=== PATIENT | male | born 1995 | race Caucasian/White ===

== ENCOUNTER 2022-11-29 15:37 | Emergency (ER) | payer SELFPAY ==
[2022-11-29 15:39] VITALS: BP 148/90; PULSE 92; RESP 20; TEMP 36.8; O2SAT 98; BMI 21.9
--- NOTE | 2022-11-29 15:56 | ECG_ITS ---
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
--- NOTE | 2022-11-29 15:58 | ED_ITS ---
HPI - Psych General Chief Complaint: Psychiatric Symptoms Time Seen by Provider: 11/29/22 15:50 Source: Reports patient Mode of arrival: law enforcement Limitations: Reports no limitations History of Present Illness HPI Narrative: 27-year-old male presents to the emergency department for chief complaint of anxiety. He was on his way to a drug treatment center and he threatened to jump out of the car. He arrived at the drug treatment center and police and paramedics were called and he was brought here. He states that he probably has methamphetamine in him. No complaints of fever or chest pain or abdominal pain. These issues seem to have started today. Related Data Allergies Allergy/AdvReac Type Severity Reaction Status Date / Time No Known Drug Allergies Allergy Verified 11/29/22 15:44 Review of Systems ROS Narrative unable to be obtained, psychiatric disorder Exam Narrative Exam Narrative: Nurses note and vital signs reviewed and patient is not hypoxic. General: The patient appears anxious. Skin: Warm, dry, no pallor noted. There is no rash noted. Head: Normocephalic, atraumatic Eye: Normal conjunctiva, no drainage Ears, Nose, Mouth, and Throat: oral mucosa is moist. Nares patent. Cardiovascular: Regular Rate and Rhythm, tachycardic Respiratory: Patient is in no distress, no accessory muscle use, lungs are clear to auscultation, no wheezing, rales or rhonchi Back: non-tender GI: soft and nontender Musculoskeletal: The patient has no evidence of calf tenderness, no pitting edema, symmetrical pulses noted bilaterally Neurological: A&O x4, normal speech, upper and lower extremity strength intact Psychiatric: answers my questions appropriately. Appears anxious. Constitutional Vital Signs - 24 hr 11/29/22 15:39 Temperature 98.2 F Pulse Rate [Monitor] 92 H Respiratory Rate 20 Blood Pressure [Right Arm] 148/90 H Pulse Oximetry 98 Oxygen Delivery Method Room Air Course Vital Signs Vital signs: Vital Signs Temperature 98.2 F 11/29/22 15:39 Pulse Rate 92 H 11/29/22 15:39 Respiratory Rate 20 11/29/22 15:39 Blood Pressure 148/90 H 11/29/22 15:39 Pulse Oximetry 98 11/29/22 15:39 Oxygen Delivery Method Room Air 11/29/22 15:39 Temperature 98.2 F 11/29/22 15:39 Pulse Rate 92 H 11/29/22 15:39 Respiratory Rate 20 11/29/22 15:39 Blood Pressure 148/90 H 11/29/22 15:39 Pulse Oximetry 98 11/29/22 15:39 Oxygen Delivery Method Room Air 11/29/22 15:39 MDM - Psych MDM Narrative Medical decision making narrative: the patient was given IV fluids. He has methamphetamine and amphetamine on his drug screen as well as cannabinoids. P is being consulted and the patient is being observed here. the patient is signed out to Dr. Whittaker Differential Diagnosis Differential diagnosis: Likely suicidal ideation and other (substance abuse) Lab Data Attestation: I reviewed the patient's lab results. Labs: Lab Results 11/29/22 11/29/22 Range/Units 16:15 17:35 WBC 10.0 (4.0-11.0) 10^3/uL RBC 5.23 (4.70-6.10) 10^6/uL Hgb 15.7 (14.0-18.0) g/dL Hct 44.4 (42.0-54.0) % MCV 84.9 (80.0-94.0) fL MCH 30.0 (25.9-34.0) pg MCHC 35.4 H (29.9-35.2) g/dL RDW 12.3 (11.0-15.0) % Plt Count 245 (150-450) 10^3/uL MPV 8.7 L (9.5-13.5) fL Neut % (Auto) 79.0 H (43.0-75.0) % Lymph % (Auto) 13.5 L (20.5-60.0) % [place] % (Auto) 6.7 (1.7-12.0) % Eos % (Auto) 0.3 L (0.9-7.0) % Baso % (Auto) 0.3 (0.2-2.0) % Neut # (Auto) 7.9 H (1.4-6.5) 10^3/uL Lymph # (Auto) 1.4 (1.2-3.8) 10^3/uL [place] # (Auto) 0.7 (0.3-0.8) 10^3/uL Eos # (Auto) 0.0 (0.0-0.7) 10^3/uL Baso # (Auto) 0.0 (0.0-0.1) 10^3/uL Abs Immat Gran (auto) 0.02 (0.00-0.03) 10^3/uL Imm/Tot Granulo (auto) 0.2 (0.0-0.5) % Sodium 139 (136-145) mmol/L Potassium 3.6 (3.5-5.1) mmol/L Chloride 103 (98-107) mmol/L Carbon Dioxide 28.6 (21.0-32.0) mmol/L Anion Gap 11.0 BUN 14.0 (7.0-18.0) mg/dL Creatinine 1.00 (0.70-1.30) mg/dL Est GFR ( Amer) >60 (>=60) Est GFR (Non-Af Amer) >60 (>=60) BUN/Creatinine Ratio 14.0 Glucose 97 (74-106) mg/dL Calcium 9.5 (8.5-10.1) mg/dL Urine Color Yellow (YELLOW) Urine Clarity Clear (CLEAR) Urine pH 7.5 (5.0-9.0) Ur Specific [place] 1.020 (1.005-1.025) Urine Protein Trace (NEG/TRACE) mg/dL Urine Glucose (UA) Negative (NEGATIVE) mg/dL Urine Ketones 15 A (NEGATIVE) mg/dL Urine Occult Blood Negative (NEGATIVE) Urine Nitrite Negative (NEGATIVE) Urine Bilirubin Negative (NEGATIVE) Urine Urobilinogen 1.0 (0.2-1.0) EU/dL Ur Leukocyte Esterase Negative (NEGATIVE) Salicylates 3.0 (<=19.9) mg/dL Urine Opiates Screen Negative (NEGATIVE) Ur Buprenorphine Scrn Negative (NEGATIVE) Ur Oxycodone Screen Negative (NEGATIVE) Urine Methadone Screen Negative (NEGATIVE) Ur Propoxyphene Screen Negative (NEGATIVE) Acetaminophen <2.0 L (10.0-30.0) ug/mL Ur Barbiturates Screen Negative (NEGATIVE) U Tricyclic Antidepress Negative (NEGATIVE) Ur Phencyclidine Scrn Negative (NEGATIVE) Ur Amphetamines Screen Positive A (NEGATIVE) U Methamphetamines Scrn Positive A (NEGATIVE) U Benzodiazepines Scrn Positive A (NEGATIVE) Urine Cocaine Screen Negative (NEGATIVE) U Cannabinoids Screen Positive A (NEGATIVE) Ethanol Quant <3 mg/dL ECG Data Attestation: I personally reviewed and interpreted this ECG as follows: (EKG on my interpretation shows sinus rhythm with a rate of 85.) Discharge Plan Discharge Chief Complaint: Psychiatric Symptoms Clinical Impression: Polysubstance abuse Patient Disposition: Still a Patient Referrals: Physician,Non-Staff, MD [Primary Care Provider] - 1 week
[2022-11-29 16:29] LABS: Basophils Percent Auto 0.3 % (0.2-2.0); Eosinophils Percent Auto 0.3 % (0.9-7.0); Hematocrit 44.4 % (42.0-54.0); Hemoglobin 15.7 g/dL (14.0-18.0); Immature Granulocytes Abs Auto 0.02 10^3/uL (0.00-0.03); Immature Granulocytes Pct Auto 0.2 % (0.0-0.5); Lymphocytes Absolute Auto 1.4 10^3/uL (1.2-3.8); Lymphocytes Percent Auto 13.5 % (20.5-60.0); Mean Corpuscular HGB Conc 35.4 g/dL (29.9-35.2); Mean Corpuscular Volume 84.9 fL (80.0-94.0); Mean Platelet Volume 8.7 fL (9.5-13.5); Monocytes Absolute Auto 0.7 10^3/uL (0.3-0.8); Monocytes Percent Auto 6.7 % (1.7-12.0); Neutrophils Absolute Auto 7.9 10^3/uL (1.4-6.5); Platelet Count 245 10^3/uL (150-450); Red Blood Count 5.23 10^6/uL (4.70-6.10); Red Cell Distribution Width 12.3 % (11.0-15.0)
[2022-11-29] MEDS: 0.9 % SODIUM CHLORIDE 1,000 ML 1000 ML IV (16:34)
[2022-11-29] MEDS: LORAZEPAM 2 MG/ML 1 ML VIAL 1 MG IV ×2 (16:35→18:30)
[2022-11-29 16:44] LABS: Calcium 9.5 mg/dL (8.5-10.1); Carbon Dioxide 28.6 mmol/L (21.0-32.0); Chloride 103 mmol/L (98-107); Estimated GFR (African America >60 (>=60); Estimated GFR (Non-African Ame >60 (>=60); Glucose 97 mg/dL (74-106); Potassium 3.6 mmol/L (3.5-5.1); Sodium 139 mmol/L (136-145)
[2022-11-29 16:54] LABS: Acetaminophen <2.0 ug/mL (10.0-30.0); Ethanol <3 mg/dL
[2022-11-29 18:01] LABS: Bilirubin Urine NEGATIVE (NEGATIVE); Blood Urine NEGATIVE (NEGATIVE); Clarity Urine CLEAR (CLEAR); Color Urine YELLOW (YELLOW); Glucose Urine UA NEGATIVE (NEGATIVE); Ketones Urine 15 mg/dL (NEGATIVE); Leukocyte Esterase Urine NEGATIVE (NEGATIVE); Nitrite Urine NEGATIVE (NEGATIVE); Protein Urine TRACE mg/dL (NEG/TRACE); pH Urine 7.5 (5.0-9.0)
[2022-11-29 18:02] LABS: Urine Microscopic Indicated NO
[2022-11-29 18:11] LABS: Amphetamine Screen Urine POSITIVE (NEGATIVE); Barbiturates Screen Urine NEGATIVE (NEGATIVE); Benzodiazepines Screen Urine POSITIVE (NEGATIVE); Cannabinoid Screen Urine POSITIVE (NEGATIVE); Cocaine Screen Urine NEGATIVE (NEGATIVE); Methadone Screen Urine NEGATIVE (NEGATIVE); Methamphetamines Screen Urine POSITIVE (NEGATIVE); Opiate Screen Urine NEGATIVE (NEGATIVE); Phencyclidine Screen Urine NEGATIVE (NEGATIVE); Tricyclic Antidepressant Urine NEGATIVE (NEGATIVE)
[2022-11-29 18:12] LABS: Buprenorphine Screen Urine NEGATIVE (NEGATIVE); Oxycodone Screen Urine NEGATIVE (NEGATIVE)
--- NOTE | 2022-11-29 18:44 | ED_ITS ---
HPI - Psych General Chief Complaint: Psychiatric Symptoms Time Seen by Provider: 11/29/22 15:50 Source: Reports patient Mode of arrival: law enforcement Limitations: Reports no limitations History of Present Illness HPI Narrative: 27-year-old male presents for thoughts of harming himself. He was on his way to a drug treatment center and was being driven there and tried to jump out of the car but he didn't. Upon arrival of the drug treatment center he expressed thoughts of hurting himself and police were called and paramedics were called and he was brought here. He admits to using methamphetamine. He did not overdose on anything. He has warrants out for his arrest and police accompany him. This occurred just before coming into the emergency department. Related Data Allergies Allergy/AdvReac Type Severity Reaction Status Date / Time No Known Drug Allergies Allergy Verified 11/29/22 15:44 Review of Systems ROS Narrative A ten point review of systems is negative except as noted above. Exam Narrative Exam Narrative: Nurses note and vital signs reviewed and patient is not hypoxic. General: The patient appears anxious. Skin: Warm, dry, no pallor noted. There is no rash noted. Head: Normocephalic, atraumatic Eye: Normal conjunctiva, no drainage Ears, Nose, Mouth, and Throat: oral mucosa is moist. Nares patent. Cardiovascular: Regular Rate and Rhythm, initially tachycardic Respiratory: Patient is in no distress, no accessory muscle use, lungs are clear to auscultation, no wheezing, rales or rhonchi Back: non-tender GI: soft and nontender Musculoskeletal: The patient has no evidence of calf tenderness, no pitting edema, symmetrical pulses noted bilaterally Neurological: A&O x4, normal speech Psychiatric: Cooperative Constitutional Vital Signs - 24 hr 11/29/22 15:39 Temperature 98.2 F Pulse Rate [Monitor] 92 H Respiratory Rate 20 Blood Pressure [Right Arm] 148/90 H Pulse Oximetry 98 Oxygen Delivery Method Room Air Course Vital Signs Vital signs: Vital Signs Temperature 98.2 F 11/29/22 15:39 Pulse Rate 92 H 11/29/22 15:39 Respiratory Rate 20 11/29/22 15:39 Blood Pressure 148/90 H 11/29/22 15:39 Pulse Oximetry 98 11/29/22 15:39 Oxygen Delivery Method Room Air 11/29/22 15:39 Temperature 98.2 F 11/29/22 15:39 Pulse Rate 92 H 11/29/22 15:39 Respiratory Rate 20 11/29/22 15:39 Blood Pressure 148/90 H 11/29/22 15:39 Pulse Oximetry 98 11/29/22 15:39 Oxygen Delivery Method Room Air 11/29/22 15:39 MDM - Psych MDM Narrative Medical decision making narrative: drug screen is positive for methamphetamine and amphetamine and cannabinoids and benzodiazepines. He is medically cleared and mental health services is contacted. The patient is signed out to Dr. Whittaker. Differential Diagnosis Differential diagnosis: Likely suicidal ideation, bipolar disorder, drug-induced psychotic disorder and acute anxiety Lab Data Attestation: I reviewed the patient's lab results. Labs: Lab Results 11/29/22 11/29/22 Range/Units 16:15 17:35 WBC 10.0 (4.0-11.0) 10^3/uL RBC 5.23 (4.70-6.10) 10^6/uL Hgb 15.7 (14.0-18.0) g/dL Hct 44.4 (42.0-54.0) % MCV 84.9 (80.0-94.0) fL MCH 30.0 (25.9-34.0) pg MCHC 35.4 H (29.9-35.2) g/dL RDW 12.3 (11.0-15.0) % Plt Count 245 (150-450) 10^3/uL MPV 8.7 L (9.5-13.5) fL Neut % (Auto) 79.0 H (43.0-75.0) % Lymph % (Auto) 13.5 L (20.5-60.0) % [place] % (Auto) 6.7 (1.7-12.0) % Eos % (Auto) 0.3 L (0.9-7.0) % Baso % (Auto) 0.3 (0.2-2.0) % Neut # (Auto) 7.9 H (1.4-6.5) 10^3/uL Lymph # (Auto) 1.4 (1.2-3.8) 10^3/uL [place] # (Auto) 0.7 (0.3-0.8) 10^3/uL Eos # (Auto) 0.0 (0.0-0.7) 10^3/uL Baso # (Auto) 0.0 (0.0-0.1) 10^3/uL Abs Immat Gran (auto) 0.02 (0.00-0.03) 10^3/uL Imm/Tot Granulo (auto) 0.2 (0.0-0.5) % Sodium 139 (136-145) mmol/L Potassium 3.6 (3.5-5.1) mmol/L Chloride 103 (98-107) mmol/L Carbon Dioxide 28.6 (21.0-32.0) mmol/L Anion Gap 11.0 BUN 14.0 (7.0-18.0) mg/dL Creatinine 1.00 (0.70-1.30) mg/dL Est GFR ( Amer) >60 (>=60) Est GFR (Non-Af Amer) >60 (>=60) BUN/Creatinine Ratio 14.0 Glucose 97 (74-106) mg/dL Calcium 9.5 (8.5-10.1) mg/dL Urine Color Yellow (YELLOW) Urine Clarity Clear (CLEAR) Urine pH 7.5 (5.0-9.0) Ur Specific [place] 1.020 (1.005-1.025) Urine Protein Trace (NEG/TRACE) mg/dL Urine Glucose (UA) Negative (NEGATIVE) mg/dL Urine Ketones 15 A (NEGATIVE) mg/dL Urine Occult Blood Negative (NEGATIVE) Urine Nitrite Negative (NEGATIVE) Urine Bilirubin Negative (NEGATIVE) Urine Urobilinogen 1.0 (0.2-1.0) EU/dL Ur Leukocyte Esterase Negative (NEGATIVE) Salicylates 3.0 (<=19.9) mg/dL Urine Opiates Screen Negative (NEGATIVE) Ur Buprenorphine Scrn Negative (NEGATIVE) Ur Oxycodone Screen Negative (NEGATIVE) Urine Methadone Screen Negative (NEGATIVE) Ur Propoxyphene Screen Negative (NEGATIVE) Acetaminophen <2.0 L (10.0-30.0) ug/mL Ur Barbiturates Screen Negative (NEGATIVE) U Tricyclic Antidepress Negative (NEGATIVE) Ur Phencyclidine Scrn Negative (NEGATIVE) Ur Amphetamines Screen Positive A (NEGATIVE) U Methamphetamines Scrn Positive A (NEGATIVE) U Benzodiazepines Scrn Positive A (NEGATIVE) Urine Cocaine Screen Negative (NEGATIVE) U Cannabinoids Screen Positive A (NEGATIVE) Ethanol Quant <3 mg/dL ECG Data Attestation: I personally reviewed and interpreted this ECG as follows: ( EKG on my interpretation shows sinus rhythm with a rate of 85.) Discharge Plan Discharge Patient Disposition: Still a Patient
--- NOTE | 2022-11-29 20:51 | PC.NURSE ---
pATIENT RESTING, GIVEN WATER, Animal Biologist at bedside
== END 2022-11-29 21:36 ==
PROVIDERS: Emergency Medicine; Emergency Provider Emergency Medicine
DX: R45.851 Suicidal ideations (principal); F19.10 Other psychoactive substance abuse, uncomplicated
CPT/HCPCS: 36415; 80048; 80179; 80307; 80320; 80329; 81003; 85025; 93005; 96374; 96376; 99285

== ENCOUNTER 2023-06-19 23:24 | Emergency (ER) | payer SELFPAY ==
[2023-06-19 23:27] VITALS: BP 140/69; PULSE 92; RESP 18; TEMP 36.9; O2SAT 100; BMI 22.5
--- NOTE | 2023-06-19 23:50 | XR_ITS ---
The [address] [address] Patient Name: ADITYA RICHARDSON MRN: [id number] date: 1995 Sex: M Assigned Patient Location: ER Current Patient Location: ER Accession/Order Number: [id number] Exam Date: 06/19/2023 23:58 Report Date: 06/20/2023 00:51 At the request of: AMY PRIEST Procedure: XR chest 2V CXR HISTORY: Cough COMPARISON: None. TECHNIQUE: 2 view of the chest submitted for review. FINDINGS: The lungs are hyperaerated with increased retrosternal airspace and flattening of the hemidiaphragms. Lines and tubes: None Lungs are hyperaerated. No acute focal infiltrate. No effusion. Cardiomediastinal silhouette within normal limits. Pulmonary vascularity is unremarkable. Osseous structures are normal for age. XR/XR chest 2V IMPRESSION: No plain film evidence for acute cardiopulmonary disease. Electronically authenticated by: CHUCK WARREN Date: 06/20/2023 00:51
--- NOTE | 2023-06-19 23:51 | ED.GENADUL1 ---
HPI - General Adult General Chief complaint: Shortness of Breath/Dyspnea Stated complaint: sob/cough Time Seen by Provider: 06/19/23 23:34 Source: patient Mode of arrival: walk-in Limitations: no limitations History of Present Illness HPI narrative: patient states he has been ill for one week with cough. smokes cigarettes. no fever. no chest pain or nausea. Related Data Home Medications Medication Instructions Recorded Confirmed divalproex 250 mg tablet,extended mg PO 06/19/23 release 24 hr fluoxetine 10 mg capsule mg 06/19/23 olanzapine 5 mg tablet mg 06/19/23 trazodone 50 mg tablet mg 06/19/23 Allergies Allergy/AdvReac Type Severity Reaction Status Date / Time No Known Drug Allergies Allergy Verified 06/19/23 23:27 Review of Systems ROS Status of ROS 10 or more systems reviewed and unremarkable except as noted in history and below [facility] Social History Smoking status: Current some day smoker Exam Constitutional Vital Signs, click to edit/add: Last Vital Signs Temp 98.4 F 06/19/23 23:27 Pulse 92 H 06/19/23 23:27 Resp 18 06/19/23 23:27 BP 140/69 06/19/23 23:27 Pulse Ox 100 06/19/23 23:27 O2 Del Method Room Air 06/19/23 23:27 Common normals: no apparent distress, average body habitus, oriented x3, no limitations, healthy appearing and alert Eye Common normals: EOMs intact bilaterally Respiratory Common normals: normal respiratory effort, no retractions, no use of accessory muscles and clear to auscultation bilaterally Cardio Common normals: regular rate, regular rhythm, S1 normal heart sound and S2 normal heart sound Extremity Common normals: normal to inspection and full ROM Neuro Common normals: oriented x3, CN's II-XII intact bilaterally, moves all extremities and no focal motor deficits Psych Appearance: grossly normal Course Vital Signs Vital signs: Vital Signs Temperature 98.4 F 06/19/23 23:27 Pulse Rate 92 H 06/19/23 23:27 Respiratory Rate 18 06/19/23 23:27 Blood Pressure 140/69 06/19/23 23:27 Pulse Oximetry 100 06/19/23 23:27 Oxygen Delivery Method Room Air 06/19/23 23:27 Temperature 98.4 F 01/12/24 23:27 Pulse Rate 92 H 06/19/23 23:27 Respiratory Rate 18 06/19/23 23:27 Blood Pressure 140/69 06/19/23 23:27 Pulse Oximetry 100 06/19/23 23:27 Oxygen Delivery Method Room Air 06/19/23 23:27 Medical Decision Making MDM Narrative Medical decision making narrative: presents ill for one week with cough and nasal stuffiness. Does smoke cigarettes. Cough is productive and he feels short of breath. No distress on exam. CXray clear and nasal swab neg. Patient informed of the working diagnosis of bronchitis and discharged home with a prescription for zithromax Lab Data Labs: Lab Results 06/20/23 Range/Units 00:00 Adenovirus (PCR) Not detected (NOT DETECTE) C. pneumoniae DNA (PCR) Not detected (NOT DETECTE) Coronavirus Type OC43 Not detected (NOT DETECTE) Coronavirus Type HKU1 Not detected (NOT DETECTE) Coronavirus Type 229E Not detected (NOT DETECTE) Coronavirus Type NL63 Not detected (NOT DETECTE) Human Metapneumovir PCR Not detected (NOT DETECTE) M. pneumoniae (PCR) Not detected (NOT DETECTE) Parainfluenza PCR Not detected (NOT DETECTE) Parainfluenza 2 (PCR) Not detected (NOT DETECTE) Parainfluenza 3 (PCR) Not detected (NOT DETECTE) Parainfluenza 4 (PCR) Not detected (NOT DETECTE) RSV (RT-PCR) Not detected (NOT DETECTE) Entero/Rhino (PCR) Not detected (NOT DETECTE) SARS-CoV-2 (PCR) Not detected (NOT DETECTE) Bordetella pertussis (PCR) Not detected (NOT DETECTE) B parapertussis DNA PCR Not detected (NOT DETECTE) Influenza Type A (PCR) Not detected (NOT DETECTE) Influenza Type B (PCR) Not detected (NOT DETECTE) Imaging Data Chest x-ray: Radiologist's impression: ITS Impressions Chest X-Ray 06/19/23 23:50 IMPRESSION: No plain film evidence for acute cardiopulmonary disease. Electronically authenticated by: CHUCK WARREN Date: 06/20/2023 00:51 Discharge Plan Discharge Chief Complaint: Shortness of Breath/Dyspnea Clinical Impression: Acute bronchitis Patient Disposition: Home, Self-Care Prescriptions / Home Meds: No Action trazodone 50 mg tablet olanzapine 5 mg tablet fluoxetine 10 mg capsule divalproex 250 mg tablet extended release 24 hr PO Instructions: Acute Bronchitis (ED) Stand Alone Forms: Portal Instructions Referrals: Physician,Non-Staff, MD [Primary Care Provider] - 1 week
[2023-06-20 00:10] LABS: Adenovirus NOT DETECTED (NOT DETECTE); Coronavirus 229E NOT DETECTED (NOT DETECTE); Coronavirus HKU1 NOT DETECTED (NOT DETECTE); Coronavirus NL63 NOT DETECTED (NOT DETECTE); Coronavirus OC43 NOT DETECTED (NOT DETECTE); Human Metapneumovirus NOT DETECTED (NOT DETECTE); SARS-CoV-2 NOT DETECTED (NOT DETECTE)
[2023-06-20 00:11] LABS: Bordetella parapertussis NOT DETECTED (NOT DETECTE); Human Rhinovirus/Enterovirus NOT DETECTED (NOT DETECTE); Influenza A NOT DETECTED (NOT DETECTE); Influenza B NOT DETECTED (NOT DETECTE); Mycoplasma pneumoniae NOT DETECTED (NOT DETECTE); Parainfluenza Virus 1 NOT DETECTED (NOT DETECTE); Parainfluenza Virus 2 NOT DETECTED (NOT DETECTE); Parainfluenza Virus 3 NOT DETECTED (NOT DETECTE); Parainfluenza Virus 4 NOT DETECTED (NOT DETECTE); Respiratory Syncytial Virus NOT DETECTED (NOT DETECTE)
[2023-06-20] MEDS: AZITHROMYCIN 250 MG TABLET 500 MG PO (01:13)
== END 2023-06-20 01:26 | disposition home or self-care (01) ==
PROVIDERS: Emergency Provider Internal Medicine
DX: J20.9 Acute bronchitis, unspecified (principal); F17.210 Nicotine dependence, cigarettes, uncomplicated; Z79.899 Other long term (current) drug therapy; Z20.822 Contact with and (suspected) exposure to COVID-19
CPT/HCPCS: 0202U; 71046; 99284

== ENCOUNTER 2023-07-23 13:25 | Emergency (ER) | payer SELFPAY ==
[2023-07-23] VITALS (32 sets, daily range): BP systolic 93–149; BP diastolic 50–93; PULSE 73–138; RESP 12–40; TEMP 36.4; O2SAT 90–100; BMI 29.8
--- NOTE | 2023-07-23 13:44 | ECG_ITS ---
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
--- NOTE | 2023-07-23 13:46 | ED_ITS ---
HPI - Anxiety General Chief Complaint: Anxiety Stated Complaint: ANXIOUSNESS Time Seen by Provider: 07/23/23 13:39 Source: patient Mode of arrival: walk-in Limitations: no limitations History of Present Illness HPI narrative: 27 year old male presents to the ED for anxiety. His anxiety has been getting worse over the past few days. Family states today it became severe. Pt has not been taking his divalproex, fluoxetine, olanzapine, and trazodone for some time now due to financial issues. He has hx anxiety, schizoaffective disorder. Pt denies suicidal ideations. Reports racing thoughts, paranoia, palpitations, SOB. Denies pain. Related Data Home Medications Medication Instructions Recorded Confirmed divalproex 250 mg tablet,extended 250 mg PO DAILY 06/19/23 07/23/23 release 24 hr fluoxetine 10 mg capsule 10 mg PO DAILY 06/19/23 07/23/23 olanzapine 5 mg tablet 10 mg PO DAILY 06/19/23 07/23/23 trazodone 50 mg tablet 100 mg PO BEDTIME 06/19/23 07/23/23 Allergies Allergy/AdvReac Type Severity Reaction Status Date / Time No Known Drug Allergies Allergy Verified 07/23/23 13:31 Review of Systems ROS Constitutional Denies: fever or chills Ears, nose, mouth, and throat Denies: throat pain or neck pain Cardiovascular Reports: palpitations; Denies: chest pain or edema Respiratory Reports: shortness of breath; Denies: cough Gastrointestinal Denies: abdominal pain, nausea, vomiting or diarrhea Musculoskeletal Denies: back pain Integumentary/Breast Denies: rash Neurological Denies: headache, numbness in extremities, weakness in extremities or dizziness Psychiatric Reports: anxiety; Denies: suicidal ideation or homicidal ideation PFSH PFS Social History Smoking status: Current some day smoker Exam Constitutional Vital Signs, click to edit/add: Last Vital Signs Temp 97.6 F 07/23/23 13:31 Pulse 86 07/23/23 18:00 Resp 22 07/23/23 18:00 BP 93/57 07/23/23 17:00 Pulse Ox 97 07/23/23 17:40 O2 Del Method Room Air 07/23/23 13:31 Common normals: no apparent distress and oriented x3 General appearance: cooperative and anxious HENMT Mouth: oral and palatal mucosa normal and lip normal Eye Common normals: PERRL, EOMs intact bilaterally, conjunctivae normal and no scleral icterus Neck & C-Spine Common normals: supple Chest Chest: symmetrical chest wall rise Respiratory Effort & inspection: able to speak in complete sentences, symmetric chest movement and tachypneic Cardio Common normals: regular rhythm Rate: tachycardic Neuro Common normals: oriented x3 Sensorium/orientation: awake and alert Speech: speech normal Psych Attitude: not aggressive Activity/motor behavior: fidgeting and hyperactive Speech: rapid Mood and affect: anxious Thought process: racing thoughts Thought content: no suicidality and no homicidality Course Vital Signs Vital signs: Vital Signs Temperature 97.6 F 07/23/23 13:31 Pulse Rate 127 H 07/23/23 13:31 Respiratory Rate 26 H 07/23/23 13:31 Blood Pressure 149/93 H 07/23/23 13:31 Pulse Oximetry 100 07/23/23 13:31 Oxygen Delivery Method Room Air 07/23/23 13:31 Temperature 97.6 F 07/23/23 13:31 Pulse Rate 86 07/23/23 18:00 Respiratory Rate 22 07/23/23 18:00 Blood Pressure 93/57 07/23/23 17:00 Pulse Oximetry 97 07/23/23 17:40 Oxygen Delivery Method Room Air 07/23/23 13:31 MDM - Anxiety MDM Narrative Medical decision making narrative: The patient was having racing thoughts, paranoia. He appeared anxious. He did became agitated here. He was medicated with Ativan and Haldol with improvement. The patient tested positive for methamphetamines and cannabinoids. He was accepted for transfer at [facility] for further evaluation and treatment. The RN spoke with staff regarding the patient's transfer to the facility. Differential Diagnosis Differential diagnosis: Likely panic disorder and acute anxiety Medical Records Attestation: I reviewed the patient's medical records. Lab Data Attestation: I reviewed the patient's lab results. Labs: Lab Results 07/23/23 07/23/23 07/23/23 Range/Units 14:00 15:28 15:48 WBC 8.3 (4.0-11.0) 10^3/uL RBC 5.07 (4.70-6.10) 10^6/uL Hgb 15.4 (14.0-18.0) g/dL Hct 44.7 (42.0-54.0) % MCV 88.2 (80.0-94.0) fL MCH 30.4 (25.9-34.0) pg MCHC 34.5 (29.9-35.2) g/dL RDW 12.6 (11.0-15.0) % Plt Count 248 (150-450) 10^3/uL MPV 8.9 L (9.5-13.5) fL Neut % (Auto) 72.2 (43.0-75.0) % Lymph % (Auto) 20.9 (20.5-60.0) % [place] % (Auto) 5.8 (1.7-12.0) % Eos % (Auto) 0.2 L (0.9-7.0) % Baso % (Auto) 0.5 (0.2-2.0) % Neut # (Auto) 6.0 (1.4-6.5) 10^3/uL Lymph # (Auto) 1.7 (1.2-3.8) 10^3/uL [place] # (Auto) 0.5 (0.3-0.8) 10^3/uL Eos # (Auto) 0.0 (0.0-0.7) 10^3/uL Baso # (Auto) 0.0 (0.0-0.1) 10^3/uL Abs Immat Gran (auto) 0.03 (0.00-0.03) 10^3/uL Imm/Tot Granulo (auto) 0.4 (0.0-0.5) % Sodium 144 (136-145) mmol/L Potassium 4.6 (3.5-5.1) mmol/L Chloride 107 (98-107) mmol/L Carbon Dioxide 27.0 (21.0-32.0) mmol/L Anion Gap 14.6 BUN 9.0 (7.0-18.0) mg/dL Creatinine 1.22 (0.70-1.30) mg/dL Est GFR ( Amer) >60 (>=60) Est GFR (Non-Af Amer) >60 (>=60) BUN/Creatinine Ratio 7.4 Glucose 104 (74-106) mg/dL Calcium 10.0 (8.5-10.1) mg/dL Urine Color Yellow (YELLOW) Urine Clarity Clear (CLEAR) Urine pH 8.5 (5.0-9.0) Ur Specific [place] 1.020 (1.005-1.025) Urine Protein Trace (NEG/TRACE) mg/dL Urine Glucose (UA) Negative (NEGATIVE) mg/dL Urine Ketones Trace A (NEGATIVE) mg/dL Urine Occult Blood Negative (NEGATIVE) Urine Nitrite Negative (NEGATIVE) Urine Bilirubin Negative (NEGATIVE) Urine Urobilinogen 1.0 (0.2-1.0) EU/dL Ur Leukocyte Esterase Negative (NEGATIVE) Salicylates 3.6 (<=19.9) mg/dL Urine Opiates Screen Negative (NEGATIVE) Ur Buprenorphine Scrn Negative (NEGATIVE) Ur Oxycodone Screen Negative (NEGATIVE) Urine Methadone Screen Negative (NEGATIVE) Acetaminophen <2.0 L (10.0-30.0) ug/mL Ur Barbiturates Screen Negative (NEGATIVE) U Tricyclic Antidepress Negative (NEGATIVE) Ur Phencyclidine Scrn Negative (NEGATIVE) Ur Amphetamines Screen Negative (NEGATIVE) U Methamphetamines Scrn Positive A (NEGATIVE) U Benzodiazepines Scrn Negative (NEGATIVE) Urine Cocaine Screen Negative (NEGATIVE) U Cannabinoids Screen Positive A (NEGATIVE) Ethanol Quant <3 mg/dL SARS-CoV-2 Ag (CV2AG) Negative (NEGATIVE) ECG Data Attestation: ?I have reviewed the pertinent ECG results. (EKG was reviewed by the attending physician. It showed sinus tachycardia at a rate of 129. No acute ST segment changes. ) Interpretation: Measurements Intervals [place] Rate: 129 P: 88 IA: 176 QRS: -69 QRSD: 82 T: 57 QT: 342 QTc: 418 Interpretive Statements 1120 Sinus tachycardia 1969 with occasional ectopic premature complexes 3634 Inferior myocardial infarction, age undetermined 7200 Abnormal left axis deviation 9150 abnormal ECG No previous ECG available for comparison Discharge Plan Discharge Chief Complaint: Anxiety Clinical Impression: Acute paranoia, Anxiety state Patient Disposition: [facility] Time of Disposition Decision: 18:09 Discharge location: [facility] Condition: Good Mode of Transportation: Mental Health Car Discharge Date/Time: 07/23/23 18:06
[2023-07-23 14:13] LABS: Basophils Percent Auto 0.5 % (0.2-2.0); Eosinophils Percent Auto 0.2 % (0.9-7.0); Hematocrit 44.7 % (42.0-54.0); Hemoglobin 15.4 g/dL (14.0-18.0); Immature Granulocytes Abs Auto 0.03 10^3/uL (0.00-0.03); Immature Granulocytes Pct Auto 0.4 % (0.0-0.5); Lymphocytes Absolute Auto 1.7 10^3/uL (1.2-3.8); Lymphocytes Percent Auto 20.9 % (20.5-60.0); Mean Corpuscular HGB Conc 34.5 g/dL (29.9-35.2); Mean Corpuscular Hemoglobin 30.4 pg (25.9-34.0); Mean Corpuscular Volume 88.2 fL (80.0-94.0); Mean Platelet Volume 8.9 fL (9.5-13.5); Monocytes Absolute Auto 0.5 10^3/uL (0.3-0.8); Monocytes Percent Auto 5.8 % (1.7-12.0); Neutrophils Percent Auto 72.2 % (43.0-75.0); Platelet Count 248 10^3/uL (150-450); Red Blood Count 5.07 10^6/uL (4.70-6.10); Red Cell Distribution Width 12.6 % (11.0-15.0); White Blood Count 8.3 10^3/uL (4.0-11.0)
[2023-07-23] MEDS: LORAZEPAM 2 MG/ML 1 ML VIAL IM (14:18)
[2023-07-23 14:31] LABS: Anion Gap 14.6; BUN Creatinine Ratio 7.4; Chloride 107 mmol/L (98-107); Estimated GFR (African America >60 (>=60); Estimated GFR (Non-African Ame >60 (>=60); Glucose 104 mg/dL (74-106); Potassium 4.6 mmol/L (3.5-5.1); Salicylate 3.6 mg/dL (<=19.9); Sodium 144 mmol/L (136-145)
[2023-07-23 14:34] LABS: Acetaminophen <2.0 ug/mL (10.0-30.0)
[2023-07-23] MEDS: HALOPERIDOL LACTATE 5 MG/ML VIAL IM (14:44)
[2023-07-23 14:48] LABS: Ethanol <3 mg/dL
[2023-07-23 15:37] LABS: Bilirubin Urine NEGATIVE (NEGATIVE); Blood Urine NEGATIVE (NEGATIVE); Clarity Urine CLEAR (CLEAR); Color Urine YELLOW (YELLOW); Glucose Urine UA NEGATIVE (NEGATIVE); Ketones Urine TRACE mg/dL (NEGATIVE); Leukocyte Esterase Urine NEGATIVE (NEGATIVE); Nitrite Urine NEGATIVE (NEGATIVE); Protein Urine TRACE mg/dL (NEG/TRACE); pH Urine 8.5 (5.0-9.0)
[2023-07-23 15:54] LABS: Cannabinoid Screen Urine POSITIVE (NEGATIVE); Cocaine Screen Urine NEGATIVE (NEGATIVE); Methamphetamines Screen Urine POSITIVE (NEGATIVE); Opiate Screen Urine NEGATIVE (NEGATIVE); Phencyclidine Screen Urine NEGATIVE (NEGATIVE); Urine Microscopic Indicated NO
[2023-07-23 15:55] LABS: Amphetamine Screen Urine NEGATIVE (NEGATIVE); Barbiturates Screen Urine NEGATIVE (NEGATIVE); Benzodiazepines Screen Urine NEGATIVE (NEGATIVE); Buprenorphine Screen Urine NEGATIVE (NEGATIVE); Methadone Screen Urine NEGATIVE (NEGATIVE); Oxycodone Screen Urine NEGATIVE (NEGATIVE); Tricyclic Antidepressant Urine NEGATIVE (NEGATIVE)
[2023-07-23 16:14] LABS: SARS-CoV-2 Ag NEGATIVE (NEGATIVE)
== END 2023-07-23 18:06 ==
PROVIDERS: Nurse Practitioner Family; Emergency Provider Emergency Medicine
DX: F41.9 Anxiety disorder, unspecified (principal); F25.9 Schizoaffective disorder, unspecified; F22 Delusional disorders; Z20.822 Contact with and (suspected) exposure to COVID-19; R82.5 Elevated urine levels of drugs, medicaments and biological substances; F17.210 Nicotine dependence, cigarettes, uncomplicated; Z79.899 Other long term (current) drug therapy
CPT/HCPCS: 36415; 80048; 80179; 80307; 80320; 80329; 81003; 85025; 87811; 93005; 96372; 99285; J1630; J2060

== ENCOUNTER 2023-08-13 13:15 | Emergency (ER) | payer SELFPAY ==
[2023-08-13] VITALS (8 sets, daily range): BP systolic 130–131; BP diastolic 86–98; PULSE 96–110; RESP 16–28; TEMP 36.5; O2SAT 97–100; BMI 23.7
--- NOTE | 2023-08-13 13:20 | ECG_ITS ---
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
--- NOTE | 2023-08-13 13:31 | ED.OVERDOSE1 ---
HPI - Overdose General Chief Complaint: Overdose Stated Complaint: OVERDOSE Time Seen by Provider: 08/13/23 13:25 Source: patient and other Mode of arrival: ambulance Limitations: no limitations History of Present Illness HPI Narrative: This patient to us by paramedics. Apparently police had received a phone call from a female group home paraprofessional of potential overdose. Local police initiated treatment and gave 2 sequential doses of Narcan. When paramedics arrived they felt it was prudent to administer the third dose of Narcan and at that time the patient started having spontaneous breaths per patient is in woke up. I did review some previous records and he does have a history of polysubstance abuse and psychiatric disease and noncompliance with medications. Approximately a month ago he was transferred to a psychiatric center. It is not clear if they did any type of drug rehab program. Here in the ER he is awake and alert wants to go home and we have encouraged him to stay for a period of observation. He admits to taking drugs today and thinks that they were probably laced. Related Data Home Medications Medication Instructions Recorded Confirmed divalproex 250 mg tablet,extended 250 mg PO DAILY 06/19/23 07/23/23 release 24 hr fluoxetine 10 mg capsule 10 mg PO DAILY 06/19/23 07/23/23 olanzapine 5 mg tablet 10 mg PO DAILY 06/19/23 07/23/23 trazodone 50 mg tablet 100 mg PO BEDTIME 06/19/23 07/23/23 Allergies Allergy/AdvReac Type Severity Reaction Status Date / Time No Known Drug Allergies Allergy Verified 07/23/23 13:31 [facility] Social History Smoking status: Former smoker Exam Constitutional Vital Signs, click to edit/add: Last Vital Signs Temp 97.7 F 08/13/23 13:19 Pulse 102 H 08/13/23 13:19 Resp 22 08/13/23 13:19 BP 130/98 H 08/13/23 13:19 Pulse Ox 100 08/13/23 13:19 O2 Del Method Room Air 08/13/23 13:19 Course Vital Signs Vital signs: Vital Signs Temperature 97.7 F 08/13/23 13:19 Pulse Rate 102 H 08/13/23 13:19 Respiratory Rate 22 08/13/23 13:19 Blood Pressure 130/98 H 08/13/23 13:19 Pulse Oximetry 100 08/13/23 13:19 Oxygen Delivery Method Room Air 08/13/23 13:19 Temperature 97.7 F 08/13/23 13:19 Pulse Rate 102 H 08/13/23 13:19 Respiratory Rate 22 08/13/23 13:19 Blood Pressure 130/98 H 08/13/23 13:19 Pulse Oximetry 100 08/13/23 13:19 Oxygen Delivery Method Room Air 08/13/23 13:19 Discharge Plan Discharge Stand Alone Forms: Portal Instructions Chief Complaint: Overdose Clinical Impression: Overdose Patient Disposition: Home, Self-Care Time of Disposition Decision: 14:05 Prescriptions / Home Meds: No Action trazodone 50 mg tablet 100 mg PO BEDTIME olanzapine 5 mg tablet 10 mg PO DAILY fluoxetine 10 mg capsule 10 mg PO DAILY divalproex 250 mg tablet extended release 24 hr 250 mg PO DAILY Additional Instructions: Consider local rehab programs. Return for any further problems today Referrals: Physician,Non-Staff, MD [Primary Care Provider] - 1 week
== END 2023-08-13 14:18 | disposition home or self-care (01) ==
PROVIDERS: Emergency Provider Emergency Medicine Emergency Medical Services
DX: T50.901A Poisoning by unspecified drugs, medicaments and biological substances, accidental (unintentional), initial encounter (principal); Z87.891 Personal history of nicotine dependence; Z79.899 Other long term (current) drug therapy
CPT/HCPCS: 93005; 99283

== ENCOUNTER 2023-10-28 22:25 | Emergency (ER) | payer SELFPAY ==
--- OUTSIDE RECORDS SUMMARY | 2023-10-28 22:35 | XMS_ITS | CCD ---
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 Model Name Role Phone REQUEST, NONE LISTED Primary Care Unavaila lourdes HARE, DR NINA Frey Attending Unavailabl e ANANYA, DR NINA Frey Consulting Unavailabl e TANKECK, DR NINA Frey Admitting Unavailabl e REQUEST, NONE LISTED Primary Care Unavaila GANESH Hayes Admitting Unavailable PRANAV, DR PRASHANTH Solis Consulting Unavailable GANESH LOVE Attending Unavailable Aditya Weiss Consulting Unavailable GANESH LOVE Consulting Unavailable REQUEST, NONE LISTED Primary Care Unavaila GANESH Hayes Admitting Unavailable GANESH LOVE Attending Unavailable GANESH LOVE Consulting Unavailable NO FAMILY, PHYSICIAN Primary Care Provider Unava AKBAR Santiago Emergency Provider Unavailable Primary Care Provider UnavailOLE Jolly Admitting Unavailable BILLY JOSHI Attending Unavailable CARON ZEE Consulting Unavailable HARDIK GAGNON Consulting Unavailable VINOD MONTANA Consulting Unavailable JANNETH ALVAREZ Consulting Unavaila Harvey De Attending Unavailable Harvey Delgadillo Admitting Unavailable Provider, None Primary Care Unavailable NO FAMILY, PHYSICIAN Primary Care Unavailable Jamie Metcalf Admitting Unavailab Jamie Gould Attending Unavailab le NO FAMILY, PHYSICIAN Primary Care Unavailable Tahir Cnonell Admitting Unavailable Tahir Connell Attending Unavailable NO FAMILY, PHYSICIAN Primary Care Unavailable Jamie Metcalf Admitting Unavailab le Jamie Metcalf Attending Unavailab le Medications Current Medications Medication Drug Class(es) Dates Sig (Normalized) Sig (Original) Acetaminophen (1 source) Start: 02-21-2023 acetaminophen (TYLENOL) tablet 650 mg albuterol 0.833 mg/ml / ipratropium bromide 0.167 mg/ml inhalation solution (2 sources) Anticholinergic, beta2-Adrenergic Agonist Start: 02-22-2023 ipratropium 0.5 mg-albuterol 2.5 mg (DUONEB) nebulizer solution 1 Dose Start: 02-21-2023 End: 02-22-2023 take 1 dose by inhalation every four hours 1 Dose, Inhalation, EVERY 4 HOURS WHILE AWAKE RESP, First dose on 02/21/23 at 2000, Until Discontinued Initiate RT Bronchodilator Protocol: Yes - Inpatient Protocol aspirin 81 mg chewable tablet (2 sources) Platelet Aggregation Inhibitor, Nonsteroidal Anti-inflammatory Drug Start: 02-22-2023 aspirin chewable tablet 81 mg Start: 02-21-2023 End: 02-21-2023 aspirin chewable tablet 324 mg atorvastatin 10 mg oral tablet (1 source) HMG-CoA Reductase Inhibitor Start: 02-22-2023 atorvastatin (LIPITOR) tablet 10 mg doxycycline hyclate 100 mg oral tablet (2 sources) Tetracycline-class Drug Start: 02-23-2023 End: 03-02-2023 take 1 tablet by mouth every twelve hours doxycycline hyclate (VIBRA-TABS) 100 MG tablet Take 1 tablet by mouth every 12 hours for 10 doses 10 tablet 0 02/25/2023 03/02/2023 Active 2 ml fentaNYL 0.05 mg/ml injection (1 source) Opioid Agonist Start: 02-22-2023 fentaNYL (SUBLIMAZE) injection 50 mcg FLUoxetine 10 mg oral capsule (2 sources) Serotonin Reuptake Inhibitor Start: 02-24-2023 FLUoxetine (PROZAC) capsule 10 mg glucagon (rdna) 1 mg injection (1 source) Antihypoglycemic Agent Start: 02-21-2023 glucagon (rDNA) injection 1 mg 1000 ml glucose 100 mg/ml injection (3 sources) Start: 02-21-2023 dextrose 10 % infusion Start: 02-21-2023 dextrose bolus 10% 125 mL Start: 02-21-2023 glucose chewab le tablet 16 g 12 hr guaiFENesin 600 mg extended release oral tablet (2 sources) Start: 02-24-2023 guaiFENesin (M UCINEX) extended release tablet 600 mg Start: 06-13-2021 End: 11-26-2022 take 1 mL by mouth every four hours Guaifenesin Discontinued 10 ML PO Q4H 1 June 13, 2021 1:00am November 26, 2022 7:20pm 24 hr nicotine 0.875 mg/hr transdermal system (3 sources) Cholinergic Nicotinic Agonist Start: 02-26-2023 apply 1 dose transdermal route once daily nicotine (NICODERM CQ) 21 MG/24HR Place 1 patch onto the skin daily 30 patch 3 02/26/2023 Active Start: 02-23-2023 nicotine (YOVANY DERM CQ) 21 MG/24HR 1 patch Start: 06-18-2021 End: 11-26-2022 Nicotine (Polacrilex) Discon tinued 2 MG BUCCAL Q2H June 18, 2021 1:00am November 26, 2022 7:20pm Griffith (No Known Home Meds) (1 source) Start: 11-26-2022 Griffith (No Kn own Home Meds) Active November 26, 2022 12:00am OLANZapine 10 mg oral tablet (4 sources) Atypical Antipsychotic Start: 02-23-2023 OLANZap ine (ZYPREXA) tablet 10 mg Start: 06-13-2021 End: 06-18-2021 take 1 tablet by mouth twice daily Olanzapine (Zyprexa) 5 mg tablet Discontinued 5 MG PO Twice daily June 14, 2021 7:53pm June 18, 2021 1:10pm ondansetron (ZOFRAN-ODT) disintegrating tablet 4 mg (1 source) Start: 02-21-2023 ondansetron (Z OFRAN-ODT) disintegrating tablet 4 mg divalproex sodium 125 mg delayed release oral capsule (3 sources) Mood Stabilizer, Anti-epileptic Agent Start: 02-23-2023 divalproex (DEPAKOTE SPRINKLE) DR capsule 250 mg Start: 06-18-2021 End: 11-26-2022 take 250 mg by mouth twice daily Divalproex Discontinued 250 MG PO Twice daily 60 30 June 18, 2021 1:00am November 26, 2022 7:20pm take 1 tablet by laurie twice daily divalproex (DEPAKOTE) [address] tablet Take 1 tablet by mouth 2 times daily 0 Suspended Completed/Discontinued Medications Medication Drug Class(es) Dates Sig (Normalized) Sig (Original) chlorhexidine gluconate 1.2 mg/ml mouthwash (1 source) Start: 02-21-2023 End: 02-22-2023 chlorhexidine (PERIDEX) 0.12 % solution 15 mL cholecalciferol 1.25 mg oral capsule (1 source) Vitamin D Cholecalciferol (VITAMIN D3) 1.25 MG (26234 UT) CAPS Take 1 capsule by mouth every 7 days 0 Suspended 0.3 ml enoxaparin sodium 100 mg/ml prefilled syringe (1 source) Low Molecular Weight Heparin Start: 02-21-2023 End: 02-22-2023 inject 30 mg by subcutaneous injection twice daily 30 mg, SubCUTAneous, 2 TIMES DAILY, First dose on 02/21/23 at 2100, Until Discontinued Indication of Use: Prophylaxis-DVT/PE Administer by deep subCUTAneous injection with pt lying down. Alternate injection sites on abdominal wall. Do not rub site after injection. Check with provider prior to any invasive procedure. escitalopram 10 mg oral tablet (3 sources) Serotonin Reuptake Inhibitor Start: 06-13-2021 End: 11-26-2022 take 1 tablet by mouth once daily at bedtime Escitalopram Oxalate (Lexapro) 10 mg tablet Discontinued 10 MG PO Daily at bedtime June 18, 2021 1:09pm November 26, 2022 7:20pm famotidine (PEPCID) 20 mg in sodium chloride (PF) 0.9 % 10 mL injection (1 source) Start: 02-21-2023 End: 02-22-2023 famotidine (PEPCID) 20 mg in sodium chloride (PF) 0.9 % 10 mL injection 250 ml heparin sodium, porcine 100 unt/ml injection (3 sources) Unfractionated Heparin, Anti-coagulant Start: 02-22-2023 End: 02-22-2023 heparin (porcine) injection 4,000 Units Start: 02-22-2023 End: 02-23-2023 heparin 25,000 units in dext lucretia 5% 250 mL (premix) infusion Start: 02-22-2023 End: 02-23-2023 heparin (porcine) injection 2,000 Units 24 hr paliperidone 9 mg extended release oral tablet (1 source) Atypical Antipsychotic Start: 06-18-2021 End: 11-26-2022 take 9 mg by mouth once daily at bedtime Paliperidone Discontinued 9 MG PO Daily at bedtime June 18, 2021 1:00am November 26, 2022 7:20pm piperacillin-tazoba ctam (ZOSYN) 3,375 mg in sodium chloride 0.9 % 50 mL IVPB (mini-bag) (2 sources) Start: 02-21-2023 End: 02-23-2023 piperacillin-tazob actam (ZOSYN) 3,375 mg in sodium chloride 0.9 % 50 mL IVPB (mini-bag) Start: 02-21-2023 End: 02-21-2023 piperacillin-tazobactam (ZOS YN) 3,375 mg in sodium chloride 0.9 % 50 mL IVPB (mini-bag) polyethylene glycol 3350 37030 mg powder for oral solution (1 source) Osmotic Laxative Start: 02-21-2023 17 g, Oral, D AILY PRN, Starting on 02/21/23 at 1643, Until Discontinued, Constipation First line therapy for constipation potassium bicarbonate 20 meq effervescent oral tablet (1 source) Start: 02-23-2023 End: 02-23-2023 potassium bicarb-citric acid (EFFER-K) effervescent tablet 20 mEq Start: 02-23-2023 End: 02-23-2023 potassium bicarb-citric acid (EFFER-K) effervescent tablet 20 mEq 100 ml propofol 10 mg/ml injection (1 source) General Anesthetic Start: 02-21-2023 End: 02-22-2023 propofol infusion 1000 ml sodium chloride 9 mg/ml injection (6 sources) Start: 02-21-2023 take 1 dose intravenously twice daily 5-40 mL, IntraVENous, EVERY 12 HOURS SCHEDULED (2 times per day), First dose on 02/21/23 at 2100, Until Discontinued For Line Patency: Peripheral IV = 5 mL; Midline or Central Line = 10 mL/lumen.&nbsp ; If following IV push medication, administer flush at same rate as the IV push. Flush volume is determined by type of infusion therapy being given. For non-viscous solutions use: Peripher al IV = 5 mL Midline or Central Line = 10 mL/lumen &nbs p;For viscous solutions (i.e. blood components, parenteral nutrition, contrast media, or after obtaining blood sample) use: Peripher al IV = 10 mL Midline or Central Line = 20 mL/lumen Start: 02-21-2023 End: 02-25-2023 0.9 % sodium chloride infusi on Start: 02-21-2023 IntraVENous, a t 5-250 mL/hr, PRN, if patient receiving piggyback infusions and maintenance fluids are not ordered OR KVO fluids to protect IV site / prevent frequent line interruptions/ long duration, Starting on 02/21/23 at 1643 For piggyback infusion, administer at same rate as piggyback for a total of 25 mL. Enter 25 mL into dose field and piggyback rate into rate field of order. If piggyback is infusing at a rate less than 100 mL/hr, enter 25 mL into dose field and 100 mL/hr into rate field of order. For KVO fluids, enter rate of 20 mL/hr or less into rate field of order. Start: 02-21-2023 take 5-40 mL intrave nously once as needed 5-40 mL, IntraVENous, PRN, Starting on 02/21/23 at 1643, Until Discontinued, Line Care, After every IV line use For Line Patency: Peripheral IV = 5 mL; Midline or Central Line = 10 mL/lumen. If following IV push medication, administer flush at same rate as the IV push. Flush volume is determined by type of infusion therapy being given. For non-viscous solutions use: Peripheral IV = 5 mL Midline or Central Line = 10 mL/lumen For viscous solutions (i.e. blood components, parenteral nutrition, contrast media, or after obtaining blood sample) use: Peripheral IV = 10 mL Midline or Central Line = 20 mL/lumen Start: 02-21-2023 End: 02-21-2023 sodium chloride 0.9 % bolus 1,000 mL traZODone hydrochloride 50 mg oral tablet (2 sources) Serotonin Reuptake Inhibitor End: 02-25-2023 take 1 tablet by mouth once daily traZODone (DESYREL) 50 MG tablet Take 1 tablet by mouth nightly 0 02/25/2023 Discontinued (Stop Taking at Discharge) vancomycin (VANCOCIN) 1,250 mg in sodium chloride 0.9 % 250 mL IVPB ([id number]) (1 source) Start: 02-22-2023 End: 02-23-2023 vancomycin (VANCOCIN) 1,250 mg in sodium chloride 0.9 % 250 mL IVPB ([id number]) vancomycin (VANCOCIN) 1,500 mg in sodium chloride 0.9 % 250 mL IVPB ([id number]) (1 source) Start: 02-21-2023 End: 02-21-2023 vancomycin (VANCOCIN) 1,500 mg in sodium chloride 0.9 % 250 mL IVPB ([id number]) Problems Active Problems Problem Classification Problem Date Documented Date Episodic/Chronic Acute and unspecified renal failure (4 sources) Acute renal failure syndrome; Translations: [Acute kidney failure, unspecified] Onset: 02-22-2023 02-21-2023 Episodic Acute myocardial infarction (2 sources) Myocardial infarction; Translations: [Non-ST elevation (NSTEMI) myocardial infarction] Onset: 02-23-2023 02-23-2023 Chronic Anxiety disorders (4 sources) Anxiety disorder, unspecified; Translations: [ANXIETY DISORDER UNSPECIFIED] Onset: 06-09-2021 Chronic Aspiration pneumonitis; food/vomitus (4 sources) Aspiration pneumonitis; Translations: [Pneumonitis due to inhalation of food and vomit] Onset: 02-22-2023 02-21-2023 Episodic Asthma (1 source) Asthma; Translations: [Unspecified asthma, uncomplicated] 06-09-2021 Chronic Coma; stupor; and brain damage (2 sources) Loss of consciousness; Translations: [Unspecified coma] Onset: 02-23-2023 02-23-2023 Episodic Fluid and electrolyte disorders (2 sources) Lactic acidosis; Translations: [Lactic acidosis] Onset: 02-22-2023 02-22-2023 Episodic Mood disorders (1 source) Psychotic disorder; Translations: [Major depressive disorder, single episode, severe with psychotic features] 06-10-2021 Chronic Mood disorders (1 source) Mood disorders; Translations: [Depression, unspecified] Onset: 11-29-2022 Other aftercare (1 source) Other intermodal dispatcher (current) drug therapy; Translations: [OTH DYNAMOMETER TESTER ENGINE CURRENT DRUG THERAPY] Onset: 06-17-2021 Episodic Other connective tissue disease (2 sources) Non-traumatic rhabdomyolysis; Translations: [Rhabdomyolysis] Onset: 02-22-2023 02-22-2023 Episodic Other ear and sense organ disorders (2 sources) Asymmetrical sensorineural hearing loss; Translations: [Sensorineural hearing loss, bilateral] Onset: 02-24-2023 02-24-2023 Chronic Other hematologic conditions (3 sources) Raised cardiac enzyme or marker; Translations: [Other specified abnormalities of plasma proteins] Onset: 02-22-2023 02-22-2023 Episodic Other hematologic conditions (1 source) Other specified abnormalities of plasma proteins; Translations: [Other specified abnormalities of plasma proteins] Onset: 02-22-2023 Episodic Other nervous system disorders (2 sources) Disorder of brain; Translations: [Encephalopathy, unspecified] Onset: 02-22-2023 02-22-2023 Chronic Other nervous system disorders (3 sources) Toxic encephalopathy; Translations: [Toxic encephalopathy] Onset: 02-22-2023 02-21-2023 Episodic Poisoning by other medications and drugs (2 sources) Poisoning by unspecified drugs, medicaments and biological substances, undetermined, initial encounter; Translations: [Poisoning by unspecified drug or medicinal substance] Onset: 02-21-2023 02-21-2023 Episodic Residual codes; unclassified (3 sources) Auditory hallucinations; Translations: [AUDITORY HALLUCINATIONS] Onset: 06-14-2021 Episodic Respiratory failure; insufficiency; arrest (adult) (2 sources) Acute respiratory failure; Translations: [Acute respiratory failure with hypoxia] Onset: 02-22-2023 02-22-2023 Episodic Schizophrenia and other psychotic disorders (5 sources) Schizophrenia, unspecified; Translations: [Delusional disorders] Onset: 06-11-2021 11-26-2022 Chronic Substance-related disorders (1 source) Nicotine dependence, cigarettes, uncomplicated; Translations: [NICOTINE DEPEND CIGARETTES UNCOMP] Onset: 06-11-2021 Chronic Suicide and intentional self-inflicted injury (1 source) Suicidal ideations; Translations: [SUICIDAL IDEATIONS] Onset: 06-17-2021 Episodic Unclassified (1 source) CONTACT W/AND (SUSP) EXPOS COVID-19; Translations: [CONTACT W/AND (SUSP) EXPOS COVID-19] Onset: 06-11-2021 Unclassified (1 source) Unspecified toxic encephalopathy; Translations: [Unspecified toxic encephalopathy] Onset: 02-22-2023 Viral infection (1 source) COVID-19; Translations: [Severe acute respiratory syndrome coronavirus 2 (SARS-CoV-2) detected] 06-09-2021 Episodic Viral infection (1 source) COVID-19; Translations: [COVID-19] Onset: 06-17-2021 Past or Other Problems Problem Classification Problem Date Documented Da te Episodic/Chronic Noninfectious gastroenteritis (1 source) Noninfective gastroenteritis and colitis, unspecified; Translations: [NONINFECTIVE GE AND COLITIS UNS] Onset: 08-27-2020 Episodic Other gastrointestinal disorders (3 sources) Constipation, unspecified; Translations: [CONSTIPATION UNSPECIFIED] Onset: 08-22-2020 Episodic Screening and history of mental health and substance abuse codes (1 source) Personal history of nicotine dependence; Translations: [PERSONAL HISTORY OF NICOTINE DEPEND] Onset: 08-27-2020 Episodic Substance-related disorders (3 sources) Narcotic drug user; Translations: [Opioid use, unspecified, uncomplicated] Onset: 11-29-2022 02-23-2023 Episodic Results Test Name Value Interpretation Reference Range Facility Coding Summaryon 03-03-2023 Coding Summary HTMLBase 64 FzlnxwmvPFi8lGr+PGhl YWQ+UZ6WGAVcP67wwWMo fR1jH1CYHIvCYftfODVU TAfMCoOmooQhQQ7xrKVe ZXJu IC8+AB5dQWMsEmyqrXHz u6E0bGA7Z49ozg6dXHkc mPD6NRFzObHjajkup9pr zGo0AEqrZnwrSlPu UXQyfE72PPP8rS54Of25 oOBlaCXyy0cktDn4LlIe EDUhBLR8oTpdDXcze6Wz YFOoS93sjPOui7M7 IGNvbGxhcHNlOyBlbXB0 bB6tPUnmvetoz9tnbtef Knm7yz11eTYdw1T5rXR3 U1RrltQ3XDSycDLo LyffsDJWeT4cpkrpw4lr opfvJrZdDYMqLRb6FUe4 AXViwUbdZkViXF81PLX8 ZJEpdpOsO3SfJXSw xHlmNmV2v0G3Ul0EB5FT WaypU9LIKZKABPqhuRL+ OA33ki59A7HfKsawUlc0 CXRaVXR0xIH9xI0q MRGeOIjcz0Y4yLP5A3Cv amLbff8jb7beVOQqRSte R64lpGMxl3N8PHVbbOT9 HXZzoWrqLlRgpB47 Oyc+TOAffQvue1JqSuav j2rlg0chjHt3IeubEGUv rwFwhOgkQVA2r5NpKg4n JITbyEX4wFT2kM0a JzZyGrO6MSquW585QjTf cGCzEqelY31uC4DgeKY+ QVAyKtb1EGUjkDkdGY9c W8KxWNFnerfnjXPr dBkqGM3bWUJtztcyCCKb kL7aLLKgV7o8BtYjUoY3 TQygP2WxYIXrapomHi42 jY6lJdFiQxU8TDht I6UqcuA7WMDefQBfZPep PMI2G79ll9E0IJHnEXYt MOY1dQG8qA7rfMmjdpef bGVmdDsgdmVydGlj MEfxOCvqS800PMPkuLde PkNvZGluZyBEYXRlOiAg MDkvMjYvMjAyMzwvdGQ+ ITRqOFE9nDxkWGHm nJYcYFkoLx2kxUsxqFhl WY4yNYGmltbiUYKdlD6a EOKbiGPecIugWZ0yTRBd mbvvj363YgIaDEU4 EGYgoAAsI6YpeU4yYaNd BFRoICQlI3NycIXcGXnk R119CWiqCzV4OYWzihYp Z2UjPBClkOodNgT3 s5J3Gc7Uy1RgryvkR1Qm gRVxYfIkJhgrRRy4Z8Aa PjwvdHI+DE40SVRuYY61 VPs1QBY4cCyhPRvi KZIaG3WnmM2ySaFdHCCh ZGRkOyc+PHRhYmxlIHdp ZHRoPScxMDAlJyBzdHls NX5dNg7oQRHfLXEu lOlqyEIxEbVeu7niDJEw SRweOZ7liAfoA2EoaWU0 ISXkf6m6Ob85C89vL2Jd dXA+OFIyyEP6sMQ8 iV2vMjIvIuY4ELdhI697 HqPffTDjRtjes3apd8ek rKn5WhN4SGFvwlWedTvf TBT3d2OlTi37G28j IHdpZHRoPSIxNSUiIHZh nNiksg3wbW4pBl2+PGNv zFO0yHG3lD1yFrVxQgJ4 UZajH834QrOppIVd Odyyw8pav1rjrVl5NoDa GBVduuIvdEdmBUB9x0El Ad70Q0HrwRmvp1OzPwd4 vf57zFYos1O0zVT9 I2UcRHOlhvfkcFDqfFbb BQ5yLQQmeobeKUWesQ9z WXEpX9u9BaGuWqH6QYov R0YjghZ6OUJztUKm ZHUoqBZYwX6tivbhk8zu xnemWzUiUBLhBVo4WIn2 YERzcGbyWrHpUXT8QhR5 IPF7zSLkaI3mnIam ezimpS0qSvx+HEY7hYBs zFCHGM8aKslpgTJ+PHRk PRV8tKjlBPzuBZEsfB8z LHEmL8z8LkLiFmD1 GJnvJ4VrmwG1OSHsrROj XKIniNRWqJ8gvnkmt3ih jgvzStZhLHKkWVn7DMc2 LWFsaWduOiBsZWZ0 OzM1RIC5cDAlcP5hiMbv hcfltK5hJhk+QmlydGgg YTY6KJp9Q3ZzKxy2RCLr eRiyNC4phHEaFGyp Ma0tvCbafIooCR8xHTBv limww431HvKff2erDPAl qAXtTGxpBCJ6Z92oa5Q9 OFBmSAKkNFO9mGS7 tM8czNttfzrqbHOtxGoq xgNxvGuhQLxkXLsbG624 YSKgnBsmLeEvYCv6H5Ud Asm1PCXjqGggME9q hHSvHXslAt0oiNuboNwm UG5fEXLvfiqvm709NmZh j1dqJNNxpVOhETqfHVA8 Q48mw8R5NCMgEYNy NBF5yLU0nG9xiXcssgss bGVmdDsgdmVydGljYWwt BPzrA865WDCucMdvYqQr sKh1A6FeGrd7VCCk aJfdPI2pdCQbKAqrQq7i yIecjXdzXI0oLTWulalj z180AyVic8lsZVArmZWb HOxpSPK1D16av2V0 KGVgHAEkBRB2rGA1eA6d bGlnbjogbGVmdDsgdmVy yRznIPfvJGbrQ458UPEi cDsnPlBhdGllbnQg SYpjQVb7X2JdVlfppST+ GZ36AVByMY32kYIwdTIc f9xgcSp1ChLjMDGsCEJ8 yFqwLKxfw7UcBMSg P71uyLSyb7K6AMMccLtp gPHiZdNqdXO5sS8zKZex yjcvt2slyjbkLfilt0ma wh43aS30G29rCOkg ZHRoPSIzMCUiIHZhbGln ji6usD3aSr1+PGNvbCB3 mNV6fJ8dMRSzNgL7COtk G649EfFklVJyIhty m2xuz4udnSn6HsY5ADZn seSlrHuyUXK1b7LuRp52 S92cXDycVEWvAADmSVGs WPJzmYzxvw6trY4s Ii8+ITMpzCJ0nEO8dA1p WbCrZyP3DRxkV982AwJg jXFiFlfwB60eV6UgsKU+ GJXbRlo2SQEeiXss RC6bqIIbVQynUn6bUIF5 QgNlJyWqUStuO6ZmYHUw tcisouoaaJT9NRLzQGBz zN49Ll5wiIysGIXb sQIAnB2ucjpfd5xlnxrk QbIjHENySBx4AEs9FOMu rVqvPqPoVOS7GzA4YPU3 bLVnzZ5bsSukucdy wY6pT9OgJERmdcrbJq06 lG5aCnNyKmQ3HPsuObn+ QPGGAILoDA3BF2oHNHo3 O1DmZiw8WVQidWua TP4fhGEbAAhwZi7rpYsv tYzeMO0uQMByrtoaNUEn dG7zVHBbeHMtvBymTF7z JLIdtycss369JqCo UYH7VSSngGHrZ4QauH2c QvXbGBDdDDTfS6KvgEJk GNwlL856MXqiEdT6RQBj mjFzT7ElPMGedNiy FcE9r9K5St8fUj7qGV5q VBc3FA16GJ41kJDux7U3 qVG7Q1BxNRMnsmftxjkq yWD8NMZdTUGfsC87 aUDzZXeaHh7vs4L0v464 LXGxBIPiuI69Mh7elJuq COGigFDAyT0dwjciq0hp cjogIzAwMDAwMDt0 LTb4NFGtmHznMzFaQUO4 KpS2TEC7dWPleW4llMkb ofopkK2sUzx+MjggWWVh owU9Y8TeEcp6GEYo hMrvIV5gjICcMEgmDd1g gZqafEyhSI5uMMWpvptq KJIyjR2kNFUhrMHklYik ZB0hLOPtvjiuh221 PzOtRWH8YAQmkLTfW2Fi yT5zQaJtTMNvPIHaA6Bz iBRvNOssW395TDatIrP5 LYYarvVbZ4VwBEKo fLhrDlU3e2S2Re9YDWuD TZ67RF79wPEec5V3zDL0 N1HbYMUocdevumaylXN0 KVJaSSTqfT93sWKf SPtuAj4gj9W8n676PNQk TVIjtV03Ro0onPdgOEAh wGYPiX6nsknvm1xwxszs RmUjTRXgATw3NFz6 BVIhnCfbBqXdCJR8UmR8 NPR2aCGowB7ibVzjnwxh iG6lDce+QX3rtdovqmJ1 HQ71MO03D2LtOmkx dGFibGU+PHRhYmxlIHdp ZHRoPScxMDAlJyBzdHls TU8jJr3oZGByMFTcwYvi qGQsNeXhj4hnPMZb KJczOW2uvUaqO1UluCF5 JJIux4z8Ng39K60eL1Rs dXA+KDNioPU1rCY6oT6y HwIeZuI1WSpfG597 LlUbgPQyYckye9odx3nv xZv0ZzUwTHJndmJkrXtt FKV5f5XwFo55I63aQWbp ZHRoPSIyMCUiIHZh xQjcgw5rxN0sOc5+PGNv uPO8zFB2tL3vBhIfGsJ3 LCwlN605RnDmhXMyXluf H41xD6VtoQI+PHRy Cjo2OYKgfHghGS2fyWHm SRcgXx0mZJC4RhKtNlKd TXruQ8ToBBWhwmexvknq kON3YOUzBEBbnK33 Cj6wbBwsWl7tCZOoNNE9 CMQjxRWuC2VnkM3dJuDj NRLdAILfQ3CiqJTuZArt S904PRloKjH2HYNa piRlE5LuJFPjoIxlBmC5 m5P9Qu8RdAsddFRyFD4f OzHuAXl4L5EsOwp4ENNm kAksYF5juHJmETwr Xq9xhOkkbQdeFN0bAFYj ydiqr125NtSmc7pqWPWq iSGaFAmaWZF6W48ub7H3 FNXhBVEpHDQ5aFJ0 aW1mhQyzvjwztRUwcWjj zzWrwUoeLUefCVvvQ872 LLVngCfeRkSTMhv0B8Hr Zhs6VNEcxLchJR8d vDRiWWqrJm4woPiepSmh NK4bQEYrgztqv207LzAu f1ajJDVdjDIsGVzyWFA8 S31si3T9FDLlAEAu JCM2qAN9xJ4wqWaswnjr bGVmdDsgdmVydGljYWwt QNktP162KIKopUraAi8A Pkf0R3GgFlf5BXVh tNorCN2psLChWBuoSw7s sOirdMcvNW3cBQTmjbsw v616FcSgb2jdTCIlkETa EKfoFZE1M29el3H2 KQIsECNtQSA8nXH5yA8o bGlnbjogbGVmdDsgdmVy fBurRFgdDAfiY117SIUm cDsnPlBheWVyOjwv dGQ+ZW35dp81Z8LeFhhj Nxw8QXXuWCI5zSG0lM0p EGOmXThht6Z9fHZ6Y8Uo gbDmnf2bk5jwNJGl ZTo (more content not included)... Normal [facility] Cult,Bloodon 02-26-2023 Cult,Blood Specimen Description .BLOOD Special Requests RIGHT AC 10ML Culture NO GROWTH 5 DAYS Report Status FINAL 02/26/2023 Normal [facility] Comment on above: Performed By: #### C MPX, ERIKA, CK #### [place] [id number] [employer]: Andrew Walter MD Cult,Blood Specimen Description .BLOOD Special Requests LEFT HAND 10ML Culture NO GROWTH 5 DAYS Report Status FINAL 02/26/2023 Normal [facility] Comment on above: Performed By: #### B C #### [facility] [address] [place] [address] [employer]: Andrew Walter MD CBC with Auto Differentialon 02-25-2023 Basophils (Bld) [#/Vol] [facility] Basophils/100 WBC (Bld) 0 % 0 - 2 % [facility] Eosinophils (Bld) [#/Vol] 0.26 10*3/uL [facility] Eosinophils/100 WBC (Bld) 5 % High 1 - 4 % [facility] Erythrocyte distribution width (RBC) [Ratio] 12.9 % 11.8 - 14.4 % [facility] Hematocrit (Bld) [Volume fraction] 37.0 % Low 40.7 - 50.3 % [facility] Hemoglobin (Bld) [Mass/Vol] 12.2 g/dL Low 13.0 - 17.0 g/dL [facility] Immature granulocytes (Bld) [#/Vol] 0.06 10*3/uL [facility] Immature granulocytes/100 WBC (Bld) 1 % High 0 [facility] Interpretation and review of laboratory results Abnormal [facility] Lymphocytes/100 WBC (Bld) 19 % Low 24 - 43 % [facility] Lymphocytes/100 WBC (Bld) 1.03 % Low [facility] MCH (RBC) [Entitic mass] 30.8 pg 25.2 - 33.5 pg [facility] MCHC (RBC) [Mass/Vol] 33.0 g/dL 28.4 - 34.8 g/dL [facility] MCV (RBC) [Entitic vol] 93.4 fL 82.6 - 102.9 fL [facility] Monocytes/100 WBC (Bld) 8 % 3 - 12 % B ON [facility] Monocytes/100 WBC (Bld) 0.40 % B ON [facility] Neutrophils/100 WBC (Bld) 67 % High 36 - 65 % [facility] Nucleated RBC/100 WBC (Bld) [Ratio] 0.0 % 0.0 per 100 WBC [facility] Platelet mean volume (Bld) [Entitic vol] 9.0 fL 8.1 - 13.5 fL [facility] Platelets (Bld) [#/Vol] 152 10*3/uL [facility] RBC (Bld) [#/Vol] 3.96 10*6/uL Low 4.21 - 5.7 7 m/uL [facility] Segmented neutrophils/100 WBC (Bld) 3.55 % [facility] WBC other (Bld) [#/Vol] 5.3 B ON [facility] CBC with Diffon 02-25-2023 Abs. Basophil <0.03 Normal 0.00-0.20 [facility] Comment on above: Performed By: #### C MPX, ERIKA, CK #### [place] [address] [employer]: Andrew Walter MD Abs.Imm.Granulocyte 0.06 k/uL Normal 0.00-0.30 [facility] Comment on above: Performed By: #### C MPX, ERIKA, CK #### [facility] [address] [place] [phone] [employer]: Andrew Walter MD Abs.Neutrophil (Seg) 3.55 k/uL Normal 1.50-8.10 [facility] Comment on above: Performed By: #### C MPX, ERIKA, CK #### [facility] [address] [place] [address] [employer]: Andrew Walter MD Basophils/100 WBC (Bld) 0 % Normal 0-2 [facility] Comment on above: Performed By: #### C MPX, ERIKA, CK #### [place] [address] [employer]: Andrew Walter MD Eosinophils (Bld) [#/Vol] 0.26 10*3/uL Normal 0.00-0.44 [facility] Comment on above: Performed By: #### C MPX, ERIKA, CK #### [facility] [address] [place] [address] [employer]: Andrew Walter MD Eosinophils/100 WBC (Bld) 5 % High 1-4 [facility] Comment on above: Performed By: #### C MPX, ERIKA, CK #### [facility] [address] [place] [address] [employer]: Andrew Walter MD Erythrocyte distribution width (RBC) [Ratio] 12.9 % Normal 11.8-14.4 [facility] Comment on above: Performed By: #### C MPX, ERIKA, CK #### [facility] [address] [place] [address]884 [employer]: Andrew Walter MD Hematocrit (Bld) [Volume fraction] 37.0 % Low 40.7-50.3 [facility] Comment on above: Performed By: #### C MPX, ERIKA, CK #### [facility] [address] [place] [address] [employer]: Andrew Walter MD Hemoglobin (Bld) [Mass/Vol] 12.2 g/dL Low 13.0-17.0 [facility] Comment on above: Performed By: #### C MPX, ERIKA, CK #### [facility] [address] [place] [address] [employer]: Andrew Walter MD Immature granulocytes/100 WBC (Bld) 1 % High 0 [facility] Comment on above: Performed By: #### C MPX, ERIKA, CK #### [facility] [address] [place] [address] [employer]: Andrew Walter MD Lymphocytes (Bld) [#/Vol] 1.03 10*3/uL Low 1.10-3.70 [facility] Comment on above: Performed By: #### C MPX, ERIKA, CK #### [address] [address] [employer]: Andrew Walter MD Lymphocytes/100 WBC (Bld) 19 % Low 24-43 [facility] Comment on above: Performed By: #### C MPX, ERIKA, CK #### [address] [address] [employer]: Andrew Walter MD MCH (RBC) [Entitic mass] 30.8 pg Normal 25.2-33.5 [facility] Comment on above: Performed By: #### C MPX, ERIKA, CK #### [address] [address] [employer]: Andrew Walter MD MCHC (RBC) [Mass/Vol] 33.0 g/dL Normal 28.4-34.8 [facility] Comment on above: Performed By: #### C MPX, ERIKA, CK #### [address] [address] [employer]: Andrew Walter MD MCV (RBC) [Entitic vol] 93.4 fL Normal 82.6-102.9 [facility] Comment on above: Performed By: #### C MPX, ERIKA, CK #### [address] [address] [employer]: Andrew Walter MD Monocytes (Bld) [#/Vol] 0.40 10*3/uL Normal 0.10-1.20 [facility] Comment on above: Performed By: #### C MPX, ERIKA, CK #### [address] [address] [employer]: Andrew Walter MD Monocytes/100 WBC (Bld) 8 % Normal 3-12 [facility] Comment on above: Performed By: #### C MPX, ERIKA, CK #### [address] [address] [employer]: Andrew Walter MD Neutrophil (Seg) 67 % High 36-65 [facility] Comment on above: Performed By: #### C MPX, ERIKA, CK #### [address] [address] [employer]: Andrew Walter MD NRBC Automated 0.0 per 100 WBC Normal 0.0 [facility] Comment on above: Performed By: #### C MPX, ERIKA, CK #### [address] [address] [employer]: Andrew Walter MD Platelet mean volume (Bld) [Entitic vol] 9.0 fL Normal 8.1-13.5 [facility] Comment on above: Performed By: #### C MPX, ERIKA, CK #### [address] [address] [employer]: Andrew Walter MD Platelets (Bld) [#/Vol] 152 10*3/uL Normal 138-453 [facility] Comment on above: Performed By: #### C MPX, ERIKA, CK #### [address] [address] [employer]: Andrew Walter MD RBC (Bld) [#/Vol] 3.96 10*6/uL Low 4.21-5.77 [facility] Comment on above: Performed By: #### C MPX, ERIKA, CK #### [facility] [address] [place] [address] [employer]: Andrew Walter MD WBC (Bld) [#/Vol] 5.3 10*3/uL Normal 3.5-11.3 [facility] Comment on above: Performed By: #### C MPX, ERIKA, CK #### [address] [address] [employer]: Andrew Walter MD CKon 02-25-2023 CK [Catalytic activity/Vol] 929 U/L High 39 - 308 U/L [facility] Metabolic Pr/rfx MGon 0 02-25-2023 Albumin [Mass/Vol] 3.1 g/dL Low 3.5-5.2 [facility] Comment on above: Performed By: #### H EPXA #### [address] [address] [employer]: Andrew Walter MD Albumin/Glob Ratio 1.3 Normal 1.0-2.5 [facility] Comment on above: Performed By: #### H EPXA #### [address] [address] [employer]: Andrew Walter MD Alkaline Phos 48 U/L Normal 40-129 [facility] Comment on above: Performed By: #### H EPXA #### [address] [address] [employer]: Andrew Walter MD ALT [Catalytic activity/Vol] 28 U/L Normal 5-41 [facility] Comment on above: Performed By: #### H EPXA #### [address] [address] [employer]: Andrew Walter MD Anion gap [Moles/Vol] 9 mmol/L Normal 9-17 [facility] Comment on above: Performed By: #### H EPXA #### [address] [address] [employer]: Andrew Walter MD AST [Catalytic activity/Vol] 40 U/L High <40 [facility] Comment on above: Performed By: #### H EPXA #### [address] [address] [employer]: Andrew Walter MD Bilirubin [Mass/Vol] 0.5 mg/dL Normal 0.3-1.2 [facility] Comment on above: Performed By: #### H EPXA #### [address] [address] [employer]: Andrew Walter MD Calcium [Mass/Vol] 8.4 mg/dL Low 8.6-10.4 [facility] Comment on above: Performed By: #### H EPXA #### [address] [address] [employer]: Andrew Walter MD Chloride [Moles/Vol] 111 mmol/L High 98-107 [facility] Comment on above: Performed By: #### H EPXA #### [address] [address] [employer]: Andrew Walter MD CO2 [Moles/Vol] 23 mmol/L Normal 20-31 [facility] Comment on above: Performed By: #### H EPXA #### [address] [address] [employer]: Andrew Walter MD Creatinine [Mass/Vol] 0.6 mg/dL Low 0.7-1.2 [facility] Comment on above: Performed By: #### H EPXA #### [address] [address] [employer]: Andrew Walter MD GFR/1.73 sq M.predicted among non-blacks MDRD (S/P/Bld) [Vol rate/Area] mL/min/{1.73_m2} Normal >60 [facility] Comment on above: Result Comment: These results are not intended for use in patients <18 years of age. eGFR results are calculated without a race factor using the 2020 CKD-EPI equation. Careful clinical correlation is recommended, particularly when comparing to results calculated using previous equations. The CKD-EPI equation is less accurate in patients with extremes of muscle mass, extra-renal metabolism of creatine, excessive creatine ingestion, or following therapy that affects renal tubular secretion. Performed By: #### H EPXA #### [address] [address] [employer]: Andrew Walter MD Glucose [Mass/Vol] 95 mg/dL Normal 70-99 [facility] Comment on above: Performed By: #### H EPXA #### [address] [address] [employer]: Andrew Walter MD Potassium [Moles/Vol] 3.8 mmol/L Normal 3.7-5.3 [facility] Comment on above: Performed By: #### H EPXA #### [address] [address] [employer]: Andrew Walter MD Protein [Mass/Vol] 5.5 g/dL Low 6.4-8.3 [facility] Comment on above: Performed By: #### H EPXA #### [address] [address] [employer]: Andrew Walter MD Sodium [Moles/Vol] 143 mmol/L Normal 135-144 [facility] Comment on above: Performed By: #### H EPXA #### [address] [address] [employer]: Andrew Walter MD Urea nitrogen [Mass/Vol] 10 mg/dL Normal 6-20 [facility] Comment on above: Performed By: #### H EPXA #### [address] [address] [employer]: Andrew Walter MD [facility] Metabolic Pane l w/ Reflex to MGon 02-25-2023 Albumin [Mass/Vol] 3.1 g/dL Low 3.5 - 5.2 g/dL [facility] [employer] [facility] Albumin/Globulin [Mass ratio] 1.3 {ratio} 1.0 - 2.5 [facility] ALP [Catalytic activity/Vol] 48 U/L 40 - 129 U/L [facility] ALT [Catalytic activity/Vol] 28 U/L 5 - 41 U/L [facility] Anion gap [Moles/Vol] 9 mmol/L 9 - 17 mmol/L [facility] AST [Catalytic activity/Vol] 40 U/L High NINF - 40 U/L [facility] Bilirubin [Mass/Vol] 0.5 mg/dL 0.3 - 1 .2 mg/dL [facility] [employer] Calcium [Mass/Vol] 8.4 mg/dL Low 8.6 - 10. 4 mg/dL [facility] Chloride [Moles/Vol] 111 mmol/L High 98 - 10 7 mmol/L [facility] CO2 [Moles/Vol] 23 mmol/L 20 - 31 mmol/L [facility] Creatinine [Mass/Vol] 0.6 mg/dL Low 0.7 - 1.2 mg/dL [facility] GFR/1.73 sq M.predicted MDRD (S/P/Bld) [Vol rate/Area] - PINF [facility] Comment on above: These results are not intended for use in patients <18 years of age. eGFR results are calculated without a race factor using the 2020 CKD-EPI equation. Careful clinical correlation is recommended, particularly when comparing to results calculated using previous equations. The CKD-EPI equation is less accurate in patients with extremes of muscle mass, extra-renal metabolism of creatine, excessive creatine ingestion, or following therapy that affects renal tubular secretion. Glucose [Mass/Vol] 95 mg/dL 70 - 99 mg/dL [email or web address] Potassium [Moles/Vol] 3.8 mmol/L 3.7 - 5.3 mmol/L [facility] [employer] [facility] Protein [Mass/Vol] 5.5 g/dL Low 6.4 - 8.3 g/dL [facility] Sodium [Moles/Vol] 143 mmol/L 135 - 144 mmol/L [facility] Urea nitrogen [Mass/Vol] 10 mg/dL 6 - 20 mg/dL [facility] Creatine Kinaseon 02-25-2023 CK [Catalytic activity/Vol] 929 U/L High 39-308 [facility] Comment on above: Performed By: #### H EPXA #### [facility] [address] [place] [address] [phone] [employer]: Andrew Walter MD No Panel Informationon 02-25 Interpretation and review of laboratory results Abnormal [facility] SPECIMEN REJECTIONon 023 Ordered Test CDP [facility] Reason for Rejection Unable to perform testing: Specimen clotted. [facility] Specimen source Nom (Unsp spec) .BLOOD [facility] Specimen Rejectionon 023 Reason for rejection Unable to perform testing: Specimen clotted. Normal [facility] Comment on above: Performed By: #### R EJEC #### [facility] [address] [place] [address] [phone] [employer]: Andrew Walter MD Source of sample .BLOOD [facility] Comment on above: Performed By: #### R EJEC #### [facility] [address] [place] [address] [phone] [employer]: Andrew Walter MD Test ordered CDP [facility] Comment on above: Performed By: #### R EJEC #### [facility] [address] [place] [address] [phone] [employer]: Andrew Walter MD CBC with Auto Differentialon 02-24-2023 Basophils (Bld) [#/Vol] B ON [facility] Basophils/100 WBC (Bld) 0 % 0 - 2 % [facility] Eosinophils (Bld) [#/Vol] 0.16 10*3/uL [facility] Eosinophils/100 WBC (Bld) 2 % 1 - 4 % [facility] Erythrocyte distribution width (RBC) [Ratio] 13.1 % 11.8 - 14.4 % [facility] Hematocrit (Bld) [Volume fraction] 40.5 % Low 40.7 - 50.3 % [facility] Hemoglobin (Bld) [Mass/Vol] 12.9 g/dL Low 13.0 - 17.0 g/dL [facility] Immature granulocytes (Bld) [#/Vol] 0.03 10*3/uL [facility] Immature granulocytes/100 WBC (Bld) 0 % 0 [facility] Interpretation and review of laboratory results Abnormal [facility] Lymphocytes/100 WBC (Bld) 13 % Low 24 - 43 % [facility] Lymphocytes/100 WBC (Bld) 1.00 % Low [facility] MCH (RBC) [Entitic mass] 30.6 pg 25.2 - 33.5 pg [facility] MCHC (RBC) [Mass/Vol] 31.9 g/dL 28.4 - 34.8 g/dL [facility] MCV (RBC) [Entitic vol] 96.0 fL 82.6 - 102.9 fL [facility] Monocytes/100 WBC (Bld) 7 % 3 - 12 % [facility] Monocytes/100 WBC (Bld) 0.52 % [facility] Neutrophils/100 WBC (Bld) 77 % High 36 - 65 % [facility] Nucleated RBC/100 WBC (Bld) [Ratio] 0.0 % 0.0 per 100 WBC [facility] Platelet mean volume (Bld) [Entitic vol] 9.2 fL 8.1 - 13.5 fL [facility] Platelets (Bld) [#/Vol] 156 10*3/uL [facility] RBC (Bld) [#/Vol] 4.22 10*6/uL 4.21 - 5.7 7 m/uL [facility] Segmented neutrophils/100 WBC (Bld) 5.93 % [facility] WBC other (Bld) [#/Vol] 7.7 [facility] CBC with Diffon 02-24-2023 Abs. Basophil <0.03 Normal 0.00-0.20 [facility] Comment on above: Performed By: #### C MPX, CDP, MG, ERIKA, CK #### [place] [address] [employer]: Andrew Walter MD Abs.Imm.Granulocyte 0.03 k/uL Normal 0.00-0.30 [facility] Comment on above: Performed By: #### C MPX, CDP, MG, ERIKA, CK #### [place] [address] [employer]: Andrew Walter MD Abs.Neutrophil (Seg) 5.93 k/uL Normal 1.50-8.10 [facility] Comment on above: Performed By: #### C MPX, CDP, MG, ERIKA, CK #### [place] [address] [employer]: Andrew Walter MD Basophils/100 WBC (Bld) 0 % Normal 0-2 [facility] Comment on above: Performed By: #### C MPX, CDP, MG, ERIKA, CK #### [place] [address] [employer]: Andrew Walter MD Eosinophils (Bld) [#/Vol] 0.16 10*3/uL Normal 0.00-0.44 [facility] Comment on above: Performed By: #### C MPX, CDP, MG, ERIKA, CK #### [address] [address] [employer]: Andrew Walter MD Eosinophils/100 WBC (Bld) 2 % Normal 1-4 [facility] Comment on above: Performed By: #### C MPX, CDP, MG, ERIKA, CK #### [address] [address] [employer]: Andrew Walter MD Erythrocyte distribution width (RBC) [Ratio] 13.1 % Normal 11.8-14.4 [facility] Comment on above: Performed By: #### C MPX, CDP, MG, ERIKA, CK #### [place] [address] [employer]: Andrew Walter MD Hematocrit (Bld) [Volume fraction] 40.5 % Low 40.7-50.3 [facility] Comment on above: Performed By: #### C MPX, CDP, MG, ERIKA, CK #### [place] [address] [employer]: Andrew Walter MD Hemoglobin (Bld) [Mass/Vol] 12.9 g/dL Low 13.0-17.0 [facility] Comment on above: Performed By: #### C MPX, CDP, MG, ERIKA, CK #### [place] [address] [employer]: Andrew Walter MD Immature granulocytes/100 WBC (Bld) 0 % Normal 0 [facility] Comment on above: Performed By: #### C MPX, CDP, MG, ERIKA, CK #### [place] [address] [employer]: Andrew Walter MD Lymphocytes (Bld) [#/Vol] 1.00 10*3/uL Low 1.10-3.70 [facility] Comment on above: Performed By: #### C MPX, CDP, MG, ERIKA, CK #### [place] [address] [employer]: Andrew Walter MD Lymphocytes/100 WBC (Bld) 13 % Low 24-43 [facility] Comment on above: Performed By: #### C MPX, CDP, MG, ERIKA, CK #### [address] [address] [employer]: Andrew Walter MD MCH (RBC) [Entitic mass] 30.6 pg Normal 25.2-33.5 [facility] Comment on above: Performed By: #### C MPX, CDP, MG, ERIKA, CK #### [address] [address] [employer]: Andrew Walter MD MCHC (RBC) [Mass/Vol] 31.9 g/dL Normal 28.4-34.8 [facility] Comment on above: Performed By: #### C MPX, CDP, MG, ERIKA, CK #### [address] [address] [employer]: Andrew Walter MD MCV (RBC) [Entitic vol] 96.0 fL Normal 82.6-102.9 [facility] Comment on above: Performed By: #### C MPX, CDP, MG, ERIKA, CK #### [address] [address] [employer]: Andrew Walter MD Monocytes (Bld) [#/Vol] 0.52 10*3/uL Normal 0.10-1.20 [facility] Comment on above: Performed By: #### C MPX, CDP, MG, ERIKA, CK #### [address] [address] [employer]: Andrew Walter MD Monocytes/100 WBC (Bld) 7 % Normal 3-12 [facility] Comment on above: Performed By: #### C MPX, CDP, MG, ERIKA, CK #### [address] [address] [employer]: Andrew Walter MD Neutrophil (Seg) 77 % High 36-65 [facility] Comment on above: Performed By: #### C MPX, CDP, MG, ERIKA, CK #### [address] [address] [employer]: Andrew Walter MD NRBC Automated 0.0 per 100 WBC Normal 0.0 [facility] Comment on above: Performed By: #### C MPX, CDP, MG, ERIKA, CK #### [address] [address] [employer]: Andrew Walter MD Platelet mean volume (Bld) [Entitic vol] 9.2 fL Normal 8.1-13.5 [facility] Comment on above: Performed By: #### C MPX, CDP, MG, ERIKA, CK #### [address] [address] [employer]: Andrew Walter MD Platelets (Bld) [#/Vol] 156 10*3/uL Normal 138-453 [facility] Comment on above: Performed By: #### C MPX, CDP, MG, ERIKA, CK #### [address] [address] [employer]: Andrew Walter MD RBC (Bld) [#/Vol] 4.22 10*6/uL Normal 4.21-5.77 [facility] Comment on above: Performed By: #### C MPX, CDP, MG, ERIKA, CK #### [address] [address] [employer]: Andrew Walter MD WBC (Bld) [#/Vol] 7.7 10*3/uL Normal 3.5-11.3 [facility] Comment on above: Performed By: #### C MPX, CDP, MG, ERIKA, CK #### [address] [address] [employer]: Andrew Walter MD CKon 02-24-2023 CK [Catalytic activity/Vol] 1713 U/L High 39 - 308 U/L [facility] Interpretation and review of laboratory results Abnormal [facility] Comp Metabolic Pr/rfx MGon 0 02-24-2023 Potassium [Moles/Vol] 3.5 mmol/L Low 3.7-5.3 [facility] Comment on above: Performed By: #### R EJEC #### [facility] [address] [place] [address] [employer]: Andrew Walter MD Albumin [Mass/Vol] 3.2 g/dL Low 3.5-5.2 [facility] Comment on above: Performed By: #### R EJEC #### [facility] [address] [place] [address] [employer]: Andrew Walter MD Albumin/Glob Ratio 1.3 Normal 1.0-2.5 [facility] Comment on above: Performed By: #### R EJEC #### [address] [address] [employer]: Andrew Walter MD Alkaline Phos 45 U/L Normal 40-129 [facility] Comment on above: Performed By: #### R EJEC #### [facility] [address] [place] [address] [employer]: Andrew Walter MD ALT [Catalytic activity/Vol] 33 U/L Normal 5-41 [facility] Comment on above: Performed By: #### R EJEC #### [facility] [address] [place] [phone] [employer]: Andrwe Walter MD Anion gap [Moles/Vol] 8 mmol/L Low 9-17 [facility] Comment on above: Performed By: #### R EJEC #### [facility] [address] [place] [address] [phone] [employer]: Andrew Walter MD AST [Catalytic activity/Vol] 57 U/L High <40 [facility] Comment on above: Performed By: #### R EJEC #### [address] [address] [employer]: Andrew Walter MD Bilirubin [Mass/Vol] 0.6 mg/dL Normal 0.3-1.2 [facility] Comment on above: Performed By: #### R EJEC #### [address] [address] [employer]: Andrew Walter MD Calcium [Mass/Vol] 8.3 mg/dL Low 8.6-10.4 [facility] Comment on above: Performed By: #### R EJEC #### [address] [address] [employer]: Andrew Walter MD Chloride [Moles/Vol] 112 mmol/L High 98-107 [facility] Comment on above: Performed By: #### R EJEC #### [address] [address] [employer]: Andrew Walter MD CO2 [Moles/Vol] 24 mmol/L Normal 20-31 [facility] Comment on above: Performed By: #### R EJEC #### [address] [address] [employer]: Andrew Walter MD Creatinine [Mass/Vol] 0.8 mg/dL Normal 0.7-1.2 [facility] Comment on above: Performed By: #### R EJEC #### [address] [address] [employer]: Andrew Walter MD GFR/1.73 sq M.predicted among non-blacks MDRD (S/P/Bld) [Vol rate/Area] mL/min/{1.73_m2} Normal >60 [facility] Comment on above: Result Comment: These results are not intended for use in patients <18 years of age. eGFR results are calculated without a race factor using the 2020 CKD-EPI equation. Careful clinical correlation is recommended, particularly when comparing to results calculated using previous equations. The CKD-EPI equation is less accurate in patients with extremes of muscle mass, extra-renal metabolism of creatine, excessive creatine ingestion, or following therapy that affects renal tubular secretion. Performed By: #### R EJEC #### [facility] [address] [place] [address] [employer]: Andrew Walter MD Glucose [Mass/Vol] 97 mg/dL Normal 70-99 [facility] Comment on above: Performed By: #### R EJEC #### [address] [address] [employer]: Andrew Walter MD Protein [Mass/Vol] 5.6 g/dL Low 6.4-8.3 [facility] Comment on above: Performed By: #### R EJEC #### [address] [address] [employer]: Andrew Walter MD Sodium [Moles/Vol] 144 mmol/L Normal 135-144 [facility] Comment on above: Performed By: #### R EJEC #### [facility] [address] [place] [address] [employer]: Andrew Walter MD Urea nitrogen [Mass/Vol] 11 mg/dL Normal 6-20 [facility] Comment on above: Performed By: #### R EJEC #### [address] [address] [employer]: Andrew Walter MD Comprehensive Metabolic Pane l w/ Reflex to MGon 02-24-2023 Albumin [Mass/Vol] 3.2 g/dL Low 3.5 - 5.2 g/dL [facility] Albumin/Globulin [Mass ratio] 1.3 {ratio} 1.0 - 2.5 [facility] ALP [Catalytic activity/Vol] 45 U/L 40 - 129 U/L [facility] ALT [Catalytic activity/Vol] 33 U/L 5 - 41 U/L [facility] Anion gap [Moles/Vol] 8 mmol/L Low 9 - 17 mmol/L [facility] AST [Catalytic activity/Vol] 57 U/L High NINF - 40 U/L [facility] Bilirubin [Mass/Vol] 0.6 mg/dL 0.3 - 1 .2 mg/dL [facility] Calcium [Mass/Vol] 8.3 mg/dL Low 8.6 - 10. 4 mg/dL [facility] Chloride [Moles/Vol] 112 mmol/L High 98 - 10 7 mmol/L [facility] CO2 [Moles/Vol] 24 mmol/L 20 - 31 mmol/L [facility] Creatinine [Mass/Vol] 0.8 mg/dL 0.7 - 1.2 mg/dL [facility] GFR/1.73 sq M.predicted MDRD (S/P/Bld) [Vol rate/Area] - PINF [facility] Comment on above: These results are not intended for use in patients <18 years of age. eGFR results are calculated without a race factor using the 2020 CKD-EPI equation. Careful clinical correlation is recommended, particularly when comparing to results calculated using previous equations. The CKD-EPI equation is less accurate in patients with extremes of muscle mass, extra-renal metabolism of creatine, excessive creatine ingestion, or following therapy that affects renal tubular secretion. Glucose [Mass/Vol] 97 mg/dL 70 - 99 mg/dL [facility] Interpretation and review of laboratory results Abnormal [facility] Potassium [Moles/Vol] 3.5 mmol/L Low 3.7 - 5.3 mmol/L [facility] Protein [Mass/Vol] 5.6 g/dL Low 6.4 - 8.3 g/dL [facility] Sodium [Moles/Vol] 144 mmol/L 135 - 144 mmol/L [facility] Urea nitrogen [Mass/Vol] 11 mg/dL 6 - 20 mg/dL [facility] Creatine Kinaseon 02-24-2023 CK [Catalytic activity/Vol] 1713 U/L High 39-308 [facility] Comment on above: Performed By: #### R EJEC #### [facility] [address] [place], [place] [phone] [employer]: Andrew Walter MD Magnesiumon 02-24-2023 Magnesium [Mass/Vol] 2.0 mg/dL Normal 1.6-2.6 [facility] Comment on above: Performed By: #### R EJEC #### [facility] Care [address] [place], [place] [id number] [employer]: Andrew Walter MD Magnesium [Mass/Vol] 2.0 mg/dL 1.6 - 2 .6 mg/dL [facility] Myoglobinon 02-24-2023 Myoglobin [Mass/Vol] 67 ng/mL Normal 28-72 [facility] Comment on above: Performed By: #### R EJEC #### [facility] [address] [place] [address] [phone] [employer]: Andrew Walter MD Myoglobin, Bloodon Myoglobin [Mass/Vol] 67 ng/mL 28 - 72 ng/mL [facility] POC Glucose Fingerstickon Glucose [Mass/Vol] 116 mg/dL High 75 - 110 mg/dL [facility] Interpretation and review of laboratory results Abnormal [facility] Glucose [Mass/Vol] 95 mg/dL 75 - 110 mg/dL [facility] Glucose [Mass/Vol] 101 mg/dL 75 - 110 mg/dL [facility] Volatile Compoundson 023 Acetone, Bld 6.2 HIGH REF RANGE 0.0 TO 1.0 mg/dL [facility] Comment on above: (NOTE) Acetone is a metabolite of isopropanol and may be elevated in cases of acute isopropanol ingestion. In diabetic ketoacidosis acetone can also be found in serum concentrations up to 70 mg/dL Ethanol Lvl <1.0 REF RANGE 0.0 TO 1.0 md/dL [facility] [employer] Ethylene Glycol Lvl <1.0 REF RANGE 0.0 TO 1.0 md/dL [facility] Isopropanol Lvl <1.0 REF RANGE 0.0 TO 1.0 md/dL [facility] Comment on above: PERFORMED AT [address] [address] Methanol Lvl <1.0 REF RANGE 0.0 TO 1.0 md/dL [facility] [facility] [employer] Volatiles,Bloodon 02-24-2023 Acetone 6.2 HIGH REF RANGE 0.0 TO 1.0 mg/dL Normal [facility] Comment on above: Result Comment: (NOT E) Acetone is a metabolite of isopropanol and may be elevated in cases of acute isopropanol ingestion. In diabetic ketoacidosis acetone can also be found in serum concentrations up to 70 mg/dL Performed By: #### H EPXA #### [facility] [address] [place] [address] [phone] [employer]: Andrew Walter MD Ethanol <1.0 REF RANGE 0.0 TO 1.0 md/dL Normal [facility] Comment on above: Performed By: #### H EPXA #### [facility] [address] [place] [address] [phone] [employer]: Andrew Walter MD Ethylene Glycol <1.0 REF RANGE 0.0 TO 1.0 md/dL Normal [facility] Comment on above: Performed By: #### H EPXA #### [facility] [address] [place] [address] [phone] [employer]: Andrew Walter MD Isopropanol <1.0 REF RANGE 0.0 TO 1.0 md/dL Normal [facility] Comment on above: Result Comment: PERFORMED AT [address] [address] Performed By: #### H EPXA #### [facility] [address] [place], [place] [phone] [employer]: Andrew Walter MD Methanol <1.0 REF RANGE 0.0 TO 1.0 md/dL Normal [facility] Comment on above: Performed By: #### H EPXA #### [facility] [address] [place], [place] [phone] [employer]: Andrew Walter MD Anti-Xa, Unfractionated Hepa rinon 02-23-2023 Anti-XA Unfrac Heparin 0.23 IU/L [facility] Anti-XA Unfrac Heparin 0.20 IU/L [facility] CBC with Auto Differentialon 02-23-2023 Basophils (Bld) [#/Vol] B [facility] Basophils/100 WBC (Bld) 0 % 0 - 2 % [facility] Eosinophils (Bld) [#/Vol] 0.06 10*3/uL [facility] Eosinophils/100 WBC (Bld) 1 % 1 - 4 % [facility] Erythrocyte distribution width (RBC) [Ratio] 13.1 % 11.8 - 14.4 % [facility] Hematocrit (Bld) [Volume fraction] 34.5 % Low 40.7 - 50.3 % [facility] Hemoglobin (Bld) [Mass/Vol] 11.9 g/dL Low 13.0 - 17.0 g/dL [facility] Immature granulocytes (Bld) [#/Vol] 0.04 10*3/uL [facility] Immature granulocytes/100 WBC (Bld) 0 % 0 [facility] Interpretation and review of laboratory results Abnormal [facility] Lymphocytes/100 WBC (Bld) 15 % Low 24 - 43 % [facility] Lymphocytes/100 WBC (Bld) 1.42 % [facility] MCH (RBC) [Entitic mass] 32.6 pg 25.2 - 33.5 pg [facility] MCHC (RBC) [Mass/Vol] 34.5 g/dL 28.4 - 34.8 g/dL [facility] Wire MCV (RBC) [Entitic vol] 94.5 fL 82.6 - 102.9 fL [facility] Monocytes/100 WBC (Bld) 8 % 3 - 12 % [facility] Monocytes/100 WBC (Bld) 0.71 % [facility] Neutrophils/100 WBC (Bld) 76 % High 36 - 65 % [facility] Nucleated RBC/100 WBC (Bld) [Ratio] 0.0 % 0.0 per 100 WBC [facility] Platelet mean volume (Bld) [Entitic vol] 10.5 fL 8.1 - 13.5 fL [facility] Platelets (Bld) [#/Vol] 341 10*3/uL [facility] RBC (Bld) [#/Vol] 3.65 10*6/uL Low 4.21 - 5.7 7 m/uL [facility] Wire Segmented neutrophils/100 WBC (Bld) 7.25 % [facility] 12Return [facility] WBC other (Bld) [#/Vol] 9.5 B ON [facility] 12Return [facility] 12Return [facility] CBC with Diffon 02-23-2023 Abs. Basophil <0.03 Normal 0.00-0.20 [facility] Comment on above: Performed By: #### C MPX, ERIKA, CK #### [facility] [address] [place], [place] [phone] [employer]: Andrew Walter MD Abs.Imm.Granulocyte 0.04 k/uL Normal 0.00-0.30 [facility] Comment on above: Performed By: #### C MPX, ERIKA, CK #### [facility] [address] [place], [place] [phone] [employer]: Andrew Walter MD Abs.Neutrophil (Seg) 7.25 k/uL Normal 1.50-8.10 [facility] Comment on above: Performed By: #### C MPX, ERIKA, CK #### [address] [phone] [employer]: Andrew Walter MD Basophils/100 WBC (Bld) 0 % Normal 0-2 [facility] Comment on above: Performed By: #### C MPX, ERIKA, CK #### [address] [address] [employer]: Andrew Walter MD Eosinophils (Bld) [#/Vol] 0.06 10*3/uL Normal 0.00-0.44 [facility] Comment on above: Performed By: #### C MPX, ERIKA, CK #### [address] [address] [employer]: Andrew Walter MD Eosinophils/100 WBC (Bld) 1 % Normal 1-4 [facility] Comment on above: Performed By: #### C MPX, ERIKA, CK #### [address] [address] [employer]: Andrew Walter MD Erythrocyte distribution width (RBC) [Ratio] 13.1 % Normal 11.8-14.4 [facility] Comment on above: Performed By: #### C MPX, ERIKA, CK #### [place] [address] [employer]: Andrew Walter MD Hematocrit (Bld) [Volume fraction] 34.5 % Low 40.7-50.3 [facility] Comment on above: Performed By: #### C MPX, ERIKA, CK #### [address] [address] [employer]: Andrew Walter MD Hemoglobin (Bld) [Mass/Vol] 11.9 g/dL Low 13.0-17.0 [facility] Comment on above: Performed By: #### C MPX, ERIKA, CK #### [address] [address] [employer]: Andrew Walter MD Immature granulocytes/100 WBC (Bld) 0 % Normal 0 [facility] Comment on above: Performed By: #### C MPX, ERIKA, CK #### [facility] [address] [place] [phone] [employer]: Andrew Walter MD Lymphocytes (Bld) [#/Vol] 1.42 10*3/uL Normal 1.10-3.70 [facility] Comment on above: Performed By: #### C MPX, ERIKA, CK #### [address] [address] [employer]: Andrew Walter MD Lymphocytes/100 WBC (Bld) 15 % Low 24-43 [facility] Comment on above: Performed By: #### C MPX, ERIKA, CK #### [address] [address] [employer]: Andrew Walter MD MCH (RBC) [Entitic mass] 32.6 pg Normal 25.2-33.5 [facility] Comment on above: Performed By: #### C MPX, ERIKA, CK #### [facility] [address] [place] [address] [employer]: Andrew Walter MD MCHC (RBC) [Mass/Vol] 34.5 g/dL Normal 28.4-34.8 [facility] Comment on above: Performed By: #### C MPX, ERIKA, CK #### [facility] [address] [place] [address] [employer]: Andrew Walter MD MCV (RBC) [Entitic vol] 94.5 fL Normal 82.6-102.9 [facility] Comment on above: Performed By: #### C MPX, ERIKA, CK #### [facility] [address] [place] [address] [employer]: Andrew Walter MD Monocytes (Bld) [#/Vol] 0.71 10*3/uL Normal 0.10-1.20 [facility] Comment on above: Performed By: #### C MPX, ERIKA, CK #### [address] [address] [employer]: Andrew Walter MD Monocytes/100 WBC (Bld) 8 % Normal 3-12 [facility] Comment on above: Performed By: #### C MPX, ERIKA, CK #### [address] [address] [employer]: Andrew Walter MD Neutrophil (Seg) 76 % High 36-65 [facility] Comment on above: Performed By: #### C MPX, ERIKA, CK #### [address] [address] [employer]: Andrew Walter MD NRBC Automated 0.0 per 100 WBC Normal 0.0 [facility] Comment on above: Performed By: #### C MPX, ERIKA, CK #### [address] [address] [employer]: Andrew Walter MD Platelet mean volume (Bld) [Entitic vol] 10.5 fL Normal 8.1-13.5 [facility] Comment on above: Performed By: #### C MPX, ERIKA, CK #### [address] [address] [employer]: Andrew Walter MD Platelets (Bld) [#/Vol] 341 10*3/uL Normal 138-453 [facility] Comment on above: Performed By: #### C MPX, ERIKA, CK #### [address] [address] [employer]: Andrew Walter MD RBC (Bld) [#/Vol] 3.65 10*6/uL Low 4.21-5.77 [facility] Comment on above: Performed By: #### C MPX, ERIKA, CK #### [facility] [address] [place] [phone] [employer]: Andrew Walter MD WBC (Bld) [#/Vol] 9.5 10*3/uL Normal 3.5-11.3 [facility] Comment on above: Performed By: #### C MPX, ERIKA, CK #### [facility] [address] [place] [address] [employer]: Andrew Walter MD [facility] 02-23-2023 CK [Catalytic activity/Vol] 3356 U/L High 39 - 308 U/L [facility] Interpretation and review of laboratory results Abnormal [facility] Comp Metabolic Pr/rfx MGon 0 02-23-2023 Albumin [Mass/Vol] 3.3 g/dL Low 3.5-5.2 [facility] Comment on above: Performed By: #### C MPX, ERIKA, CK #### [address] [address] [employer]: Andrew Walter MD Albumin/Glob Ratio 1.5 Normal 1.0-2.5 [facility] Comment on above: Performed By: #### C MPX, ERIKA, CK #### [facility] [address] [place] [phone] [employer]: Andrew Walter MD Alkaline Phos 47 U/L Normal 40-129 [facility] Comment on above: Performed By: #### C MPX, ERIKA, CK #### [facility] [address] [place] [address] [employer]: Andrew Walter MD ALT [Catalytic activity/Vol] 34 U/L Normal 5-41 [facility] Comment on above: Performed By: #### C MPX, ERIKA, CK #### [facility] [address] [place] [address] [employer]: Andrew Walter MD Anion gap [Moles/Vol] 7 mmol/L Low 9-17 [facility] Comment on above: Performed By: #### C MPX, ERIKA, CK #### [facility] [address] [place] [address] [employer]: Andrew Walter MD AST [Catalytic activity/Vol] 82 U/L High <40 [facility] Comment on above: Performed By: #### C MPX, ERIKA, CK #### [facility] [address] [place] [address] [employer]: Andrew Walter MD Bilirubin [Mass/Vol] 0.6 mg/dL Normal 0.3-1.2 [facility] Comment on above: Performed By: #### C MPX, ERIKA, CK #### [facility] [address] [place] [address] [employer]: Andrew Walter MD Calcium [Mass/Vol] 8.0 mg/dL Low 8.6-10.4 [facility] Comment on above: Performed By: #### C MPX, ERIKA, CK #### [facility] [address] [place] [address] [employer]: Andrew Walter MD Chloride [Moles/Vol] 111 mmol/L High 98-107 [facility] Comment on above: Performed By: #### C MPX, ERIKA, CK #### [facility] [address] [place] [address] [employer]: Andrew Walter MD CO2 [Moles/Vol] 25 mmol/L Normal 20-31 [facility] Comment on above: Performed By: #### C MPX, ERIKA, CK #### [facility] [address] [place] [address] [employer]: Andrew Walter MD Creatinine [Mass/Vol] 0.7 mg/dL Normal 0.7-1.2 [facility] [facility] Comment on above: Performed By: #### C MPX, ERIKA, CK #### [facility] [address] [place] [address] [employer]: Andrew Walter MD GFR/1.73 sq M.predicted among non-blacks MDRD (S/P/Bld) [Vol rate/Area] mL/min/{1.73_m2} Normal >60 [facility] Comment on above: Result Comment: These results are not intended for use in patients <18 years of age. eGFR results are calculated without a race factor using the 2020 CKD-EPI equation. Careful clinical correlation is recommended, particularly when comparing to results calculated using previous equations. The CKD-EPI equation is less accurate in patients with extremes of muscle mass, extra-renal metabolism of creatine, excessive creatine ingestion, or following therapy that affects renal tubular secretion. Performed By: #### C MPX, ERIKA, CK #### [facility] [address] [place] [address] [employer]: Andrew Walter MD Glucose [Mass/Vol] 96 mg/dL Normal 70-99 [facility] Comment on above: Performed By: #### C MPX, ERIKA, CK #### [facility] [address] [place] [address] [employer]: Andrew Walter MD Potassium [Moles/Vol] 3.6 mmol/L Low 3.7-5.3 [facility] Comment on above: Performed By: #### C MPX, ERIKA, CK #### [facility] [address] [place] [address] [employer]: Andrew Walter MD Protein [Mass/Vol] 5.5 g/dL Low 6.4-8.3 [facility] Comment on above: Performed By: #### C MPX, ERIKA, CK #### [facility] [place], [place] [phone] [employer]: Andrew Walter MD Sodium [Moles/Vol] 143 mmol/L Normal 135-144 [facility] Comment on above: Performed By: #### C MPX, ERIKA, CK #### [facility] [address] [place], [place] [phone] [employer]: Andrew Walter MD Urea nitrogen [Mass/Vol] 13 mg/dL Normal 6-20 [facility] Comment on above: Performed By: #### C MPX, ERIKA, CK #### [facility] [address] [place], [place] [phone] [employer]: Andrew Walter MD Comprehensive Metabolic Pane l w/ Reflex to MGon 02-23-2023 Albumin [Mass/Vol] 3.3 g/dL Low 3.5 - 5.2 g/dL [facility] Albumin/Globulin [Mass ratio] 1.5 {ratio} 1.0 - 2.5 [facility] ALP [Catalytic activity/Vol] 47 U/L 40 - 129 U/L [facility] ALT [Catalytic activity/Vol] 34 U/L 5 - 41 U/L [facility] Anion gap [Moles/Vol] 7 mmol/L Low 9 - 17 mmol/L [facility] AST [Catalytic activity/Vol] 82 U/L High NINF - 40 U/L [facility] Bilirubin [Mass/Vol] 0.6 mg/dL 0.3 - 1 .2 mg/dL [facility] Calcium [Mass/Vol] 8.0 mg/dL Low 8.6 - 10. 4 mg/dL [facility] Chloride [Moles/Vol] 111 mmol/L High 98 - 10 7 mmol/L [facility] CO2 [Moles/Vol] 25 mmol/L 20 - 31 mmol/L [facility] Creatinine [Mass/Vol] 0.7 mg/dL 0.7 - 1.2 mg/dL [facility] GFR/1.73 sq M.predicted MDRD (S/P/Bld) [Vol rate/Area] - PINF [facility] Comment on above: These results are not intended for use in patients <18 years of age. eGFR results are calculated without a race factor using the 2020 CKD-EPI equation. Careful clinical correlation is recommended, particularly when comparing to results calculated using previous equations. The CKD-EPI equation is less accurate in patients with extremes of muscle mass, extra-renal metabolism of creatine, excessive creatine ingestion, or following therapy that affects renal tubular secretion. Glucose [Mass/Vol] 96 mg/dL 70 - 99 mg/dL [facility] Potassium [Moles/Vol] 3.6 mmol/L Low 3.7 - 5.3 mmol/L [facility] Protein [Mass/Vol] 5.5 g/dL Low 6.4 - 8.3 g/dL [facility] Sodium [Moles/Vol] 143 mmol/L 135 - 144 mmol/L [facility] Urea nitrogen [Mass/Vol] 13 mg/dL 6 - 20 mg/dL [facility] Creatine Kinaseon 02-23-2023 CK [Catalytic activity/Vol] 3356 U/L High 39-308 [facility] Comment on above: Performed By: #### C MPX, ERIKA, CK #### [facility] [address] [place] [address] [employer]: Andrew Walter MD Cult,Respiratoryon 3 Cult,Respiratory Specimen Description .TRACHEAL ASPIRATE Direct Exam < 10 EPITHELIAL CELLS/LPF >25 NEUTROPHILS/LPF MODERATE GRAM POSITIVE COCCI IN CLUSTERS Culture NORMAL RESPIRATORY [facility] Report Status FINAL 02/23/2023 Normal [facility] Comment on above: Performed By: #### C MPX, ERIKA, CK #### [facility] [address] [place] [address] [employer]: Andrew Walter MD EEG awake and asleepon 02-23 Kenneth Vieyra MD 02/23/2023 4:26 PM EEG REPORT Patient: Aditya Richardson Age: 27 y.o. Referring Provider: Dr. Barlow History: This routine 30 minute scalp EEG was recorded with video- monitoring for a 27 y.o.. male who presented with encephalopathy. This EEG was performed to evaluate for focal and epileptiform abnormalities. Aditya Richardson Current Facility-Administere d Medications Medication Dose Route Frequency Provider Last Rate Last Admin vancomycin (VANCOCIN) 1,250 mg in sodium chloride 0.9 % 250 mL IVPB ([id number]) 1,250 mg IntraVENous Q8H Power Garrison MD fentaNYL (SUBLIMAZE) injection 50 mcg 50 mcg IntraVENous Q2H PRN Sarkis Lutz, DO 50 mcg at 02/22/23 0447 heparin (porcine) injection 4,000 Units 4,000 Units IntraVENous PRN Sarkis Quintanilla [place], DO heparin (porcine) injection 2,000 Units 2,000 Units IntraVENous PRN Sarkis Lutz, DO 2,000 Units at 02/23/23 0550 heparin 25,000 units in dextrose 5% 250 mL (premix) infusion 5-30 Units/kg/hr IntraVENous Continuous Sarkis Lutz DO 15.6 mL/hr at 02/23/23 0700 16 Units/kg/hr at 02/23/23 0700 aspirin chewable tablet 81 mg 81 mg Oral Daily David Garza MD 81 mg at 02/23/23 0822 atorvastatin (LIPITOR) tablet 10 mg 10 mg Oral Nightly David Garza MD 10 mg at 02/22/23 1949 ipratropium 0.5 mg-albuterol 2.5 mg (DUONEB) nebulizer solution 1 Dose 1 Dose Inhalation Q4H PRN Ole Barlow MD sodium chloride flush 0.9 % injection 5-40 mL 5-40 mL IntraVENous 2 times per day Power Garrison MD 10 mL at 02/23/23 0821 sodium chloride flush 0.9 % injection 5-40 mL 5-40 mL IntraVENous PRN Power Garrison MD 0.9 % sodium chloride infusion IntraVENous PRN Power Garrison MD Stopped at 02/23/23 0505 ondansetron (ZOFRAN-ODT) disintegrating tablet 4 mg 4 mg Oral Q8H PRN Power Garrison MD Or ondansetron (ZOFRAN) injection 4 mg 4 mg IntraVENous Q6H PRN Power Garrison MD polyethylene glycol (GLYCOLAX) packet 17 g 17 g Oral Daily PRN Power Garrison MD acetaminophen (TYLENOL) tablet 650 mg 650 mg Oral Q6H PRN Power Garrison MD Or acetaminophen (TYLENOL) suppository 650 mg 650 mg Rectal Q6H PRN Power Garrison MD 0.9 % sodium chloride infusion IntraVENous Continuous Mary Leary MD 75 mL/hr at 02/23/23 0700 Rate Verify at 02/23/23 0700 glucose chewable tablet 16 g 4 tablet Oral PRN Power Garrison MD dextrose bolus 10% 125 mL 125 mL IntraVENous PRN Power Garrison MD Or dextrose bolus 10% 250 mL 250 mL IntraVENous PRN Power Garrison MD glucagon (rDNA) injection 1 mg 1 mg SubCUTAneous PRN Power Garrison MD dextrose 10 % infusion IntraVENous Continuous PRN Power Garrison MD piperacillin-tazobac boykin (ZOSYN) 3,375 mg in sodium chloride 0.9 % 50 mL IVPB (mini-bag) 3,375 mg IntraVENous Q8H Power Garrison MD 12.5 mL/hr at 02/23/23 1616 3,375 mg at 02/23/23 1616 vancomycin (VANCOCIN) intermittent dosing (placeholder) Other RX Placeholder Power Garrison MD Technical Description: This is a 21 channel digital EEG recording with time-locked video. Electrodes were placed in accordance with the 10-20 International System of Electrode Placement. Single lead EKG monitoring as well as temporal electrodes were included. The patient was not sleep deprived. This recording was obtained during wakefulness. EEG Description: The dominant background activity during maximal recorded wakefulness consisted of bioccipitally dominant 9 Hz, 25-35 uV symmetric, regular activity that was reactive to eye opening. During drowsiness, the background rhythm waxed and waned and there were periods of slowing. During stage II sleep symmetric V waves, and poorly formed sleep spindles were seen. There was appropriate diffuse delta activity during slow wave sleep. Photic stimulation - stepwise photic stimulation at 2-30 Hz was performed and there was a biposterior, symmetric, driving response. Hyperventilation - was not preformed. No abnormalities were activated by photic stimulation The EKG channel demonstrated a normal sinus rhythm. Interpretation This EEG was normal in wakefulness and sleep. Clinical correlation This EEG was normal. No focal or epileptiform abnormalities were seen. Kenneth Vieyra MD [facility] EEG awake and asleepOrdered By: Kenneth Vieyra on 02-23-2023 [facility] Work Phone: EKG 12 Leadon 02-23-2023 Atrial Rate 93 BPM [facility] P [place] 73 degrees [facility] P-R Interval 148 ms [facility] Q-T Interval 384 ms [facility] QRS Duration 94 ms [facility] QTc Calculation (Bazett) 477 ms [facility] R [place] -10 degrees [facility] T [place] 26 degrees [facility] Ventricular Rate 93 BPM [facility] Normal sinus rhythm Normal ECG When compared with ECG of 21-FEB-2023 20:33, No significant change was found [facility] Enriquez MD - 02/23/2023 Normal sinus rhythm Normal ECG When compared with ECG of 21-FEB-2023 20:33, No significant change was found [facility] Atrial Rate 94 BPM [facility] P [place] 78 degrees [facility] P-R Interval 164 ms [facility] Q-T Interval 362 ms [facility] QRS Duration 90 ms [facility] QTc Calculation (Bazett) 452 ms [facility] R [place] -4 degrees [facility] T [place] 50 degrees [facility] Ventricular Rate 94 BPM [facility] Normal sinus rhythm Normal ECG When compared with ECG of 21-FEB-2023 13:29, No significant change was found [facility] Enriquez MD - 02/23/2023 Normal sinus rhythm Normal ECG When compared with ECG of 21-FEB-2023 13:29, No significant change was found [facility] Sinus tachycardia Otherwise normal ECG No previous ECGs available [facility] Loan Saez MD - 02/23/2023 Sinus tachycardia Otherwise normal ECG No previous ECGs available [facility] [employer] EKG 12 LeadOrdered By: Loan Gee on 02-23-2023 Atrial Rate 105 BPM [facility] Work Phone: P [place] 68 degrees [facility] Work Phone: P-R Interval 154 ms [facility] Work Phone: Q-T Interval 336 ms [facility] Work Phone: QRS Duration 92 ms [facility] Work Phone: QTc Calculation (Bazett) 444 ms [facility] Work Phone: R [place] -4 degrees [facility] [employer] Work Phone: T [place] 37 degrees [facility] [employer] Work Phone: Ventricular Rate 105 BPM [facility] Work Phone: [facility] [employer] Work Phone: Echo (TTE) complete (with co ntrast/ bubble/ strain/ 3D PRN)Ordered By: Hardik Gagnon on 02-23-2023 Ao Root Index 1.47 cm/m2 [facility] Work Phone: Aortic Root 3.3 cm [facility] Work Phone: Ascending Aorta 3.0 cm [facility] [employer] Work Phone: Ascending Aorta Index 1.34 cm/m2 [employer] [employer] Work Phone: AV Area by Peak Velocity 3.1 cm2 [facility] [employer] Work Phone: AV Area by VTI 3.1 cm2 [employer] Work Phone: AV Mean Gradient 6 mmHg [facility] [employer] [employer] Work Phone: AV Mean Velocity 1.1 m/s TERESA BARAJAS [employer] Work Phone: AV Peak Gradient 10 mmHg TERESA BARAJAS [employer] Work Phone: AV Peak Velocity 1.6 m/s TERESA BARAJAS [employer] Work Phone: AV Velocity Ratio 0.81 TERESA TELLES [employer] Work Phone: AV VTI 27.0 cm [employer] Work Phone: LIVAN/BSA Peak Velocity 1.4 cm2/m2 [employer] Work Phone: LIVAN/BSA VTI 1.4 cm2/m2 TERESA [employer] Phone: Body surface area Derived from formula 2.26 m2 [employer] Phone: Est. RA Pressure 3 mmHg TERESA DIAZ [employer] Work Phone: Fractional Shortening 2D 43 % 28 - 44 % [employer] Work Phone: Interpretation and review of laboratory results Abnormal [employer] Work Phone: IVSd 0.7 cm 0.6 - 1.0 cm [employer] Phone: LA Area 2C 20.1 cm2 [employer] Work Phone: LA Area 4C 23.1 cm2 [employer] Work Phone: LA Diameter 4.4 cm [employer] Work Phone: LA Major [place] 6.8 cm [employer] Work Phone: LA Minor [place] 5.9 cm [employer] Phone: LA Size Index 1.96 cm/m2 [employer] Work Phone: LA Volume 2C 56 mL 18 - 58 mL [employer] Work Phone: LA Volume 4C 59 mL Abnormal 18 - 58 mL [employer] Work Phone: LA Volume BP 61 mL Abnormal 18 - 58 mL [employer] Work Phone: LA Volume Index 2C 25 mL/m2 16 - 34 mL/m2 [employer] Work Phone: LA Volume Index 4C 26 mL/m2 16 - 34 mL/m2 [employer] Work Phone: LA Volume Index BP 27 ml/m2 16 - 34 ml/m2 [employer] Work Phone: LA/AO Root Ratio 1.33 [employer] Work Phone: LV EDV A4C 143 mL [employer] Work Phone: LV EDV Index A4C 64 mL/m2 [employer] Work Phone: LV Ejection Fraction A4C 52 % [employer] Work Phone: LV ESV A4C 69 mL [employer] Work Phone: LV ESV Index A4C 31 mL/m2 [employer] Work Phone: LV Mass 2D 175.4 g 88 - 224 g [employer] Phone: LV Mass 2D Index 78.3 g/m2 49 - 115 g/m2 [employer] Work Phone: LV RWT Ratio 0.31 [employer] Work Phone: LVIDd 5.8 cm 4.2 - 5.9 cm [employer] Work Phone: LVIDd Index 2.59 cm/m2 [employer] Work Phone: LVIDs 3.3 cm [employer] Work Phone: LVIDs Index 1.47 cm/m2 [employer] Work Phone: LVOT Area 3.8 cm2 [employer] [facility] Work Phone: LVOT Diameter 2.2 cm [employer]ON [employer] [facility] Work Phone: LVOT Mean Gradient 4 mmHg BON SE [employer]RS [employer] Work Phone: LVOT Peak Gradient 7 mmHg [employer] Work Phone: LVOT Peak Velocity 1.3 m/s [employer] Work Phone: LVOT Stroke Volume Index 37.1 mL/m2 [email or web address] Work Phone: LVOT SV 83.2 ml [employer] Work Phone: LVOT VTI 21.9 cm [employer] Work Phone: LVOT:AV VTI Index 0.81 BON SEC ELFEGO [employer] Work Phone: LVPWd 0.9 cm 0.6 - 1.0 cm TERESA [email or web address] Work Phone: MV A Velocity 1.19 m/s TER[employer]A [employer] Work Phone: MV Area by VTI 3.1 cm2 BON LUIS MIGUEL S [employer] Work Phone: MV E Velocity 0.88 m/s [employer]A [employer] Work Phone: MV E Wave Deceleration Time 45.0 ms [employer]A [employer] Work Phone: MV E/A 0.74 [employer] Work Phone: MV Max Velocity 1.2 m/s BON SECOU RS [employer] Work Phone: MV Mean Gradient 4 mmHg BON SECO URS [employer] Work Phone: MV Mean Velocity 1.0 m/s BON SECO [employer] Work Phone: MV Peak Gradient 6 mmHg BON SECO URS [employer] Work Phone: MV VTI 27.1 cm [employer]ON [email or web address] Work Phone: MV:LVOT VTI Index 1.24 TERESA TELLES [employer] Work Phone: PV Max Velocity 1.1 m/s TERESA CARDONA [employer] Work Phone: PV Peak Gradient 5 mmHg TERESA DIAZ [employer] Work Phone: RVSP 26 mmHg TREESA BLACKWELL [employer] Work Phone: TAPSE 3.3 cm 1.7 cm TERESA BLACKWELL [employer] Work Phone: TR Max Velocity 2.39 m/s TERESA CARDONA [employer] Work Phone: TR Peak Gradient 23 mmHg TERESA DIAZ [employer] Work Phone: TERESA BLACKWELL [employer] Work Phone: Echo (TTE) complete (with co ntrast/ bubble/ strain/ 3D PRN)on 02-23-2023 Left Ventricle: Normal left ventricular systolic function with a visually estimated EF of 55 - 60%. Left ventricle size is normal. Normal wall thickness. Tricuspid Valve: Mild regurgitation. The estimated RVSP is 26 mmHg. Left Ventricle Normal left ventricular systolic function with a visually estimated EF of 55 - 60%. Left ventricle size is normal. Normal wall thickness. Normal wall motion. Right Ventricle Right ventricle size is normal. Normal wall thickness. Normal systolic function. Left Atrium Left atrium size is normal. Right Atrium Right atrium size is normal. IVC/SVC IVC size is normal. Mitral Valve Valve structure is normal. No regurgitation. No stenosis noted. Tricuspid Valve Valve structure is normal. Mild regurgitation. No stenosis noted. The estimated RVSP is 26 mmHg. Aortic Valve Valve structure is normal. No regurgitation. No stenosis. Pulmonic Valve Valve structure is normal. No regurgitation. No stenosis noted. Ascending Aorta Normal sized aortic root. Pericardium No pericardial effusion. Septum No interatrial shunt visualized with color Doppler. Study Details Image quality: fair. No contrast was given. [facility] CV CPACS Radiology Study observation (narrative) TERESA DIAZ [employer] Extra Yellow Tubeon 02-24-20 23 Extra Yellow Tube Normal [facility] Comment on above: Performed By: #### C MPX, ERIKA, CK #### [facility] [place] [address] [employer]: Andrew Walter MD Heparin Anti-Xaon 02-23-2023 Heparin Anti-Xa 0.23 IU/L Normal [facility] Comment on above: Performed By: #### B C #### [facility] [address] [place] [address] [employer]: Andrew Walter MD Heparin Anti-Xa 0.20 IU/L Normal [facility] Comment on above: Performed By: #### C MPX, ERIKA, CK #### [facility] [address] [place] [address] [employer]: Andrew Walter MD Myoglobinon 02-23-2023 Myoglobin [Mass/Vol] 221 ng/mL High 28-72 [facility] Comment on above: Performed By: #### C MPX, ERIKA, CK #### [facility] [address] [place] [address] [employer]: Andrew Walter MD Myoglobin, Bloodon Myoglobin [Mass/Vol] 221 ng/mL High 28 - 72 ng/mL [facility] No Panel Informationon 02-23 [facility] Interpretation and review of laboratory results Abnormal [facility] Troponinon 02-23-2023 Troponin, High Sens 107 ng/L Critically high 0-22 [facility] Comment on above: Result Comment: High Sensitivity Troponin values cannot be compared with other Troponin methodologies. Previous Alert Value Reported Performed By: #### B C #### [facility] [address] [place] [address] [employer]: Andrew Walter MD Interpretation and review of laboratory results Abnormal [facility] Troponin I.cardiac High sensitivity method [Mass/Vol] 107 ng/L Critically high 0 - 22 ng/L [facility] Comment on above: High Sensitivity Tro ponin values cannot be compared with other Troponin methodologies. Previous Alert Value Reported [facility] Vancomycin Level, Peakon Interpretation and review of laboratory results Abnormal [facility] Vancomycin peak [Mass/Vol] 9.9 ug/mL Low 30.0 - 40.0 ug/mL [facility] Vancomycin Peakon 02-23-2023 Vancomycin Peak 9.9 ug/mL Low 30.0-40.0 [facility] Comment on above: Performed By: #### B C #### [facility] [address] [place] [address] [phone] [employer]: Andrew Walter MD APTTon 02-22-2023 aPTT Coag (Bld) [Time] 41.1 s High 23.0-36.5 [facility] Comment on above: Result Comment: IV Heparin Therapy Range: 66.0-92.0 sec Performed By: #### R EJEC #### [facility] [address] [place] [address] [phone] [employer]: Andrew Walter MD aPTT Coag (Bld) [Time] 41.1 s High [facility] Comment on above: IV Heparin Therapy Range: 66.0-92.0 sec Interpretation and review of laboratory results Abnormal [facility] aPTT Coag (Bld) [Time] 29.3 s Normal 23.0-36.5 [facility] Comment on above: Result Comment: IV Heparin Therapy Range: 66.0-92.0 sec Performed By: #### C MPX, ERIKA, CK #### [facility] [address] [place] [address] [phone] [employer]: Andrew Walter MD aPTT Coag (Bld) [Time] 29.3 s [facility] Comment on above: IV Heparin Therapy Range: 66.0-92.0 sec [facility] Anti-Xa, Unfractionated Hepa rinon 02-22-2023 Anti-XA Unfrac Heparin 0.18 IU/L [facility] Anti-XA Unfrac Heparin 0.29 IU/L [facility] Anti-XA Unfrac Heparin 0.22 IU/L [facility] Arterial Blood Gas, POCon FIO2 50.0 [facility] HCO3 (Bld) [Moles/Vol] 22.5 mmol/L 21.0 - 28.0 mmol/L [facility] Negative Base Excess, Art 1.6 mmol/L 0.0 - 2.0 mmol/L [facility] Oxygen saturation in Blood 99.7 % High 94.0 - 98.0 % [facility] POC pCO2 35.0 [facility] POC pH 7.416 7.350 - 7.450 [facility] POC PO2 190.0 High [facility] Sample Site Left Radial Artery [facility] CBC with Auto Differentialon 02-22-2023 Basophils (Bld) [#/Vol] B [facility] Basophils/100 WBC (Bld) 0 % 0 - 2 % [facility] Eosinophils (Bld) [#/Vol] [facility] Eosinophils/100 WBC (Bld) 0 % Low 1 - 4 % [facility] Erythrocyte distribution width (RBC) [Ratio] 12.8 % 11.8 - 14.4 % [facility] Hematocrit (Bld) [Volume fraction] 43.5 % 40.7 - 50.3 % [facility] Hemoglobin (Bld) [Mass/Vol] 14.2 g/dL 13.0 - 17.0 g/dL [facility] Immature granulocytes (Bld) [#/Vol] 0.09 10*3/uL [facility] Immature granulocytes/100 WBC (Bld) 1 % High 0 [facility] Interpretation and review of laboratory results Abnormal [facility] Lymphocytes/100 WBC (Bld) 5 % Low 24 - 43 % [facility] Lymphocytes/100 WBC (Bld) 0.89 % Low [facility] MCH (RBC) [Entitic mass] 31.2 pg 25.2 - 33.5 pg [facility] MCHC (RBC) [Mass/Vol] 32.6 g/dL 28.4 - 34.8 g/dL [facility] MCV (RBC) [Entitic vol] 95.6 fL 82.6 - 102.9 fL [facility] Monocytes/100 WBC (Bld) 8 % 3 - 12 % [facility] Monocytes/100 WBC (Bld) 1.50 % High [facility] Neutrophils/100 WBC (Bld) 86 % High 36 - 65 % [facility] Nucleated RBC/100 WBC (Bld) [Ratio] 0.0 % 0.0 per 100 WBC [facility] Platelet mean volume (Bld) [Entitic vol] 9.6 fL 8.1 - 13.5 fL [facility] Platelets (Bld) [#/Vol] 177 10*3/uL [facility] RBC (Bld) [#/Vol] 4.55 10*6/uL 4.21 - 5.7 7 m/uL [facility] Segmented neutrophils/100 WBC (Bld) 16.26 % High [facility] WBC other (Bld) [#/Vol] 18.8 High B ON [facility] CBC with Diffon 02-22-2023 Abs. Basophil <0.03 Normal 0.00-0.20 [facility] Comment on above: Performed By: #### R EJEC #### [facility] [address] [place], [place] [phone] [employer]: Andrew Walter MD Abs. Eosinophil <0.03 Normal 0.00-0.44 [facility] Comment on above: Performed By: #### R EJEC #### [facility] [address] [place], [place] [phone] [employer]: Andrew Walter MD Abs.Imm.Granulocyte 0.09 k/uL Normal 0.00-0.30 [facility] Comment on above: Performed By: #### R EJEC #### [facility] [address] [employer]: Andrew Walter MD Abs.Neutrophil (Seg) 16.26 k/uL High 1.50-8.10 [facility] Comment on above: Performed By: #### R EJEC #### [address] [address] [employer]: Andrew Walter MD Basophils/100 WBC (Bld) 0 % Normal 0-2 [facility] Comment on above: Performed By: #### R EJEC #### [address] [address] [employer]: Andrew Walter MD Eosinophils/100 WBC (Bld) 0 % Low 1-4 [facility] Comment on above: Performed By: #### R EJEC #### [address] [address] [employer]: Andrew Walter MD Erythrocyte distribution width (RBC) [Ratio] 12.8 % Normal 11.8-14.4 [facility] Comment on above: Performed By: #### R EJEC #### [address] [address] [employer]: Andrew Walter MD Hematocrit (Bld) [Volume fraction] 43.5 % Normal 40.7-50.3 [facility] Comment on above: Performed By: #### R EJEC #### [address] [address] [employer]: Andrew Walter MD Hemoglobin (Bld) [Mass/Vol] 14.2 g/dL Normal 13.0-17.0 [facility] Comment on above: Performed By: #### R EJEC #### [address] [address] [employer]: Andrew Walter MD Immature granulocytes/100 WBC (Bld) 1 % High 0 [facility] Comment on above: Performed By: #### R EJEC #### [place] [address] [employer]: Andrew Walter MD Lymphocytes (Bld) [#/Vol] 0.89 10*3/uL Low 1.10-3.70 [facility] Comment on above: Performed By: #### R EJEC #### [place] [address] [employer]: Andrew Walter MD Lymphocytes/100 WBC (Bld) 5 % Low 24-43 [facility] Comment on above: Performed By: #### R EJEC #### [place] [address] [employer]: Andrew Walter MD MCH (RBC) [Entitic mass] 31.2 pg Normal 25.2-33.5 [facility] Comment on above: Performed By: #### R EJEC #### [place] [address] [employer]: Andrew Walter MD MCHC (RBC) [Mass/Vol] 32.6 g/dL Normal 28.4-34.8 [facility] Comment on above: Performed By: #### R EJEC #### [place] [address] [employer]: Andrew Walter MD MCV (RBC) [Entitic vol] 95.6 fL Normal 82.6-102.9 [facility] Comment on above: Performed By: #### R EJEC #### [address] [address] [employer]: Andrew Walter MD Monocytes (Bld) [#/Vol] 1.50 10*3/uL High 0.10-1.20 [facility] Comment on above: Performed By: #### R EJEC #### [address] [address] [employer]: Andrew Walter MD Monocytes/100 WBC (Bld) 8 % Normal 3-12 [facility] Comment on above: Performed By: #### R EJEC #### [address] [address] [employer]: Andrew Walter MD Neutrophil (Seg) 86 % High 36-65 [facility] Comment on above: Performed By: #### R EJEC #### [address] [address] [employer]: Andrew Walter MD NRBC Automated 0.0 per 100 WBC Normal 0.0 [facility] Comment on above: Performed By: #### R EJEC #### [address] [address] [employer]: Andrew Walter MD Platelet mean volume (Bld) [Entitic vol] 9.6 fL Normal 8.1-13.5 [facility] Comment on above: Performed By: #### R EJEC #### [address] [address] [employer]: Andrew Walter MD Platelets (Bld) [#/Vol] 177 10*3/uL Normal 138-453 [facility] Comment on above: Performed By: #### R EJEC #### [address] [address] [employer]: Andrew Walter MD RBC (Bld) [#/Vol] 4.55 10*6/uL Normal 4.21-5.77 [facility] Comment on above: Performed By: #### R EJEC #### [address] [address] [employer]: Andrew Walter MD WBC (Bld) [#/Vol] 18.8 10*3/uL High 3.5-11.3 [facility] Comment on above: Performed By: #### R EJEC #### [address] [address] [employer]: Andrew [facility] [Catalytic activity/Vol] 3211 U/L High 39 - 308 U/L [facility] Interpretation and review of laboratory results Abnormal [facility] CK [Catalytic activity/Vol] 3835 U/L High 39 - 308 U/L [facility] Interpretation and review of laboratory results Abnormal [facility] Comp Metabolic Pr/rfx MGon 0 02-22-2023 Albumin [Mass/Vol] 3.8 g/dL Normal 3.5-5.2 [facility] Comment on above: Performed By: #### H EPXA #### [address] [address] [employer]: Andrew Walter MD Albumin/Glob Ratio 1.7 Normal 1.0-2.5 [facility] Comment on above: Performed By: #### H EPXA #### [address] [address] [employer]: Andrew Walter MD Alkaline Phos 56 U/L Normal 40-129 [facility] Comment on above: Performed By: #### H EPXA #### [address] [address] [employer]: Andrew Walter MD ALT [Catalytic activity/Vol] 32 U/L Normal 5-41 [facility] Comment on above: Performed By: #### H EPXA #### [address] [address] [employer]: Andrew Walter MD Anion gap [Moles/Vol] 13 mmol/L Normal 9-17 [facility] Comment on above: Performed By: #### H EPXA #### [address] [address] [employer]: Andrew Walter MD AST [Catalytic activity/Vol] 70 U/L High <40 [facility] Comment on above: Performed By: #### H EPXA #### [address] [address] [employer]: Andrew Walter MD Bilirubin [Mass/Vol] 0.6 mg/dL Normal 0.3-1.2 [facility] Comment on above: Performed By: #### H EPXA #### [address] [address] [employer]: Andrew Walter MD Calcium [Mass/Vol] 7.9 mg/dL Low 8.6-10.4 [facility] Comment on above: Performed By: #### H EPXA #### [address] [address] [employer]: Andrew Walter MD Chloride [Moles/Vol] 103 mmol/L Normal 98-107 [facility] Comment on above: Performed By: #### H EPXA #### [address] [address] [employer]: Andrew Walter MD CO2 [Moles/Vol] 20 mmol/L Normal 20-31 [facility] Comment on above: Performed By: #### H EPXA #### [address] [address] [employer]: Andrew Walter MD Creatinine [Mass/Vol] 1.0 mg/dL Normal 0.7-1.2 [facility] Comment on above: Performed By: #### H EPXA #### [address] [address] [employer]: Andrew Walter MD GFR/1.73 sq M.predicted among non-blacks MDRD (S/P/Bld) [Vol rate/Area] mL/min/{1.73_m2} Normal >60 [facility] Comment on above: Result Comment: These results are not intended for use in patients <18 years of age. eGFR results are calculated without a race factor using the 2020 CKD-EPI equation. Careful clinical correlation is recommended, particularly when comparing to results calculated using previous equations. The CKD-EPI equation is less accurate in patients with extremes of muscle mass, extra-renal metabolism of creatine, excessive creatine ingestion, or following therapy that affects renal tubular secretion. Performed By: #### H EPXA #### [facility] [address] [place] [address] [employer]: Andrew Walter MD Glucose [Mass/Vol] 115 mg/dL High 70-99 [facility] Comment on above: Performed By: #### H EPXA #### [facility] [address] [place] [address] [employer]: Andrew Walter MD Potassium [Moles/Vol] 4.7 mmol/L Normal 3.7-5.3 [facility] Comment on above: Performed By: #### H EPXA #### [facility] [address] [place] [address] [employer]: Andrew Walter MD Protein [Mass/Vol] 6.1 g/dL Low 6.4-8.3 [facility] Comment on above: Performed By: #### H EPXA #### [facility] [address] [place] [address] [employer]: Andrew Walter MD Sodium [Moles/Vol] 136 mmol/L Normal 135-144 [facility] Comment on above: Performed By: #### H EPXA #### [facility] [address] [place] [address] [employer]: Andrew Walter MD Urea nitrogen [Mass/Vol] 28 mg/dL High 6-20 [facility] Comment on above: Performed By: #### H EPXA #### [facility] [address] [place] [address] [employer]: Andrew Walter MD Comprehensive Metabolic Pane l w/ Reflex to MGon 02-22-2023 Albumin [Mass/Vol] 3.8 g/dL 3.5 - 5.2 g/dL [facility] Albumin/Globulin [Mass ratio] 1.7 {ratio} 1.0 - 2.5 [facility] ALP [Catalytic activity/Vol] 56 U/L 40 - 129 U/L [facility] ALT [Catalytic activity/Vol] 32 U/L 5 - 41 U/L [facility] Anion gap [Moles/Vol] 13 mmol/L 9 - 17 mmol/L [facility] AST [Catalytic activity/Vol] 70 U/L High NINF - 40 U/L [facility] Bilirubin [Mass/Vol] 0.6 mg/dL 0.3 - 1 .2 mg/dL [facility] Calcium [Mass/Vol] 7.9 mg/dL Low 8.6 - 10. 4 mg/dL [facility] Chloride [Moles/Vol] 103 mmol/L 98 - 10 7 mmol/L [facility] CO2 [Moles/Vol] 20 mmol/L 20 - 31 mmol/L [facility] Creatinine [Mass/Vol] 1.0 mg/dL 0.7 - 1.2 mg/dL [facility] GFR/1.73 sq M.predicted MDRD (S/P/Bld) [Vol rate/Area] - PINF [facility] Comment on above: These results are not intended for use in patients <18 years of age. eGFR results are calculated without a race factor using the 2020 CKD-EPI equation. Careful clinical correlation is recommended, particularly when comparing to results calculated using previous equations. The CKD-EPI equation is less accurate in patients with extremes of muscle mass, extra-renal metabolism of creatine, excessive creatine ingestion, or following therapy that affects renal tubular secretion. Glucose [Mass/Vol] 115 mg/dL High 70 - 99 mg/dL [facility] Interpretation and review of laboratory results Abnormal [facility] Potassium [Moles/Vol] 4.7 mmol/L 3.7 - 5.3 mmol/L [facility] Protein [Mass/Vol] 6.1 g/dL Low 6.4 - 8.3 g/dL [facility] Sodium [Moles/Vol] 136 mmol/L 135 - 144 mmol/L [facility] Urea nitrogen [Mass/Vol] 28 mg/dL High 6 - 20 mg/dL [facility] Creatine Kinaseon 02-22-2023 CK [Catalytic activity/Vol] 3211 U/L [facility] [address] Comment on above: Performed By: #### C MPX, ERIKA, CK #### [facility] [address] [place] [address] [phone] [employer]: Andrew Walter MD CK [Catalytic activity/Vol] 3835 U/L [facility] [address] Comment on above: Performed By: #### H EPXA #### [facility] [place], [place] [phone] [employer]: Andrew Walter MD Cult,Urineon 02-22-2023 Cult,Urine Specimen Description .URINE,STRAIGHT CATHETER Culture NO GROWTH Report Status FINAL 02/22/2023 Normal [facility] Comment on above: Performed By: #### B C #### [facility] [address] [place] [address] [phone] [employer]: Andrew Walter MD Culture, Respiratoryon 02-22 Interpretation and review of laboratory results Abnormal [facility] Microorganism identified Cx Nom (Unsp spec) NORMAL RESPIRATORY HARRY LIGHT GROWTH [facility] Microorganism or agent identified Nom (Unsp spec) < 10 EPITHELIAL CELLS/LPF [facility] Microorganism or agent identified Nom (Unsp spec) >25 NEUTROPHILS/LPF [facility] Microorganism or agent identified Nom (Unsp spec) Positive Abnormal [facility] Specimen Description .TRACHEAL ASPIRATE [facility] Culture, Urineon 02-22-2023 Microorganism identified Cx Nom (Unsp spec) NO GROWTH [facility] Specimen Description .URINE,STRAIGHT CATHETER [facility] Hemoglobin A1Con 02-22-2023 Glucose [Mass/Vol] 108 mg/dL Normal [facility] Comment on above: Result Comment: The ADA and AACC recommend providing the estimated average glucose result to permit better patient understanding of their HBA1c result. Performed By: #### B C #### [facility] [address] [place] [address] [employer]: Andrew Walter MD HbA1c (Bld) [Mass fraction] 5.4 % Normal 4.0-6.0 [facility] Comment on above: Performed By: #### B C #### [facility] [address] [place] [address] [phone] [employer]: Andrew Walter MD Average glucose Estimated from glycated hemoglobin (Bld) [Mass/Vol] 108 mg/dL [facility] Comment on above: The ADA and AACC rec ommend providing the estimated average glucose result to permit better patient understanding of their HBA1c result. HbA1c (Bld) [Mass fraction] 5.4 % 4.0 - 6.0 % [facility] Heparin Anti-Xaon 02-22-2023 Heparin Anti-Xa 0.18 IU/L Normal [facility] Comment on above: Performed By: #### H EPXA #### [facility] [address] [place] [address] [phone] [employer]: Andrew Walter MD Heparin Anti-Xa 0.29 IU/L Normal [facility] Comment on above: Performed By: #### H EPXA #### [facility] [address] [place] [address] [phone] [employer]: Andrew Walter MD Heparin Anti-Xa 0.22 IU/L Normal [facility] Comment on above: Performed By: #### R EJEC #### [facility] [address] [place] [address] [employer]: Andrew Walter MD Hepatic Function Panelon Albumin [Mass/Vol] 3.7 g/dL 3.5 - 5.2 g/dL [email or web address] Albumin/Globulin [Mass ratio] 1.7 {ratio} 1.0 - 2.5 [email or web address] ALP [Catalytic activity/Vol] 53 U/L 40 - 129 U/L [email or web address] ALT [Catalytic activity/Vol] 27 U/L 5 - 41 U/L [email or web address] AST [Catalytic activity/Vol] 62 U/L High NINF - 40 U/L [email or web address] Bilirubin [Mass/Vol] 0.9 mg/dL 0.3 - 1 .2 mg/dL [email or web address] Bilirubin.direct [Mass/Vol] 0.3 mg/dL High NINF - 0.3 mg/dL [email or web address] Bilirubin.indirect [Mass/Vol] 0.6 mg/dL 0.0 - 1.0 mg/dL [facility] [employer] Interpretation and review of laboratory results Abnormal [facility] [employer] Protein [Mass/Vol] 5.9 g/dL Low 6.4 - 8.3 g/dL [email or web address] Lipid Panelon 02-22-2023 Cholesterol [Mass/Vol] 106 mg/dL NINF - 200 mg/dL [email or web address] Comment on above: Cholesterol Guidelines: <200 Desirable 200-240 Borderline >240 Undesirable Cholesterol in HDL [Mass/Vol] 40 mg/dL Low 40 - PINF mg/dL [facility] Comment on above: HDL Guidelines: <40 Undesirable 40-59 Borderline >59 Desirable Cholesterol in LDL [Mass/Vol] 41 mg/dL 0 - 130 mg/dL [facility] Comment on above: LDL Guidelines: <100 Desirable 100-129 Near to/above Desirable 130-159 Borderline >159 Undesirable Direct (measured) LDL and calculated LDL are not interchangeable tests. Cholesterol.total/Hermelinda sterol in HDL [Mass ratio] 2.7 {ratio} NINF - 5 [facility] Interpretation and review of laboratory results Abnormal [facility] Triglyceride [Mass/Vol] 123 mg/dL NINF - 150 mg/dL [facility] Comment on above: Triglyceride Guidelines: <150 Desirable 150-199 Borderline 200-499 High >499 Very high Based on AHA Guidelines for fasting triglyceride, March 2012. [facility] Lipid Profileon 02-22-2023 Cholesterol [Mass/Vol] 106 mg/dL Normal <200 [facility] Comment on above: Result Comment: Cholesterol Guidelines: <200 Desirable 200-240 Borderline >240 Undesirable Performed By: #### C MPX, ERIKA, CK #### [address] [phone] [employer]: Andrew Walter MD Cholesterol in HDL [Mass/Vol] 40 mg/dL Low >40 [facility] Comment on above: Result Comment: HDL Guidelines: <40 Undesirable 40-59 Borderline >59 Desirable Performed By: #### C MPX, ERIKA, CK #### [facility] [address] [place] [address] [phone] [employer]: Andrew Walter MD Cholesterol in LDL [Mass/Vol] 41 mg/dL Normal 0-130 [facility] Comment on above: Result Comment: LDL Guidelines: <100 Desirable 100-129 Near to/above Desirable 130-159 Borderline >159 Undesirable Direct (measured) LDL and calculated LDL are not interchangeable tests. Performed By: #### C MPX, ERIKA, CK #### [facility] [address] [place] [address] 43729 [employer]: Andrew Walter MD Cholesterol.total/Hermelinda sterol in HDL [Mass ratio] 2.7 {ratio} Normal <5 [facility] Comment on above: Performed By: #### C MPX, ERIKA, CK #### [facility] [address] [place] [address] [phone] [employer]: Andrew Walter MD Triglyceride [Mass/Vol] 123 mg/dL Normal <150 [facility] Comment on above: Result Comment: Triglyceride Guidelines: <150 Desirable 150-199 Borderline 200-499 High >499 Very high Based on AHA Guidelines for fasting triglyceride, March 2012. Performed By: #### C MPX, ERIKA, CK #### [facility] [address] [place] [address] 20998 [employer]: Andrew Walter MD Liver Profileon 02-22-2023 Albumin [Mass/Vol] 3.7 g/dL Normal 3.5-5.2 [facility] Comment on above: Performed By: #### C MPX, ERIKA, CK #### [facility] [address] [place] [address] 88310 [employer]: Andrew Walter MD Albumin/Glob Ratio 1.7 Normal 1.0-2.5 [facility] Comment on above: Performed By: #### C MPX, ERIKA, CK #### [facility] [address] [place] [address] 52947 [employer]: Andrew Walter MD Alkaline Phos 53 U/L Normal 40-129 [facility] Comment on above: Performed By: #### C MPX, ERIKA, CK #### [facility] [address] [place] [address] 11008 [employer]: Andrew Walter MD ALT [Catalytic activity/Vol] 27 U/L Normal 5-41 [facility] Comment on above: Performed By: #### C MPX, ERIKA, CK #### [facility] [address] [place] [address] 10743 [employer]: Andrew Walter MD AST [Catalytic activity/Vol] 62 U/L High <40 [facility] Comment on above: Performed By: #### C MPX, ERIKA, CK #### [facility] [address] [place] [address] 86475 [employer]: Andrew Walter MD Bilirubin [Mass/Vol] 0.9 mg/dL Normal 0.3-1.2 [facility] Comment on above: Performed By: #### C MPX, ERIKA, CK #### [facility] [address] [place] [address] [employer]: Andrew Walter MD Bilirubin, Indirect 0.6 mg/dL Normal 0.0-1.0 [facility] Comment on above: Performed By: #### C MPX, ERIKA, CK #### [facility] [address] [place] [address] [employer]: Andrew Walter MD Bilirubin.indirect [Mass/Vol] 0.3 mg/dL High <0.3 [facility] Comment on above: Performed By: #### C MPX, ERIKA, CK #### [facility] [address] [place] [address] [employer]: Andrew Walter MD Protein [Mass/Vol] 5.9 g/dL Low 6.4-8.3 [facility] Comment on above: Performed By: #### C MPX, ERIKA, CK #### [facility] [address] [place] [address] [employer]: Andrew Walter MD MRSA DNA Probe, Nasalon 02-06 Interpretation and review of laboratory results Abnormal [facility] MRSA, DNA, Nasal POSITIVE: MRSA DNA detected by nucleic acid amplification. Abnormal NEGATIVE [facility] Comment on above: Results should be used as an adjunct to nosocomial control efforts to identify patients needing enhanced precautions. The test is not intended to identify patients with staphylococcal infections. Results should not be used to guide or monitor treatment for MRSA infections. Specimen Description .NASAL SWAB [facility] MRSA, DNA, Nasalon MRSA, DNA, Nasal POSITIVE: MRSA DNA detected by nucleic acid amplification. Abnormal NEG [facility] Comment on above: Result Comment: Results should be used as an adjunct to nosocomial control efforts to identify patients needing enhanced precautions. The test is not intended to identify patients with staphylococcal infections. Results should not be used to guide or monitor treatment for MRSA infections. Performed By: #### M RSANO #### [facility] [address] [place] [address] [phone] [employer]: Andrew Walter MD Myoglobinon 02-22-2023 Myoglobin [Mass/Vol] 730 ng/mL High 28-72 [facility] Comment on above: Performed By: #### H EPXA #### [facility] [address] [place] [address] [phone] [employer]: Andrew Walter MD Myoglobin, Bloodon Interpretation and review of laboratory results Abnormal [facility] Myoglobin [Mass/Vol] 730 ng/mL High 28 - 72 ng/mL [facility] [employer] No Panel Informationon 02-22 [facility] Interpretation and review of laboratory results Abnormal [facility] POCT Glucoseon 02-22-2023 Glucose [Mass/Vol] 120 mg/dL High 74 - 100 mg/dL [facility] PTon 02-22-2023 INR Coag (PPP) [Relative time] 1.2 {INR} Normal [facility] Comment on above: Result Comment: Therapeutic Range: Moderate Anticoagulant Intensity: INR = 2.0-3.0 High Anticoagulant Intensity: INR = 2.5-3.5 Performed By: #### R EJEC #### [facility] [address] [place] [address] 90268 [employer]: Andrew Walter MD PT Coag (PPP) [Time] 14.9 s Normal 11.7-14.9 [facility] Comment on above: Performed By: #### R EJEC #### [facility] [address] [place] [address] [phone] [employer]: Andrew Walter MD Protime-INRon 02-22-2023 INR Coag (PPP) [Relative time] 1.2 {INR} [facility] Comment on above: Therapeutic Range: Moderate Anticoagulant Intensity: INR = 2.0-3.0 High Anticoagulant Intensity: INR = 2.5-3.5 PT Coag (PPP) [Time] 14.9 s [facility] Troponinon 02-22-2023 Troponin, High Sens 46 ng/L High 0-22 [facility] Comment on above: Result Comment: High Sensitivity Troponin values cannot be compared with other Troponin methodologies. Performed By: #### C MPX, ERIKA, CK #### [facility] [address] [place], [place] [phone] [employer]: Andrew Walter MD Interpretation and review of laboratory results Abnormal [facility] Troponin I.cardiac High sensitivity method [Mass/Vol] 46 ng/L High 0 - 22 ng/L [facility] Comment on above: High Sensitivity Tro ponin values cannot be compared with other Troponin methodologies. [facility] Troponin, High Sens 150 ng/L Critically high 0-22 [facility] Comment on above: Result Comment: High Sensitivity Troponin values cannot be compared with other Troponin methodologies. Previous Alert Value Reported Performed By: #### T ROPI #### [facility] [address] [place] [address] 43608 [employer]: Andrew Walter MD Interpretation and review of laboratory results Abnormal [facility] Troponin I.cardiac High sensitivity method [Mass/Vol] 150 ng/L Critically high 0 - 22 ng/L [facility] Comment on above: High Sensitivity Tro ponin values cannot be compared with other Troponin methodologies. Previous Alert Value Reported [facility] Troponin, High Sens 149 ng/L Critically high 0-22 [facility] Comment on above: Result Comment: High Sensitivity Troponin values cannot be compared with other Troponin methodologies. Previous Alert Value Reported Performed By: #### C MPX, ERIKA, CK #### [facility] [address] [place] [address] 43608 [employer]: Andrew Walter MD Interpretation and review of laboratory results Abnormal [facility] Troponin I.cardiac High sensitivity method [Mass/Vol] 149 ng/L Critically high 0 - 22 ng/L [facility] Comment on above: High Sensitivity Tro ponin values cannot be compared with other Troponin methodologies. Previous Alert Value Reported [facility] Troponin, High Sens 123 ng/L Critically high 0-22 [facility] Comment on above: Result Comment: High Sensitivity Troponin values cannot be compared with other Troponin methodologies. Previous Alert Value Reported Performed By: #### H EPXA #### [facility] [address] [place], [place] [phone] [employer]: Andrew Walter MD Troponin, High Sens 77 ng/L Critically high 0-22 [facility] Comment on above: Result Comment: High Sensitivity Troponin values cannot be compared with other Troponin methodologies. Previous Alert Value Reported Performed By: #### R EJEC #### [facility] [address] [place], [place] [phone] [employer]: Andrew Walter MD Interpretation and review of laboratory results Abnormal [facility] Troponin I.cardiac High sensitivity method [Mass/Vol] 123 ng/L Critically high 0 - 22 ng/L [facility] Comment on above: High Sensitivity Tro ponin values cannot be compared with other Troponin methodologies. Previous Alert Value Reported [facility] Interpretation and review of laboratory results Abnormal [facility] Troponin I.cardiac High sensitivity method [Mass/Vol] 77 ng/L Critically high 0 - 22 ng/L [facility] Comment on above: High Sensitivity Tro ponin values cannot be compared with other Troponin methodologies. Previous Alert Value Reported [facility] XR CHEST PORTABLEon 02-23-20 XR CHEST PORTABLE EXAMINATION: ONE XRAY VIEW OF THE CHEST 02/22/2023 12:25 pm COMPARISON: February 21, 2023 HISTORY: ORDERING SYSTEM PROVIDED HISTORY: pneumonia TECHNOLOGIST PROVIDED HISTORY: pneumonia FINDINGS: Removal of the endotracheal and enteric tubes. Stable if not slight improvement of the bilateral perihilar infiltrates. No effusion or pneumothorax identified. Cardiac and mediastinal silhouettes are within normal limits. IMPRESSION: Stable not slight improvement of the bilateral perihilar infiltrates. Interpreted by: Jake Perez MD Signed by: Jake Perez MD 02/22/23 Final result Normal [facility] Stable not slight improvement of the bilateral perihilar infiltrates. [facility] RIS CONSOLIDATED EXAMINATION: ONE XRAY VIEW OF THE CHEST 02/22/2023 12:25 pm COMPARISON: February 21, 2023 HISTORY: ORDERING SYSTEM PROVIDED HISTORY: pneumonia TECHNOLOGIST PROVIDED HISTORY: pneumonia FINDINGS: Removal of the endotracheal and enteric tubes. Stable if not slight improvement of the bilateral perihilar infiltrates. No effusion or pneumothorax identified. Cardiac and mediastinal silhouettes are within normal limits. [facility] CONSOL[facility] Jake Perez MD - 02/22/2023 EXAMINATION: ONE XRAY VIEW OF THE CHEST 02/22/2023 12:25 pm COMPARISON: February 21, 2023 HISTORY: ORDERING SYSTEM PROVIDED HISTORY: pneumonia TECHNOLOGIST PROVIDED HISTORY: pneumonia FINDINGS: Removal of the endotracheal and enteric tubes. Stable if not slight improvement of the bilateral perihilar infiltrates. No effusion or pneumothorax identified. Cardiac and mediastinal silhouettes are within normal limits. IMPRESSION: Stable not slight improvement of the bilateral perihilar infiltrates. [facility] Radiology Study observation (narrative) [facility] XR CHEST PORTABLEOrdered By: Jake Perez on 02-22-2023 [facility] Work Phone: .Auto Diff 1on 02-21-2023 Auto [place] % 9 % Normal -12 [facility] Comment on above: Performed By: #### 2 [id number], [id number], [id number], [id number], [id number], [id number], [id number], 5729811, 7589761 ####[facility] (DEFAULT)[address] [place] [address] Baso Abs# 0.0 x10 Normal 0.0-0.2 [facility] Comment on above: Performed By: #### 2 028622, [id number], [id number], [id number], 52640875, 7274007185, 2408057997, 8049234, 7759396 ####[facility] (DEFAULT)[address] [place] [address] Basophils/100 WBC (Bld) 0.2 % Normal 0.2-2.0 [facility] Comment on above: Performed By: #### 2 056970, [id number], [id number], [id number], 82945579, 4815153775, 6560391178, 3108590, 1337583 ####[facility] (DEFAULT)[address] [place] [address] 98945 Eos Abs# 0.1 x10 Normal 0.0-0.4 [facility] Comment on above: Performed By: #### 2 470697, [id number], [id number], 2559318321, 07274340, 8314532248, 8583825332, 9777779, 3310547 ####[facility] (DEFAULT)[address] [place] [address] 84157 Eosinophils/100 WBC (Bld) 0.4 % Low 0.9-4.0 [facility] Comment on above: Performed By: #### 2 233215, [id number], [id number], 2828202028, 59734603, 6277125908, 8476230633, 7191284, 6660707 ####[facility] (DEFAULT)[address] [place] [address] 06746 Lymph Abs# 0.8 x10 Low 1.3-2.9 [facility] Comment on above: Performed By: #### 2 130039, [id number], [id number], 0319207069, 03633871, 3939006763, 9025909271, 3328906, 7148539 ####[facility] (DEFAULT)[address] [place] [address] 19441 Lymphocytes/100 WBC (Bld) 4 % Low 14-48 [facility] Comment on above: Performed By: #### 2 505933, [id number], [id number], 2808490771, 37569159, 4574241949, 4699571241, 9249101, 7467934 ####[facility] (DEFAULT)[address] [place] [address] 18600 [place] Abs# 1.9 x10 High 0.0-0.8 [facility] Comment on above: Performed By: #### 2 396088, [id number], [id number], 5312448558, 29388730, 0683733584, 8172812449, 5327372, 4414044 ####[facility] (DEFAULT)[address] [place] [address] Neut Abs# 18.4 x10 High 1.5-9.2 [facility] Comment on above: Performed By: #### 2 909658, [id number], [id number], 4458399367, 39705588, 1320538712, 4773063101, 7428627, 9352326 ####[facility] (DEFAULT)[address] [place] [address] Neutrophils/100 WBC (Bld) 86 % Normal 44-88 [facility] Comment on above: Performed By: #### 2 371551, [id number], 1825255718, 1088390251, 04153394, 3444560373, 3121108923, 9752283, 9663056 ####[facility] (DEFAULT)[address] [place] [address] 89894 APTTon 02-21-2023 aPTT Coag (Bld) [Time] 22.9 s Low 23.0-36.5 [facility] Comment on above: Result Comment: IV Heparin Therapy Range: 66.0-92.0 sec Performed By: #### T SANJU #### [facility] [address] [place] [address] 43608 [employer]: Andrew Walter MD aPTT Coag (Bld) [Time] 22.9 s Low [facility] Comment on above: IV Heparin Therapy Range: 66.0-92.0 sec Interpretation and review of laboratory results Abnormal [facility] Ammoniaon 02-21-2023 Ammonia (P) [Moles/Vol] 28 umol/L Normal 16-60 [facility] Comment on above: Performed By: #### T MARGYI #### [facility] [address] [place] [address] 43608 [employer]: Andrew Walter MD Ammonia (P) [Moles/Vol] 28 umol/L 16 - 60 umol/L [facility] Arterial Blood Gas, POCon Bijan Test Positive [facility] FIO2 70.0 [facility] HCO3 (Bld) [Moles/Vol] 22.8 mmol/L 21.0 - 28.0 mmol/L [facility] Negative Base Excess, Art 1.9 mmol/L 0.0 - 2.0 mmol/L [facility] O2 Delivery Device Adult Ventilator [facility] Oxygen saturation in Blood 99.8 % High 94.0 - 98.0 % [facility] POC pCO2 38.0 [facility] POC pH 7.386 7.350 - 7.450 [facility] POC PO2 245.0 High [facility] Sample Site Right Radial Artery [facility] Bijan Test Positive [facility] FIO2 70.0 [facility] HCO3 (Bld) [Moles/Vol] 20.2 mmol/L Low 21.0 - 28.0 mmol/L [facility] Interpretation and review of laboratory results Abnormal [facility] Mode PRVC [facility] Negative Base Excess, Art 5.5 mmol/L High 0.0 - 2.0 mmol/L [facility] O2 Delivery Device Adult Ventilator [facility] Oxygen saturation in Blood 99.3 % High 94.0 - 98.0 % [facility] POC pCO2 39.3 [facility] POC pH 7.318 Low 7.350 - 7.450 [facility] POC PO2 160.6 High [facility] Sample Site Left Radial Artery [facility] BLOOD GAS, VENOUSon 02-22-20 Carboxyhemoglobin (Bld) [Mass fraction] 4.8 % 0 - 5 % [facility] Comment on above: Reference Range: Non-Smokers 0-2% Average Smoker 2-4% Heavy Smoker <10% HCO3 (Bld) [Moles/Vol] 21.7 mmol/L Low 24 - 30 mmol/L [facility] Negative Base Excess, Atif 6.7 mmol/L High 0.0 - 2.0 mmol/L [facility] Oxygen saturation in Blood 70.7 % 60.0 - 85.0 % [facility] Oxygen/Inspired gas Respiratory system --on ventilator INFORMATION NOT PROVIDED [facility] pCO2, Atif 55.7 High [facility] pH, Atif 7.215 Critically low 7.320 - 7.420 [facility] pO2, Atif 39.6 [facility] BNP.on 02-21-2023 Natriuretic peptide B (Bld) [Mass/Vol] 253.0 pg/mL High 0.0-100.0 [facility] Comment on above: Result Comment: BNP results greater than 100 pg/mL are considered abnormal and suggestive of patients with CHF. Higher BNP concentrations measured in the first 72 hours after an acute coronary syndorme are associated with an increased risk of , myocardial infarction, and CHF. Performed By: #### 2 [id number], [id number], [id number], [id number], [id number], 6323534829, [id number], 2645048, 8638182 ####[facility] (DEFAULT)[address] [place] [address] Basic Metab w/rfx MGon 02-21 Anion gap [Moles/Vol] 17 mmol/L Normal 9-17 [facility] Comment on above: Performed By: #### T ROPI #### [facility] [address] [place] [address]608 [employer]: Andrew Walter MD Calcium [Mass/Vol] 8.0 mg/dL Low 8.6-10.4 [facility] Comment on above: Performed By: #### T ROPI #### [facility] [address] [place] [address]608 [employer]: Andrew Walter MD Chloride [Moles/Vol] 102 mmol/L Normal 98-107 [facility] Comment on above: Performed By: #### T ROPI #### [facility] [address] [place] [address] 97602 [employer]: Andrew Walter MD CO2 [Moles/Vol] 17 mmol/L Low 20-31 [facility] Comment on above: Performed By: #### T ROPI #### [facility] [address] [place] [address] 51769 [employer]: Andrew Walter MD Creatinine [Mass/Vol] 2.0 mg/dL High 0.7-1.2 [facility] Comment on above: Performed By: #### T ROPI #### [facility] [address] [place] [address] 58421 [employer]: Andrew Walter MD GFR/1.73 sq M.predicted among non-blacks MDRD (S/P/Bld) [Vol rate/Area] 46 mL/min/{1.73_m2} Low >60 [facility] Comment on above: Result Comment: These results are not intended for use in patients <18 years of age. eGFR results are calculated without a race factor using the 2020 CKD-EPI equation. Careful clinical correlation is recommended, particularly when comparing to results calculated using previous equations. The CKD-EPI equation is less accurate in patients with extremes of muscle mass, extra-renal metabolism of creatine, excessive creatine ingestion, or following therapy that affects renal tubular secretion. Performed By: #### T ROPI #### [facility] [address] [place] [address] 94568 [employer]: Andrew Walter MD Glucose [Mass/Vol] 105 mg/dL High 70-99 [facility] Comment on above: Performed By: #### T ROPI #### [facility] [address] [place] [address] 86629 [employer]: Andrew Walter MD Potassium [Moles/Vol] 5.1 mmol/L Normal 3.7-5.3 [facility] Comment on above: Performed By: #### T ROPI #### [facility] [address] [place] [address] 19184 [employer]: Andrew Walter MD Sodium [Moles/Vol] 136 mmol/L Normal 135-144 [facility] Comment on above: Performed By: #### T MARGYI #### [facility] [address] [place], [place] [phone] [employer]: Andrew Walter MD Urea nitrogen [Mass/Vol] 37 mg/dL High 6-20 [facility] Comment on above: Performed By: #### T MARGYI #### [facility] [address] [place], [place] [id number] [employer]: Andrew Walter MD Basic Metabolic Panel w/ Ref tanisha to [facility] 02-21-2023 Anion gap [Moles/Vol] 17 mmol/L 9 - 17 mmol/L [facility] Calcium [Mass/Vol] 8.0 mg/dL Low 8.6 - 10. 4 mg/dL [email or web address] Chloride [Moles/Vol] 102 mmol/L 98 - 10 7 mmol/L [email or web address] CO2 [Moles/Vol] 17 mmol/L Low 20 - 31 mmol/L [facility] Creatinine [Mass/Vol] 2.0 mg/dL High 0.7 - 1.2 mg/dL [facility] GFR/1.73 sq M.predicted MDRD (S/P/Bld) [Vol rate/Area] 46 mL/min/{1.73_m2} Low - PINF [email or web address] Comment on above: These results are not intended for use in patients <18 years of age. eGFR results are calculated without a race factor using the 2020 CKD-EPI equation. Careful clinical correlation is recommended, particularly when comparing to results calculated using previous equations. The CKD-EPI equation is less accurate in patients with extremes of muscle mass, extra-renal metabolism of creatine, excessive creatine ingestion, or following therapy that affects renal tubular secretion. Glucose [Mass/Vol] 105 mg/dL High 70 - 99 mg/dL [facility] Interpretation and review of laboratory results Abnormal [facility] Potassium [Moles/Vol] 5.1 mmol/L 3.7 - 5.3 mmol/L [facility] Sodium [Moles/Vol] 136 mmol/L 135 - 144 mmol/L [facility] Urea nitrogen [Mass/Vol] 37 mg/dL High 6 - 20 mg/dL [facility] CALCIUM, IONIC (POC)on 02-21 Calcium.ionized (Bld) [Moles/Vol] 1.15 mmol/L 1.15 - 1.33 mmol/L [facility] CBC w/ Auto Diffon Erythrocyte distribution width (RBC) [Ratio] 13.8 % Normal 11.5-15.0 [facility] Comment on above: Performed By: #### 2 068169, [id number], 6015316709, 9092506078, 85178538, 5388279915, 7121941728, 9002375, 7175964 ####[facility] (DEFAULT)[address] [place] [address] Hematocrit (Bld) [Volume fraction] 43.4 % Normal 34.8-51.9 [facility] Comment on above: Performed By: #### 2 229597, [id number], 7936399115, 6563860870, 58901925, 7348167886, 1467209992, 3833411, 7305806 ####[facility] (DEFAULT)[address] [place] [address] 68258 Hemoglobin (Bld) [Mass/Vol] 14.7 g/dL Normal 11.8-17.7 [facility] Comment on above: Performed By: #### 2 077503, [id number], 1084239994, 8893416354, 60219085, 8069386281, 9429942987, 8971360, 8168257 ####[facility] (DEFAULT)[address] [place] [address] 93804 Man Diff? Auto Invalid Interpretation Code [facility] Comment on above: Performed By: #### 2 279621, 2211220549, 5396757761, 1963733737, 99395440, 4067353075, 0238108850, 0098145, 2307367 ####[facility] (DEFAULT)[address] [place] [address] 10680 MCH (RBC) [Entitic mass] 31 pg Normal 24-34 [facility] Comment on above: Performed By: #### 2 577638, 6175702073, 6386143007, 5032679175, 10771073, 0051889857, 9028773644, 7113122, 8301817 ####[facility] (DEFAULT)[address] [place] [address] 14122 MCHC (RBC) [Mass/Vol] 34 g/dL Normal 26-37 [facility] Comment on above: Performed By: #### 2 805800, 5507212335, 3444494180, 1808901877, 46862162, 8827228080, 3751388125, 9496617, 3735247 ####[facility] (DEFAULT)[address] [place] [address] 21939 MCV (RBC) [Entitic vol] 91 fL Normal 81-100 [facility] Comment on above: Performed By: #### 2 909776, 0583412301, 4848763655, 0976336214, 57373569, 1302047533, 6755972787, 5481177, 4214058 ####[facility] (DEFAULT)[address] [place] [address] 56911 Platelet 203 x10 Normal 138-427 [facility] Comment on above: Performed By: #### 2 161042, 0340523252, 1296812645, 6300612193, 54446220, 3304580520, 9275724634, 1689982, 0524363 ####[facility] (DEFAULT)[address] [place] [address] 48033 Platelet mean volume (Bld) [Entitic vol] 7.1 fL Normal 6.3-10.2 [facility] Comment on above: Performed By: #### 2 685707, 5068922257, 6166061137, 8554541285, 56668237, 1880395648, 3745720419, 4006679, 2690353 ####[facility] (DEFAULT)[address] [place] [address] RBC 4.75 x10 Normal 3.70-5.30 [facility] Comment on above: Performed By: #### 2 283574, 0319494585, 1589463403, 3169936047, 02508784, 7265762332, 4889605816, 1547153, 9564528 ####[facility] (DEFAULT)[address] [place] [address] WBC 21.3 x10 High 3.5-10.5 [facility] Comment on above: Result Comment: Slid e Reviewed Performed By: #### 2 426926, 0999669262, 6074925484, 5598971554, 01521427, 6120178010, 6089913468, 5749575, 8206720 ####[facility] (DEFAULT)[address] [place] [address] CBC with Auto Differentialon 02-21-2023 Basophils (Bld) [#/Vol] 0.00 10*3/uL [facility] Basophils/100 WBC (Bld) 0 % 0 - 2 % B ON [facility] Eosinophils (Bld) [#/Vol] 0.00 10*3/uL [facility] Eosinophils/100 WBC (Bld) 0 % Low 1 - 4 % [facility] Erythrocyte distribution width (RBC) [Ratio] 13.2 % 11.8 - 14.4 % [facility] Hematocrit (Bld) [Volume fraction] 46.4 % 40.7 - 50.3 % [facility] Hemoglobin (Bld) [Mass/Vol] 15.2 g/dL 13.0 - 17.0 g/dL [facility] Immature granulocytes (Bld) [#/Vol] 1.73 10*3/uL High [facility] Immature granulocytes/100 WBC (Bld) 9 % High 0 [facility] Interpretation and review of laboratory results Abnormal [facility] Lymphocytes/100 WBC (Bld) 5 % Low 24 - 44 % [facility] Lymphocytes/100 WBC (Bld) 0.96 % Low [facility] MCH (RBC) [Entitic mass] 31.0 pg 25.2 - 33.5 pg [facility] MCHC (RBC) [Mass/Vol] 32.8 g/dL 28.4 - 34.8 g/dL [facility] MCV (RBC) [Entitic vol] 94.7 fL 82.6 - 102.9 fL [facility] Monocytes/100 WBC (Bld) 8 % High 1 - 7 % B ON [facility] Monocytes/100 WBC (Bld) 1.54 % High B ON [facility] Morphology Edwin (Bld) [Interp] Normal [facility] Neutrophils/100 WBC (Bld) 78 % High 36 - 66 % [facility] Nucleated RBC/100 WBC (Bld) [Ratio] 0.0 % 0.0 per 100 WBC [facility] Platelet mean volume (Bld) [Entitic vol] 9.1 fL 8.1 - 13.5 fL [facility] Platelets (Bld) [#/Vol] 166 10*3/uL [facility] RBC (Bld) [#/Vol] 4.90 10*6/uL 4.21 - 5.7 7 m/uL [facility] Segmented neutrophils/100 WBC (Bld) 14.97 % High [facility] WBC other (Bld) [#/Vol] 19.2 High B ON [facility] CBC with Diffon 02-21-2023 Abs. Basophil 0.00 k/uL Normal 0.0-0.2 [facility] Comment on above: Performed By: #### T ROPI #### [facility] [place] [id number] [employer]: Andrew Walter MD Abs.Imm.Granulocyte 1.73 k/uL High 0.00-0.30 [facility] Comment on above: Performed By: #### T MARGYI #### [facility] [address] [place], [place] [address] [employer]: Andrew Walter MD Abs.Neutrophil (Seg) 14.97 k/uL High 1.8-7.7 [facility] Comment on above: Performed By: #### T ROPI #### [address] [address] [employer]: Andrew Walter MD Basophils/100 WBC (Bld) 0 % Normal 0-2 [facility] Comment on above: Performed By: #### T ROPI #### [address] [address] [employer]: Andrew Walter MD Eosinophils (Bld) [#/Vol] 0.00 10*3/uL Normal 0.0-0.4 [facility] Comment on above: Performed By: #### T ROPI #### [address] [address] [employer]: Andrew Walter MD Eosinophils/100 WBC (Bld) 0 % Low 1-4 [facility] Comment on above: Performed By: #### T ROPI #### [address] [address] [employer]: Andrew Walter MD Immature granulocytes/100 WBC (Bld) 9 % High 0 [facility] Comment on above: Performed By: #### T ROPI #### [address] [address] [employer]: Andrew Walter MD Lymphocytes (Bld) [#/Vol] 0.96 10*3/uL Low 1.0-4.8 [facility] Comment on above: Performed By: #### T ROPI #### [address] [address] [employer]: Andrew Walter MD Lymphocytes/100 WBC (Bld) 5 % Low 24-44 [facility] Comment on above: Performed By: #### T ROPI #### [address] [address] [employer]: Andrew Walter MD Monocytes (Bld) [#/Vol] 1.54 10*3/uL High 0.1-0.8 [facility] Comment on above: Performed By: #### T ROPI #### [address] [address] [employer]: Andrew Walter MD Monocytes/100 WBC (Bld) 8 % High 1-7 [facility] Comment on above: Performed By: #### T ROPI #### [address] [address] [employer]: Andrew Walter MD Morphology Edwin (Bld) [Interp] Normal Normal [facility] Comment on above: Performed By: #### T ROPI #### [address] [address] [employer]: Andrew Walter MD Neutrophil (Seg) 78 % High 36-66 [facility] Comment on above: Performed By: #### T ROPI #### [address] [address] [employer]: Andrew Walter MD Erythrocyte distribution width (RBC) [Ratio] 13.2 % Normal 11.8-14.4 [facility] Comment on above: Performed By: #### T ROPI #### [address] [address] [employer]: Andrew Walter MD Hematocrit (Bld) [Volume fraction] 46.4 % Normal 40.7-50.3 [facility] Comment on above: Performed By: #### T ROPI #### [address] [address] [employer]: Andrew Walter MD Hemoglobin (Bld) [Mass/Vol] 15.2 g/dL Normal 13.0-17.0 [facility] Comment on above: Performed By: #### T ROPI #### [address] [address] [employer]: Andrew Walter MD MCH (RBC) [Entitic mass] 31.0 pg Normal 25.2-33.5 [facility] Comment on above: Performed By: #### T ROPI #### [address] [address] [employer]: Andrew Walter MD MCHC (RBC) [Mass/Vol] 32.8 g/dL Normal 28.4-34.8 [facility] Comment on above: Performed By: #### T ROPI #### [address] [address] [employer]: Andrew Walter MD MCV (RBC) [Entitic vol] 94.7 fL Normal 82.6-102.9 [facility] Comment on above: Performed By: #### T ROPI #### [address] [address] [employer]: Andrew Walter MD NRBC Automated 0.0 per 100 WBC Normal 0.0 [facility] Comment on above: Performed By: #### T ROPI #### [address] [address] [employer]: Andrew Walter MD Platelet mean volume (Bld) [Entitic vol] 9.1 fL Normal 8.1-13.5 [facility] Comment on above: Performed By: #### T ROPI #### [address] [address] [employer]: Andrew Walter MD Platelets (Bld) [#/Vol] 166 10*3/uL Normal 138-453 [facility] Comment on above: Performed By: #### T ROPI #### [address] [id number] [employer]: Andrew Walter MD RBC (Bld) [#/Vol] 4.90 10*6/uL Normal 4.21-5.77 [facility] Comment on above: Performed By: #### T MARGYI #### [facility] [address] [place], [place] [address] [employer]: Andrew Walter MD WBC (Bld) [#/Vol] 19.2 10*3/uL High 3.5-11.3 [facility] Comment on above: Performed By: #### T MARGYI #### [facility] [address] [place], [place] [address] [employer]: [facility] [Catalytic activity/Vol] 3147 U/L High 39 - 308 U/L [facility] Interpretation and review of laboratory results Abnormal [facility] CMP Standardon 02-21-2023 Breakpoint Chem Normal [facility] Comment on above: Performed By: #### 2 287599, [id number], 1705396134, 3950639315, 44101906, 0400608698, 3746648133, 4106199, 0685079 ####[facility] (DEFAULT)[address] [place] [address] 87378 eGFR Non AA 34 mL/min/1.73m2 Invalid Interpretation Code [facility] Comment on above: Performed By: #### 2 865923, [id number], 6631916594, 7783600268, 47802860, 5419633792, 1920350109, 0841874, 1015490 ####[facility] (DEFAULT)[address] [place] [address] eGFR AA 42 mL/min/1.73m2 Invalid Interpretation Code [facility] Comment on above: Performed By: #### 2 452991, 9385530791, 0762376480, 1100195617, 74148725, 2058906008, 8864013855, 4148325, 7393909 ####[facility] (DEFAULT)[address] [place] [address] 10451 Albumin [Mass/Vol] 4.4 g/dL Normal 3.5-5.0 [facility] Comment on above: Performed By: #### 2 654062, 9742502290, 1744069915, 5993481641, 20566063, 1075744093, 2725041699, 8066898, 6146701 ####[facility] (DEFAULT)[address] [place] [address] 16181 Albumin/Globulin [Mass ratio] 1.5 {ratio} Normal 1.4-2.6 [facility] Comment on above: Performed By: #### 2 308044, 1679919792, 6769500316, 4794806081, 07814618, 5183479588, 9916931491, 5038096, 7170448 ####[facility] (DEFAULT)[address] [place] [address] 09774 Alk Phos 57 IU/L Normal 32-91 [facility] Comment on above: Performed By: #### 2 826855, 4940963630, 8222971337, 2172957679, 16670575, 9089187562, 4873870207, 8702001, 5435253 ####[facility] (DEFAULT)[address] [place] [address] 32396 ALT [Catalytic activity/Vol] 29.0 U/L Normal 17.0-63.0 [facility] Comment on above: Performed By: #### 2 428100, 0221858700, 8272809292, 9682711356, 44562740, 0566382274, 7346912329, 6950659, 3267390 ####[facility] (DEFAULT)[address] [place] [address] 68362 AST [Catalytic activity/Vol] 69 U/L High 15-41 [facility] Comment on above: Performed By: #### 2 399472, 0275145096, 6907118126, 9500960901, 48697472, 4007832303, 5349945004, 6410356, 6974370 ####[facility] (DEFAULT)[address] [place] [address] 67854 Bili Total 1.5 mg/dL High 0.3-1.2 [facility] Comment on above: Performed By: #### 2 641872, 9266673203, 4682396494, 0578651397, 30349267, 0431805624, 6176297611, 1798258, 6852809 ####[facility] (DEFAULT)[address] [place] [address] 81562 Creatinine [Mass/Vol] 2.28 mg/dL High 0.90-1.30 [facility] Comment on above: Performed By: #### 2 166421, 3311474429, 1693002906, 8603432288, 08411289, 9849909931, 9642064730, 3159769, 0275806 ####[facility] (DEFAULT)[address] [place] [address] 28107 Globulin (S) [Mass/Vol] 2.8 g/dL Normal 1.5-4.3 [facility] Comment on above: Performed By: #### 2 780973, 3332770783, 2529427784, 1585749036, 51122379, 8302252060, 9011426674, 0901522, 0060683 ####[facility] (DEFAULT)[address] [place] [address]3335 Osmolality 282 mOsm/L Invalid Interpretation Code [facility] Comment on above: Performed By: #### 2 087029, 1578177693, 2223974966, 0762548642, 48788683, 8156283555, 7465802966, 6849928, 5631869 ####[facility] (DEFAULT)[address] [place] [address] 89146 Protein [Mass/Vol] 7.2 g/dL Normal 6.5-8.1 [facility] Comment on above: Performed By: #### 2 640589, 0459611922, 0735930431, 8866289286, 94891460, 9165455401, 4757867784, 4316100, 1585979 ####[facility] (DEFAULT)[address] [place] [address] 83330 Urea nitrogen [Mass/Vol] 42 mg/dL High 8-26 [facility] Comment on above: Performed By: #### 2 468045, 0668468753, 3722191762, 6266287684, 87229646, 4369810651, 6082994394, 7914971, 0532139 ####[facility] (DEFAULT)[address] [place] [address]70 Urea nitrogen/Creatinine [Mass ratio] 18.4 mg/mg High 4.6-16.2 [facility] Comment on above: Performed By: #### 2 120694, 4483977708, 2456743903, 8944707134, 91976512, 1781141517, 4464834861, 0685534, 9965524 ####[facility] (DEFAULT)[address] [place] [address] Anion gap [Moles/Vol] 17.6 mmol/L Normal 5.0-19.0 [facility] Comment on above: Performed By: #### 2 691655, 8303184191, 9401735727, 9326872835, 42207547, 8145796158, 8503928237, 1425005, 2690043 ####[facility] (DEFAULT)[address] [place] [address] Calcium [Mass/Vol] 7.5 mg/dL Low 8.9-10.3 [facility] Comment on above: Performed By: #### 2 013920, 9748151896, 0051996605, 1371609578, 24855441, 8317225345, 4492601369, 7191043, 1989584 ####[facility] (DEFAULT)[address] [place] [address] 14602 Chloride [Moles/Vol] 103 mmol/L Normal 101-111 [facility] Comment on above: Performed By: #### 2 248919, 4040820941, 6721035135, 5194361840, 00248163, 8113331100, 1269242473, 8477865, 7575977 ####[facility] (DEFAULT)[address] [place] [address]393 CO2 [Moles/Vol] 22 mmol/L Normal 21-32 [facility] Comment on above: Performed By: #### 2 493665, 6481297312, 5293511806, 7241727096, 15470972, 3938565829, 8397537227, 6390154, 9897072 ####[facility] (DEFAULT)[address] [place] [address] Glucose [Mass/Vol] 88.0 mg/dL Normal 74.0-118.0 [facility] Comment on above: Performed By: #### 2 517864, 9222184327, 3861571372, 6898425935, 42923292, 7767072985, 9725748182, 4856355, 7412758 ####[facility] (DEFAULT)[address] [place] [address] Potassium [Moles/Vol] 6.6 mmol/L Critically abnormal 3.6-5.1 [facility] Comment on above: Result Comment: Crit ical result K 6.6 mmol/L called to and read back by Elizabeth LEONARD RN at 21-Feb-2023 11:58 by Pascual. Performed By: #### 2 970722, 5350999820, 4733118521, 0624201575, 24667749, 6373833888, 0311009067, 3502973, 7256487 ####[facility] (DEFAULT)[address] [place] [address] 06342 Sodium [Moles/Vol] 136.0 mmol/L Normal 136.0-144.0 [facility] Comment on above: Performed By: #### 2 548397, 6119214924, 8118704276, 4062211305, 26977699, 9180504015, 3735024226, 6697970, 9706099 ####[facility] (DEFAULT)[address] [place] [address] CERVICAL SPINE WO CONTRAS Ton 02-21-2023 CT CERVICAL SPINE WO CONTRAST EXAMINATION: CT OF THE HEAD WITHOUT CONTRAST; CT OF THE CERVICAL SPINE WITHOUT CONTRAST 02/21/2023 1:59 pm TECHNIQUE: CT of the head was performed without the administration of intravenous contrast. Automated exposure control, iterative reconstruction, and/or weight based adjustment of the mA/kV was utilized to reduce the radiation dose to as low as reasonably achievable.; CT of the cervical spine was performed without the administration of intravenous contrast. Multiplanar reformatted images are provided for review. Automated exposure control, iterative reconstruction, and/or weight based adjustment of the mA/kV was utilized to reduce the radiation dose to as low as reasonably achievable. COMPARISON: None. HISTORY: Reason for Exam: drug OD, found down, intubated, concern for bleed FINDINGS: CT HEAD: BRAIN/VENTRICLES: There is no acute intracranial hemorrhage, mass effect or midline shift. No abnormal extra-axial fluid collection. The lopez-white differentiation is maintained without evidence of an acute infarct. There is no evidence of hydrocephalus. SINUSES/MASTOIDS: The paranasal sinuses and mastoid air cells are well aerated. No acute fracture is seen. SOFT TISSUES/SKULL: No acute abnormality of the visualized skull or soft tissues. CT CERVICAL SPINE: BONES/ALIGNMENT: There is no acute fracture or traumatic malalignment. DEGENERATIVE CHANGES: No significant degenerative changes. SOFT TISSUES: There is no prevertebral soft tissue swelling. IMPRESSION: No acute intracranial abnormality. No acute abnormality in the cervical spine. Interpreted by: Lawanda Durán MD Signed by: Lawanda Durán MD 02/21/23 Final result Normal [facility] CT CHEST WO CONTRASTon 02-21 CT CHEST WO CONTRAST EXAMINATION: CT OF THE CHEST WITHOUT CONTRAST 02/21/2023 2:11 pm TECHNIQUE: CT of the chest was performed without the administration of intravenous contrast. Multiplanar reformatted images are provided for review. Automated exposure control, iterative reconstruction, and/or weight based adjustment of the mA/kV was utilized to reduce the radiation dose to as low as reasonably achievable. COMPARISON: None. HISTORY: Reason for Exam: concern for asp pna, intubated FINDINGS: Mediastinum: No evidence of mediastinal, hilar or axillary lymphadenopathy. Lungs/pleura: Dense patchy bilateral perihilar consolidation. No pleural effusion or pneumothorax. Upper Abdomen: Visualized upper abdomen demonstrate thickening and periadrenal fat stranding. Soft Tissues/Bones: No acute abnormality of the visualized osseous structures. IMPRESSION: Dense patchy bilateral perihilar consolidation. Thickening and periadrenal fat stranding suggestive of hyperemia caused by physiological stress. Interpreted by: Lawanda Durán MD Signed by: Lawanda Durán MD 02/21/23 Final result Normal [facility] Dense patchy bilateral perihilar consolidation. Thickening and periadrenal fat stranding suggestive of hyperemia caused by physiological stress. [facility] EXAMINATION: CT OF THE CHEST WITHOUT CONTRAST 02/21/2023 2:11 pm TECHNIQUE: CT of the chest was performed without the administration of intravenous contrast. Multiplanar reformatted images are provided for review. Automated exposure control, iterative reconstruction, and/or weight based adjustment of the mA/kV was utilized to reduce the radiation dose to as low as reasonably achievable. COMPARISON: None. HISTORY: Reason for Exam: concern for asp pna, intubated FINDINGS: Mediastinum: No evidence of mediastinal, hilar or axillary lymphadenopathy. Lungs/pleura: Dense patchy bilateral perihilar consolidation. No pleural effusion or pneumothorax. Upper Abdomen: Visualized upper abdomen demonstrate thickening and periadrenal fat stranding. Soft Tissues/Bones: No acute abnormality of the visualized osseous structures. [facility] Lawanda Durán MD - 02/21/2023 EXAMINATION: CT OF THE CHEST WITHOUT CONTRAST 02/21/2023 2:11 pm TECHNIQUE: CT of the chest was performed without the administration of intravenous contrast. Multiplanar reformatted images are provided for review. Automated exposure control, iterative reconstruction, and/or weight based adjustment of the mA/kV was utilized to reduce the radiation dose to as low as reasonably achievable. COMPARISON: None. HISTORY: Reason for Exam: concern for asp pna, intubated FINDINGS: Mediastinum: No evidence of mediastinal, hilar or axillary lymphadenopathy. Lungs/pleura: Dense patchy bilateral perihilar consolidation. No pleural effusion or pneumothorax. Upper Abdomen: Visualized upper abdomen demonstrate thickening and periadrenal fat stranding. Soft Tissues/Bones: No acute abnormality of the visualized osseous structures. IMPRESSION: Dense patchy bilateral perihilar consolidation. Thickening and periadrenal fat stranding suggestive of hyperemia caused by physiological stress. [facility] Radiology Study observation (narrative) [facility] CT HEAD WO CONTRASTon 2022 CT HEAD WO CONTRAST EXAMINATION: CT OF THE HEAD WITHOUT CONTRAST; CT OF THE CERVICAL SPINE WITHOUT CONTRAST 02/21/2023 1:59 pm TECHNIQUE: CT of the head was performed without the administration of intravenous contrast. Automated exposure control, iterative reconstruction, and/or weight based adjustment of the mA/kV was utilized to reduce the radiation dose to as low as reasonably achievable.; CT of the cervical spine was performed without the administration of intravenous contrast. Multiplanar reformatted images are provided for review. Automated exposure control, iterative reconstruction, and/or weight based adjustment of the mA/kV was utilized to reduce the radiation dose to as low as reasonably achievable. COMPARISON: None. HISTORY: Reason for Exam: drug OD, found down, intubated, concern for bleed FINDINGS: CT HEAD: BRAIN/VENTRICLES: There is no acute intracranial hemorrhage, mass effect or midline shift. No abnormal extra-axial fluid collection. The lopez-white differentiation is maintained without evidence of an acute infarct. There is no evidence of hydrocephalus. SINUSES/MASTOIDS: The paranasal sinuses and mastoid air cells are well aerated. No acute fracture is seen. SOFT TISSUES/SKULL: No acute abnormality of the visualized skull or soft tissues. CT CERVICAL SPINE: BONES/ALIGNMENT: There is no acute fracture or traumatic malalignment. DEGENERATIVE CHANGES: No significant degenerative changes. SOFT TISSUES: There is no prevertebral soft tissue swelling. IMPRESSION: No acute intracranial abnormality. No acute abnormality in the cervical spine. Interpreted by: Lawanda Durán MD Signed by: Lawanda Durán MD 02/21/23 Final result Normal [facility] Creatine Kinaseon 02-21-2023 CK [Catalytic activity/Vol] 3147 U/L High 39-308 [facility] Comment on above: Performed By: #### T ROPI #### [facility] [address] [place], [place] [address] [employer]: Andrew Walter MD Creatinine W/GFR Point of Ca reon 02-21-2023 Creatinine [Mass/Vol] 2.1 mg/dL High 0.51 - 1.19 mg/dL [email or web address] eGFR, POC 43 mL/min/1.73 m2 [facility] Comment on above: These results are not intended for use in patients <18 years of age. eGFR results are calculated without a race factor using the 2020 CKD-EPI equation. Careful clinical correlation is recommended, particularly when comparing to results calculated using previous equations. The CKD-EPI equation is less accurate in patients with extremes of muscle mass, extra-renal metabolism of creatine, excessive creatine ingestion, or following therapy that affects renal tubular secretion. DRUG SCREEN MULTI URINEon Amphetamines Ql (U) Negative NEGATIVE [facility] Comment on above: (Positive cutoff 1000 ng/mL) Barbiturates Screen Ql (U) Negative NEGATIVE [employer] Comment on above: (Positive cutoff 200 ng/mL) Benzodiazepines Ql (U) Positive Abnormal NEGATIVE [facility] [email or web address] Comment on above: (Positive cutoff 200 ng/mL) Cannabinoids Screen Ql (U) Positive Abnormal NEGATIVE [employer] Comment on above: (Positive cutoff 50 ng/mL) Cocaine Ql (U) Negative NEGATIVE [employer] Comment on above: (Positive cutoff 300 ng/mL) fentaNYL Ql (U) Positive Abnormal NEGATIVE [facility] [employer] Comment on above: (Positive cutoff 5 ng/ml) Interpretation and review of laboratory results Abnormal [facility] Methadone Ql (U) Negative NEGATIVE [facility] [employer] Comment on above: (Positive cutoff 300 ng/mL) Opiates Screen Ql (U) Negative NEGATIVE [facility] [employer] Comment on above: (Positive cutoff 300 ng/mL) oxyCODONE Ql (U) Negative NEGATIVE [facility] Comment on above: (Positive cutoff 100 ng/mL) Phencyclidine Ql (U) Negative NEGATIVE [employer] [employer] Comment on above: (Positive cutoff 25 ng/mL) Test Information Assay provides medical screening only. The absence of expected drug(s) and/or metabolite(s) may indicate diluted or adulterated urine, limitations of testing or timing of collection. [facility] [employer] Comment on above: Testing for legal pu rposes should be confirmed by another method. To request confirmation of test result, please call the lab within 7 days of sample submission. [facility] [employer] Drug Scr, Abuse, Uron 2022 Amphetamine(s),Ur Negative Normal NEG [facility] Comment on above: Result Comment: (Positive cutoff 1000 ng/mL) Performed By: #### B C #### [facility] [address] [place] [address] [employer]: Andrew Walter MD Barbiturate(s),Ur Negative Normal NEG [facility] Comment on above: Result Comment: (Positive cutoff 200 ng/mL) Performed By: #### B C #### [facility] [address] [place] [address] [employer]: Andrew Walter MD Benzodiazepine(s) Positive Abnormal NEG [facility] Comment on above: Result Comment: (Positive cutoff 200 ng/mL) Performed By: #### B C #### [facility] [address] [place] [address] [employer]: Andrew Walter MD Cannabinoid(s),Ur Positive Abnormal NEG [facility] Comment on above: Result Comment: (Positive cutoff 50 ng/mL) Performed By: #### B C #### [facility] [address] [place] [address] [employer]: Anderw Walter MD Cocaine Metabolite Negative Normal NEG [facility] Comment on above: Result Comment: (Positive cutoff 300 ng/mL) Performed By: #### B C #### [facility] [address] [place] [address] [employer]: Andrew Walter MD Fentanyl, Urine Positive Abnormal NEG [facility] Comment on above: Result Comment: (Positive cutoff 5 ng/ml) Performed By: #### B C #### [facility] [address] [place] [address] [employer]: Andrew Walter MD Interpretive Info Assay provides medical screening only. The absence of expected drug(s) and/or Normal [facility] Comment on above: Result Comment: meta bolite(s) may indicate diluted or adulterated urine, limitations of testing or timing of collection. Testing for legal purposes should be confirmed by another method. To request confirmation of test result, please call the lab within 7 days of sample submission. Performed By: #### B C #### [address] [address] [employer]: Andrew Walter MD Methadone Ql (U) Negative Normal NEG [facility] Comment on above: Result Comment: (Positive cutoff 300 ng/mL) Performed By: #### B C #### [address] [address] [employer]: Andrew Walter MD Opiate(s), Ur Negative Normal NEG [facility] Comment on above: Result Comment: (Positive cutoff 300 ng/mL) Performed By: #### B C #### [address] [address] [employer]: Andrew Walter MD Oxycodone, Urine Negative Normal NEG [facility] Comment on above: Result Comment: (Positive cutoff 100 ng/mL) Performed By: #### B C #### [address] [address] [employer]: Andrew Walter MD Phencyclidine, Ur Negative Normal NEG [facility] Comment on above: Result Comment: (Positive cutoff 25 ng/mL) Performed By: #### B C #### [address] [address] [employer]: Andrew Walter MD ED Clinical Summaryon 2022 ED Clinical Summary [facility] Emergency Department [address] [place] [address] ED Clinical Summary PERSON INFORMATION Name: ADITYA RICHARDSON Age: 27 Years Sex: MALE : 1995 MRN: Acct#: Visit Reason: Unresponsive; UNRESPONSIVE Arrival: 02/21/2023 11:27:00 Discharge: 02/21/2023 12:50:00 LOS: 000 01:23 Check In: 02/21/2023 11:27:00 Checkout:02/21/2023 12:50:00 Address: [address] [place] [address] PCP: Provider, None PROVIDER INFORMATION Provider Role Assigned Unassigned Harvey Delgadillo MD ED Provider 02/21/2023 11:28:19 Nohemi Garzon [employer] CONSULTANT Nurse 02/21/2023 11:34:11 VITALS INFORMATION Vital Sign Triage Latest Temperature Tympanic Temperature Temporal Artery Pulse Rate 128 bpm 115 bpm O2 Sat 90 % 100 % Respiratory Rate 40 br/min 26 br/min Blood Pressure /88 mmHg /88 mmHg MEDICAL INFORMATION Medications Given: Medication Dose Route naloxone (Narcan) 2 mg IV Push propofol 500 mg (Propofol 10mg/ml 50ml 500 mg) 50 mL Initial Volume 6 mL/hr IV Left Foot midazolam (Versed) 5 mg IV Push midazolam (Versed) 5 mg IV Push succinylcholine 100 mg IV Push midazolam (Versed) 5 mg IV Push Allergy Information: No known allergies PHYSICIAN DOCUMENTATION DISCHARGE INFORMATION: Discharge Disposition: Discharge/Transfer to Another Hospital Discharge Location: [facility] PATIENT EDUCATION INFORMATION Instructions: Follow-Up: DIAGNOSIS: 1:Altered mental status Patient Understands: Yes - Patient/family/careg iver verbalizes understanding of instructions given Comment: [facility] ED Note-Nursingon 02-21-2023 ED Note-Nursing Intubation notes: 1143- 5mg versed given 1144- 100mg succinylcholine given 1145- ET tube placed, size 7 1/2, measured 25 at the teeth 1147- C-collar placed by request of [facility] sort operations supervisor 1151- Patient fighting the ventilator, 5mg versed given 1156- Propofol drip initiated at 3mL/hr per protocol 1200- Patient fighting ventilator again, spoke to Dr. Delgadillo, order for 5mg versed and to titrate propofol drip given 1201- 5mg versed given 1205- Propofol increased to 6mL/hr 1210- Flight arrives. [facility] ED Note-Nursing [facility] called to transfer patient to [facility] ER at [address] Zeb Durán who accepts patient at 1142 Flight Called and gives an ETA of 10 mins 1200 Face sheet and Medical necessity form faxed to flight Flight arrives Flight arrives 1213 Flight leaves with patient 1245 [facility] ED Patient Education Noteon 02-21-2023 ED Patient Education Note Education Materials [facility] ED Patient Summaryon 023 ED Patient Summary [facility] Emergency Department [address] [place], [place] [id number] PATIENT DISCHARGE INSTRUCTIONS Patient Information Name: ADITYA RICHARDSON Age: 27 Years Date of : 1995 Reason For Visit: Unresponsive; UNRESPONSIVE Arrival Time: 02/21/2023 11:27:00 Phone: Primary Care Physician: Sonja, None Attending Physician: Harvey Delgadillo MD Comment: Visit Diagnosis: Diagnoses This Visit Altered mental status (R41.82) Unresponsive ([id number]) The Pharmacy at [facility] is open Thursday through Thursday from 9A to 6P and Thursday and Thursday from 9A to 5P Prescription Information: If you have been given a prescription for narcotics, seek immediate medical attention if you have any difficulty breathing or any sudden status changes such as confusion and sleepiness. If you or anyone you know is experiencing suicidal thoughts, mental health, alcohol and/or drug addiction problems; contact the [facility] 29/12 Crisis Hotline -Text 7UOGB xb 298543. If you received any narcotics, sedation, or any other medication that causes drowsiness for the next 24 hours, unless otherwise directed: ? Do not drive a car. ? Do not operate machinery such as power tools, lawn mowers, drills, sewing machines, or stoves ? Avoid alcoholic beverages and drugs for allergies, nerves, or sleep ? Do not make important personal or business decisions or sign any legal documents Medication Information: The exam and treatment you received today in the [facility] Emergency Department were for an urgent problem and are not intended as complete care. It is important for you to follow up with a doctor, nurse practitioner, or physician?s museum assistant for ongoing care. If your symptoms become worse or you do not improve as expected and you are unable to reach your usual health care provider, you should return to the Emergency Department, we are available 24 hours a day. For those patients who have received Radiology results, the interpretation of your X-ray as given to you by our Emergency Department physician is only a preliminary report. The Radiologist will review your films and if there is a change in the diagnosis you will be notified by phone. Please make sure you have provided a working phone number so we can reach you if necessary. In the event that you had a lab culture while you were a patient in the Emergency Department, you will be notified by phone if there is a need to change your antibiotic. Please make sure you have provided a working phone number so we can reach you if necessary. [facility] Emergency Department has provided you with a complete list of medications post discharge. Please inform your finance lead/provider of your visit and for further instruction on these medications. Any specific questions regarding your chronic medications and dosages should be discussed with your primary care physician(s) and/or pharmacist. Visit Information Allergies: Substance Reaction Symptoms Type Comments No known allergies Drug Vital Signs: Vitals and Measurements this Visit (last charted value for your 02/21/2023 visit) Vital Signs This Visit Temperature Rectal: 36.6 DegC Peripheral Pulse Rate: 115 bpm Heart Rate Monitored: 115 bpm Respiratory Rate: 26 br/min Systolic Blood Pressure: 93 mmHg Diastolic Blood Pressure: 60 mmHg Mean Arterial Pressure, Cuff-Calculation: 71 mmHg Mean Arterial Pressure Cuff-Monitor: 74 mmHg SpO2: 100 % Oxygen Therapy: Ventilator Measurements This Visit Height/Length Dosin.880 cm Height/Length Estimated: 182.880 cm Weight Dosin.000 kg Weight Estimated: 100.000 kg Problems List: Problem Onset Comments No Problems found Patient Education Viruses or Bacteria What?s got you sick? Antibiotics only treat bacterial infections. Viral illnesses cannot be treated with antibiotics. When an antibiotic is not prescribed, ask your healthcare professional for tips on how to relieve symptoms and feel better. Usual Cause Illness Viruses Bacteria Antibiotic Needed Cold/Runny Nose ? NO Bronchitis/Chest Cold (in otherwise healthy children and adults) ? NO Whooping Cough ? Yes Flu ? NO Strep Throat ? Yes Sore Throat (except strep) ? NO Fluid in the middle ear (otitis media with effusion) ? NO Urinary Tract Infection ? Yes Antibiotics Aren?t Always the Answer www.cdc.gov/getsmart GET SMART Know When Antibiotics Work U.S. Department of Health and Human Services Centers for Disease Control and Prevention February 2014 Normal [facility] ELECTROLYTES PLUSon 02-22-20 Anion gap [Moles/Vol] 9 mmol/L 7 - 16 mmol/L [facility] Chloride [Moles/Vol] 106 mmol/L 98 - 10 7 mmol/L [facility] CO2 Calc (Bld) [Moles/Vol] 25 mmol/L 22 - 30 mmol/L [facility] Potassium [Moles/Vol] 5.0 mmol/L High 3.5 - 4.5 mmol/L [facility] Sodium [Moles/Vol] 139 mmol/L 138 - 146 mmol/L [facility] Extra Redon 02-21-2023 Tube Collected Yes Invalid Interpretation Code [facility] Comment on above: Performed By: #### 2 [id number], [id number], [id number], [id number], [id number], [id number], [id number], [id number], [id number] ####[facility] (DEFAULT)[address] [place] [address] Hemoglobin and hematocrit, b loodon 02-21-2023 Hematocrit (Bld) [Volume fraction] 53 % 41 - 53 % [facility] Hemoglobin (Bld) [Mass/Vol] 18.0 g/dL High 13.5 - 17.5 g/dL [facility] Lactate, Sepsison 02-21-2023 Lactic Acid,Sep Wbld 2.2 mmol/L High 0.5-1.9 [facility] Comment on above: Performed By: #### C MPX, ERIKA, CK #### [facility] [place] [address] [employer]: Andrew Walter MD Interpretation and review of laboratory results Abnormal [facility] Lactic Acid, Sepsis, Whole Blood 2.2 mmol/L High 0.5 - 1.9 mmol/L [facility] Lactic Acid,Sep Wbld 3.0 mmol/L High 0.5-1.9 [facility] Comment on above: Performed By: #### T MARGYI #### [facility] [place], [place] [id number] [employer]: Andrew Walter MD Lactic Acid, Sepsis, Whole Blood 3.0 mmol/L High 0.5 - 1.9 mmol/L [facility] Lactic Acid, POCon 3 POC Lactic Acid 2.0 mmol/L High 0.56 - 1.39 mmol/L [facility] POC Lactic Acid 2.7 mmol/L High 0.56 - 1.39 mmol/L [facility] MRSA, DNA, Nasalon 3 Specimen Description .NASAL SWAB Normal [facility] Comment on above: Performed By: #### M RSANO #### [facility] [address] [place], [place] [address] [employer]: Andrew Walter MD Magnesiumon 02-21-2023 Magnesium [Mass/Vol] 2.20 mg/dL Normal 1.80-2.50 [facility] Comment on above: Performed By: #### 2 [id number], [id number], [id number], [id number], [id number], [id number], [id number], [id number], [id number] ####[facility] ([facility])[address] [place], [place] [id number] Myoglobinon 02-21-2023 Myoglobin [Mass/Vol] 2601 ng/mL High 28-72 [facility] Comment on above: Performed By: #### T ROPI #### [facility] [address] [place] [address] [id number] [employer]: Andrew Walter MD Myoglobin, Bloodon 3 Interpretation and review of laboratory results Abnormal [facility] Myoglobin [Mass/Vol] 2601 ng/mL High 28 - 72 ng/mL [facility] No Panel Informationon 02-21 Interpretation and review of laboratory results Abnormal [facility] Interpretation and review of laboratory results Abnormal [facility] No acute intracranial abnormality. No acute abnormality in the cervical spine. [facility] EXAMINATION: CT OF THE HEAD WITHOUT CONTRAST; CT OF THE CERVICAL SPINE WITHOUT CONTRAST 02/21/2023 1:59 pm TECHNIQUE: CT of the head was performed without the administration of intravenous contrast. Automated exposure control, iterative reconstruction, and/or weight based adjustment of the mA/kV was utilized to reduce the radiation dose to as low as reasonably achievable.; CT of the cervical spine was performed without the administration of intravenous contrast. Multiplanar reformatted images are provided for review. Automated exposure control, iterative reconstruction, and/or weight based adjustment of the mA/kV was utilized to reduce the radiation dose to as low as reasonably achievable. COMPARISON: None. HISTORY: Reason for Exam: drug OD, found down, intubated, concern for bleed FINDINGS: CT HEAD: BRAIN/VENTRICLES: There is no acute intracranial hemorrhage, mass effect or midline shift. No abnormal extra-axial fluid collection. The lopez-white differentiation is maintained without evidence of an acute infarct. There is no evidence of hydrocephalus. SINUSES/MASTOIDS: The paranasal sinuses and mastoid air cells are well aerated. No acute fracture is seen. SOFT TISSUES/SKULL: No acute abnormality of the visualized skull or soft tissues. CT CERVICAL SPINE: BONES/ALIGNMENT: There is no acute fracture or traumatic malalignment. DEGENERATIVE CHANGES: No significant degenerative changes. SOFT TISSUES: There is no prevertebral soft tissue swelling. [facility] Lawanda Durán MD - 02/21/2023 EXAMINATION: CT OF THE HEAD WITHOUT CONTRAST; CT OF THE CERVICAL SPINE WITHOUT CONTRAST 02/21/2023 1:59 pm TECHNIQUE: CT of the head was performed without the administration of intravenous contrast. Automated exposure control, iterative reconstruction, and/or weight based adjustment of the mA/kV was utilized to reduce the radiation dose to as low as reasonably achievable.; CT of the cervical spine was performed without the administration of intravenous contrast. Multiplanar reformatted images are provided for review. Automated exposure control, iterative reconstruction, and/or weight based adjustment of the mA/kV was utilized to reduce the radiation dose to as low as reasonably achievable. COMPARISON: None. HISTORY: Reason for Exam: drug OD, found down, intubated, concern for bleed FINDINGS: CT HEAD: BRAIN/VENTRICLES: There is no acute intracranial hemorrhage, mass effect or midline shift. No abnormal extra-axial fluid collection. The lopez-white differentiation is maintained without evidence of an acute infarct. There is no evidence of hydrocephalus. SINUSES/MASTOIDS: The paranasal sinuses and mastoid air cells are well aerated. No acute fracture is seen. SOFT TISSUES/SKULL: No acute abnormality of the visualized skull or soft tissues. CT CERVICAL SPINE: BONES/ALIGNMENT: There is no acute fracture or traumatic malalignment. DEGENERATIVE CHANGES: No significant degenerative changes. SOFT TISSUES: There is no prevertebral soft tissue swelling. IMPRESSION: No acute intracranial abnormality. No acute abnormality in the cervical spine. [facility] Radiology Study observation (narrative) [facility] Interpretation and review of laboratory results Abnormal [facility] Interpretation and review of laboratory results Abnormal [facility] Osmolalityon 02-21-2023 Osmolality [Osmolality] 301 mosm/kg High 275-295 [facility] Comment on above: Performed By: #### B C #### [facility] [address] [place] [address] [employer]: Andrew Walter MD Interpretation and review of laboratory results Abnormal [facility] Osmolality [Osmolality] 301 mosm/kg High [facility] POCT Glucoseon 02-21-2023 Glucose [Mass/Vol] 122 mg/dL High 74 - 100 mg/dL [facility] Glucose [Mass/Vol] 91 mg/dL 74 - 100 mg/dL [facility] Glucose [Mass/Vol] 104 mg/dL High 74 - 100 mg/dL [facility] POCT Glucose Levelon 023 Glucose [Mass/Vol] 74 mg/dL Normal 74-118 [facility] Comment on above: Performed By: #### 4 [id number] #### [facility] (DEFAULT) [address] [place] [address] POCT urea (BUN)on 02-21-2023 Urea nitrogen [Mass/Vol] 36 mg/dL High 8 - 26 mg/dL [facility] PTon 02-21-2023 INR Coag (PPP) [Relative time] 1.0 {INR} Normal [facility] Comment on above: Result Comment: Therapeutic Range: Moderate Anticoagulant Intensity: INR = 2.0-3.0 High Anticoagulant Intensity: INR = 2.5-3.5 Performed By: #### T SANJU #### [place] [id number] [employer]: Andrew Walter MD PT Coag (PPP) [Time] 13.1 s Normal 11.7-14.9 [facility] Comment on above: Performed By: #### T SANJU #### [facility] [address] [place], [place] [address] [employer]: Andrew Walter MD INR Coag (PPP) [Relative time] 0.96 {INR} Normal 0.91-1.11 [facility] Comment on above: Performed By: #### 2 [id number], [id number], [id number], [id number], [id number], [id number] ####[facility] (DEFAULT)[address] [place] [address] PT 10.3 second(s) Normal 9.7-11.8 [facility] Comment on above: Performed By: #### 2 [id number], [id number], [id number], [id number], [id number], [id number], [id number], [id number], [id number] ####[facility] (DEFAULT)[address] [place] [address] Protime-INRon 02-21-2023 INR Coag (PPP) [Relative time] 1.0 {INR} [facility] Comment on above: Therapeutic Range: Moderate Anticoagulant Intensity: INR = 2.0-3.0 High Anticoagulant Intensity: INR = 2.5-3.5 PT Coag (PPP) [Time] 13.1 s [facility] Viral Panelon 3 Adenovirus Not detected Normal [facility] Comment on above: Performed By: #### H EPXA #### [facility] [address] [place] [address] [employer]: MD Nancy Dey.parapertussis Not detected Normal [facility] Comment on above: Performed By: #### H EPXA #### [facility] [address] [place] [address] [employer]: Andrew Walter MD Bordetella pertussis Not detected Normal [facility] Comment on above: Performed By: #### H EPXA #### [facility] [address] [place] [address] [employer]: Andrew Walter MD Chlamyd.pneumoniae Not detected Normal [facility] Comment on above: Performed By: #### H EPXA #### [facility] [address] [place] [address] [employer]: Andrew Walter MD Coronavirus [id number] Not detected Normal [facility] Comment on above: Performed By: #### H EPXA #### [facility] [address] [place] [address] [employer]: Andrew Walter MD Coronavirus HKU1 Not detected Normal [facility] Comment on above: Performed By: #### H EPXA #### [facility] [address] [place] [address] [employer]: Andrew Walter MD Coronavirus NL63 Not detected Normal [facility] Comment on above: Performed By: #### H EPXA #### [facility] [address] [place] [address] [employer]: Andrew Walter MD Coronavirus OC43 Not detected Normal [facility] Comment on above: Performed By: #### H EPXA #### [address] [address] [employer]: Andrew Walter MD Human Metapneumo Not detected Normal [facility] Comment on above: Performed By: #### H EPXA #### [address] [address] [employer]: Andrew Walter MD Influenza A Not detected [facility] Comment on above: Performed By: #### H EPXA #### [address] [address] [employer]: Andrew Walter MD Influenza B Not detected Normal [facility] Comment on above: Performed By: #### H EPXA #### [address] [address] [employer]: Andrew Walter MD Mycoplas.pneumoniae Not detected Normal [facility] Comment on above: Result Comment: Perf ormed by multiplexed nucleic acid assay. Performed By: #### H EPXA #### [address] [address] [employer]: Andrew Walter MD Parainfluenza 1 Not detected Normal [facility] Comment on above: Performed By: #### H EPXA #### [address] [address] [employer]: Andrew Walter MD Parainfluenza 2 Not detected Normal [facility] Comment on above: Performed By: #### H EPXA #### [address] [address] [employer]: Andrew Walter MD Parainfluenza 3 Not detected Normal [facility] Comment on above: Performed By: #### H EPXA #### [address] [address] [employer]: Andrew Walter MD Parainfluenza 4 Not detected Normal [facility] Comment on above: Performed By: #### H EPXA #### [address] [address] [employer]: Andrew Walter MD Resp Syncytial Virus Not detected Normal [facility] Comment on above: Performed By: #### H EPXA #### [address] [address] [employer]: Andrew Walter MD Rhino/Enterovirus Not detected Normal [facility] Comment on above: Performed By: #### H EPXA #### [address] [address] [employer]: Andrew Walter MD SARS-CoV-2 (COVID-19) RNA STEVE+probe Ql (Unsp spec) Not detected Normal [facility] Comment on above: Performed By: #### H EPXA #### [address] [address] [employer]: Andrew Walter MD Source: .NASOPHARYNGEAL SWAB Normal [facility] Comment on above: Performed By: #### H EPXA #### [address] [address] [employer]: Andrew Walter MD Respiratory Panel, Molecular , with COVID-19 (Restricted: peds pts or suitable admitted adults)on 02-21-2023 Adenovirus DNA STEVE+non-probe Ql (Nph) Not detected Not Detected [facility] B. parapertussis [id number] DNA STEVE+non-probe Ql (Nph) Not detected Not Detected [facility] B. pertussis DNA STEVE+probe Ql (Unsp spec) Not detected Not Detected [facility] C. pneumoniae DNA STEVE+non-probe Ql (Nph) Not detected Not Detected [facility] FLUAV RNA STEVE+non-probe Ql (Nph) Not detected Not Detected [facility] FLUBV RNA STEVE+non-probe Ql (Nph) Not detected Not Detected [facility] HCoV 229E RNA STEVE+non-probe Ql (Nph) Not detected Not Detected [facility] HCoV HKU1 RNA STEVE+non-probe Ql (Nph) Not detected Not Detected [facility] HCoV NL63 RNA STEVE+non-probe Ql (Nph) Not detected Not Detected [facility] HCoV OC43 RNA STEVE+non-probe Ql (Nph) Not detected Not Detected [facility] hMPV RNA STEVE+non-probe Ql (Nph) Not detected Not Detected [facility] M. pneumoniae DNA STEVE+non-probe Ql (Nph) Not detected Not Detected [facility] Comment on above: Performed by multipl exed nucleic acid assay. Parainfluenza virus 1 RNA STEVE+non-probe Ql (Nph) Not detected Not Detected [facility] Parainfluenza virus 2 RNA STEVE+non-probe Ql (Nph) Not detected Not Detected [facility] Parainfluenza virus 3 RNA STEVE+non-probe Ql (Nph) Not detected Not Detected [facility] Parainfluenza virus 4 RNA STEVE+non-probe Ql (Nph) Not detected Not Detected [facility] Rhinovirus+Enterovirus RNA STEVE+non-probe Ql (Nph) Not detected Not Detected [facility] RSV RNA STEVE+non-probe Ql (Nph) Not detected Not Detected [facility] SARS-CoV-2 (COVID-19) RNA STEVE+non-probe Ql (Nph) Not detected Not Detected [facility] Specimen Description .NASOPHARYNGEAL SWAB [facility] SPECIMEN REJECTIONon 023 Ordered Test VO [facility] Reason for Rejection Unable to perform testing: Specimen not processed correctly. [facility] Comment on above: SPECIMEN HAS BEEN UN CAPPED FOR LACDS & VBG Specimen source Nom (Unsp spec) .BLOOD [facility] Specimen Rejectionon 023 Reason for rejection Unable to perform testing: Specimen not processed correctly. Normal [facility] Comment on above: Result Comment: SPEC IMEN HAS BEEN UNCAPPED FOR LACDS AND VBG Performed By: #### B C #### [facility] [address] [place] [address] [phone] [employer]: Andrew Walter MD Source of sample .BLOOD Normal [facility] Comment on above: Performed By: #### B C #### [facility] [address] [place] [address] [phone] [employer]: Andrew Walter MD Test ordered VO [facility] Comment on above: Performed By: #### B C #### [facility] [address] [place] [address] [phone] [employer]: Andrew Walter MD TOX SCR, BLD, EDon 3 Acetaminophen [Mass/Vol] ug/mL Low 10 - 30 ug/mL [facility] Ethanol percent <0.010 NINF - 0.010 % [facility] Ethanolamine [Mass/Vol] mg/dL NINF - 10 mg/dL [facility] Interpretation and review of laboratory results Abnormal [facility] Salicylates [Mass/Vol] mg/dL Low 3 - 1 0 mg/dL [facility] Toxic Tricyclic Sc,Blood Negative NEGATIVE [facility] TSH w/reflex to FT4on 2022 Thyroid Stim. Horm. 3.00 uIU/mL Normal 0.30-5.00 [facility] Comment on above: Performed By: #### T ROPI #### [facility] [address] [place] [address] [phone] [employer]: Andrew Walter MD TSH with Reflexon 02-21-2023 TSH Qn 3.00 m[IU]/L [facility] TnI HSon 02-21-2023 Troponin I High Sensitivity 90.7 pg/mL Critically abnormal <=20.0 [facility] Comment on above: Result Comment: Crit ical result TNIHS 90.7 pg/mL called to and read back by Danielle LEONARD RN at 21-Feb-2023 12:12 by Pascual. Performed By: #### 2 [id number], [id number], [id number], [id number], [id number], [id number], [id number], [id number], [id number] ####[facility] (DEFAULT)[address] [place] [address] Tox Scr, Bld, EDon 3 Toxic Tricyclic Sc,Bl Negative Normal NEG [facility] Comment on above: Performed By: #### B C #### [facility] [address] [place] [address] [employer]: Andrew Walter MD Acetaminophen [Mass/Vol] ug/mL Low 10-30 [facility] Comment on above: Performed By: #### B C #### [facility] [address] [place] [address] [phone] [employer]: Andrew Walter MD Salicylate <1.0 Low 3-10 [facility] Comment on above: Performed By: #### B C #### [facility] [address] [place] [address] [phone] [employer]: Andrew Walter MD Ethanol [Mass/Vol] mg/dL Normal <10 [facility] Comment on above: Performed By: #### B C #### [facility] [address] [place] [address] [phone] [employer]: Andrew Walter MD Ethanol percent <0.010 Normal <0.010 [facility] Comment on above: Performed By: #### B C #### [facility] [place] [address] [employer]: Andrew Walter MD Transfer Noteon 02-21-2023 Transfer Note [id number] #[id number] [facility] Triage Panel 12on 02-21-2023 Triage Internal Control Pass Normal [facility] Comment on above: Performed By: #### 1 [id number] #### [facility] (DEFAULT) [address] [place] [phone] U Amph Scr Negative [facility] Comment on above: Performed By: #### 1 [id number] #### [facility] (DEFAULT) [address] [place] [address] U Vicki Scr Negative [facility] Comment on above: Performed By: #### 1 [id number] #### [facility] (DEFAULT) [address] [place] [address] U Benzodia Scr Negative [facility] Comment on above: Performed By: #### 1 [id number] #### [facility] (DEFAULT) [address] [place] [address] U Cannab Scrn Positive [facility] Comment on above: Performed By: #### 1 [id number] #### [facility] (DEFAULT) [address] [place] [address] U Cocaine Scr Positive [facility] Comment on above: Performed By: #### 1 [id number] #### [facility] (DEFAULT) [address] [place] [address] U Methadone Scr Negative [facility] Comment on above: Performed By: #### 1 [id number] #### [facility] (DEFAULT) [address] [place] [address] U Methamp Scrn Negative [facility] Comment on above: Performed By: #### 1 [id number] #### [facility] (DEFAULT) [address] [place] [address] U Opiate Scr Negative [facility] Comment on above: Performed By: #### 1 [id number] #### [facility] (DEFAULT) [address] [place] [address] U Oxycod Scr Negative Normal [facility] Comment on above: Performed By: #### 1 [id number] #### [facility] (DEFAULT) [address] [place] [address] U Phencyclidine Scr Negative Normal [facility] Comment on above: Performed By: #### 1 [id number] #### [facility] (DEFAULT) [address] [place] [address] U Propoxyphene Scr Negative Normal [facility] Comment on above: Performed By: #### 1 [id number] #### [facility] (DEFAULT) [address] [place] [address] U Tricyclic Antidepress Scr Negative [facility] Comment on above: Result Comment: Resu lts are to be used only for medical (ie, treatment) purposes only. Positive tests will not be sent out for confirmation. PROFILE?-V MEDTOX Scan? Drugs of Abuse Test System detects drug classes at the following cutoff concentrations: AMP Amphetamine (d-amphetamine): 500 ng/mL BAR Barbituates (Butabital): 200 ng/mL BZO Benzodiazepines (Nordiazepam): 150 ng/mL BUP Buprenorphine (Buprenorphine): 10 ng/mL BRUCE Cocaine (Benzoylecgonine): 150 ng/mL MAMP Methamphetamine (d-Methamphetamine): 500 ng/mL MTD Methadone (Methadone): 200 ng/mL OPI Opiates (Morphine): 100 ng/mL or 2000 ng/mL OXY Oxycodone (Oxycodone): 100 ng/mL PCP Phencyclidine (Phencyclidine): 25 ng/mL PPX Propoxyphene (Norpropoxyphene): 300 ng/mL THC Cannabinoids (99-ybr-5-carboxy- -THC): 50 ng/mL TCA Tricyclic-Antidepressants (Desipramine): 300 ng/mL Performed By: #### 1 [id number] #### [facility] (DEFAULT) [address] [place] [address] Urine Source Clean Catch [facility] Comment on above: Performed By: #### 1 [id number] #### [facility] [address] [place] [address] Troponinon 02-21-2023 Troponin, High Sens 54 ng/L Critically high 0-22 [facility] Comment on above: Result Comment: High Sensitivity Troponin values cannot be compared with other Troponin methodologies. Performed By: #### C MPX, ERIKA, CK #### [facility] [address] [place] [address] [phone] [employer]: Andrew Walter MD Interpretation and review of laboratory results Abnormal [facility] Troponin I.cardiac High sensitivity method [Mass/Vol] 54 ng/L Critically high 0 - 22 ng/L [facility] Comment on above: High Sensitivity Tro ponin values cannot be compared with other Troponin methodologies. [facility] Troponin, High Sens 43 ng/L High 0-22 [facility] Comment on above: Result Comment: High Sensitivity Troponin values cannot be compared with other Troponin methodologies. Performed By: #### T ROPI #### [facility] [address] [place] [address] [phone] [employer]: Andrew Walter MD Interpretation and review of laboratory results Abnormal [facility] Troponin I.cardiac High sensitivity method [Mass/Vol] 43 ng/L High 0 - 22 ng/L [facility] Comment on above: High Sensitivity Tro ponin values cannot be compared with other Troponin methodologies. Urinalysis w/ Microon 2022 Bilirubin, SemiQt,Ur Negative Normal NEG [facility] Comment on above: Performed By: #### B C #### [facility] [address] [place] [address] [phone] [employer]: Andrew Walter MD Blood, Urine MODERATE Abnormal NEG [facility] Comment on above: Performed By: #### B C #### [facility] [address] [place] [address] [phone] [employer]: Andrew Walter MD Casts 20 TO 50 Normal 0-2 [facility] Comment on above: Result Comment: HYAL INE Performed By: #### B C #### [address] [address] [employer]: Andrew Walter MD Clarity (U) Clear Normal CLEAR [facility] Comment on above: Performed By: #### B C #### [address] [address] [employer]: Andrew Walter MD Color (U) Yellow Normal YEL [facility] Comment on above: Performed By: #### B C #### [address] [address] [employer]: Andrew Walter MD Epithelial cells LM Ql (Urine sed) 2 TO 5 Normal 0-5 [facility] Comment on above: Performed By: #### B C #### [address] [address] [employer]: Andrew Walter MD Glucose Ql (U) Negative Normal NEG [facility] Comment on above: Performed By: #### B C #### [address] [address] [employer]: Andrew Walter MD Ketones Ql (U) TRACE Abnormal NEG [facility] Comment on above: Performed By: #### B C #### [address] [address] [employer]: Andrew Walter MD Leukocyte esterase Test strip Ql (U) Negative Normal NEG [facility] Comment on above: Performed By: #### B C #### [address] [address] [employer]: Andrew Walter MD Nitrite,Ur Negative Normal NEG [facility] Comment on above: Performed By: #### B C #### [address] [address] [employer]: Andrew Walter MD PH,Ur 5.5 Normal 5.0-8.0 [facility] Comment on above: Performed By: #### B C #### [address] [address] [employer]: Andrew Walter MD Protein Ql (U) 1+ mg/dL Abnormal NEG [facility] Comment on above: Performed By: #### B C #### [address] [address] [employer]: Andrew Walter MD Spec. [place],Ur 1.017 Normal 1.005-1.030 [facility] Comment on above: Performed By: #### B C #### [address] [address] [employer]: Andrew Walter MD Urine RBC's 0 TO 2 Normal 0-4 [facility] Comment on above: Result Comment: Refe rence range defined for non-centrifuged specimen. Performed By: #### B C #### [address] [address] [employer]: Andrew Walter MD Urine WBC's 0 TO 2 Normal 0-5 [facility] Comment on above: Performed By: #### B C #### [address] [address] [employer]: Andrew Walter MD Urobilinogen,Ur Normal Normal 0.0-1.0 [facility] Comment on above: Performed By: #### B C #### [address] [address] [employer]: Andrew Walter MD Urinalysis with Microscopico n 02-21-2023 Bilirubin Ql (U) Negative NEGATIVE [facility] Casts LM.LPF (Urine sed) [#/Area] 20 TO 50 [facility] Casts LM.LPF (Urine sed) [#/Area] HYALINE [facility] Clarity (U) Clear Clear [facility] Color (U) Yellow Yellow [facility] Epithelial cells LM.HPF (Urine sed) [#/Area] 2 TO 5 [facility] Glucose Test strip (U) [Mass/Vol] Negative NEGATIVE mg/dL [facility] Hemoglobin Auto test strip Ql (U) MODERATE Abnormal NEGATIVE [facility] Interpretation and review of laboratory results Abnormal [facility] Ketones (U) [Mass/Vol] TRACE Abnormal NEGAT MEGGAN mg/dL [facility] Leukocyte esterase Test strip Ql (U) Negative NEGATIVE [facility] Nitrite Ql (U) Negative NEGATIVE [facility] pH (U) 5.5 [pH] 5.0 - 8.0 [facility] Protein (U) [Mass/Vol] 1+ Abnormal NEGAT MEGGAN mg/dL [facility] RBC LM.HPF (Urine sed) [#/Area] 0 TO 2 [facility] Comment on above: Reference range defi shae for non-centrifuged specimen. Specific gravity (U) [Rel density] 1.017 1.005 - 1.030 [facility] Urobilinogen Qn (U) Normal 0.0 - 1. 0 EU/dL [facility] WBC LM.HPF (Urine sed) [#/Area] 0 TO 2 [facility] Venous Blood Gas, POCon 02-06 Bijan Test NOT APPLICABLE [facility] FIO2 100.0 [facility] HCO3 (Bld) [Moles/Vol] 21.3 mmol/L Low 22.0 - 29.0 mmol/L [facility] Mode PRVC [facility] Negative Base Excess, Atif 7.8 mmol/L High 0.0 - 2.0 mmol/L [facility] O2 Delivery Device Adult Ventilator [facility] Oxygen saturation in Blood 49.4 % Low 60.0 - 85.0 % [facility] pCO2, Atif 56.7 High [facility] pH, Atif 7.184 Critically low 7.320 - 7.430 [facility] pO2, Atif 33.5 [facility] Sample Site Left Brachial Artery [facility] HCO3 (Bld) [Moles/Vol] 24.4 mmol/L 22.0 - 29.0 mmol/L [facility] Negative Base Excess, Atif 5.6 mmol/L High 0.0 - 2.0 mmol/L [facility] Oxygen saturation in Blood 14.7 % Low 60.0 - 85.0 % [facility] pCO2, Atif 64.8 High [facility] pH, Atif 7.185 Critically low 7.320 - 7.430 [facility] pO2, Atif 16.3 Low [facility] Venous Blood Gaseson 023 Body Temp. 37.0 Normal [facility] Comment on above: Performed By: #### H EPXA #### [address] [phone] [employer]: Andrew Walter MD Carboxy Hgb 4.8 % Normal 0-5 [facility] Comment on above: Result Comment: Reference Range: Non-Smokers 0-2% Average Smoker 2-4% Heavy Smoker <10% Performed By: #### H EPXA #### [address] [phone] [employer]: Andrew Walter MD FIO2 INFORMATION NOT PROVIDED [facility] Comment on above: Performed By: #### H EPXA #### [facility] [address] [place] [phone] [employer]: Andrew Walter MD HCO3 (Bld) [Moles/Vol] 21.7 mmol/L Low 24-30 [facility] Comment on above: Performed By: #### H EPXA #### [facility] [address] [place] [address] [employer]: Andrew Walter MD Negative Base Excess 6.7 mmol/L High 0.0-2.0 [facility] Comment on above: Performed By: #### H EPXA #### [address] [address] [employer]: Andrew Waltre MD Oxygen saturation in Blood 70.7 % Normal 60.0-85.0 [facility] Comment on above: Performed By: #### H EPXA #### [address] [address] [employer]: Andrew Walter MD pCO2 55.7 mm Hg High 39-55 [facility] Comment on above: Performed By: #### H EPXA #### [address] [address] [employer]: Andrew Walter MD pH (Bld) 7.215 [pH] Critically low 7.320-7.420 [facility] Comment on above: Performed By: #### H EPXA #### [address] [address] [employer]: Andrew Walter MD pO2 39.6 mm Hg Normal 30-50 [facility] Comment on above: Performed By: #### H EPXA #### [address] [address] [employer]: Andrew Walter MD XR CHEST PORTABLEon 02-22-20 XR CHEST PORTABLE EXAMINATION: ONE XRAY VIEW OF THE CHEST 02/21/2023 1:28 pm COMPARISON: None. HISTORY: ORDERING SYSTEM PROVIDED HISTORY: found down, s/p intubation/ ng placement TECHNOLOGIST PROVIDED HISTORY: found down, s/p intubation/ ng placement FINDINGS: Endotracheal tube is at the level of clavicles. Distal visualized end of the gastric tube is seen projecting over the stomach. Patchy bilateral perihilar opacities are present. No large pleural effusion or pneumothorax. IMPRESSION: Tip of the endotracheal tube is at the level of clavicles. Patchy bilateral perihilar airspace disease. Interpreted by: Lawanda Durán MD Signed by: Lawanda Durán MD 02/21/23 Final result Normal [facility] Tip of the endotracheal tube is at the level of clavicles. Patchy bilateral perihilar airspace disease. [facility] RIS CONSOLIDATED EXAMINATION: ONE XRAY VIEW OF THE CHEST 02/21/2023 1:28 pm COMPARISON: None. HISTORY: ORDERING SYSTEM PROVIDED HISTORY: found down, s/p intubation/ ng placement TECHNOLOGIST PROVIDED HISTORY: found down, s/p intubation/ ng placement FINDINGS: Endotracheal tube is at the level of clavicles. Distal visualized end of the gastric tube is seen projecting over the stomach. Patchy bilateral perihilar opacities are present. No large pleural effusion or pneumothorax. [facility] RIS CONSOLIDATED Lawanda Durán MD - 02/21/2023 EXAMINATION: ONE XRAY VIEW OF THE CHEST 02/21/2023 1:28 pm COMPARISON: None. HISTORY: ORDERING SYSTEM PROVIDED HISTORY: found down, s/p intubation/ ng placement TECHNOLOGIST PROVIDED HISTORY: found down, s/p intubation/ ng placement FINDINGS: Endotracheal tube is at the level of clavicles. Distal visualized end of the gastric tube is seen projecting over the stomach. Patchy bilateral perihilar opacities are present. No large pleural effusion or pneumothorax. IMPRESSION: Tip of the endotracheal tube is at the level of clavicles. Patchy bilateral perihilar airspace disease. [facility] Radiology Study observation (narrative) [facility] XR CHEST PORTABLEOrdered By: Lawanda Durán on 02-21-2023 [facility] Work Phone: XR Chest 1 View Frontalon XR Chest 1 View Frontal HISTORY: Possibl e overdose. Unresponsive. Post intubation. TECHNIQUE: Single AP radiograph of the chest. COMPARISON: None RESULT: Diffuse patchy opacities, greater on the left, especially of the mid to upper lung zones. No large pleural effusion. No pneumothorax. Normal cardiomediastinal silhouette. No acute osseous findings. Endotracheal tube with tip approximately 7.0 cm above the giovani. IMPRESSION: Nonspecific diffuse patchy opacities throughout the lungs, which could relate to pulmonary edema, infectious/inflammat ory process, aspiration, etc. Final Signed (Electronic Signature): Prieto Wiley MD 02/21/23 12:18 p Technologist: LIBRADO WILKS [facility] ECG 12 lead ECGon 11-30-2022 ECG 12 lead ECG [facility] [place] [address] [place] [address] Electrocardiograph Report Signed Patient: Aditya Richardson MR#: [id number] : 1995 Acct:[id number] Age/Sex: 27 / M ADM Date: 11/29/22 Loc: Room: [address] [place] [address] Type: ADM IN Attending Dr: Dk Metcalf MD Ordering Provider: Jamie Metcalf MD Date of Service: 11/30/22 ECG/ECG 12 lead ECG: ANTIPSYCHOTIC THERAPY Copies to: Test Reason : Blood Pressure : / mmHG Vent. Rate : 075 BPM Atrial Rate : 080 BPM P-R Int : 158 ms QRS Dur : 098 ms QT Int : 378 ms P-R-T Axes : 072 070 069 degrees QTc Int : 422 ms Normal sinus rhythm with sinus arrhythmia Incomplete right bundle branch block Borderline ECG When compared with ECG of 26-NOV-2022 19:59, No significant change was found Confirmed by WERNER HUIZAR DO ([id number]) on 11/30/2022 8:22:49 PM Referred By: Electronically Signed By:WERNER HUIZAR DO Transcribed By: MUS Signed By Werner Huizar DO 11/30 [facility] Lipid Panelon 11-30-2022 Cholesterol [Mass/Vol] 105 mg/dL Low 140-200 [facility] Comment on above: Result Comment: Chol less than 200 mg/dl low risk Chol 201-239 mg/dl borderline risk Chol 240 mg/dl and greater high risk Performed By: #### L IPID, TSH3 wRFLX, [id number] #### [address] Cholesterol in HDL [Mass/Vol] 34 mg/dL Normal [facility] Comment on above: Result Comment: HDL CHOL ATP-III CLASSIFICATION Cardiovascular Risk HDL > or equal to 60 mg/dL LOW HDL < 40 mg/dL HIGH Performed By: #### L IPID, TSH3 wRFLX, [id number] #### [facility] [address] Cholesterol.total/Hermelinda sterol in HDL [Mass ratio] 3.1 {ratio} Normal <5.0 [facility] Comment on above: Performed By: #### L IPID, TSH3 wRFLX, [id number] #### [address] LDL Cholesterol,Calculated 60 mg/dL Normal 0-100 [facility] Comment on above: Result Comment: LDL ATP III CLASSIFICATION LDL less than 100 mg/dL Optimal LDL 100-129 mg/dL Near or above optimal LDL 130-159 mg/dL Borderline high LDL 160-189 mg/dL High LDL greater than 189 mg/dL Very high Performed By: #### L IPID, TSH3 wRFLX, [id number] #### [address] Triglyceride w/Reflex 55 mg/dL Normal 0-149 [facility] Comment on above: Result Comment: TRIG ATP III CLASSIFICATION TRIG less than 150 mg/dL Normal TRIG 150-199 mg/dL Borderline high TRIG 200-500 mg/dL High TRIG greater than 500 mg/dL Very high Standard traceable to the Center for Disease Conrtrol and Prevention (CDC) test method. Performed By: #### L IPID, TSH3 wRFLX, [id number] #### [address] VLDL CHOLESTEROL 11 mg/dL Normal [facility] Comment on above: Performed By: #### L IPID, TSH3 wRFLX, [id number] #### [address] Thyroid Stim Hormone w/Rflxo n 11-30-2022 Thyroid Stim Hormone w/Rflx 2.43 u[iU]/mL Normal 0.45-5.33 [facility] Comment on above: Performed By: #### L IPID, TSH3 wRFLX, [id number] #### [address] Vitamin D 25 Hydroxy Totalon 11-30-2022 Vitamin D 25 Hydroxy Total 14.8 ng/mL Low 30-100 [facility] Comment on above: Result Comment: SHAMIR MIN D STATUS 25(OH)VITAMIN D RANGE (ng/mL) Deficient <20 Insufficient 20 to <30 Sufficient 30 to 100 Reference: Nadir MF,Luciana NC, Pancho HALL, et al. Evaluation,treatment, and prevention of vitamin D deficiency; an Endocrine Society clinical practice guideline. JCEM. 2010; 96(7):1911-30. PERFORMED BY: [facility] [address] [place] [address] PATHOLOGIST CUSTOMER FACILITIES SUPERVISOR ZAN SON M.D. Performed By: #### L IPID, TSH3 wRFLX, [id number] #### [facility] [address] Alanine aminotransferase [En zymatic activity/volume] in Serum or PlasmaOrdered By: Tahir Connell on 11-26-2022 ALT [Catalytic activity/Vol] 15 U/L 7-52 [facility] Albumin [Mass/volume] in Ser um or Plasma by Bromocresol green (BCG) dye binding methoOrdered By: Tahir Connell on 11-26-2022 Albumin BCG dye [Mass/Vol] 5.0 g/dL 3.5-5.7 [facility] Alkaline phosphatase [Enzyma tic activity/volume] in Serum or PlasmaOrdered By: Tahir Connell on 11-26-2022 ALP [Catalytic activity/Vol] 68 U/L 34-104 [facility] Amphetamine Screen Ql (U)Ord ered By: Tahir Connell on 11-26-2022 Amphetamines Ql (U) Positive Negative [facility] Aspartate aminotransferase [ Enzymatic activity/volume] in Serum or PlasmaOrdered By: Tahir Connell on 11-26-2022 AST [Catalytic activity/Vol] 16 U/L 13-39 [facility] Automated erythrocytes count in urine sediment (number/area)Ordered By: Tahir Connell on 11-26-2022 RBC Auto (Urine sed) [#/Area] 3-4 [HPF] 0-4 [facility] Automated leukocytes count i n urine sediment (number/area)Ordered By: Tahir Connell on 11-26-2022 WBC Auto (Urine sed) [#/Area] 1-2 [HPF] 0-4 [facility] Barbiturates [Presence] in U rine by Screen methodOrdered By: Tahir Connell on 11-26-2022 Barbiturates Screen Ql (U) Negative Negative [facility] Basophils Auto (Bld) [#/Vol] Ordered By: Tahir Connell on 11-26-2022 Basophils (Bld) [#/Vol] 0.1 10*3/uL 0.0-0.2 [facility] Basophils/100 WBC Auto (Bld) Ordered By: Tahir Connell on 11-26-2022 Basophils/100 WBC (Bld) 0.7 % . [facility] Benzodiazepines Screen Ql (U )Ordered By: Tahir Connell on 11-26-2022 Benzodiazepines Ql (U) Negative Negative [facility] Benzoylecgonine [Presence] i n Urine by Screen methodOrdered By: Tahir Connell on 11-26-2022 Benzoylecgonine Screen Ql (U) Negative Negative [facility] Bilirubin Auto test strip Ql (U)Ordered By: Tahir Connell on 11-26-2022 Bilirubin Ql (U) Negative Negative [facility] Bilirubin.total [Mass/volume ] in Serum or PlasmaOrdered By: Tahir Connell on 11-26-2022 Bilirubin [Mass/Vol] 0.7 mg/dL 0.3-1.0 [facility] Calcium [Mass/volume] in Ser um or PlasmaOrdered By: Tahir Connell on 11-26-2022 Calcium [Mass/Vol] 9.5 mg/dL 8.6-10.3 [facility] Cannabinoids [Presence] in U rine by Screen methodOrdered By: Tahir Connell on 11-26-2022 Cannabinoids Screen Ql (U) Positive Negative [facility] Comment on above: These are unconfirme d results and should not be used for legal purposes. Drug Cut-Off Concentration: AMPH 1000 ng/mL VICKI 200 ng/mL GUERO 200 ng/mL COCM 300 ng/mL OP 300 ng/mL PCP 25 ng/mL THC 20 ng/mL Carbon dioxide, total [Moles /volume] in Serum or PlasmaOrdered By: Tahir Connell on 11-26-2022 CO2 [Moles/Vol] 26.6 mmol/L 21.0-31.0 [facility] Chloride [Moles/volume] in S oswaldo or PlasmaOrdered By: Tahir Connell on 11-26-2022 Chloride [Moles/Vol] 106 mmol/L 98-107 [facility] Complete Blood Count Auto Di ffon 11-26-2022 Basophils (Bld) [#/Vol] 0.1 10*3/uL Normal 0.0-0.2 [facility] Comment on above: Result Comment: PERF ORMED BY: [place] [address] PATHOLOGIST CUSTOMER FACILITIES SUPERVISOR ZAN SON M.D. Performed By: #### C MP, CBC, ETOH #### [facility] [address] Basophils/100 WBC (Bld) 0.7 % Normal . [facility] Comment on above: Performed By: #### C MP, CBC, ETOH #### [facility] [address] [place] [address] [place] Eosinophils (Bld) [#/Vol] 0.0 10*3/uL Normal 0.0-0.45 [facility] Comment on above: Performed By: #### C MP, CBC, ETOH #### [facility] [address] [place] [address] [place] Eosinophils/100 WBC (Bld) 0.1 % Normal . [facility] Comment on above: Performed By: #### C MP, CBC, ETOH #### [facility] [address] [place] [address] [place] Erythrocyte distribution width (RBC) [Ratio] 13.1 % Normal 12.0-14.8 [facility] Comment on above: Performed By: #### C MP, CBC, ETOH #### [facility] [address] Hematocrit (Bld) [Volume fraction] 41.9 % Normal 38.8-50.0 [facility] Comment on above: Performed By: #### C MP, CBC, ETOH #### [facility] [address] Hemoglobin (Bld) [Mass/Vol] 14.9 g/dL Normal 13.0-17.0 [facility] Comment on above: Performed By: #### C MP, CBC, ETOH #### [address] Lymphocytes (Bld) [#/Vol] 1.0 10*3/uL Normal 1.00-4.8 [facility] Comment on above: Performed By: #### C MP, CBC, ETOH #### [address] Lymphocytes/100 WBC (Bld) 9.9 % Normal . [facility] Comment on above: Performed By: #### C MP, CBC, ETOH #### [address] MCH (RBC) [Entitic mass] 30.3 pg Normal 27.5-35.2 [facility] Comment on above: Performed By: #### C MP, CBC, ETOH #### [address] MCV (RBC) [Entitic vol] 85.4 fL Normal 83.5-101 [facility] Comment on above: Performed By: #### C MP, CBC, ETOH #### [address] Mean Corpuscular HGB Conc 35.4 g/dL Normal 32.5-35.6 [facility] Comment on above: Performed By: #### C MP, CBC, ETOH #### [place] [address] [place] Monocytes (Bld) [#/Vol] 0.6 10*3/uL Normal 0.0-0.8 [facility] Comment on above: Performed By: #### C MP, CBC, ETOH #### [place] [address] [place] Monocytes/100 WBC (Bld) 16.82 % Normal 0.00-20.00 [facility] Comment on above: Performed By: #### C MP, CBC, ETOH #### [facility] [address] [place] [address] [place] Monocytes/100 WBC (Bld) 6.2 % Normal . [facility] Comment on above: Performed By: #### C MP, CBC, ETOH #### [facility] [address] Neutrophils (Bld) [#/Vol] 8.3 10*3/uL High 1.8-7.7 [facility] Comment on above: Performed By: #### C MP, CBC, ETOH #### [address] Neutrophils/100 WBC (Bld) 83.1 % Normal . [facility] Comment on above: Performed By: #### C MP, CBC, ETOH #### [address] NRBC% 0.0 /100{WBC} Normal 0-0.5 [facility] Comment on above: Performed By: #### C MP, CBC, ETOH #### [address] Platelet mean volume (Bld) [Entitic vol] 7.5 fL Normal 6.6-10.1 [facility] Comment on above: Performed By: #### C MP, CBC, ETOH #### [facility] [address] Platelets (Bld) [#/Vol] 219 10*3/uL Normal 150-450 [facility] Comment on above: Performed By: #### C MP, CBC, ETOH #### [facility] [address] [place] [address] [place] RBC (Bld) [#/Vol] 4.91 10*6/uL Normal 3.90-5.[address] [facility] Comment on above: Performed By: #### C MP, CBC, ETOH #### [address] WBC (Bld) [#/Vol] 9.9 10*3/uL Normal 4.1-10.5 [facility] Comment on above: Performed By: #### C MP, CBC, ETOH #### [facility] [address] Comprehensive Metabolic Pane barry 11-26-2022 Albumin [Mass/Vol] 5.0 g/dL Normal 3.5-5.7 [facility] Comment on above: Performed By: #### C MP, CBC, ETOH #### [address] Albumin/Globulin [Mass ratio] 2.2 {ratio} Normal [facility] Comment on above: Performed By: #### C MP, CBC, ETOH #### [address] ALP [Catalytic activity/Vol] 68 U/L Normal 34-104 [facility] Comment on above: Performed By: #### C MP, CBC, ETOH #### [address] ALT [Catalytic activity/Vol] 15 U/L Normal 7-52 [facility] Comment on above: Performed By: #### C MP, CBC, ETOH #### [address] Anion gap [Moles/Vol] 12.7 mmol/L Normal 6.0-15.0 [facility] Comment on above: Performed By: #### C MP, CBC, ETOH #### [facility] [address] [place] [address] AST [Catalytic activity/Vol] 16 U/L Normal 13-39 [facility] Comment on above: Performed By: #### C MP, CBC, ETOH #### [address] Bilirubin [Mass/Vol] 0.7 mg/dL Normal 0.3-1.0 [facility] Comment on above: Performed By: #### C MP, CBC, ETOH #### [address] [place] [address] [place] Calcium [Mass/Vol] 9.5 mg/dL Normal 8.6-10.3 [facility] Comment on above: Performed By: #### C MP, CBC, ETOH #### [facility] [address] Chloride [Moles/Vol] 106 mmol/L Normal 98-107 [facility] Comment on above: Performed By: #### C MP, CBC, ETOH #### [facility] [address] CO2 [Moles/Vol] 26.6 mmol/L Normal 21.0-31.0 [facility] Comment on above: Performed By: #### C MP, CBC, ETOH #### [address] Creatinine [Mass/Vol] 0.87 mg/dL Normal 0.70-1.30 [facility] Comment on above: Performed By: #### C MP, CBC, ETOH #### [address] Creatinine Clr Calc Pharmacy 151.09 Normal [facility] Comment on above: Result Comment: PERF ORMED BY: [place] [address] PATHOLOGIST CUSTOMER FACILITIES SUPERVISOR ZAN SON M.D. Performed By: #### C MP, CBC, ETOH #### [address] GFR/1.73 sq M.predicted MDRD (S/P/Bld) [Vol rate/Area] mL/min/{1.73_m2} Normal [facility] Comment on above: Performed By: #### C MP, CBC, ETOH #### [facility] [address] Globulin (S) [Mass/Vol] 2.3 g/dL Normal [facility] Comment on above: Performed By: #### C MP, CBC, ETOH #### [place] [address] [place] Glucose [Mass/Vol] 108 mg/dL High 70-100 [facility] Comment on above: Result Comment: [facility] Glucose Reference Range is dependent on time and content of last meal. Glucose of more than 200 mg/dL in a nonstressed, ambulatory subject supports the diagnosis of Diabetes Mellitus. ADA recommended reference range Performed By: #### C MP, CBC, ETOH #### [facility] [address] Potassium [Moles/Vol] 3.3 mmol/L Low 3.5-5.1 [facility] Comment on above: Performed By: #### C MP, CBC, ETOH #### [facility] [address] Protein [Mass/Vol] 7.3 g/dL Normal 6.4-8.9 [facility] Comment on above: Performed By: #### C MP, CBC, ETOH #### [facility] [address] Sodium [Moles/Vol] 142 mmol/L Normal 136-145 [facility] Comment on above: Performed By: #### C MP, CBC, ETOH #### [facility] [address] [place] [address] [place] Urea nitrogen [Mass/Vol] 9 mg/dL Normal 7-25 [facility] Comment on above: Performed By: #### C MP, CBC, ETOH #### [facility] [address] Creatinine [Mass/volume] in Serum or PlasmaOrdered By: Tahir Connell on 11-26-2022 Creatinine [Mass/Vol] 0.87 mg/dL 0.70-1.30 [facility] Dipstick and Microscopicon 0 11-26-2022 Appearance (U) Cloudy Critically abnormal Clear [facility] Comment on above: Order Comment: Name Collection Type:: Clean-Voided Midstream Performed By: #### A DDONUAPLUS, URDS #### [facility] [address] [place] [address] [place] Bacteria,Urine None Seen Normal None Seen [facility] Comment on above: Order Comment: Name Collection Type:: Clean-Voided Midstream Performed By: #### A DDONUAPLUS, URDS #### [address] Bilirubin,Urine Negative Normal Negative [facility] Comment on above: Order Comment: Name Collection Type:: Clean-Voided Midstream Performed By: #### A DDONUAPLUS, URDS #### [address] Color (U) Yellow Normal Yellow [facility] Comment on above: Order Comment: Name Collection Type:: Clean-Voided Midstream Performed By: #### A DDONUAPLUS, URDS #### [address] Glucose Ql (U) Normal Normal Normal [facility] Comment on above: Order Comment: Name Collection Type:: Clean-Voided Midstream Performed By: #### A DDONUAPLUS, URDS #### [address] Hyaline Casts,Urine 0-8 Normal 0-[address] [facility] Comment on above: Order Comment: Name Collection Type:: Clean-Voided Midstream Result Comment: PERF ORMED BY: [place] [address] PATHOLOGIST CUSTOMER FACILITIES SUPERVISOR ZAN SON M.D. Performed By: #### A DDONUAPLUS, URDS #### [address] Ketones Ql (U) Negative Normal Negative [facility] Comment on above: Order Comment: Name Collection Type:: Clean-Voided Midstream Performed By: #### A DDONUAPLUS, URDS #### [address] Leukocyte esterase Test strip Ql (U) Negative Normal Negative [facility] Comment on above: Order Comment: Name Collection Type:: Clean-Voided Midstream Performed By: #### A DDONUAPLUS, URDS #### [place] [address] [place] Nitrite,Urine Negative Normal Negative [facility] Comment on above: Order Comment: Name Collection Type:: Clean-Voided Midstream Performed By: #### A DDONUAPLUS, URDS #### [address] Occult Blood,Urine Trace High Negative [facility] Comment on above: Order Comment: Name Collection Type:: Clean-Voided Midstream Result Comment: PERF ORMED BY: [place] [address] PATHOLOGIST CUSTOMER FACILITIES SUPERVISOR ZAN SON M.D. Performed By: #### A DDONUAPLUS, URDS #### [address] pH (U) 7.5 [pH] Normal 5.0-9.0 [facility] Comment on above: Order Comment: Name Collection Type:: Clean-Voided Midstream Performed By: #### A DDONUAPLUS, URDS #### [address] Protein,Urine Negative Normal Negative [facility] Comment on above: Order Comment: Name Collection Type:: Clean-Voided Midstream Performed By: #### A DDONUAPLUS, URDS #### [address] RBC,Urine 3-4 Normal 0-4 [facility] Comment on above: Order Comment: Name Collection Type:: Clean-Voided Midstream Performed By: #### A DDONUAPLUS, URDS #### [place] [address] [place] Specificy [place],Urine 1.015 Normal 1.001-1.030 [facility] Comment on above: Order Comment: Name Collection Type:: Clean-Voided Midstream Performed By: #### A DDONUAPLUS, URDS #### [place] [address] [place] Squamous Epithelial Cell,Urine 1-2 Normal 0-2 [facility] Comment on above: Order Comment: Name Collection Type:: Clean-Voided Midstream Performed By: #### A DDONUAPLUS, URDS #### [facility] [address] [place] [address] [place] Urobilinogen,Urine Normal Normal Normal [facility] Comment on above: Order Comment: Name Collection Type:: Clean-Voided Midstream Performed By: #### A DDONUAPLUS, URDS #### [place] [address] [place] WBC,Urine 1-2 Normal 0-4 [facility] Comment on above: Order Comment: Name Collection Type:: Clean-Voided Midstream Performed By: #### A DDONUAPLUS, URDS #### [address] Drug Screen,Urineon 11-27-19 23 Amphetamine Screen,Urine Positive High Negative [facility] Comment on above: Performed By: #### A DDONUAPLUS, URDS #### [address] Barbiturate Screen,Urine Negative Normal Negative [facility] Comment on above: Performed By: #### A DDONUAPLUS, URDS #### [address] Benzodiazepines Screen,Urine Negative Normal Negative [facility] Comment on above: Performed By: #### A DDONUAPLUS, URDS #### [address] Cannabinoid Screen,Urine Positive High Negative [facility] Comment on above: Result Comment: Thes e are unconfirmed results and should not be used for legal purposes. Drug Cut-Off Concentration: AMPH 1000 ng/mL VICKI 200 ng/mL GUERO 200 ng/mL COCM 300 ng/mL OP 300 ng/mL PCP 25 ng/mL THC 20 ng/mL PERFORMED BY: [place] [address] PATHOLOGIST CUSTOMER FACILITIES SUPERVISOR ZAN SON M.D. Performed By: #### A DDONUAPLUS, URDS #### [address] Cocaine Screen,Urine Negative Normal Negative [facility] Comment on above: Performed By: #### A DDONUAPLUS, URDS #### [facility] [address] Opiate Screen,Urine Negative Normal Negative [facility] Comment on above: Performed By: #### A DDONUAPLUS, URDS #### [facility] [address] Phencyclidine Screen,Urine Negative Normal Negative [facility] Comment on above: Performed By: #### A DDONUAPLUS, URDS #### [facility] [address] ECG 12 lead ECGon 11-26-2022 ECG 12 lead ECG [facility] [place] [address] [place] [address] Electrocardiograph Report Signed Patient: Aditya Richardson MR#: [id number] : 1995 Acct:[id number] Age/Sex: 27 / M ADM Date: 11/26/22 Loc: ER Room: Type: [facility] ER Attending Dr: Ordering Provider: Tahir Connell PA-C Date of Service: 11/26/22 ECG/ECG 12 lead ECG: Psychiatric Symptoms Copies to: Test Reason : Blood Pressure : 146/080 mmHG Vent. Rate : 105 BPM Atrial Rate : 105 BPM P-R Int : 160 ms QRS Dur : 106 ms QT Int : 352 ms P-R-T Axes : 076 022 069 degrees QTc Int : 465 ms Sinus tachycardia Biatrial enlargement Incomplete right bundle branch block Abnormal ECG No previous ECGs available Confirmed by ENRICO GONZALEZ MD ([id number]) on 11/28/2022 6:14:52 AM Referred By: Electronically Signed By:ENRICO GONZALEZ MD Transcribed By: MUS Signed By Enrico Gonzalez Jr, MD 14 [facility] Eosinophils Auto (Bld) [#/Vo l]Ordered By: Tahir Connell on 11-26-2022 Eosinophils (Bld) [#/Vol] 0.0 10*3/uL 0.0-0.45 [facility] Eosinophils/100 WBC Auto (Bl d)Ordered By: Tahir Connell on 11-26-2022 Eosinophils/100 WBC (Bld) 0.1 % . [facility] Erythrocyte distribution wid th Auto (RBC) [Ratio]Ordered By: Tahir Connell on 11-26-2022 Erythrocyte distribution width (RBC) [Ratio] 13.1 % 12.0-14.8 [facility] Ethanol [Mass/volume] in Ser um or PlasmaOrdered By: Tahir Connell on 11-26-2022 Ethanol [Mass/Vol] mg/dL [facility] Ethanol [Mass/Vol] TNP [facility] Comment on above: Test not performed Ethyl Alcohol Profileon 11-07 Ethanol [Mass/Vol] mg/dL Normal [facility] Comment on above: Performed By: #### C MP, CBC, ETOH #### [facility] [address] [place] [address] Percent Ethanol Not performed Normal [facility] Comment on above: Result Comment: PERF ORMED BY: [address] [place] [address] PATHOLOGIST CUSTOMER FACILITIES SUPERVISOR ZAN SON M.D. Performed By: #### C MP, CBC, ETOH #### [facility] [address] [place] [address] Globulin Calc (S) [Mass/Vol] Ordered By: Tahir Connell on 11-26-2022 Globulin (S) [Mass/Vol] 2.3 g/dL [facility] Glucose [Mass/volume] in Ser um or PlasmaOrdered By: Tahir Connell on 11-26-2022 Glucose [Mass/Vol] 108 mg/dL 70-100 [facility] Comment on above: ADA recommended refe rence rangeRandom Glucose Reference Range is dependent on time and content of last meal. Glucose of more than 200 mg/dL in a nonstressed, ambulatory subject supports the diagnosis of Diabetes Mellitus. Hematocrit Auto (Bld) [Volum e fraction]Ordered By: Tahir Connell on 11-26-2022 Hematocrit (Bld) [Volume fraction] 41.9 % 38.8-50.0 [facility] Hemoglobin [Mass/volume] in BloodOrdered By: Tahir Connell on 11-26-2022 Hemoglobin (Bld) [Mass/Vol] 14.9 g/dL 13.0-17.0 [facility] Ketones Auto test strip (U) [Mass/Vol]Ordered By: Tahir Connell on 11-26-2022 Ketones (U) [Mass/Vol] Negative Negative [facility] - UrinalysisOrder ed By: Tahir Connell on 11-26-2022 Hyaline casts LM Ql (Urine sed) 0-8 [LPF] 0-8 [facility] Leukocytes [#/volume] correc jaja for nucleated erythrocytes in Blood by Automated counOrdered By: Tahir Connell on 11-26-2022 WBC corrected for nucl RBC Auto (Bld) [#/Vol] 9.9 10*3/uL 4.1-10.5 [facility] Lymphocytes Auto (Bld) [#/Vo l]Ordered By: Tahir Connell on 11-26-2022 Lymphocytes (Bld) [#/Vol] 1.0 10*3/uL 1.00-4.8 [facility] Lymphocytes/100 WBC Auto (Bl d)Ordered By: Tahir Connell on 11-26-2022 Lymphocytes/100 WBC (Bld) 9.9 % . [facility] MCH Auto (RBC) [Entitic mass ]Ordered By: Tahir Connell on 11-26-2022 MCH (RBC) [Entitic mass] 30.3 pg 27.5-35.2 [facility] MCHC Auto (RBC) [Mass/Vol]Or dered By: Tahir Connell on 11-26-2022 MCHC (RBC) [Mass/Vol] 35.4 g/dL 32.5-35.6 [facility] MCV Auto (RBC) [Entitic vol] Ordered By: Tahir Connell on 11-26-2022 MCV (RBC) [Entitic vol] 85.4 fL 83.5-101 [facility] Monocyte distribution width [Entitic volume] in Blood by AutomatedOrdered By: Tahir Connell on 11-26-2022 Monocyte distribution width Auto (Bld) [Entitic vol] 16.82 % 0.00-20.00 [facility] Monocytes Auto (Bld) [#/Vol] Ordered By: Tahir Connell on 11-26-2022 Monocytes (Bld) [#/Vol] 0.6 10*3/uL 0.0-0.8 [facility] Monocytes/100 WBC Auto (Bld) Ordered By: Tahir Connell on 11-26-2022 Monocytes/100 WBC (Bld) 6.2 % . [facility] Neutrophils Auto (Bld) [#/Vo l]Ordered By: Tahir Connell on 11-26-2022 Neutrophils (Bld) [#/Vol] 8.3 10*3/uL 1.8-7.7 [facility] Neutrophils/100 WBC Auto (Bl d)Ordered By: Tahir Connell on 11-26-2022 Neutrophils/100 WBC (Bld) 83.1 % . [facility] No Panel InformationOrdered By: Tahir Connell on 11-26-2022 Estimated GFR (CKD-EPI) > 60.0 mL/Min [facility] Creatinine Clearance (Chem 151.09 [facility] Nucleated erythrocytes [Pres ence] in Blood by Automated countOrdered By: Tahir Connell on 11-26-2022 Nucleated RBC Auto Ql (Bld) 0.0 /100{WBC} 0-0.5 [facility] Opiates [Presence] in Urine by Screen methodOrdered By: Tahir Connell on 11-26-2022 Opiates Screen Ql (U) Negative Negative [facility] Phencyclidine Screen Ql (U)O rdered By: Tahir Connell on 11-26-2022 Phencyclidine Ql (U) Negative Negative [facility] Platelet mean volume Auto (B ld) [Entitic vol]Ordered By: Tahir Connell on 11-26-2022 Platelet mean volume (Bld) [Entitic vol] 7.5 fL 6.6-10.1 [facility] Platelets Auto (Bld) [#/Vol] Ordered By: Tahir Connell on 11-26-2022 Platelets (Bld) [#/Vol] 219 10*3/uL 150-450 [facility] Potassium [Moles/volume] in Serum or PlasmaOrdered By: Tahir Connell on 11-26-2022 Potassium [Moles/Vol] 3.3 mmol/L 3.5-5.1 [facility] Protein Auto test strip (U) [Mass/Vol]Ordered By: Tahir Connell on 11-26-2022 Protein (U) [Mass/Vol] Negative Negative [facility] Protein [Mass/volume] in Ser um or PlasmaOrdered By: Tahir Connell on 11-26-2022 Protein [Mass/Vol] 7.3 g/dL 6.4-8.9 [facility] RBC Auto (Bld) [#/Vol]Ordere d By: Tahir Connell on 11-26-2022 RBC (Bld) [#/Vol] 4.91 10*6/uL 3.90-5.[address] [facility] Serum or plasma albumin/glob ulin mass ratioOrdered By: Tahir Connell on 11-26-2022 Albumin/Globulin [Mass ratio] 2.2 {ratio} [facility] Serum or plasma anion gap de terminationOrdered By: Tahir Connell on 11-26-2022 Anion gap [Moles/Vol] 12.7 mmol/L 6.0-15.0 [facility] Sodium [Moles/volume] in Ser um or PlasmaOrdered By: Tahir Connell on 11-26-2022 Sodium [Moles/Vol] 142 mmol/L 136-145 [facility] Squamous epithelial cells de tection in urine sediment by light microscopyOrdered By: Tahir Connell on 11-26-2022 Epithelial cells.squamous LM Ql (Urine sed) 1-2 [HPF] 0-2 [facility] Urea nitrogen [Mass/volume] in Serum or PlasmaOrdered By: Tahir Connell on 11-26-2022 Urea nitrogen [Mass/Vol] 9 mg/dL 7-25 [facility] Urine appearanceOrdered By: Tahir Connell on 11-26-2022 Appearance (U) Cloudy Clear [facility] Urine bacteria detection by automated methodOrdered By: Tahir Connell on 11-26-2022 Bacteria Auto Ql (U) None seen None Seen [facility] Urine colorOrdered By: Sofi Connell on 11-26-2022 Color (U) Yellow Yellow [facility] Urine glucose measurement by automated test strip (mass/volume)Ordered By: aThir Connell on 11-26-2022 Glucose Auto test strip (U) [Mass/Vol] Normal mg/dL Normal [facility] Urine hemoglobin detection b y automated test stripOrdered By: Tahir Connell on 11-26-2022 Hemoglobin Auto test strip Ql (U) Trace Negative [facility] Urine leukocyte esterase det ection by automated test stripOrdered By: Tahir Connell on 11-26-2022 Leukocyte esterase Auto test strip Ql (U) Negative Negative [facility] Urine nitrite detection by a utomated test stripOrdered By: Tahir Connell on 11-26-2022 Nitrite Auto test strip Ql (U) Negative Negative [facility] Urobilinogen Auto test strip (U) [Mass/Vol]Ordered By: Tahir Connell on 11-26-2022 Urobilinogen (U) [Mass/Vol] Normal mg/dL Normal [facility] WBC Auto (Bld) [#/Vol]Ordere d By: Tahir Connell on 11-26-2022 WBC (Bld) [#/Vol] 9.9 10*3/uL 4.1-10.5 [facility] pH Auto test strip (U)Ordere d By: Tahir Connell on 11-26-2022 pH (U) 1.015 [pH] 1.001-1.030 [facility] pH (U) 7.5 [pH] 5.0-9.0 [facility] CBC W MANUAL DIFFon 06-14-19 ATYPICAL LYMPH # Normal [facility] [place] Comment on above: Performed By: #### E TH #### [facility] [address] [address] [address] Celestine Soto ATYPICAL LYMPH % Normal [facility] Comment on above: Performed By: #### E TH #### [facility] [address] [address] [address] Celestine DIEGO # Normal 0.0-0.3 [facility] Comment on above: Performed By: #### E TH #### [facility] [address] [address] [address] Celestine DIEGO % Normal 0-5 [facility] Comment on above: Performed By: #### E #### [facility] [address] [place] [address] Dr. Celestine Soto BASOM # 0.00 103/ul Normal 0.00-0.10 [facility] Comment on above: Performed By: #### E #### [facility] [address] [place] [address] Dr. Celestine Soto BASOM % 0.0 % Critically low 0.2-2.0 [facility] Comment on above: Performed By: #### E #### [facility] [address] [place] [address] Dr. Celestine Soto BLAST # Normal [facility] Comment on above: Performed By: #### E #### [facility] [address] [place] [address] Dr. Celestine Soto BLAST % Normal [facility] Comment on above: Performed By: #### E #### [facility] [address] [place] [address] Dr. Celestine Soto CORRECTED WBC Normal 4.0-11.0 [facility] Comment on above: Performed By: #### E #### [facility] [address] [place] [address] Dr. Celestine Soto EOS # 0.00 103/ul Normal 0.00-0.70 [facility] Comment on above: Performed By: #### E #### [facility] [address] [place] [address] Dr. Celestine Soto EOS% 0.0 % Critically low 0.9-7.0 [facility] Comment on above: Performed By: #### E #### [facility] [address] [place] [address] Dr. Celestine Soto HCT 42.8 % Normal 42.0-54.0 [facility] Comment on above: Performed By: #### E #### [facility] [address] [place] [address] Dr. Celestine Soto HGB 14.9 g/dl Normal 14.0-18.0 [facility] Comment on above: Performed By: #### E #### [facility] [address] [address] [address] Celestine Soto LYMPHM # 0.90 103/ul Critically low 1.20-3.80 [facility] Comment on above: Performed By: #### E #### [facility] [address] [place] [address] Dr. Celestine Soto LYMPHM% 28.0 % Normal 20.5-60.0 [facility] Comment on above: Performed By: #### E #### [facility] [address] [place] [address] Dr. Celestine Soto MCH 31.6 pg Normal 25.9-34.0 [facility] Comment on above: Performed By: #### E #### [facility] [address] [place] [address] Dr. Celestine Soto MCHC 34.8 g/dl Normal 29.9-35.2 [facility] Comment on above: Performed By: #### E #### [facility] [address] [place] [address] Dr. Celestine Soto MCV 90.9 fL Normal 80.0-94.0 [facility] Comment on above: Performed By: #### E #### [facility] [address] [place] [address] Dr. Celestine Soto METAMYELOCYTE # Normal [facility] Comment on above: Performed By: #### E #### [facility] [address] [place] [address] Dr. Celestine Soto METAMYELOCYTE % Normal [facility] Comment on above: Performed By: #### E #### [facility] [address] [place] [address] Dr. Celestine Soto MONOM# 0.29 103/ul Critically low 0.30-0.80 [facility] Comment on above: Performed By: #### E #### [facility] [address] [place] [address] Dr. Celestine Soto MONOM% 9.0 % Normal 1.7-12.0 [facility] Comment on above: Performed By: #### E #### [facility] [address] [place] [address] Dr. Celestine Soto MPV 9.3 fL Critically low 9.5-13.5 [facility] Comment on above: Performed By: #### E #### [facility] [address] [place] [address] Dr. Celestine Soto MYELOCYTE # Normal [facility] Comment on above: Performed By: #### E #### [facility] [address] [place] [address] Dr. Celestine Soto MYELOCYTE % Normal [facility] Comment on above: Performed By: #### E #### [facility] [address] [place] [address] Dr. Celestine Soto NRBC Normal [facility] Comment on above: Performed By: #### E #### [facility] [address] [place] [address] Dr. Celestine Soto PLT 145 103/ul Critically low 150-450 [facility] Comment on above: Performed By: #### E #### [facility] [address] [place] [address] Dr. Celestine Soto RBC 4.71 106/ul Normal 4.70-6.10 [facility] Comment on above: Performed By: #### E #### [facility] [address] [place] [address] Dr. Celestine Soto RDW 11.3 % Normal 11.0-15.0 [facility] Comment on above: Performed By: #### E #### [facility] [address] [place] [address] Dr. Celestine Soto SEG # 2.02 103/ul Normal 1.40-6.50 [facility] Comment on above: Performed By: #### E #### [facility] [address] [place] [address] Dr. Celestine Soto SEG % 63.0 % Normal 43.0-75.0 [facility] Comment on above: Performed By: #### E #### [facility] [address] [address] [address] Celestine Soto WBC 3.2 103/ul Critically low 4.0-11.0 [facility] Comment on above: Performed By: #### E TH #### [facility] [address] [place] [address] Dr. Celestine Soto [facility]on SARS-CoV-2 (COVID-19) RNA STEVE+probe Ql (Unsp spec) Detected Critically abnormal NOT DETECTED [facility] Comment on above: Result Comment: This test is not yet approved or cleared by the [place] FDA. When there are no FDA-approved or cleared tests available, and other criteria are met, FDA can make tests available under an emergency access mechanism called an Emergency Use Authorization (EUA). The EUA for this test is supported by the [place] of Health and Human Service's (HHS's) declaration that circumstances exist to justify the emergency use of in vitro diagnostics for the detection and/or diagnosis of the virus that causes COVID-19. This EUA will remain in effect (meaning this test can be used) for the duration of the COVID-19 declaration justifying emergency of IVDs, unless it is terminated or revoked by FDA (after which the test may no longer be used). Performed By: #### C VDTB #### [facility] [address] [place] [address] Dr. Celestine Soto DRUG SCREEN RAPID (URINE)on 06-14-2021 AMP Negative Normal NEGATIVE [facility] Comment on above: Performed By: #### E TH #### [facility] [address] [place] [address] Dr. Celestine Soto BAR Negative Normal NEGATIVE [facility] Comment on above: Performed By: #### E TH #### [facility] [address] [place] [address] Dr. Celestine Soto BUP Negative Normal NEGATIVE [facility] Comment on above: Performed By: #### E TH #### [facility] [address] [place] [address] Dr. Celestine Soto BZO Positive Abnormal NEGATIVE [facility] Comment on above: Performed By: #### E TH #### [facility] [address] [place] [address] Dr. Celestine Soto BRUCE Negative Normal NEGATIVE [facility] Comment on above: Performed By: #### E TH #### [facility] [address] [place] [address] Dr. Celestine Soto CUT-OFFS SEE BELOW Normal [facility] Comment on above: Result Comment: AMP (Amphetamine): 500ng/mL, BAR (Barbituates): 200 ng/mL, BZO (Benzodiazepines): 150 ng/mL, BUP (Buprenorphine): 10 ng/mL, BRUCE (Cocaine): 150 ng/mL, mAMP (Methamphetamine): 500 ng/mL, MTD (Methadone): 200 ng/mL, OPI (Opiates): 100 ng/mL, OXY (Oxycodone): 100 ng/mL, PCP (Phencyclidine): 25 ng/mL, PPX (Propoxyphene): 300 ng/mL, THC (Cannabinoids): 50 ng/mL, TCA (Trycyclic Antidepressants): 300 ng/mL Performed By: #### E #### [facility] [address] [place] [address] Dr. Celestine Soto DRUG CUT HEADER DRUG CLASS TEST SYSTEM CUT-OFF CONCENTRATIONS ARE FOLLOWS: Normal [facility] Comment on above: Performed By: #### E #### [facility] [address] [place] [address] Dr. Celestine Soto mAMP Negative Normal NEGATIVE [facility] Comment on above: Performed By: #### E #### [facility] [address] [place] [address] Dr. Celestine Soto MTD Negative Normal NEGATIVE [facility] Comment on above: Performed By: #### E #### [facility] [address] [place] [address] Dr. Celestine Soto OPI Negative Normal NEGATIVE [facility] Comment on above: Performed By: #### E #### [facility] [address] [place] [address] Dr. Celestine Soto OXY Negative Normal NEGATIVE [facility] Comment on above: Performed By: #### E #### [facility] [address] [place] [address] Dr. Celestine Soto PCP Negative Normal NEGATIVE [facility] Comment on above: Performed By: #### E #### [facility] [address] [place] [address] Dr. Celestine Soto PPX Negative Normal NEGATIVE [facility] Comment on above: Performed By: #### E #### [facility] [address] [place] [address] Dr. Celestine Soto TCA Negative Normal NEGATIVE [facility] Comment on above: Performed By: #### E #### [facility] [address] [place] [address] Dr. Celestine Soto THC Positive Abnormal NEGATIVE [facility] Comment on above: Performed By: #### E #### [facility] [address] [place] [address] Dr. Celestine Soto ER URINE PROFILEon 2 Bilirubin Ql (U) Negative Normal NEGATIVE [facility] [place] Comment on above: Performed By: #### E #### [facility] [address] [place] [address] Dr. Celestine Soto Clarity (U) CLEAR Normal CLEAR [facility] Comment on above: Performed By: #### E #### [facility] [address] [place] [address] Dr. Celestine Soto Color (U) YELLOW Normal YELLOW [facility] Comment on above: Performed By: #### E #### [facility] [address] [place] [address] Dr. Celestine Soto ERUMADISON A micrscopic examination will be performed if indicated. Normal [facility] Comment on above: Performed By: #### E #### [facility] [address] [place] [address] Dr. Celestine Soto Glucose Ql (U) Negative Normal NEGATIVE [facility] Comment on above: Performed By: #### E #### [facility] [address] [place] [address] Dr. Celestine Soto Hemoglobin Ql (U) Negative Normal NEGATIVE [facility] Comment on above: Performed By: #### E TH #### [facility] [address] [place] [address] Dr. Celestine Soto Ketones Ql (U) Negative Normal NEGATIVE [facility] Comment on above: Performed By: #### E TH #### [facility] [address] [place] [address] Dr. Celestine Soto LEUKOCYTES Negative Normal NEGATIVE [facility] Comment on above: Performed By: #### E TH #### [facility] [address] [place] [address] Dr. Celestine Soto Nitrite Ql (U) Negative Normal NEGATIVE [facility] Comment on above: Performed By: #### E TH #### [facility] [address] [place] [address] Dr. Celestine Soto pH (U) 6.0 [pH] Normal 5-9 [facility] Comment on above: Performed By: #### E TH #### [facility] [address] [place] [address] Dr. Celestine Soto SPEC GRAVITY >=1.030 Abnormal 1.005-<=1.0 25 [facility] Comment on above: Performed By: #### E TH #### [facility] [address] [place] [address] Dr. Celestine Soto UA PROTEIN TRACE Normal NEGATIVE/ TRACE [facility] Comment on above: Performed By: #### E TH #### [facility] [address] [place] [address] Dr. Celestine Soto UR MICRO IND NOT INDICATED Normal [facility] Comment on above: Performed By: #### E TH #### [facility] [address] [place] [address] Dr. Celestine Soto Urobilinogen Qn (U) 0.2 {Gayle'U}/dL Normal 0.2 - 1. 0 [facility] Comment on above: Performed By: #### E TH #### [facility] [address] [place] [address] Dr. Celestine Soto ETHANOL (BLD ALC)on 06-14-19 22 ALC NOTE NOTE: 80 mg/dl is the legal limit for a blood alcohol level Normal [facility] Comment on above: Performed By: #### E TH #### [facility] [address] [place] [address] Dr. Celestine Soto Ethanol [Mass/Vol] mg/dL Normal [facility] Comment on above: Performed By: #### E TH #### [facility] [address] [place] [address] Dr. Celestine Soto PROF 14(COMP METB)on 022 Albumin [Mass/Vol] 4.6 g/dL Normal 3.5-5.0 [facility] Comment on above: Performed By: #### C MP #### [facility] [address] [place] [address] Dr. Celestine Soto Albumin/Globulin [Mass ratio] 1.6 {ratio} Normal [facility] Comment on above: Performed By: #### C MP #### [facility] [address] [place] [address] Dr. Celestine Soto ALP [Catalytic activity/Vol] 45 U/L Normal 38-126 [facility] Comment on above: Performed By: #### C MP #### [facility] [address] [place] [address] Dr. Celestine Soto ALT [Catalytic activity/Vol] 25 U/L Normal 21-72 [facility] Comment on above: Performed By: #### C MP #### [facility] [address] [place] [address] Dr. Celestine Soto Anion gap [Moles/Vol] 14.8 mmol/L Normal [facility] Comment on above: Performed By: #### C MP #### [facility] [address] [place] [address] Dr. Celestine Soto AST [Catalytic activity/Vol] 20 U/L Normal 17-59 [facility] Comment on above: Performed By: #### C MP #### [facility] [address] [place] [address] Dr. Celestine Soto Bilirubin [Mass/Vol] 0.6 mg/dL Normal 0.2-1.3 [facility] Comment on above: Performed By: #### C MP #### [facility] [address] [address] [address] Celestine Soto Calcium [Mass/Vol] 9.2 mg/dL Normal 8.4-10.2 [facility] Comment on above: Performed By: #### C MP #### [facility] [address] [address] [address] Celestine Soto Chloride [Moles/Vol] 107 mmol/L Normal 98-107 [facility] Comment on above: Performed By: #### C MP #### [facility] [address] [address] [address] Celestine Soto CO2 [Moles/Vol] 26.0 mmol/L Normal 22.0-30.0 [facility] [place] Comment on above: Performed By: #### C MP #### [facility] [address] [address] [address] Celestine Soto Creatinine [Mass/Vol] 0.85 mg/dL Normal 0.66-1.25 [facility] Comment on above: Performed By: #### C MP #### [facility] [address] [address] [address] Celestine Soto EGFR-AF [place] >60 Normal >=60 [facility] [place] Comment on above: Performed By: #### C MP #### [facility] [address] [address] [address] Celestine Soto EGFR-NON AF [place] >60 Normal >=60 [facility] Comment on above: Performed By: #### C MP #### [facility] [address] [address] [address] Celestine Soto Globulin (S) [Mass/Vol] 2.8 g/dL Normal [facility] Comment on above: Performed By: #### C MP #### [facility] [address] [address] [address] Celestine Soto Glucose [Mass/Vol] 104 mg/dL Normal 74-106 [facility] Comment on above: Performed By: #### C MP #### [facility] [address] [address] [address] Celestine Soto Potassium [Moles/Vol] 3.8 mmol/L Normal 3.4-5.0 [facility] Comment on above: Performed By: #### C MP #### [facility] [address] [place] [address] Dr. Celestine Soto Protein [Mass/Vol] 7.4 g/dL Normal 6.1-8.2 [facility] Comment on above: Performed By: #### C MP #### [facility] [address] [place] [address] Dr. Celestine Soto Sodium [Moles/Vol] 144 mmol/L Normal 137-145 [facility] Comment on above: Performed By: #### C MP #### [facility] [address] [place] [address] Dr. Celestine Soto Urea nitrogen [Mass/Vol] 11.0 mg/dL Normal 9.0-20.0 [facility] Comment on above: Performed By: #### C MP #### [facility] [address] [place] [address] Dr. Celestine Soto Urea nitrogen/Creatinine [Mass ratio] 12.9 mg/mg Normal [facility] Comment on above: Performed By: #### C MP #### [facility] [address] [place] [address] Dr. Celestine Soto ACETAMINOPHENon 06-09-2021 Acetaminophen [Mass/Vol] ug/mL Normal [facility] Comment on above: Performed By: #### E TH #### [facility] [address] [place] [address] Dr. Celestine Soto CBC W MANUAL DIFFon 06-09-19 22 ATYPICAL LYMPH # Normal [facility] Comment on above: Performed By: #### E TH #### [facility] [address] [place] [address] Dr. Celestine Soto ATYPICAL LYMPH % Normal [facility] Comment on above: Performed By: #### E TH #### [facility] [address] [place] [address] Dr. Celestine Soto BAND # Normal 0.0-0.3 [facility] Comment on above: Performed By: #### E #### [facility] [address] [place] [address] Dr. Celestine Soto BAND % Normal 0-5 [facility] Comment on above: Performed By: #### E #### [facility] [address] [place] [address] Dr. Celestine Soto BASOM # 0.00 103/ul Normal 0.00-0.10 [facility] Comment on above: Performed By: #### E #### [facility] [address] [place] [address] Dr. Celestine Soto BASOM % 0.0 % Critically low 0.2-2.0 [facility] Comment on above: Performed By: #### E #### [facility] [address] [place] [address] Dr. Celestine Soto BLAST # Normal [facility] Comment on above: Performed By: #### E #### [facility] [address] [place] [address] Dr. Celestine Soto BLAST % Normal [facility] Comment on above: Performed By: #### E #### [facility] [address] [place] [address] Dr. Celestine Soto CORRECTED WBC Normal 4.0-11.0 [facility] Comment on above: Performed By: #### E #### [facility] [address] [place] [address] Dr. Celestine Soto EOS # 0.00 103/ul Normal 0.00-0.70 [facility] Comment on above: Performed By: #### E #### [facility] [address] [place] [address] Dr. Celestine Soto EOS% 0.0 % Critically low 0.9-7.0 [facility] Comment on above: Performed By: #### E #### [facility] [address] [place] [address] Dr. Celestine Soto HCT 43.2 % Normal 42.0-54.0 [facility] Comment on above: Performed By: #### E #### [facility] [address] [place] [address] Dr. Celestine Soto HGB 15.1 g/dl Normal 14.0-18.0 [facility] Comment on above: Performed By: #### E #### [facility] [address] [place] [address] Dr. Celestine Soto LYMPHM # 1.39 103/ul Normal 1.20-3.80 [facility] Comment on above: Performed By: #### E #### [facility] [address] [place] [address] Dr. Celestine Soto LYMPHM% 13.0 % Critically low 20.5-60.0 [facility] Comment on above: Performed By: #### E #### [facility] [address] [place] [address] Dr. Celestine Soto MCH 31.7 pg Normal 25.9-34.0 [facility] Comment on above: Performed By: #### E #### [facility] [address] [place] [address] Dr. Celestine Soto MCHC 35.0 g/dl Normal 29.9-35.2 [facility] Comment on above: Performed By: #### E #### [facility] [address] [place] [address] Dr. Celestine Soto MCV 90.8 fL Normal 80.0-94.0 [facility] Comment on above: Performed By: #### E #### [facility] [address] [place] [address] Dr. Celestine Soto METAMYELOCYTE # Normal [facility] Comment on above: Performed By: #### E #### [facility] [address] [place] [address] Dr. Celestine Soto METAMYELOCYTE % Normal [facility] Comment on above: Performed By: #### E #### [facility] [address] [place] [address] Dr. Celestine Soto MONOM# 0.21 103/ul Critically low 0.30-0.80 [facility] Comment on above: Performed By: #### E #### [facility] [address] [address] [address] Celestine Soto MONOM% 2.0 % Normal 1.7-12.0 [facility] Comment on above: Performed By: #### E #### [facility] [address] [place] [address] Dr. Celestine Soto MPV 9.3 fL Critically low 9.5-13.5 [facility] Comment on above: Performed By: #### E #### [facility] [address] [place] [address] Dr. Celestine Soto MYELOCYTE # Normal [facility] Comment on above: Performed By: #### E #### [facility] [address] [place] [address] Dr. Celestine Soto MYELOCYTE % Normal [facility] Comment on above: Performed By: #### E #### [facility] [address] [place] [address] Dr. Celestine Soto NRBC Normal [facility] Comment on above: Performed By: #### E #### [facility] [address] [place] [address] Dr. Celestine Soto PLT 198 103/ul Normal 150-450 [facility] Comment on above: Performed By: #### E #### [facility] [address] [place] [address] Dr. Celestine Soto RBC 4.76 106/ul Normal 4.70-6.10 [facility] Comment on above: Performed By: #### E #### [facility] [address] [place] [address] Dr. Celestine Soto RDW 11.2 % Normal 11.0-15.0 [facility] Comment on above: Performed By: #### E #### [facility] [address] [place] [address] Dr. Celestine Soto SEG # 9.09 103/ul Critically high 1.40-6.50 [facility] [place] Comment on above: Performed By: #### E TH #### [facility] [address], [place] [address] Dr. Celestine Soto SEG % 85.0 % Critically high 43.0-75.0 [facility] Comment on above: Performed By: #### E TH #### [facility] [address], [place] [address] Dr. Celestine Soto WBC 10.7 103/ul Normal 4.0-11.0 [facility] Comment on above: Performed By: #### E TH #### [facility] [id number] Celestine Soto Covid-19 PCR (CVDTBH)on SARS-CoV-2 (COVID-19) RNA STEVE+probe Ql (Unsp spec) Detected Critically abnormal NOT DETECTED [facility] Comment on above: Result Comment: This test is not yet approved or cleared by the [place] Food and Drug Administration (FDA). This test was developed by [employer], [place], [place]. The performance characteristics of this test were validated by [facility]. The results are not intended to be used as the sole means for clinical diagnosis or patient management decisions. [facility] is authorized under Clinical Laboratory Improvement Amendments (CLIA) to perform high- complexity testing. This test is not yet approved or cleared by the [place] FDA. When there are no FDA-approved or cleared tests available, and other criteria are met, FDA can make tests available under an emergency access mechanism called an Emergency Use Authorization (EUA). The EUA for this test is supported by the [place] of Health and Human Service's declaration that circumstances exist to justify the emergency use of in vitro diagnostics for the detection and/or diagnosis of the virus that causes COVID-19. This EUA will remain in effect for the duration of the COVID-19 declaration justifying emergency of IVDs, unless it is terminated or revoked by the FDA (after which the test may no longer be used). Performed By: #### C VDTBH #### [facility] [id number] Celestine Soto DRUG SCREEN RAPID (URINE)on 06-09-2021 AMP Negative Normal NEGATIVE [facility] Comment on above: Performed By: #### E TH #### [facility] [address] [place] [address] Dr. Celestine Soto BAR Negative Normal NEGATIVE [facility] Comment on above: Performed By: #### E TH #### [facility] [address] [place] [address] Dr. Celestine Soto BUP Positive Abnormal NEGATIVE [facility] Comment on above: Performed By: #### E TH #### [facility] [address] [place] [address] Dr. Celestine Soto BZO Negative Normal NEGATIVE [facility] Comment on above: Performed By: #### E TH #### [facility] [address] [place] [address] Dr. Celestine Soto BRUCE Negative Normal NEGATIVE [facility] Comment on above: Performed By: #### E TH #### [facility] [address] [place] [address] Dr. Celestine Soto CUT-OFFS SEE BELOW Normal [facility] Comment on above: Result Comment: AMP (Amphetamine): 500ng/mL, BAR (Barbituates): 200 ng/mL, BZO (Benzodiazepines): 150 ng/mL, BUP (Buprenorphine): 10 ng/mL, BRUCE (Cocaine): 150 ng/mL, mAMP (Methamphetamine): 500 ng/mL, MTD (Methadone): 200 ng/mL, OPI (Opiates): 100 ng/mL, OXY (Oxycodone): 100 ng/mL, PCP (Phencyclidine): 25 ng/mL, PPX (Propoxyphene): 300 ng/mL, THC (Cannabinoids): 50 ng/mL, TCA (Trycyclic Antidepressants): 300 ng/mL Performed By: #### E TH #### [facility] [address] [place] [address] Dr. Celestine Soto DRUG CUT HEADER DRUG CLASS TEST SYSTEM CUT-OFF CONCENTRATIONS ARE FOLLOWS: Normal [facility] Comment on above: Performed By: #### E #### [facility] [address] [place] [address] Dr. Celestine Soto mAMP Negative Normal NEGATIVE [facility] Comment on above: Performed By: #### E #### [facility] [address] [place] [address] Dr. Celestine Soto MTD Negative Normal NEGATIVE [facility] Comment on above: Performed By: #### E #### [facility] [address] [place] [address] Dr. Celestine Soto OPI Negative Normal NEGATIVE [facility] Comment on above: Performed By: #### E #### [facility] [address] [place] [address] Dr. Celestine Soto OXY Negative Normal NEGATIVE [facility] Comment on above: Performed By: #### E #### [facility] [address] [place] [address] Dr. Celestine Soto PCP Negative Normal NEGATIVE [facility] Comment on above: Performed By: #### E #### [facility] [address] [place] [address] Dr. Celestine Soto PPX Negative Normal NEGATIVE [facility] Comment on above: Performed By: #### E #### [facility] [address] [place] [address] Dr. Celestine Soto TCA Negative Normal NEGATIVE [facility] Comment on above: Performed By: #### E #### [facility] [address] [place] [address] Dr. Celestine Soto THC Positive Abnormal NEGATIVE [facility] Comment on above: Performed By: #### E #### [facility] [address] [place] [address] Dr. Celestine Soto ER URINE PROFILEon 2 Bilirubin Ql (U) Negative Normal NEGATIVE [facility] [place] Comment on above: Performed By: #### E #### [facility] [address] [place] [address] Dr. Celestine Soto Clarity (U) CLEAR Normal CLEAR [facility] Comment on above: Performed By: #### E #### [facility] [address] [place] [address] Dr. Celestine Stoo Color (U) YELLOW Normal YELLOW [facility] Comment on above: Performed By: #### E #### [facility] [address] [place] [address] Dr. Celestine ANNE A micrscopic examination will be performed if indicated. Normal [facility] Comment on above: Performed By: #### E TH #### [facility] [address] [place] [address] Dr. Celestine Soto Glucose Ql (U) Negative Normal NEGATIVE [facility] Comment on above: Performed By: #### E #### [facility] [address] [place] [address] Dr. Celestine Soto Hemoglobin Ql (U) Negative Normal NEGATIVE [facility] Comment on above: Performed By: #### E #### [facility] [address] [place] [address] Dr. Celestine Soto Ketones Ql (U) TRACE Abnormal NEGATIVE [facility] Comment on above: Performed By: #### E #### [facility] [address] [place] [address] Dr. Celestine Soto LEUKOCYTES Negative Normal NEGATIVE [facility] Comment on above: Performed By: #### E #### [facility] [address] [place] [address] Dr. Celestine Soto Nitrite Ql (U) Negative Normal NEGATIVE [facility] Comment on above: Performed By: #### E #### [facility] [address] [place] [address] Dr. Celestine Soto pH (U) 7.0 [pH] Normal 5-9 [facility] Comment on above: Performed By: #### E #### [facility] [address] [place] [address] Dr. Celestine Soto SPEC GRAVITY 1.020 Normal 1.005-<=1.0 25 [facility] Comment on above: Performed By: #### E #### [facility] [address] [place] [address] Dr. Celestine Soto UA PROTEIN TRACE Normal NEGATIVE/ TRACE [facility] Comment on above: Performed By: #### E #### [facility] [address] [place] [address] Dr. Celestine Soto UR MICRO IND NOT INDICATED Normal [facility] Comment on above: Performed By: #### E TH #### [facility] [address] [place] [address] Dr. Celestine Soto Urobilinogen Qn (U) 1.0 {Gayle'U}/dL Normal 0.2 - 1. 0 [facility] Comment on above: Performed By: #### E TH #### [facility] [address] [place] [address] Dr. Celestine Soto ETHANOL (BLD ALC)on 06-09-19 22 ALC NOTE NOTE: 80 mg/dl is the legal limit for a blood alcohol level Normal [facility] Comment on above: Performed By: #### E TH #### [facility] [address] [place] [address] Dr. Celestine Soto Ethanol [Mass/Vol] mg/dL Normal [facility] Comment on above: Performed By: #### E TH #### [facility] [address] [place] [address] Dr. Celestine Soto PROF 14(COMP METB)on 022 Albumin [Mass/Vol] 5.0 g/dL Normal 3.5-5.0 [facility] Comment on above: Performed By: #### A CET, CMP #### [facility] [address] [place] [address] Dr. Celestine Soto Albumin/Globulin [Mass ratio] 1.6 {ratio} Normal [facility] Comment on above: Performed By: #### A CET, CMP #### [facility] [address] [place] [address] Dr. Celestine Soto ALP [Catalytic activity/Vol] 47 U/L Normal 38-126 [facility] Comment on above: Performed By: #### A CET, CMP #### [facility] [address] [place] [address] Dr. Celestine Soto ALT [Catalytic activity/Vol] 17 U/L Critically low 21-72 [facility] Comment on above: Performed By: #### A CET, CMP #### [facility] [address] [address] [address] Celestine Soto Anion gap [Moles/Vol] 14.7 mmol/L Normal [facility] Comment on above: Performed By: #### A CET, CMP #### [facility] [address] [place] [address] Dr. Celestine Soto AST [Catalytic activity/Vol] 15 U/L Critically low 17-59 [facility] Comment on above: Performed By: #### A CET, CMP #### [facility] [address] [place] [address] Dr. Celestine Soto Bilirubin [Mass/Vol] 1.3 mg/dL Normal 0.2-1.3 [facility] Comment on above: Performed By: #### A CET, CMP #### [facility] [address] [place] [address] Dr. Celestine Soto Calcium [Mass/Vol] 9.9 mg/dL Normal 8.4-10.2 [facility] Comment on above: Performed By: #### A CET, CMP #### [facility] [address] [place] [address] Dr. Celestine Soto Chloride [Moles/Vol] 103 mmol/L Normal 98-107 [facility] Comment on above: Performed By: #### A CET, CMP #### [facility] [address] [place] [address] Dr. Celestine Soto CO2 [Moles/Vol] 27.0 mmol/L Normal 22.0-30.0 [facility] Comment on above: Performed By: #### A CET, CMP #### [facility] [address] [place] [address] Dr. Celestine Soto Creatinine [Mass/Vol] 0.91 mg/dL Normal 0.66-1.25 [facility] Comment on above: Performed By: #### A CET, CMP #### [facility] [address] [place] [address] Dr. Celestine Soto EGFR-AF [place] >60 Normal >=60 [facility] Comment on above: Performed By: #### A CET, CMP #### [facility] [address] [address] [address] Celestine Soto EGFR-NON AF [place] >60 Normal >=60 [facility] Comment on above: Performed By: #### A CET, CMP #### [facility] [address] [address] [address] Celestine Soto Globulin (S) [Mass/Vol] 3.1 g/dL Normal [facility] Comment on above: Performed By: #### A CET, CMP #### [facility] [address] [address] [address] Celestine Soto Glucose [Mass/Vol] 119 mg/dL Critically high 74-106 [facility] Comment on above: Performed By: #### A CET, CMP #### [facility] [address] [place] [address] Dr. Celestine Soto Potassium [Moles/Vol] 3.7 mmol/L Normal 3.4-5.0 [facility] Comment on above: Performed By: #### A CET, CMP #### [facility] [address] [place] [address] Dr. Celestine Soto Protein [Mass/Vol] 8.1 g/dL Normal 6.1-8.2 [facility] Comment on above: Performed By: #### A CET, CMP #### [facility] [address] [place] [address] Dr. Celestine Soto Sodium [Moles/Vol] 141 mmol/L Normal 137-145 [facility] Comment on above: Performed By: #### A CET, CMP #### [facility] [address] [place] [address] Dr. Celestine Soto Urea nitrogen [Mass/Vol] 13.0 mg/dL Normal 9.0-20.0 [facility] Comment on above: Performed By: #### A CET, CMP #### [facility] [address] [place] [address] Dr. Celestine Soto Urea nitrogen/Creatinine [Mass ratio] 14.3 mg/mg Normal [facility] Comment on above: Performed By: #### A CET, CMP #### [facility] [address] [place] [address] Dr. Celestine Soto AMYLASEon 08-22-2020 Amylase [Catalytic activity/Vol] 41 U/L Normal 31-110 [facility] Comment on above: Performed By: #### C CORY CONRAD LIPA #### [facility] [address] [place], [place] [id number] Bre Thais CBC AUTO DIFFon 08-22-2020 BASO # 0.0 103/ul Normal 0.0-0.1 [facility] Comment on above: Performed By: #### C BC #### [facility] [address] [place] [address] Bre Thais Basophils/100 WBC (Bld) 0.2 % Normal 0.2-2.0 [facility] Comment on above: Performed By: #### C BC #### [facility] [address] [place] [address] Bre Thais EO # 0.1 103/ul Normal 0.0-0.7 [facility] Comment on above: Performed By: #### C BC #### [facility] [address] [place] [address] Bre Thais Eosinophils/100 WBC (Bld) 1.1 % Normal 0.9-7.0 [facility] Comment on above: Performed By: #### C BC #### [facility] [address] [place], [place] [id number] [place] Erythrocyte distribution width (RBC) [Ratio] 11.9 % Normal 11.0-15.0 [facility] Comment on above: Performed By: #### C BC #### [facility] [address] [place] [address] Bre Thais Hematocrit (Bld) [Volume fraction] 42.3 % Normal 42.0-54.0 [facility] Comment on above: Performed By: #### C BC #### [facility] [address] [place], [place] [address] [place] Hemoglobin (Bld) [Mass/Vol] 14.8 g/dL Normal 14.0-18.0 [facility] Comment on above: Performed By: #### C BC #### [facility] [address] [address] [place]ais IG # 0.02 10e3/ul Normal 0.00-0.03 [facility] Comment on above: Performed By: #### C BC #### [facility] [address] [id number] [place]ais IG % 0.4 % Normal 0.0-0.5 [facility] Comment on above: Performed By: #### C BC #### [facility] [address] [place] [address] Bre Thais LYMPH # 1.1 103/ul Critically low 1.2-3.8 [facility] Comment on above: Performed By: #### C BC #### [facility] [address] [place] [address] [place] Thais Lymphocytes/100 WBC (Bld) 20.7 % Normal 20.5-60.0 [facility] Comment on above: Performed By: #### C BC #### [facility] [address] [place] [address] [place] Thais MANUAL DIFF REQ NO Normal [facility] Comment on above: Performed By: #### C BC #### [facility] [address] [place] [address] Bre Thais MCH (RBC) [Entitic mass] 32.4 pg Normal 25.9-34.0 [facility] Comment on above: Performed By: #### C BC #### [facility] [address] [place] [address] Bre Thais MCHC (RBC) [Mass/Vol] 35.0 g/dL Normal 29.9-35.2 [facility] Comment on above: Performed By: #### C BC #### [facility] [address] [place], [place] [address] [place] Thais MCV (RBC) [Entitic vol] 92.6 fL Normal 80.0-94.0 [facility] Comment on above: Performed By: #### C BC #### [facility] [address] [place] [address] Bre Plascencia MONO # 0.4 103/ul Normal 0.3-0.8 [facility] Comment on above: Performed By: #### C BC #### [facility] [address] [id number] Bre Plascencia Monocytes/100 WBC (Bld) 7.0 % Normal 1.7-12.0 [facility] Comment on above: Performed By: #### C BC #### [facility] [address] [place], [place] [address] Bre Plascencia NEUT # 3.8 103/ul Normal 1.4-6.5 [facility] Comment on above: Performed By: #### C BC #### [facility] [address] [place], [place] [address] Bre Plascencia Neutrophils/100 WBC (Bld) 70.6 % Normal 43.0-75.0 [facility] Comment on above: Performed By: #### C BC #### [facility] [address] [place], [place] [address] Bre Plascenica Platelet mean volume (Bld) [Entitic vol] 9.3 fL Critically low 9.5-13.5 [facility] Comment on above: Performed By: #### C BC #### [facility] [address] [place], [place] [address] Bre Plascencia PLT 161 103/ul Normal 150-450 [facility] Comment on above: Performed By: #### C BC #### [facility] [address] [place], [place] [address] Bre Plascencia RBC 4.57 106/ul Critically low 4.70-6.10 [facility] Comment on above: Performed By: #### C BC #### [facility] [address] [place], [place] [address] Bre Plascencia WBC 5.4 103/ul Normal 4.0-11.0 [facility] Comment on above: Performed By: #### C BC #### [facility] [address] [place], [place] [address] [place] CT ABD/PELV W CONon 08-23-[address] ABD/PELV W CON EXAMINATION: CT ABD/PELV W CON HISTORY: CONSTIPATION, UNSPECIFIED ; acute bilateral lower quadrant pain, constipation, nausea and vomiting COMPARISON: No relevant comparison available. TECHNIQUE: Axial, Coronal, and Sagittal images were created with 100 mL Omnipaque 300 IV contrast. Dose reduction techniques were achieved by using automated exposure control and/or adjustment of mA and/or kV according to patient size and/or use of iterative reconstruction technique. FINDINGS: LUNG BASES: No visible pulmonary or pleural disease. LIVER: No enlargement, atrophy, abnormal density, or significant focal lesion. BILIARY: No dilatation or calcification. PANCREAS: No lesion, fluid collection, ductal dilatation, or atrophy. SPLEEN: No enlargement or focal lesion. ADRENALS: No mass or enlargement. KIDNEYS: No mass, obstruction, or calcification. BOWEL/MESENTERY: Slightly edematous appearance of the mccurdy of the ascending and proximal transverse colon. Unremarkable small bowel and stomach. Normal appendix. AORTA/VASCULAR: No aneurysm or dissection. RETROPERITONEUM: No mass or adenopathy. LYMPH NODES: No adenopathy. URINARY BLADDER: No visible focal wall thickening, lesion, or calculus. PELVIC ORGANS: No visible mass. Pelvic organs appropriate for patient age. ABDOMINAL WALL: No mass or hernia. BONES: No bony lesion or fracture. OTHER: Negative. IMPRESSION: 1. Possible mild colitis of the ascending and proximal transverse colon. Otherwise unremarkable abdomen pelvis. Electronically authenticated by: PRASHANTH ROCK Date: 2020-08-22 14:01 Normal [facility] LIPASEon 08-22-2020 Lipase [Catalytic activity/Vol] 106.0 U/L Normal 23.0-300.0 [facility] Comment on above: Performed By: #### C CORY CONRAD LIPA #### [facility] [address], [place] [address] Bre Plascencia PROF 14(COMP METB)on 021 Albumin [Mass/Vol] 4.0 g/dL Normal 3.5-5.0 [facility] Comment on above: Performed By: #### C CORY CONRAD LIPA #### [facility] [address], [place] [address] Bre Plascencia Albumin/Globulin [Mass ratio] 1.3 {ratio} Normal [facility] Comment on above: Performed By: #### C MP, CORY, LIPA #### [facility] [address], [place] [address] [place] Thais ALP [Catalytic activity/Vol] 57 U/L Normal 38-126 [facility] Comment on above: Performed By: #### C MP, CORY, LIPA #### [facility] [address] [address] [place] ALT [Catalytic activity/Vol] 20 U/L Critically low 21-72 [facility] Comment on above: Performed By: #### C MP, CORY, LIPA #### [facility] [address] [id number] [place] Thais Anion gap [Moles/Vol] 13.0 mmol/L Normal [facility] Comment on above: Performed By: #### C MP, CORY, LIPA #### [facility] [address] [address] [place]ais AST [Catalytic activity/Vol] 23 U/L Normal 17-59 [facility] Comment on above: Performed By: #### C MP, CORY, LIPA #### [facility] [address] [address] [place] Bilirubin [Mass/Vol] 0.5 mg/dL Normal 0.2-1.3 [facility] Comment on above: Performed By: #### C MP, CORY, LIPA #### [facility] [address] [address] [place] Calcium [Mass/Vol] 9.1 mg/dL Normal 8.4-10.2 [facility] Comment on above: Performed By: #### C MP, CORY, LIPA #### [facility] [address] [address] [place] Chloride [Moles/Vol] 104 mmol/L Normal 98-107 [facility] Comment on above: Performed By: #### C MP, CORY, LIPA #### [facility] [address] [id number] [place] CO2 [Moles/Vol] 28.0 mmol/L Normal 22.0-30.0 [facility] [place] Comment on above: Performed By: #### C MP, CORY, LIPA #### [facility] [address] [place] [address] [place] Thais Creatinine [Mass/Vol] 0.86 mg/dL Normal 0.66-1.25 [facility] Comment on above: Performed By: #### C MP, CORY, LIPA #### [facility] [address] [place] [address] [place] Thais EGFR-AF [place] >60 Normal >=60 [facility] [place] Comment on above: Performed By: #### C MP, CORY, LIPA #### [facility] Laboratory [address] [place] [address] Bre Thais EGFR-NON AF [place] >60 Normal >=60 [facility] Comment on above: Performed By: #### C MP, CORY, LIPA #### [facility] [address] [place] [address] Bre Thais Globulin (S) [Mass/Vol] 3.1 g/dL Normal [facility] Comment on above: Performed By: #### C MP, CORY, LIPA #### [facility] [address] [place] [address] Bre Thais Glucose [Mass/Vol] 105 mg/dL Normal 74-106 [facility] Comment on above: Performed By: #### C MP, CORY, LIPA #### [facility] [address] [place] [address] Bre Thais Potassium [Moles/Vol] 4.0 mmol/L Normal 3.4-5.0 [facility] Comment on above: Performed By: #### C MP, CORY, LIPA #### [facility] [address] [place] [address] Bre Thais Protein [Mass/Vol] 7.1 g/dL Normal 6.1-8.2 [facility] Comment on above: Performed By: #### C MP, CORY, LIPA #### [facility] [address] [place] [address] Bre Thais Sodium [Moles/Vol] 141 mmol/L Normal 137-145 [facility] Comment on above: Performed By: #### C CORY CONRAD LIPA #### [facility] [address] [address] Bre Plascencia Urea nitrogen [Mass/Vol] 10.0 mg/dL Normal 9.0-20.0 [facility] Comment on above: Performed By: #### C CORY CONRAD LIPA #### [facility] [address] [address] Bre Plascencia Urea nitrogen/Creatinine [Mass ratio] 11.6 mg/mg Normal [facility] Comment on above: Performed By: #### C CORY CONRAD LIPA #### [facility] [address] [address] Bre Thais XR ABD FLAT UP_PA Calos 08-22 XR ABD FLAT UP_PA CH EXAM: Acute abdomen series: HISTORY: Lower abdominal pain with constipation, nausea, and vomiting for a week . COMPARISON STUDY: 05/23/2014 FINDINGS: The upright frontal view of the chest shows clear and well-inflated lungs. The heart and mediastinum are normal. Flat and upright views of the abdomen and pelvis show a normal bowel gas pattern. There is a moderate amount of stool in the colon. No abnormal calcifications are seen. Osseous structures are normal. IMPRESSION: Grossly negative for an acute intra-abdominal process. If clinical concern remains, consider further imaging with CT. Electronically authenticated by: ADITYA WEISS Date: 2020-08-22 11:06 Normal [facility] Vital Signs Date Time Vital Sign Value Performing Clinician Facility 02-25-2023 08:25-0400 Body temperature 97.39 [degF] Zeb MOORE [facility] 02-25-2023 08:25-0400 Diastolic blood pressure 76 mm[Hg] Zeb MOORE [facility] 02-25-2023 08:25-0400 Heart rate 73 /min Zeb MOORE [facility] 02-25-2023 08:25-0400 Respiratory rate 16 /min Zeb MOORE [facility] 02-25-2023 08:25-0400 SaO2% (BldA) [Mass fraction] 98 % Zeb Luis Armando MD [facility] 02-25-2023 08:25-0400 Systolic blood pressure 117 mm[Hg] Zeb Durán MD [facility] 02-24-2023 20:30-0400 Body height 188 cm Zeb Durán MD [facility] 02-23-2023 09:40-0400 Body mass index (BMI) [Ratio] 27.6 kg/m2 Zeb Durán MD [facility] 02-23-2023 09:40-0400 Body weight 97.52 kg Zeb Durán MD [facility] 02-21-2023 13:47-0400 Body temperature 37.0 Zeb Durán MD [facility] 11-27-2022 00:05-0400 Diastolic blood pressure 84 mm[Hg] PHYSICIAN NO [facility] 11-27-2022 00:05-0400 Heart rate 97 /min PHYSICIAN NO [facility] 11-27-2022 00:05-0400 Respiratory rate 15 /min PHYSICIAN NO [facility] 11-27-2022 00:05-0400 SaO2% (BldA) [Mass fraction] 100 % PHYSICIAN NO [facility] 11-27-2022 00:05-0400 Systolic blood pressure 139 mm[Hg] PHYSICIAN NO [facility] 11-26-2022 19:23-0400 Body height 190.5 cm PHYSICIAN NO [facility] 11-26-2022 19:23-0400 Body temperature 98.7 [degF] PHYSICIAN NO [facility] 11-26-2022 19:23-0400 Body weight 84.85 kg PHYSICIAN NO [facility] Encounters Encounter Date Encounter Type Care Provider Facility Start: 07-30-2023 ambulatory PHYSICIAN NO [facility] Start: 02-21-2023 End: 02-25-2023 Evaluation and management of inpatient OLE [facility] Start: 02-21-2023 End: 02-21-2023 Emergency department patient visit [facility] Facility:[facility] Start: 02-21-2023 End: 02-25-2023 Evaluation and management of inpatient eZb Durán MD [facility] Renal//Med Surg Comment on above: Toxic encephalopathy (Primary Dx); Aspiration pneumonitis (HCC); Acute renal failure, unspecified acute renal failure type (HCC); Elevated troponin Start: 11-29-2022 End: 12-03-2022 Evaluation and management of inpatient PHYSICIAN NO [facility] Facility:[facility] Start: 11-26-2022 End: 11-27-2022 Emergency department patient visit PHYSICIAN NO [facility] Facility:[facility] Start: 11-26-2022 End: 11-27-2022 Emergency department patient visit PHYSICIAN NO [facility] Work Phone: Start: 06-14-2021 End: 06-14-[address] NONE LISTED REQUEST Facility: Start: 06-09-2021 End: 06-09-[address] NONE LISTED REQUEST Facility: Start: 08-22-2020 End: 08-22-[address] NONE LISTED REQUEST Facility: Procedures Date Procedure Procedure Detail Performing Clinician Start: 02-25-2023 Creatine kinase total Kangandebenp Jennifer eric MD Work Phone: Start: 02-25-2023 SPECIMEN REJECTION Sarkis Lutz DO Work Phone: Start: 02-24-2023 Glucose blood reagent strip Marcia conteh MD Work Phone: Start: 02-24-2023 Glucose blood reagent strip Marcia conteh MD Work Phone: Start: 02-24-2023 End: 02-24-2023 Creatine kinase total Sarkis Lutz DO Work Phone: Start: 02-24-2023 MYOGLOBIN, BLOOD Sarkis Lutz DO Work Phone: Start: 02-23-2023 Drug screen quantitative vancomycin Elida Light MD Work Phone: Start: 02-23-2023 Electroencephalogram w/rec awake&asleep Reinier Torres MD Work Phone: Start: 02-23-2023 ANTI-XA, UNFRACTIONATED HEPARIN Mayr Leary MD Work Phone: Start: 02-23-2023 Echo tthrc r-t 2d w/wom-mode compl spec&colr d David Garza MD Work Phone: Start: 02-23-2023 Assay of troponin quantitative Mary Leary MD Work Phone: Start: 02-23-2023 ANTI-XA, UNFRACTIONATED HEPARIN Mary eLary MD Work Phone: Start: 02-23-2023 End: 02-23-2023 Creatine kinase total Sarkis Lutz DO Work Phone: Start: 02-23-2023 MYOGLOBIN, BLOOD Sarkis Maurobuck DO Work Phone: Start: 02-22-2023 ANTI-XA, UNFRACTIONATED HEPARIN Ole mc MD Work Phone: Start: 02-22-2023 ANTI-XA, UNFRACTIONATED HEPARIN Ole mc MD Work Phone: Start: 02-22-2023 Radiologic exam chest single view Elida Light MD Work Phone: Start: 02-22-2023 EXTUBATION Ole Barlow MD Work Phone: Start: 02-22-2023 ANTI-XA, UNFRACTIONATED HEPARIN Ole mc MD Work Phone: Start: 02-22-2023 End: 02-22-2023 Prothrombin time Ole Barlow MD Work Phone: Start: 02-22-2023 Hemoglobin glycosylated a1c David Garza MD Work Phone: Start: 02-22-2023 Lipid panel Sarkis Quintanilla Bolivar DO Work Phone: Start: 02-22-2023 ARTERIAL BLOOD GAS, POC Ole Barlow MD Work Phone: Start: 02-22-2023 End: 02-22-2023 Gluc bld gluc mntr dev cleared fda spec home use Ole Barlow MD Work Phone: Start: 02-22-2023 Ecg routine ecg w/least 12 lds i&r only Sarkis Lutz DO Work Phone: Start: 02-22-2023 Creatine kinase total Sarkis Lutz DO Work Phone: Start: 02-22-2023 MYOGLOBIN, BLOOD Sarkis Lutz DO Work Phone: Start: 02-22-2023 Assay of troponin quantitative Sarkis Jaime DO Work Phone: Start: 02-21-2023 ARTERIAL BLOOD GAS, POC Ole Barlow MD Work Phone: Start: 02-21-2023 Gluc bld gluc mntr dev cleared fda spec home use Ole Barlow MD Work Phone: Start: 02-21-2023 Ecg routine ecg w/least 12 lds i&r only Sarkis Lutz DO Work Phone: Start: 02-21-2023 Assay of troponin quantitative Sarkis Jaime DO Work Phone: Start: 02-21-2023 Assay of volatiles Ole Barlow MD Work Phone: Start: 02-21-2023 ARTERIAL BLOOD GAS, POC Ole Barlow MD Work Phone: Start: 02-21-2023 LACTATE, SEPSIS Power Garrison MD Work Phone: Start: 02-21-2023 Iadna s aureus methicillin resist amp probe tq Power Garrison MD Work Phone: Start: 02-21-2023 RESPIRATORY PANEL, MOLECULAR, WITH COVID-19 Power Garrison MD Work Phone: Start: 02-21-2023 Creatine kinase total Power lizarraga MD Work Phone: Start: 02-21-2023 Hepatic function panel Power jones MD Work Phone: Start: 02-21-2023 RESPIRATORY CARE EVALUATION ONLY Power Garrison MD Work Phone: Start: 02-21-2023 Gluc bld gluc mntr dev cleared fda spec home use Zeb Durán MD Start: 02-21-2023 LACTIC ACID,POINT OF CARE Zeb Durán MD Start: 02-21-2023 VENOUS BLOOD GAS, POINT OF CARE Zeb winslow MD Start: 02-21-2023 Ct thorax w/o contrast material Rudi carter MD Work Phone: Start: 02-21-2023 Ct cervical spine w/o contrast material Rudi Herron MD Work Phone: Start: 02-21-2023 Ct head/brain w/o contrast material Rudi Herron MD Work Phone: Start: 02-21-2023 End: 02-21-2023 Culture bacterial quanttative colony count urine Rudi Herron MD Work Phone: Start: 02-21-2023 Drug tst prsmv instrmnt chem analyzers pr date Rudi Herron MD Work Phone: Start: 02-21-2023 Radiologic exam chest single view Rudi Herron MD Work Phone: Start: 02-21-2023 End: 02-21-2023 Assay of ammonia Rudi Herron MD Work Phone: Start: 02-21-2023 BASIC METABOLIC PANEL W/ REFLEX TO MG FOR LOW K Rudi Herron MD Work Phone: Start: 02-21-2023 Blood gases any combination ph pco2 po2 co2 hco3 Rudi Herron MD Work Phone: Start: 02-21-2023 LACTATE, SEPSIS Power Garrison MD Work Phone: Start: 02-21-2023 MYOGLOBIN, BLOOD Rudi Herron MD Work Phone: Start: 02-21-2023 SPECIMEN REJECTION Rudi Herron MD Work Phone: Start: 02-21-2023 TOX SCR, BLD, ED Rudi Herron MD Work Phone: Start: 02-21-2023 CALCIUM, IONIC (POC) Zeb Durán MD Start: 02-21-2023 CREATININE W/GFR POINT OF CARE Zeb curry MD Start: 02-21-2023 ELECTROLYTES PLUS Zeb Durán MD Start: 02-21-2023 LACTIC ACID,POINT OF CARE Zeb Durán MD Start: 02-21-2023 VENOUS BLOOD GAS, POINT OF CARE Zeb winslow MD Start: 02-21-2023 CULTURE, BLOOD 1 Rudi Herron MD Work Phone: Start: 02-21-2023 Ecg routine ecg w/least 12 lds i&r only Rudi Herron MD Work Phone: Plan of Treatment Date Care Activity Detail Author Start: 02-23-2024 Lipid panel [facility] Start: 01-06-2023 Influenza vaccination Flu vaccine (# 1) [facility] Start: 2013 DTaP/Tdap/Td vaccine (1 - Tdap) DTaP/Tdap/Td vaccine (1 - Tdap) [facility] Start: 2012 Hepatitis C screening Hepatitis C sc reen [facility] Start: 2009 HIV screening HIV screen [facility] Start: 2006 Depression Screen Depression Screen [facility] Start: 11-26-1995 Varicella vaccine (1 of 2 - 2-dose childhood series) Varicella vaccine (1 of 2 - 2-dose childhood series) [facility] Start: 05-27-1995 COVID-19 Vaccine (#1) COVID-19 Vacci ne (#1) [facility] Start: 1994 Hepatitis B vaccine (1 of 3 - 3-dose series) Hepatitis B vaccine (1 of 3 - 3-dose series) [facility] End: 02-27-2023 CBC W Auto Differential panel - Blood CBC with Auto Differential Lab Routine Daily for 3 Days starting 02/25/2023 until 02/27/2023 [facility] Comment on above: Daily for 3 Days sta rting 02/25/2023 until 02/27/2023 End: 03-14-2023 Comprehensive Metabolic Panel w/ Reflex to MG Comprehensive Metabolic Panel w/ Reflex to MG Lab Routine Daily for 21 Occurrences starting 02/22/2023 until 03/14/2023, 3 completed [employer] Work Phone: Comment on above: Daily for 21 Occurre nces starting 02/22/2023 until 03/14/2023, 3 completed Continuous pulse oximetry Pulse oximetry, continuous Respiratory Care Routine Every 4hr until discontinued starting 02/21/2023 [employer] [employer] Comment on above: Every 4hr until disc ontinued starting 02/21/2023 Culture, Blood 1 Culture, Blood 1 Microbiology Stat [employer] Label print 02/21/2023 1:30 PM EDT [employer] Glucose [Mass/volume ] in Serum or Plasma POCT Glucose Point of Care Testing STAT As Needed until discontinued starting 02/21/2023 [employer] Comment on above: As Needed until disc ontinued starting 02/21/2023 LAB RESULT LAB RESULT Lab O rdered: 02/23/2023 [employer] Comment on above: Ordered: 02/23/2023 Oxygen therapy [[facility]] Initiate Oxygen Therapy Protocol Respiratory Care Routine As Needed until discontinued starting 02/21/2023 [employer] Comment on above: As Needed until disc ontinued starting 02/21/2023 Patient Education [facility] Work Phone: Patient referral [facility] Work Phone: End: 02-21-2023 PREVIOUS SPECIMEN [employer] Comment on above: Once for 1 Occurrenc es starting 02/21/2023 until 02/21/2023 End: 02-25-2023 PREVIOUS SPECIMEN [employer] [employer] Comment on above: Once for 1 Occurrenc es starting 02/25/2023 until 02/25/2023 Spirometry panel Incentive vera metry RT Respiratory Care Routine Every 2hr while awake until discontinued starting 02/24/2023 [employer] Work Phone: Comment on above: Every 2hr while awak e until discontinued starting 02/24/2023 Payers Date Payer Category Payer Unknown [id number] 2022 Self-pay [id number] 2014 Medicaid [id number] 1994 Unknown [id number] [id number] 1994 Unknown [id number] 2.16.84 [id number] 1994 Unknown [id number] 2.16.84 [id number] 1994 Unknown [id number] [id number]. [id number] 1994 Unknown [id number] 2.16.8 [id number] 1959 Self-pay [id number] Unknown [id number] 2.16.8 [id number] Unknown [id number] 2.16.8 [id number] Unknown [id number] 2.16.8 [id number] Social History Date Type Detail Facility Start: 11-26-2022 Tobacco smoking status SCIS Smoker (finding) [facility] Start: 1995 Sex Assigned At Male [facility] smoking consumption unknown [facility] Start: 09-26-2012 History of Social function [facility] Start: 09-26-2012 Tobacco use panel [facility] Start: 1995 Sex Assigned At Not on file [facility] Hospital Discharge instructions 02-25-2023 Discharge Instructions Note Date & Type Note Facility 02-25-2023 Hospital Discharg e instructions Billy Rodriguez Sra, MD - 02/25/2023 1:06 PM EDT Please follow up with PCP and Psychiatrist within a week after discharge. Please complete course of antibiotics as prescribed. Per ENT doctor- Re-evaluate hearing in 1 month . Call [phone] to schedule this appointment. Schedule audiologic re-evaluation if change/decrease in hearing sensitivity is suspected. Call [phone] to schedule any future appointments. documented in this encounter [facility] History of Present illness Narrative 02-25-2023 Nicole Barbour OT - 02/25/2023 10:02 AM Shandra Barlow MD - 02/25/2023 7:32 AM Shandra Barlow MD - 02/24/2023 12:49 PM EDTJamal Acevedo MD - 02/24/2023 10:47 AM EDT Note Date & Type Note Facility 02-25-2023 History of Present illness Narrative Images from the original note were not included. Occupational Therapy [facility] Occupational Therapy Not Seen Note DATE: 02/25/2023 NAME: Aditya Richardson : 1995 Patient not seen this date for Occupational Therapy due to: Patient independent with ADLs and functional tasks with no acute OT needs. Will defer OT evaluation at this time. Please reorder OT if future needs arise. PULMONARY & CRITICAL CARE MEDICINE PROGRESS NOTE Patient: Aditya Richardson Admit date: 02/21/2023 Primary Care Physician: No primary care provider on file. Consulting Physician: Billy Rodriguez Sra, MD CODE Status: Full Code LOS: 4 SUBJECTIVE Chief Complaint/ Reason for consult: Acute hypoxic respiratory failure due to aspiration pneumonia Hospital Course: The patient is a 27 y.o. male presented to [facility] after he was found down in vomitus. Medical history significant for schizophrenia on medications. Recent discharge from group home. Patient was found down with unknown downtime, intubated and met with the hospital for altered mentation and transferred to [facility]. C-collar placed. Patient found to have hyperkalemia with potassium 6.6, CK in the 3000's,, CT head and neck unremarkable, CT chest with dense patchy bilateral perihilar consolidation. UDS positive for benzos marijuana and fentanyl. Patient treated in ICU with IV fluids, Vanco and Zosyn which was switched to doxycycline due to concern for ototoxicity. Patient improved and was extubated following the 02/22/2023 and transitioned to nasal cannula to room air. Interval History: 02/25/23 Pt was seen and examined at bedside. Sitting comfortably in the bed. On room air Denies cough, sob, nausea, vomiting Vitals stable. Labs reviewed. Hypokalemia 3.5 Currently on Doxy twice daily Review Of Systems: Review of Systems Constitutional: Negative for fever. HENT: Negative for facial swelling. Respiratory: Negative for cough, shortness of breath and wheezing. Cardiovascular: Negative for chest pain and palpitations. Gastrointestinal: Negative for abdominal pain, blood in stool and constipation. Genitourinary: Negative for dysuria. Musculoskeletal: Negative for arthralgias and back pain. Skin: Negative for rash. Neurological: Negative for tremors, seizures, weakness and light-headedness. OBJECTIVE PaO2/FiO2 RATIO: No results for input(s): POCPO2 in the last 72 hours. FiO2 : 30 % VITAL SIGNS: LAST: BP 122/82 Pulse 87 Temp 98 F (36.7 C) (Oral) Resp 16 Ht 6' 2 (1.88 m) Wt 215 lb (97.5 kg) SpO2 98% BMI 27.60 kg/m 8-24 HR RANGE: TEMP Temp Av.9 F (36.6 C) Min: 97.7 F (36.5 C) Max: 98 F (36.7 C) BP Systolic (24hrs), Av , Min:122 , Max:129 Diastolic (24hrs), Av, Min:75, Max:82 PULSE Pulse Av.5 Min: 80 Max: 87 RR No data recorded O2 SAT No data recorded OXYGEN DELIVERY No data recorded Systemic Examination: Physical Exam - Constitutional: Alert, cooperative and no distress. Mental Status: Oriented to person, place and time and normal affect. Lungs: Bilateral air entry present, bibasilar crackles. Normal effort. Heart: Regular rate and rhythm, no murmur. Abdomen: Soft, nontender, nondistended, normal bowel sounds. Extremities: No edema, redness, tenderness in the calves. Skin: Warm, dry, no gross lesions or rashes. DATA REVIEW Medications: Current Inpatient Scheduled Meds: guaiFENesin 600 mg Oral BID doxycycline hyclate 100 mg Oral 2 times per day nicotine 1 patch TransDERmal Daily OLANZapine 10 mg Oral Nightly FLUoxetine 10 mg Oral Daily divalproex 250 mg Oral BID aspirin 81 mg Oral Daily atorvastatin 10 mg Oral Nightly sodium chloride flush 5-40 mL IntraVENous 2 times per day Continuous Infusions: sodium chloride Stopped (02/23/232038) dextrose INPUT/OUTPUT: No intake/output data recorded. LABS: ABGs: No results for input(s): POCPH , POCPCO2 , POCPO2 , POCHCO3 , LWAS4WVI in the last 72 hours. CBC: Recent Labs 02/23/23 0502/24/23 07 WBC 9.5 7.7 HGB 11.9* 12.9* HCT 34.5* 40.5* MCV 94.5 96.0 PLT 341 156 LYMPHOPCT 15* 13* RBC 3.65* 4.22 MCH 32.6 30.6 MCHC 34.5 31.9 RDW 13.1 13.1 CRP: No results for input(s): CRP in the last 72 hours. LDH: No results for input(s): LDH in the last 72 hours. BMP: Recent Labs 02/23/2342802/24/23 0728 NA 143 144 K 3.6* 3.5* CL 111* 112* CO2 25 24 BUN 13 11 CREATININE 0.7 0.8 GLUCOSE 96 97 MG -- 2.0 Liver Function Test: Recent Labs 02/23/2342802/24/23 0728 PROT 5.5* 5.6* LABALBU 3.3* 3.2* ALT 34 33 AST 82* 57* ALKPHOS 47 45 BILITOT 0.6 0.6 Coagulation Profile: Recent Labs 02/22/23 1112 INR 1.2 PROTIME 14.9 APTT 41.1* D-Dimer: No results for input(s): DDIMER in the last 72 hours. Lactic Acid: No results for input(s): LACTA in the last 72 hours. Cardiac Enzymes: Recent Labs 02/23/23 0429 02/24/23 0728 CKTOTAL 3,356* 1,713* BNP/ProBNP: No results for input(s): BNP , PROBNP in the last 72 hours. Triglycerides: Recent Labs 02/22/23 0830 TRIG 123 Microbiology: Urine Culture: No components found for: CURINE Blood Culture: No components found for: CBLOOD , CFUNGUSBL Sputum Culture: No components found for: CSPUTUM No results for input(s): SPECDESC , SPECIAL , CULTURE , STATUS , ORG , CDIFFTOXPCR , CAMPYLOBPCR , SALMONELLAPC , SHIGAPCR , SHIGELLAPCR , MPNEUG , MPNEUM , LACTOQL in the last 72 hours. No results for input(s): SPUTUM , SPECDESC , SPECIAL , CULTURE , STATUS , ORG , CDIFFTOXPCR , MPNEUM , MPNEUG in the last 72 hours. Invalid input(s): CURINE , CBLOOD , CFUNGUSBL Pathology: Radiology Reports: XR CHEST PORTABLE Final Result Stable not slight improvement of the bilateral perihilar infiltrates. CT CHEST WO CONTRAST Final Result Dense patchy bilateral perihilar consolidation. Thickening and periadrenal fat stranding suggestive of hyperemia caused by physiological stress. CT HEAD WO CONTRAST Final Result No acute intracranial abnormality. No acute abnormality in the cervical spine. CT CERVICAL SPINE WO CONTRAST Final Result No acute intracranial abnormality. No acute abnormality in the cervical spine. XR CHEST PORTABLE Final Result Tip of the endotracheal tube is at the level of clavicles. Patchy bilateral perihilar airspace disease. Echocardiogram: No results found for this or any previous visit. ASSESSMENT AND PLAN Assessment: // Acute hypoxic respiratory failure due to aspiration pneumonia bilateral dependent consolidations, required intubation, extubated following day. //Acute metabolic encephalopathy likely due to drug intoxication, UDS positive for marijuana fentanyl //Rhabdomyolysis -improving //PATRICIA-resolved //Hypokalemia //Hyperkalemia -resolved //History of schizophrenia on medications //Concern for ototoxicity with vancomycin, neurology and ENT following Plan: -Pulmonary hygiene -Aspiration precautions -Incentive spirometry We will continue to follow. I will discuss with attending. Prieto Ontiveros MD Internal Medicine Resident, PGY- 3 [facility]; [place], [place] 02/25/2023, 7:33 AM Please note that this chart was generated using voice recognition Dragon dictation software. Although every effort was made to ensure the accuracy of this automated utility bagger, some errors in utility bagger may have occurred. Attending Physician Statement I have discussed the care of Aditya Richardson, including pertinent history and exam findings with the resident. I have reviewed the miller elements of all parts of the encounter with the resident. I have seen and examined the patient with the resident. I agree with the assessment and plan and status of the problem list as documented. Medications reviewed labs overnight events noted chart reviewed. He is hemodynamically stable and afebrile. He is on room air maintaining saturation between 98% to 100%. According to patient he is feeling better he does not have any cough or shortness of breath he is able to ambulate outside. His hearing is getting better. He is currently on doxycycline per primary team. Okay to discharge from pulmonary standpoint Please note that this chart was generated using voice recognition Dragon dictation software. Although every effort was made to ensure the accuracy of this automated utility bagger, some errors in utility bagger may have occurred. Ole Barlow MD 02/25/2023 10:41 AM PULMONARY & CRITICAL CARE MEDICINE PROGRESS NOTE Patient: Aditya Richardson Admit date: 02/21/2023 Primary Care Physician: No primary care provider on file. Consulting Physician: Marcia Andrade MD CODE Status: Full Code LOS: 3 SUBJECTIVE Chief Complaint/ Reason for consult: Acute hypoxic respiratory failure due to aspiration pneumonia Hospital Course: The patient is a 27 y.o. male presented to [facility] after he was found down in vomitus. Medical history significant for schizophrenia on medications. Recent discharge from group home. Patient was found down with unknown downtime, intubated and met with the hospital for altered mentation and transferred to [facility]. C-collar placed. Patient found to have hyperkalemia with potassium 6.6, CK in the 3000's,, CT head and neck unremarkable, CT chest with dense patchy bilateral perihilar consolidation. UDS positive for benzos marijuana and fentanyl. Patient treated in ICU with IV fluids, Vanco and Zosyn which was switched to doxycycline due to concern for ototoxicity. Patient improved and was extubated following the 02/22/2023 and transitioned to nasal cannula to room air. Interval History: 02/24/23 Pt was seen and examined at bedside. Resting comfortably in the bed. Saturating appropriately at Vitals stable. Labs reviewed. No acute events overnight. Review Of Systems: Review of Systems Constitutional: Negative for fever. HENT: Negative for facial swelling. Respiratory: Positive for cough. Negative for shortness of breath and wheezing. Cardiovascular: Negative for chest pain and palpitations. Gastrointestinal: Negative for abdominal pain, blood in stool and constipation. Genitourinary: Negative for dysuria. Musculoskeletal: Negative for arthralgias and back pain. Skin: Negative for rash. Neurological: Negative for tremors, seizures, weakness and light-headedness. OBJECTIVE PaO2/FiO2 RATIO: Recent Labs 02/22/23 0522 POCPO2 190.0* FiO2 : 30 % VITAL SIGNS: LAST: BP 129/75 Pulse 80 Temp 97.7 F (36.5 C) (Oral) Resp 18 Ht 6' 2 (1.88 m) Wt 215 lb (97.5 kg) SpO2 100% BMI 27.60 kg/m 8-24 HR RANGE: TEMP Temp Av.9 F (36.6 C) Min: 97.7 F (36.5 C) Max: 98.6 F (37 C) BP Systolic (24hrs), Av , Min:98 , Max:129 Diastolic (24hrs), Av, Min:59, Max:85 PULSE Pulse Av Min: 75 Max: 101 RR Resp Av Min: 18 Max: 18 O2 SAT SpO2 Av % Min: 94 % Max: 100 % OXYGEN DELIVERY No data recorded Systemic Examination: Physical Exam - Constitutional: Alert, cooperative and no distress. Mental Status: Oriented to person, place and time and normal affect. Lungs: Bilateral air entry present, lung breaux clear. Normal effort. Heart: Regular rate and rhythm, no murmur. Abdomen: Soft, nontender, nondistended, normal bowel sounds. Extremities: No edema, redness, tenderness in the calves. Skin: Warm, dry, no gross lesions or rashes. DATA REVIEW Medications: Current Inpatient Scheduled Meds: doxycycline hyclate 100 mg Oral 2 times per day nicotine 1 patch TransDERmal Daily OLANZapine 10 mg Oral Nightly FLUoxetine 10 mg Oral Daily divalproex 250 mg Oral BID aspirin 81 mg Oral Daily atorvastatin 10 mg Oral Nightly sodium chloride flush 5-40 mL IntraVENous 2 times per day Continuous Infusions: sodium chloride Stopped (02/23/232038) dextrose INPUT/OUTPUT: In: 2138.6 [P.O.:870; I.V.:943.3] Out: 1490 [Urine:1490] LABS: ABGs: Recent Labs 02/21/23 18102/21/23212502/22/23 0522 POCPH 7.318* 7.386 7.416 POCPCO2 39.3 38.0 35.0 POCPO2 160.6* 245.0* 190.0* POCHCO3 20.2* 22.8 22.5 [id number] 99.3* 99.8* 99.7* CBC: Recent Labs 02/21/23 1335 02/22/23 0322 02/23/23 0526 02/24/23 0728 WBC 19.2* 18.8* 9.5 7.7 HGB 15.2 14.2 11.9* 12.9* HCT 46.4 43.5 34.5* 40.5* MCV 94.7 95.6 94.5 96.0 PLT 166 177 341 156 LYMPHOPCT 5* 5* 15* 13* RBC 4.90 4.55 3.65* 4.22 MCH 31.0 31.2 32.6 30.6 MCHC 32.8 32.6 34.5 31.9 RDW 13.2 12.8 13.1 13.1 CRP: No results for input(s): CRP in the last 72 hours. LDH: No results for input(s): LDH in the last 72 hours. BMP: Recent Labs 02/21/23 1331 02/21/23 1335 02/22/23 0322 02/23/23 0429 02/24/23 0728 NA -- 136 136 143 144 K -- 5.1 4.7 3.6* 3.5* CL -- 102 103 111* 112* CO2 -- 17* 20 25 24 BUN -- 37* 28* 13 11 CREATININE 2.1* 2.0* 1.0 0.7 0.8 GLUCOSE -- 105* 115* 96 97 MG -- -- -- -- 2.0 Liver Function Test: Recent Labs 02/21/23 1705 02/22/23 0322 02/23/23 0429 02/24/23 0728 PROT 5.9* 6.1* 5.5* 5.6* LABALBU 3.7 3.8 3.3* 3.2* ALT 27 32 34 33 AST 62* 70* 82* 57* ALKPHOS 53 56 47 45 BILITOT 0.9 0.6 0.6 0.6 Coagulation Profile: Recent Labs 02/21/23 1335 02/22/23 0526 02/22/23 1112 INR 1.0 -- 1.2 PROTIME 13.1 -- 14.9 APTT 22.9* 29.3 41.1* D-Dimer: No results for input(s): DDIMER in the last 72 hours. Lactic Acid: No results for input(s): LACTA in the last 72 hours. Cardiac Enzymes: Recent Labs 02/22/23 03202/23/23 04202/24/23 0728 CKTOTAL 3,835* 3,356* 1,713* BNP/ProBNP: No results for input(s): BNP , PROBNP in the last 72 hours. Triglycerides: Recent Labs 02/22/23 0830 TRIG 123 Microbiology: Urine Culture: No components found for: CURINE Blood Culture: No components found for: CBLOOD , CFUNGUSBL Sputum Culture: No components found for: CSPUTUM Recent Labs 02/21/23 1330 02/21/23 13502/21/23 1720 SPECDESC .BLOOD .BLOOD < > .TRACHEAL ASPIRATE .NASAL SWAB .NASOPHARYNGEAL SWAB SPECIAL RIGHT AC 10ML LEFT HAND 10ML -- -- CULTURE NO GROWTH 2 DAYS NO GROWTH 2 DAYS < > NORMAL RESPIRATORY HARRY LIGHT GROWTH < > = values in this interval not displayed. Recent Labs 02/21/23 13302/21/23 13502/21/23 1720 SPECDESC .BLOOD .BLOOD .URINE,STRAIGHT CATHETER .TRACHEAL ASPIRATE .NASAL SWAB .NASOPHARYNGEAL SWAB SPECIAL RIGHT AC 10ML LEFT HAND 10ML -- -- CULTURE NO GROWTH 2 DAYS NO GROWTH 2 DAYS NO GROWTH NORMAL RESPIRATORY HARRY LIGHT GROWTH Pathology: Radiology Reports: XR CHEST PORTABLE Final Result Stable not slight improvement of the bilateral perihilar infiltrates. CT CHEST WO CONTRAST Final Result Dense patchy bilateral perihilar consolidation. Thickening and periadrenal fat stranding suggestive of hyperemia caused by physiological stress. CT HEAD WO CONTRAST Final Result No acute intracranial abnormality. No acute abnormality in the cervical spine. CT CERVICAL SPINE WO CONTRAST Final Result No acute intracranial abnormality. No acute abnormality in the cervical spine. XR CHEST PORTABLE Final Result Tip of the endotracheal tube is at the level of clavicles. Patchy bilateral perihilar airspace disease. Echocardiogram: No results found for this or any previous visit. ASSESSMENT AND PLAN Assessment: // Acute hypoxic respiratory failure due to aspiration pneumonia bilateral dependent consolidations, required intubation, extubated following day. //Acute metabolic encephalopathy likely due to drug intoxication, UDS positive for marijuana fentanyl //Rhabdomyolysis -improving //PATRICIA-resolved //Hypokalemia //Hyperkalemia -resolved //History of schizophrenia on medications //Concern for ototoxicity with vancomycin Plan: -Pulmonary hygiene -Aspiration precautions -Mucinex to help with secretion clearance -Incentive spirometry We will continue to follow. I will discuss with attending. Prieto Ontiveros MD Internal Medicine Resident, PGY- 3 [facility]; [place], [place] 02/24/2023, 12:50 PM Please note that this chart was generated using voice recognition iFormul[employer] dictation software. Although every effort was made to ensure the accuracy of this automated utility bagger, some errors in utility bagger may have occurred. Attending Physician Statement I have discussed the care of Aditya Richardson, including pertinent history and exam findings with the resident. I have reviewed the miller elements of all parts of the encounter with the resident. I have seen and examined the patient with the resident. I agree with the assessment and plan and status of the problem list as documented. I seen the patient during the rounds, chart reviewed, last imaging studies seen. Patient is afebrile alert and awake follows command denies much cough and shortness of breath: Patient is able to ambulate to bathroom. Does not complain of difficulty swallowing. He is on room air and maintaining saturation. Last chest x-ray in 02/22/2023 showed improving bilateral infiltrate and less consolidation in the upper milligrams. He was able to respond to my questions and answered appropriately. He was seen by neurology and also by ENT for hearing loss apparently post drug overdose. He was on Zosyn and switched to doxycycline per primary service Please note that this chart was generated using voice recognition iFormul[employer] dictation software. Although every effort was made to ensure the accuracy of this automated utility bagger, some errors in utility bagger may have occurred. Ole Barlwo MD 02/24/2023 2:20 PM Physician Progress Note PATIENT: ADITYA RICHARDSON CSN #: [id number] : 1995 ADMIT DATE: 02/21/2023 1:17 PM DISCH DATE: RESPONDING PROVIDER #: JAMAL SLOAN QUERY TEXT: Pt admitted with drug overdose. Pt noted to have WBC up to 19.2, Lactic Acid up to 3.0, Positive MRSA screen and Gram-Positive Cocci in clusters in the respiratory culture. Noted documentation of Aspiration pneumonia of both lungs, in Critical care's note. BP down to 88/61, HR up to 107, RR up to 26, SpO2 down to 83 with FiO2 ranging from 30 to 100%. If possible, please document in the progress notes and discharge summary if you are evaluating and /or treating any of the following: The medical record reflects the following: Risk Factors: polysubstance abuse Clinical Indicators: WBC up to 19.2, Lactic Acid up to 3.0, Positive MRSA screen and Gram-Positive Cocci in clusters in the respiratory culture. BP down to 88/61, HR up to 107, RR up to 26, SpO2 down to 83 with FiO2 ranging from 30 to 100% Treatment: Zosyn, Vanco. Monitor Respiratory status and vital signs closely. Thank you for your time, Lizeth KNOX, RN CDS. Please call/text/PS with any questions; [phone]. Options provided: -- Sepsis, present on admission -- Sepsis, present on admission, now resolved -- Sepsis, developed following admission -- Aspiration pneumonia without Sepsis -- Other - I will add my own diagnosis -- Disagree - Not applicable / Not valid -- Disagree - Clinically unable to determine / Unknown -- Refer to Clinical Documentation Reviewer PROVIDER RESPONSE TEXT: This patient was treated for sepsis this admission, which was present on admission and is currently resolved. Query created by: Lizeth Vidal on 02/24/2023 10:37 AM Electronically signed by: JAMAL SLOAN 02/24/2023 10:46 AM Images from the original note were not included. Physical Therapy Physical Therapy Cancel Note DATE: 02/24/2023 NAME: Aditya Richardson : 1995 Patient not seen this date for Physical Therapy due to: Patient is up walking in hallways. No need for physical therapy evaluation. Images from the original note were not included. [facility] Office: [phone] Jesús Champion DO, Héctor Babin DO, Lebron Wilkerson DO, Twin Craft DO, Darren Bey MD, Doris Dunn MD, Marcia Andrade MD, Madonna Colin MD, Raman Vigil MD, Andre León MD, Tim Meadows DO, Pelon Stewart MD, Petra Arteaga DO, Leodan Guerrero MD, Emeterio Veloz MD, Aditya Champion DO, Karen Mercado MD, Jose Middleton DO, Pema Hazel MD, Tangela Frankel MD, Orly Beaver MD, Kwabena Siu MD, Swapnil Baker MD, Eliezer Tirado MD, Billy Joshi MD, Ryanne Whitman MD, Jeremy Campos DO, Wanda Schultz MD, Fidel House MD, Eduardo Painter MD, Marguerite Ying, DANTE, Chanel Kemp CNP,, Prieto Campbell, DANTE, Bonita Lange DNP, Nola Massey, MANAGER TECHNICAL TRAINING, Karmen Graham, MANAGER TECHNICAL TRAINING, Masha Kebede, MANAGER TECHNICAL TRAINING, Allison Murillo, MANAGER TECHNICAL TRAINING, Maribel Bonilla, MANAGER TECHNICAL TRAINING, Melanie Cosby, [facility], Elizabeth Byrd, [facility], Pearl Delacruz, MANAGER TECHNICAL TRAINING, Aletha Story, MANAGER TECHNICAL TRAINING [facility] Daily Progress Note Admit Date: 02/21/2023 Bed/Room No. 0325/0325-02 Admitting Physician : Marcia Andrade MD Code Status :Full Code Hospital Day: LOS: 3 days Chief Complaint: Chief Complaint Patient presents with Drug Overdose Principal Problem: Drug overdose of undetermined intent, initial encounter Active Problems: Elevated troponin Toxic encephalopathy Aspiration pneumonia of both lungs (HCC) NSTEMI (non-ST elevated myocardial infarction) (HCC) Acute respiratory failure with hypoxia (HCC) Encephalopathy acute PATRICIA (acute kidney injury) (HCC) Non-traumatic rhabdomyolysis Lactic acidosis Loss of consciousness (HCC) Opiate use Resolved Problems: * No resolved hospital problems. * Subjective : Interval History/Significant events : 02/24/23 Patient reports he has gradual improvement in his hearing. Patient denies any withdrawal symptoms. He is eating and drinking well. Patient denies nausea, vomiting, tremors, shaking. IV fluids have been stopped. Patient denies any focal weakness Vitals - Stable afebrile Labs -hypokalemia 3.5, BUN 11, creatinine 0.8, CK 1713. Nursing notes , Consults notes reviewed. Overnight events and updates discussed with Nursing staff . Background History: Aditya Richardson is 27 y.o. male Who was admitted to the hospital on 02/21/2023 for treatment of Drug overdose of undetermined intent, initial encounter. Patient was found down for unknown time and taken to outlying facility [facility] emergency room. Patient received Narcan with minimal change in mental status.. Patient was found to have hyperkalemia 6.6 and received medical treatment. Patient was intubated and transferred to [facility]. He was also noted to have rhabdomyolysis. CK was 3147 on arrival. Trauma screen was negative. Patient was treated with IV fluids for rhabdo. Patient has known history of schizoaffective disorder. He reported he was in group home for 2 months for probation evaluation. Patient has history of heroin abuse and has been sober for 4 years. Patient relapsed after he got out of group home. 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 Drug screen was positive for marijuana, benzos, fentanyl. Patient had received fentanyl on [employer]. Patient was extubated on 02/22/2023. Postextubation, patient complained of new onset hearing loss. Neurology was consulted and suggested likely secondary to opioid use. EEG was normal. CT head, CT cervical scan did not show any acute abnormality. ENT was also consulted. Patient had audiology evaluation and had a normal tympanogram, normal response to acoustic reflex testing and audiogram consistent with moderate to moderately severe SNHL. Patient was recommended to follow-up in 1 month for repeat testing. PMH: Past Medical History: Diagnosis Date Heroin abuse ([facility]) Schizophrenia ([facility]) Allergies: No Known Allergies Medications : guaiFENesin, 600 mg, Oral, BID doxycycline hyclate, 100 mg, Oral, 2 times per day nicotine, 1 patch, TransDERmal, Daily OLANZapine, 10 mg, Oral, Nightly FLUoxetine, 10 mg, Oral, Daily divalproex, 250 mg, Oral, BID aspirin, 81 mg, Oral, Daily atorvastatin, 10 mg, Oral, Nightly sodium chloride flush, 5-40 mL, IntraVENous, 2 times per day Review of Systems Review of Systems Constitutional: Negative for activity change, appetite change, fatigue, fever and unexpected weight change. HENT: Positive for hearing loss. Negative for congestion, nosebleeds, rhinorrhea, sinus pressure, sneezing and voice change. Respiratory: Negative for cough, choking, chest tightness, shortness of breath and wheezing. Cardiovascular: Negative for chest pain, palpitations and leg swelling. Gastrointestinal: Negative for abdominal pain, constipation, diarrhea, nausea and vomiting. Genitourinary: Negative for difficulty urinating, dysuria, frequency, penile discharge and testicular pain. Musculoskeletal: Negative for back pain. Skin: Negative for rash. Neurological: Negative for dizziness, weakness, light-headedness and headaches. Hematological: Does not bruise/bleed easily. Psychiatric/Behavioral: Negative for agitation, behavioral problems, confusion, self-injury, sleep disturbance and suicidal ideas. Objective : Current Vitals : Temp: 97.7 F (36.5 C), Pulse: 80, Respirations: 18, BP: 129/75, SpO2: 100 % Last 24 Hrs Vitals Patient Vitals for the past 24 hrs: BP Temp Temp src Pulse Resp SpO2 02/24/23 1149 129/75 97.7 F (36.5 C) Oral 80 18 100 % 02/24/23 0732 102/64 97.8 F (36.6 C) Oral 83 18 94 % 02/23/23 2120 124/85 98.6 F (37 C) Axillary 75 18 99 % 02/23/23 2000 115/74 97.9 F (36.6 C) Oral 77 20 93 % 02/23/23 1800 -- -- -- 83 18 -- 02/23/23 1730 110/75 -- -- (!) 101 26 -- 02/23/23 1612 106/65 97.7 F (36.5 C) Axillary 83 17 -- Intake / output 02/22 1901 - 02/24 0700 In: 3629.8 [P.O.:870; I.V.:2113] Out: 2365 [Urine:2365] Physical Exam: Physical Exam Vitals and nursing note reviewed. Constitutional: General: He is not in acute distress. Appearance: He is not diaphoretic. HENT: Head: Normocephalic and atraumatic. Nose: Right Sinus: No maxillary sinus tenderness or frontal sinus tenderness. Left Sinus: No maxillary sinus tenderness or frontal sinus tenderness. Mouth/Throat: Pharynx: No oropharyngeal exudate. Eyes: General: No scleral icterus. Conjunctiva/sclera: Conjunctivae normal. Pupils: Pupils are equal, round, and reactive to light. Neck: Thyroid: No thyromegaly. Vascular: No JVD. Cardiovascular: Rate and Rhythm: Normal rate and regular rhythm. Pulses: Dorsalis pedis pulses are 2+ on the right side and 2+ on the left side. Heart sounds: Normal heart sounds. No murmur heard. Pulmonary: Effort: Pulmonary effort is normal. Breath sounds: Normal breath sounds. No wheezing or rales. Abdominal: Palpations: Abdomen is soft. There is no mass. Tenderness: There is no abdominal tenderness. Musculoskeletal: Cervical back: Full passive range of motion without pain and neck supple. Lymphadenopathy: Head: Right side of head: No submandibular adenopathy. Left side of head: No submandibular adenopathy. Cervical: No cervical adenopathy. Skin: General: Skin is warm. Neurological: Mental Status: He is alert and oriented to person, place, and time. Motor: No tremor. Psychiatric: Behavior: Behavior is cooperative. Laboratory findings: Recent Labs 02/22/23 0322 02/22/23 1112 02/23/23 0526 02/24/23 0728 WBC 18.8* -- 9.5 7.7 HGB 14.2 -- 11.9* 12.9* HCT 43.5 -- 34.5* 40.5* PLT 177 -- 341 156 INR -- 1.2 -- -- Recent Labs 02/22/23 03202/23/23 0429 02/24/23 0728 NA 136 143 144 K 4.7 3.6* 3.5* CL 103 111* 112* CO2 20 25 24 GLUCOSE 115* 96 97 BUN 28* 13 11 CREATININE 1.0 0.7 0.8 MG -- -- 2.0 CALCIUM 7.9* 8.0* 8.3* Recent Labs 02/21/23 1705 02/22/23 0322 02/22/23 0830 02/23/23 0429 02/24/23 0728 PROT 5.9* 6.1* -- 5.5* 5.6* LABALBU 3.7 3.8 -- 3.3* 3.2* LABA1C -- -- 5.4 -- -- AST 62* 70* -- 82* 57* ALT 27 32 -- 34 33 ALKPHOS 53 56 -- 47 45 BILITOT 0.9 0.6 -- 0.6 0.6 BILIDIR 0.3* -- -- -- -- CHOL -- -- 106 -- -- HDL -- -- 40* -- -- LDLCHOLESTEROL -- -- 41 -- -- CHOLHDLRATIO -- -- 2.7 -- -- TRIG -- -- 123 -- -- CKTOTAL 3,211* 3,835* -- 3,356* 1,713* Specific [place], UA Date Value Ref Range Status 02/21/2023 1.017 1.005 - 1.030 Final Protein, UA Date Value Ref Range Status 02/21/2023 1+ (A) NEGATIVE mg/dL Final RBC, UA Date Value Ref Range Status 02/21/2023 0 TO 2 0 - 4 /HPF Final Comment: Reference range defined for non-centrifuged specimen. Nitrite, Urine Date Value Ref Range Status 02/21/2023 NEGATIVE NEGATIVE Final WBC, UA Date Value Ref Range Status 02/21/2023 0 TO 2 0 - 5 /HPF Final Leukocyte Esterase, Urine Date Value Ref Range Status 02/21/2023 NEGATIVE NEGATIVE Final Imaging / Clinical Data :- XR CHEST PORTABLE Final Result Stable not slight improvement of the bilateral perihilar infiltrates. CT CHEST WO CONTRAST Final Result Dense patchy bilateral perihilar consolidation. Thickening and periadrenal fat stranding suggestive of hyperemia caused by physiological stress. CT HEAD WO CONTRAST Final Result No acute intracranial abnormality. No acute abnormality in the cervical spine. CT CERVICAL SPINE WO CONTRAST Final Result No acute intracranial abnormality. No acute abnormality in the cervical spine. XR CHEST PORTABLE Final Result Tip of the endotracheal tube is at the level of clavicles. Patchy bilateral perihilar airspace disease. Clinical Course : stable Assessment and Plan : Acute respiratory failure with hypoxia s/p intubation on 02/21/2023. Extubated on 02/22/2023. Aspiration pneumonia-patient on doxycycline for 1 week. Acute metabolic encephalopathy secondary to drug abuse -resolved. PATRICIA -due to rhabdomyolysis and dehydration. Continue IVF , repeat CK and BMP next am . Rhabdomyolysis -treated with IV fluids. Encourage oral hydration. H/o schizophrenia -continue Prozac, olanzapine New onset R hearing loss - SNHL - ENT consulted. OP testing repeat in 1 month Continue to monitor vitals , Intake / output , Cell count , HGB , Kidney function, oxygenation as indicated . Plan and updates discussed with patient , answers explained to satisfaction. Plan discussed with Staff Alexandra HARTLEY (Please note that portions of this note were completed with a voice recognition program. Efforts were made to edit the dictations but occasionally words are mis-transcribed.) Marcia Andrade MD 02/24/2023 Critical care team - Resident sign-out to medicine service Date and time: 02/23/2023 6:16 PM Patient's name: Aditya Richardson Patient's account/billing number: [id number] Patient's Date of : 1995 Age: 27 y.o. Date of Admission: 02/21/2023 1:17 PM Length of stay during current admission: 2 Primary Care Physician: No primary care provider on file. Code Status: Full Code Mode of physician to physician communication: [x] Via telephone [] In person Date and time of sign-out: 02/23/2023 6:16 PM Accepting Internal Medicine resident: N/A Accepting Medicine team: IM Team - Intermed Accepting team's attending: Dr. Wilkerson Patient's current ICU Bed: 3024 Patient's assigned bed on floor: 325 [x] Med-Surg Monitored [] Step-down [] Psychiatry ICU [] Psych floor Reason for ICU admission: Drug overdose ICU course summary: Patient with history of schizophrenia was found on the unknown downtime, initially taken to [facility], intubated for airway protection, transferred to [facility] for further management. Initial lab work showed hyperkalemia medically treated, rhabdomyolysis, lactic acidosis. Trauma work-up negative. Extubated on 02/22. Postextubation started having new onset hearing loss, neurology consulted thinks this is opioid induced hearing loss as he was doing opiates. Stop broad-spectrum antibiotics, started on p.o. doxycycline. Consulted ENT for evaluation of new onset hearing loss. Psychiatry evaluated the patient and recommended resuming home meds. Procedures during patient's ICU stay: None Current Vitals: BP 110/75 Pulse 83 Temp 97.7 F (36.5 C) (Axillary) Resp 18 Ht 6' 2 (1.88 m) Wt 215 lb (97.5 kg) SpO2 96% BMI 27.60 kg/m Cultures: Blood cultures: [] None drawn [] Negative [] Positive (Details: ) Urine Culture: [] None drawn [] Negative [] Positive (Details: ) Sputum Culture: [] None drawn [] Negative [] Positive (Details: ) Endotracheal aspirate: [] None drawn [] Negative [] Positive (Details: ) Consults: 1. Cardiology 2. Psychiatry 3. Neurology 4. ENT Assessment: Patient Active Problem List Diagnosis Date Noted NSTEMI (non-ST elevated myocardial infarction) ([facility]) 02/23/2023 Elevated troponin 02/22/2023 Toxic encephalopathy 02/22/2023 Aspiration pneumonia of both lungs ([facility]) 02/22/2023 Loss of consciousness ([facility]) 02/23/2023 Opiate use 02/23/2023 Acute respiratory failure with hypoxia ([facility]) 02/22/2023 Encephalopathy acute 02/22/2023 PATRICIA (acute kidney injury) ([facility]) 02/22/2023 Non-traumatic rhabdomyolysis 02/22/2023 Lactic acidosis 02/22/2023 Drug overdose of undetermined intent, initial encounter 02/21/2023 Additional assessment: Drug overdose Acute hypoxic respiratory failure Acute metabolic encephalopathy Aspiration pneumonia New onset hearing loss History of schizophrenia Elevated troponin likely demand ischemia Recommended Follow-up: Follow-up on ENT evaluation P.o. doxycycline for total 7 days Discharge planning Above mentioned assessment and plan was discussed by me with the admitting medicine resident. The medicine team assigned to the patient by medicine admitting resident will be following up the patient from now onwards on the floor. Jamal Acevedo MD Internal Medicine Resident, PGY- 2 [place], [place]. 7:53 PM EEG complete Critical Care Team - Daily Progress Note Date and time: 02/23/2023 12:53 PM Patient's name: Aditya Richardson Patient's account/billing number: [id number] Patient's Date of : 1995 Age: 27 y.o. Date of Admission: 02/21/2023 1:17 PM Length of stay during current admission: 2 Primary Care Physician: No primary care provider on file. ICU Attending Physician: Dr. Frankel Code Status: Full Code Reason for ICU admission: Chief Complaint Patient presents with Drug Overdose Aditya Richardson is a 27 y.o. Male with no significant past medical history who presented as a transfer from [facility]. Patient was found down in a pool of his own vomit on a boat, unknown amount of downtime. Patient was brought to [facility] where he was intubated due to altered mental status. He received Narcan over there with minimal change in mental status. Decided to transfer patient to [facility] for further management. Patient had a potassium of 6.6, received insulin dextrose and 1 g calcium chloride IV as per [facility]. He received 800 bolus of normal saline. Upon arrival here ETT was secured, was sedated on propofol. He did receive fentanyl during the flight as well. No signs of trauma. As per chart review ED spoke with the sister at bedside who states that he was recently discharged from group home on Thursday and does have history of polysubstance abuse. Patient does appear to have psychiatric history, dispense report states that the patient takes divalproex, fluoxetine, trazodone, olanzapine. He did arrive in c-collar here. On arrival here patient was given another 1 L bolus. Patient received vancomycin and Zosyn in the ED. Lactic acid was 3.0. Myoglobin 2601, troponins 43. UDS was positive for benzodiazepine, cannabinoids and fentanyl. CT head, CT cervical spine negative. CT chest without contrast shows dense patchy bilateral perihilar consolidation. Thickening and periadrenal fat stranding suggestive of hyperemia caused by physiological stress. UDS was positive for benzos, marijuana, fentanyl 02/22 - extubated, new onset hearing loss 02/23 - neurology thinks its opioid induced hearing loss, consulted ENT Subjective: OVERNIGHT EVENTS: No acute issues overnight Patient remains hemodynamically stable Has been afebrile, heart rate in 70s to 90s, blood pressure okay, on 2 to 3 L nasal cannula Labs morning show sodium 143, potassium 3.6, chloride 111, bicarb 25, BUN 13, creatinine 0.7, glucose 96 CK 3,356, myoglobin 221 WBC 9.5, hemoglobin 11.9 Elevated tropes, echo showed EF of 55 to 60%, on heparin infusion for NSTEMI, cardiology recommended to continue heparin for another 24 hours On aspirin and statin On Zosyn and vancomycin, respiratory culture growing gram-positive cocci in clusters On normal saline at 75 cc/h Started on diet New onset hearing loss postextubation, no neurological deficits, neurology consulted Psychiatry consulted due to history of schizophrenia Patient mentioned that he takes Zyprexa, Prozac and Depakote at home AWAKE & FOLLOWING COMMANDS: [] No [x] Yes CURRENT VENTILATION STATUS: [] Ventilator [] BIPAP [] Nasal Cannula [x] Room Air SECRETIONS Amount: [x] Small [] Moderate [] Large [] None Color: [] White [] Colored [] Bloody SEDATION: RAAS Score: [] Propofol gtt [] Versed gtt [] Ativan gtt [x] No Sedation PARALYZED: [x] No [] Yes VASOPRESSORS: [x] No [] Yes If yes - [] Levophed [] Dopamine [] Vasopressin [] Dobutamine [] Phenylephrine [] Epinephrine CENTRAL LINES: [x] No [] Yes (Date of Insertion: ) If yes - [] Right IJ [] Left IJ [] Right Femoral [] Left Femoral [] Right Subclavian [] Left Subclavian MANRIQUE'S CATHETER: [x] No [] Yes (Date of Insertion: ) URINE OUTPUT: [x] Good [] Low [] Anuric REVIEW OF SYSTEMS: Constitutional: Negative for Fever, chills Cardiovascular: Negative for lightheadedness ,chest pain, palpitations Respiratory:Negative for Shortness of breath,cough or wheezing. Gastrointestinal: Negative for nausea/vomiting, change in bowel habits, abdominal pain Genitourinary:Negative for change in bladder habits, dysuria, hematuria. Musculoskeletal: Negative for joint pain Neurological: hearing loss OBJECTIVE: VITAL SIGNS: BP 112/75 Pulse 93 Temp 98.2 F (36.8 C) (Oral) Resp 14 Ht 6' 2 (1.88 m) Wt 215 lb (97.5 kg) SpO2 97% BMI 27.60 kg/m Tmax over 24 hours: Temp (24hrs), Av.4 F (36.9 C), Min:98.2 F (36.8 C), Max:98.6 F (37 C) Patient Vitals for the past 8 hrs: BP Temp Temp src Pulse Resp SpO2 Height Weight 02/23/23 0940 -- -- -- -- -- -- 6' 2 (1.88 m) 215 lb (97.5 kg) 02/23/23 0800 112/75 -- -- 93 14 -- -- -- 02/23/23 0740 -- -- -- 79 13 -- -- -- 02/23/23 0730 -- -- -- 82 12 -- -- -- 02/23/23 0700 111/ 98.2 F (36.8 C) Oral 80 16 97 % -- -- 02/23/23 0600 113/77 98.6 F (37 C) Oral 76 14 94 % -- -- 02/23/23 0508 112/77 -- -- 79 18 91 % -- -- Intake/Output Summary (Last 24 hours) at 02/23/2023 1253 Last data filed at 02/23/2023 0945 Gross per 24 hour Intake 4014.35 ml Output 3065 ml Net 949.35 ml Date 02/23/23 0000 - 02/23/23 2359 Shift 5302-1889 6937-3173 6348-8053 24 Hour Total INTAKE P.O.(mL/kg/hr) 600 600 I.V.(mL/kg) 1169.6(12) 1169.6(12) IV Piggyback(mL/kg) 321.6(3.3) 321.6(3.3) Shift Total(mL/kg) 1491.2(15.3) 600(6.2) 2091.2(21.4) OUTPUT Urine(mL/kg/hr) 500(0.6) 1140 1640 Shift Total(mL/kg) 500(5.1) 1140(11.7) 1640(16.8) Weight (kg) 97.6 97.5 97.5 97.5 Wt Readings from Last 3 Encounters: 02/23/23 215 lb (97.5 kg) Body mass index is 27.6 kg/m . PHYSICAL EXAM: Constitutional: Appears well Respiratory: Clear to auscultation bilaterally Cardiovascular: Normal heart sounds, sinus rhythm Abdomen: Soft, non distended NEUROLOGIC: Awake, alert, oriented to name, place and time. Moving all extremities, new onset bilateral hearing loss Extremities: No pedal edema MEDICATIONS: Scheduled Meds: aspirin 81 mg Oral Daily atorvastatin 10 mg Oral Nightly vancomycin 1,250 mg IntraVENous Q12H sodium chloride flush 5-40 mL IntraVENous 2 times per day piperacillin-tazobactam 3,375 mg IntraVENous Q8H vancomycin (VANCOCIN) intermittent dosing (placeholder) Other RX Placeholder Continuous Infusions: heparin (PORCINE) Infusion 16 Units/kg/hr (02/23/23 0700) sodium chloride Stopped (02/23/23 0505) sodium chloride 75 mL/hr at 02/23/23 0700 dextrose PRN Meds: fentanNYL, 50 mcg, Q2H PRN heparin (porcine), 4,000 Units, PRN heparin (porcine), 2,000 Units, PRN ipratropium 0.5 mg-albuterol 2.5 mg, 1 Dose, Q4H PRN sodium chloride flush, 5-40 mL, PRN sodium chloride, , PRN ondansetron, 4 mg, Q8H PRN Or ondansetron, 4 mg, Q6H PRN polyethylene glycol, 17 g, Daily PRN acetaminophen, 650 mg, Q6H PRN Or acetaminophen, 650 mg, Q6H PRN glucose, 4 tablet, PRN dextrose bolus, 125 mL, PRN Or dextrose bolus, 250 mL, PRN glucagon (rDNA), 1 mg, PRN dextrose, , Continuous PRN SUPPORT DEVICES: [x] Ventilator [] BIPAP [] Nasal Cannula [] Room Air VENT SETTINGS (Comprehensive) (if applicable): Vent Information Ventilator Day(s): 1 Ventilator ID: [id number] Ventilator Safety Check Performed Pre-Use: Yes Equipment Changed: HME Ventilator Initiate: Yes Ventilator Discontinue: Yes Vent Mode: AC/PRVC Additional Respiratory Assessments Pulse: 93 Respirations: 14 SpO2: 97 % End Tidal CO2: 36 (%) Position: Semi-Souza's Humidification Source: [facility] ABGs: Lab Results Component Value Date/Time FIO2 50.0 02/22/2023 05:22 AM DATA: Complete Blood Count: Recent Labs 02/21/23 1335 02/22/23 0322 02/23/23 0526 WBC 19.2* 18.8* 9.5 HGB 15.2 14.2 11.9* MCV 94.7 95.6 94.5 PLT 166 177 341 RBC 4.90 4.55 3.65* HCT 46.4 43.5 34.5* MCH 31.0 31.2 32.6 MCHC 32.8 32.6 34.5 RDW 13.2 12.8 13.1 MPV 9.1 9.6 10.5 PT/INR: Lab Results Component Value Date/Time PROTIME 14.9 02/22/2023 11:12 AM INR 1.2 02/22/2023 11:12 AM PTT: Lab Results Component Value Date/Time APTT 41.1 02/22/2023 11:12 AM Basal Metabolic Profile: Recent Labs 02/21/23 1335 02/22/23 0322 02/23/23 0429 NA 136 136 143 K 5.1 4.7 3.6* BUN 37* 28* 13 CREATININE 2.0* 1.0 0.7 CL 102 103 111* CO2 17* 20 25 S. Calcium: Recent Labs 02/23/23 0429 CALCIUM 8.0* Urinalysis: Lab Results Component Value Date/Time NITRU NEGATIVE 02/21/2023 01:34 PM COLORU Yellow 02/21/2023 01:34 PM PHUR 5.5 02/21/2023 01:34 PM WBCUA 0 TO 2 02/21/2023 01:34 PM RBCUA 0 TO 2 02/21/2023 01:34 PM SPECGRAV 1.017 02/21/2023 01:34 PM LEUKOCYTESUR NEGATIVE 02/21/2023 01:34 PM UROBILINOGEN Normal 02/21/2023 01:34 PM BILIRUBINUR NEGATIVE 02/21/2023 01:34 PM GLUCOSEU NEGATIVE 02/21/2023 01:34 PM KETUA TRACE 02/21/2023 01:34 PM LFTS Recent Labs 02/21/23 1705 02/22/23 0322 02/23/23 0429 ALKPHOS 53 56 47 ALT 27 32 34 AST 62* 70* 82* BILITOT 0.9 0.6 0.6 BILIDIR 0.3* -- -- LABALBU 3.7 3.8 3.3* AMYLASE/LIPASE/AMMONIA Recent Labs 02/21/23 1335 AMMONIA 28 Last 3 Blood Glucose: Recent Labs 02/21/23 1335 02/22/23 0322 02/23/23 0429 GLUCOSE 105* 115* 96 HgBA1c: Lab Results Component Value Date/Time LABA1C 5.4 02/22/2023 08:30 AM TSH: Lab Results Component Value Date/Time TSH 3.00 02/21/2023 01:35 PM ASSESSMENT: Principal Problem: Drug overdose of undetermined intent, initial encounter Active Problems: Elevated troponin Toxic encephalopathy Aspiration pneumonia of both lungs (HCC) Acute respiratory failure with hypoxia (HCC) Encephalopathy acute PATRICIA (acute kidney injury) (HCC) Non-traumatic rhabdomyolysis Lactic acidosis Loss of consciousness (HCC) Resolved Problems: * No resolved hospital problems. * PLAN: Acute hypoxic respiratory failure requiring intubation on 02/21/2023 secondary to aspiration pneumonia. - Extubated on 02/22/2023 - Stop vancomycin and Zosyn given the new hearing loss concern for ototoxicity - Doxycycline p.o. for a week 2. Acute metabolic encephalopathy likely secondary to drug overdose - Extubated on 02/22/23 3. Acute kidney injury likely prerenal and mild rhabdomyolysis. - Resolved - Stop IV fluids 4. Lactic acidosis - Resolved 5. H/o schizophrenia - Resume home medications olanzapine, fluoxetine, Depakote As per psych 6. New onset hearing loss - - Neurology consulted, thinks this is opioid induced hearing loss - ENT consulted, will see the patient tomorrow Elida Light MD, M.D. Department of Internal Medicine/ Critical care [facility]) 02/23/2023, 12:53 PM Attending Physician Statement I have discussed the care of Aditya Richardson, including pertinent history and exam findings, with the resident. I have seen and examined the patient and the miller elements of all parts of the encounter have been performed by me. I agree with the assessment, plan and orders as documented by the resident with additions . Rule out vancomycin toxicity - check trough and peak Change to doxycycline Ok to floor Total critical care time caring for this patient with life threatening, unstable organ failure, including direct patient contact, management of life support systems, review of data including imaging and labs, discussions with other team members and physicians at least 30 Min so far today, excluding procedures. Please note that this chart was generated using voice recognition iFormularyon dictation software. Although every effort was made to ensure the accuracy of this automated utility bagger, some errors in utility bagger may have occurred. Images from the original note were not included. [place] Desk Clerk Consult Note Date: 02/23/2023 Patient name: Aditya Richardson Date of admission: 02/21/2023 1:17 PM Date of : 1995 Reason for Consult: Cardiac evaluation CHIEF COMPLAINT: Altered mental status History Obtained From: Patient & EMR. Subjective Patient is seen and examined. Extubated to DC 2L. Doing well and having no concerns this am. Denies CP, SOB or PND/Orthopnea. Labs reviewed. Echo LV EF 55-60%, No RWMA. HISTORY OF PRESENT ILLNESS: The patient is a 27 y.o. male. The hospital from outlying facility after being found unconscious. Patient was noted to have vomited, his downtime was unknown. Patient was intubated in THE ED due to altered mental status, given Narcan several doses and was transferred to [facility] for further management. On admission patient potassium was noted to be 6.6, given 1 L bolu, placed in a c-collar and was given another liter bolus in the ED at [facility]. He was given empiric antibiotic management. Troponin on admission noted to be 43, UDS positive for benzodiazepine, cannabis, fentanyl. Patient transferred to MICU for further management Patient has history of psychiatric disorder on multiple medications. Cardiology consulted for further recommendations Past Medical History: has no past medical history on file. Past Surgical History: has no past surgical history on file. Home Medications: Prior to Admission medications Not on File Allergies: Patient has no known allergies. Social History: Family History: family history is not on file. No for premature CAD. No for h/o sudden cardiac REVIEW OF SYSTEMS: Intubated PHYSICAL EXAM: Physical Examination: BP 112/75 Pulse 93 Temp 98.2 F (36.8 C) (Oral) Resp 14 Ht 6' 2 (1.88 m) Wt 215 lb 2.7 oz (97.6 kg) SpO2 97% BMI 27.63 kg/m Constitutional and General Appearance: HEENT: PERRL, no cervical lymphadenopathy Respiratory: On auscultation: clear to auscultation bilaterally, no basilar rales, no wheezing Cardiovascular: regular S1 and S2. No murmur audible No Jugular venous distention, no hepatojugular reflex Peripheral pulses are symmetrical and full Abdomen: No masses or tenderness Bowel sounds present Extremities: No Cyanosis or Clubbing Lower extremity edema: No Skin: Warm and dry Neurological: Not done Labs: CBC: Recent Labs 02/22/23 0322 02/23/23 0526 WBC 18.8* 9.5 HGB 14.2 11.9* HCT 43.5 34.5* PLT 177 341 BMP: Recent Labs 02/22/23 0322 02/23/23 0429 NA 136 143 K 4.7 3.6* CO2 20 25 BUN 28* 13 CREATININE 1.0 0.7 LABGLOM >60 >60 GLUCOSE 115* 96 BNP: No results for input(s): BNP in the last 72 hours. PT/INR: Recent Labs 02/21/23 1335 02/22/23 1112 PROTIME 13.1 14.9 INR 1.0 1.2 APTT: Recent Labs 02/22/23 0526 02/22/23 1112 APTT 29.3 41.1* CARDIAC ENZYMES: Recent Labs 02/21/23 1705 02/22/23 0322 02/23/23 0429 CKTOTAL 3,211* 3,835* 3,356* FASTING LIPID PANEL: Lab Results Component Value Date/Time HDL 40 02/22/2023 08:30 AM TRIG 123 02/22/2023 08:30 AM LIVER PROFILE: Recent Labs 02/22/23 0322 02/23/23 0429 AST 70* 82* ALT 32 34 LABALBU 3.8 3.3* DATA: Diagnostics: EKG: NSR, NL ECG ECHO 02/23/2023 Left Ventricle Normal left ventricular systolic function with a visually estimated EF of 55 - 60%. Left ventricle size is normal. Normal wall thickness. Normal wall motion. Left Atrium Left atrium size is normal. Interatrial Septum No interatrial shunt visualized with color Doppler. Right Ventricle Right ventricle size is normal. Normal wall thickness. Normal systolic function. Right Atrium Right atrium size is normal. Aortic Valve Valve structure is normal. No regurgitation. No stenosis. Mitral Valve Valve structure is normal. No regurgitation. No stenosis noted. Tricuspid Valve Valve structure is normal. Mild regurgitation. No stenosis noted. The estimated RVSP is 26 mmHg. Pulmonic Valve Valve structure is normal. No regurgitation. No stenosis noted. Aorta Normal sized aortic root. IVC/Hepatic Veins IVC size is normal. Pericardium No pericardial effusion. IMPRESSION: Acute toxic encephalopathy secondary to drug overdose. Acute hypoxic resp failure Troponin elevated 43-123 this a.m. likely secondary to demand ischemia in the setting of rhabdo, possible aspiration pneumonia Suspected aspiration pneumonia on empiric antibiotic Rhabdomyolysis UDS positive for cannabis, benzodiazepine, fentanyl RECOMMENDATIONS: Okay to discontinue heparin. Echo reviewed, LVEF 55 %, No regional wall motion abnormality or valvular lesion. No ischemic work up indicated. Further recommendations to follow after discussing with attending physician. William Agrawal MD Internal Medicine Resident, PGY-3 [place], [place] 02/23/2023,8:34 AM Attending Meteorological Technician Addendum: I have reviewed and performed the history, physical, subjective, objective, assessment, and plan with the resident/fellow/ASPHALT TAMPER and agree with the note. I performed the history and physical personally. I have made changes to the note above as needed. Thank you for allowing me to participate in the care of this patient, please do not hesitate to call if you have any questions. Martha Gagnon DO [place] Desk Clerk [facility] Some history on the patient: is on zyprexa, prozac and depakote at home with patient provided medical history of Schizophrenia. Per patient's father patient has crohn's disease and anxiety. He has a history of taking fentanyl as well as other drugs. Patient's dad states that he found the patient passed out in his own vomit on a boat, unknown down time, which corroborates story from EMS. Father states patient has good times and bad times, with bad times necessitating that the father stay with him to make sure he is ok. He was recently in group home for violating probation (?) per father. Images from the original note were not included. Trauma Tertiary Survey Admit Date: 02/21/2023 Hospital day 1 Subjective: Aditya Richardson is a 27 year old male that presented as a transfer from [facility] after being found down in a pool of vomit on a boat after presumed drug overdose. Trauma was not activated on arrival to ED here. Trauma was consulted by MICU team 1 day after admission to evaluate for C-collar clearance and removal. Patient intubated during initial evaluation but was able to follow commands and express himself clearly through pantomime and facial movements. C-spine imaging obtained yesterday negative for acute concerns. C-spine was able to be cleared at bedside without issue. Patient was able to be extubated shortly after this. Patient denies any areas of pain. Objective: PHYSICAL EXAM: Physical Exam Constitutional: General: He is not in acute distress. Appearance: He is not ill-appearing. HENT: Head: Normocephalic. Right Ear: Ear canal and external ear normal. Left Ear: Tympanic membrane, ear canal and external ear normal. Ears: Comments: R TM somewhat obscured by cerumen, TM that was able to be visualized appears normal. Hearing decreased bilateral ears. Mouth/Throat: Pharynx: Oropharynx is clear. Eyes: General: No scleral icterus. Right eye: No discharge. Left eye: No discharge. Extraocular Movements: Extraocular movements intact. Pupils: Pupils are equal, round, and reactive to light. Cardiovascular: Rate and Rhythm: Normal rate and regular rhythm. Pulses: Normal pulses. Heart sounds: No murmur heard. No friction rub. No gallop. Pulmonary: Effort: Pulmonary effort is normal. No accessory muscle usage or respiratory distress. Breath sounds: No stridor. Rales (Diffuse, fine) present. No wheezing or rhonchi. Abdominal: General: There is no distension. Tenderness: There is no abdominal tenderness. There is no guarding. Musculoskeletal: General: Normal range of motion. Cervical back: Normal range of motion and neck supple. No deformity, rigidity, tenderness or bony tenderness. Thoracic back: No deformity, tenderness or bony tenderness. Lumbar back: No deformity, tenderness or bony tenderness. Skin: General: Skin is warm and dry. Capillary Refill: Capillary refill takes less than 2 seconds. Comments: Very superficial linear abrasion to R umbilicus. Neurological: Mental Status: He is alert. Sensory: No sensory deficit. Motor: No weakness. Spine: Spine Tenderness ROM Cervical 0 /10 Normal Thoracic 0 /10 Normal Lumbar 0 /10 Normal Musculoskeletal Joint Tenderness Swelling ROM Right shoulder absent absent normal Left shoulder absent absent normal Right elbow absent absent normal Left elbow absent absent normal Right wrist absent absent normal Left wrist absent absent normal Right hand grasp absent absent normal Left hand grasp absent absent normal Right hip absent absent normal Left hip absent absent normal Right knee absent absent normal Left knee absent absent normal Right ankle absent absent normal Left ankle absent absent normal Right foot absent absent normal Left foot absent absent normal CONSULTS: MICU PROCEDURES: [x] Reviewed radiology reports (All radiology findings correlate to diagnoses/problem list) [] Incidental findings: [] Patient/family notified and letter given Assessment/Plan: Patient in C-collar - Trauma Surgery service consulted by MICU team for purpose of c-spine clearance - Patient able to follow commands and reasonably convey symptoms - C-spine imaging without concerns - C-spine cleared at bedside and c-collar removed - Head-to-toe examination without evidence of any significant traumatic injury - Primary team without concerns for any evidence of traumatic injuries - Patient appears to be hard of hearing, unclear what baseline level of hearing is, primary team made aware Trauma team signing off, please re-consult with any further questions or concerns. Images from the original note were not included. C- Spine Evaluation for Spine Clearance: Pt is a 27 y.o. male who was admitted on 02/21/23 to MICU team s/p being found down in vomit after presumed drug overdose. Pt w/ complaints of decreased hearing. C-Spine precautions of C-collar with spinal neutrality maintained since arrival with current exam directed at further evaluation of spine for clearance purposes. Pt chart and current images reviewed. CT C-Spine negative for acute fracture, subluxation, or traumatic injury. Patient does not have a distracting injury, is not acutely intoxicated and is alert, oriented and fully able to participate in exam. Pt denies c-spine pain while resting in c-collar. C-collar removed w/ c-spine neutrality maintained. Pt denies midline pain with palpation of spinous processes and axial loading. Pt demonstrated full flexion, extension, and SB ROM without complaints of pain. C-spine is considered cleared w/out need for further imaging, evaluation, or continuation of c-collar. Comprehensive Nutrition Assessment Type and Reason for Visit: Initial Nutrition Recommendations/Plan: TF recommendations if desired: Vital AF 1.2 (peptide based), goal of 55 mL/hr with current rate of Propofol Malnutrition Assessment: Malnutrition Status: Insufficient data (02/22/23 1239) Context: Acute Illness Findings of the 6 clinical characteristics of malnutrition: Energy Intake: Unable to assess Weight Loss: Unable to assess Body Fat Loss: Unable to assess Muscle Mass Loss: Unable to assess Fluid Accumulation: Unable to assess Fagot Heater Strength: Not Performed Nutrition Assessment: Pt found down. Currently intubated and sedated with Propofol. Nutrition Related Findings: meds/labs reviewed Wound Type: None Current Nutrition Intake & Therapies: Average Meal Intake: NPO Average Supplements Intake: NPO Diet NPO Additional Calorie Sources: Propofol at 31.3 mL/hr = 826 kcals/day Anthropometric Measures: Height: 6' 2 (188 cm) Pelzer Body Weight (IBW): 190 lbs (86 kg) Current Body Weight: 215 lb 2.7 oz (97.6 kg), 113.2 % IBW. Weight Source: Not Specified Current BMI (kg/m2): 27.6 BMI Categories: Overweight (BMI 25.0-29.9) Estimated Daily Nutrient Needs: Energy Requirements Based On: Kcal/kg Weight Used for Energy Requirements: Current Energy (kcal/day): 0474-5826 kcals/day Weight Used for Protein Requirements: Pelzer Protein (g/day): 105-120 gm/day Method Used for Fluid Requirements: Other (Comment) Fluid (ml/day): per MD Nutrition Diagnosis: Inadequate oral intake related to impaired respiratory function as evidenced by NPO or clear liquid status due to medical condition Nutrition Interventions: Food and/or Nutrient Delivery: Continue NPO Nutrition Education/Counseling: No recommendation at this time Coordination of Nutrition Care: Continue to monitor while inpatient Goals: Previous Goal Met: (goal set) Goals: Meet at least 75% of estimated needs, prior to discharge Nutrition Monitoring and Evaluation: Behavioral-Environmental Outcomes: None Identified Food/Nutrient Intake Outcomes: Diet Advancement/Tolerance Physical Signs/Symptoms Outcomes: Biochemical Data, Weight, Nutrition Focused Physical Findings Discharge Planning: Too soon to determine Kathy Klein MS, RD, LD Contact: [phone] [facility] Pharmacokinetic Monitoring Service - Vancomycin Consulting Provider: Dr Garrison Indication: Aspiration pneumonia Target Concentration: Goal AUC/JANAE 400-600 mg*hr/L Day of Therapy: 2 Additional Antimicrobials: zosyn Pertinent Laboratory Values: Wt Readings from Last 1 Encounters: 02/21/23 215 lb 2.7 oz (97.6 kg) Temp Readings from Last 1 Encounters: 02/22/23 99 F (37.2 C) (Axillary) Estimated Creatinine Clearance: 128 mL/min (based on SCr of 1 mg/dL). Recent Labs 02/21/23 1335 02/22/23 0322 CREATININE 2.0* 1.0 BUN 37* 28* WBC 19.2* 18.8* Procalcitonin: Pertinent Cultures: Culture Date Source Results 02/21 Trach GPC in clusters 02/22 Blood x2 No growth x 12 hrs MRSA Nasal Swab: was ordered by provider, awaiting results. Recent vancomycin administrations vancomycin (VANCOCIN) 1,500 mg in sodium chloride 0.9 % 250 mL IVPB ([id number]) (mg) 1,500 mg New Bag 02/21/23 1502 Assessment: Date/Time Current Dose Concentration Timing of Concentration (h) AUC 02/22 1500 mg q 24 hours NA NA NA Note: Serum concentrations collected for AUC dosing may appear elevated if collected in close proximity to the dose administered, this is not necessarily an indication of toxicity Plan: Renal function improved, updated AUC calculations predicted Subtherapeutic AUC, will increase dose to 1250 mg q 12 hours, AUC 459, Trough at SS 14.2 Increase dose to 1250 MG Q 12 HRS Repeat vancomycin concentration not ordered Pharmacy will continue to monitor patient and adjust therapy as indicated Thank you for the consult, Karrie Kruse RPH 02/22/2023 9:03 AM Critical Care Team - Daily Progress Note Date and time: 02/22/2023 8:23 AM Patient's name: Aditya Richardson Patient's account/billing number: [id number] Patient's Date of : 1995 Age: 27 y.o. Date of Admission: 02/21/2023 1:17 PM Length of stay during current admission: 1 Primary Care Physician: No primary care provider on file. ICU Attending Physician: Dr. Barlow Code Status: Full Code Reason for ICU admission: Chief Complaint Patient presents with Drug Overdose Aditya Richardson is a 27 y.o. Male with no significant past medical history who presented as a transfer from [facility]. Patient was found down in a pool of his own vomit on a boat, unknown amount of downtime. Patient was brought to [facility] where he was intubated due to altered mental status. He received Narcan over there with minimal change in mental status. Decided to transfer patient to [facility] for further management. Patient had a potassium of 6.6, received insulin dextrose and 1 g calcium chloride IV as per [facility]. He received 800 bolus of normal saline. Upon arrival here ETT was secured, was sedated on propofol. He did receive fentanyl during the flight as well. No signs of trauma. As per chart review ED spoke with the sister at bedside who states that he was recently discharged from group home on Thursday and does have history of polysubstance abuse. Patient does appear to have psychiatric history, dispense report states that the patient takes divalproex, fluoxetine, trazodone, olanzapine. He did arrive in c-collar here. On arrival here patient was given another 1 L bolus. Patient received vancomycin and Zosyn in the ED. Lactic acid was 3.0. Myoglobin 2601, troponins 43. UDS was positive for benzodiazepine, cannabinoids and fentanyl. CT head, CT cervical spine negative. CT chest without contrast shows dense patchy bilateral perihilar consolidation. Thickening and periadrenal fat stranding suggestive of hyperemia caused by physiological stress. Subjective: OVERNIGHT EVENTS: No acute issues overnight Remains intubated and sedated, sedated with propofol at 45 Has been afebrile, heart rate in the 80s to 90s, blood pressure okay, Lab this morning showed sodium 136, potassium 4.7, chloride 103, bicarb 20, BUN 28, creatinine 1, anion gap 13, glucose 115 CK3 3835, myoglobin 730, troponin 54> 123, started on heparin infusion WBC 18.8, hemoglobin 14.2, platelets 177 Respiratory culture growing gram-positive cocci in clusters Currently on Zosyn and vancomycin On heparin infusion for NSTEMI On normal saline at 150 cc per Urine output 1.3 L last 24 hours AWAKE & FOLLOWING COMMANDS: [] No [x] Yes CURRENT VENTILATION STATUS: [x] Ventilator [] BIPAP [] Nasal Cannula [] Room Air SECRETIONS Amount: [x] Small [] Moderate [] Large [] None Color: [] White [] Colored [] Bloody SEDATION: Fentanyl RAAS Score: [] Propofol gtt [x] Versed gtt [] Ativan gtt [] No Sedation PARALYZED: [x] No [] Yes VASOPRESSORS: [] No [x] Yes If yes - [x] Levophed [] Dopamine [x] Vasopressin [] Dobutamine [x] Phenylephrine [] Epinephrine CENTRAL LINES: [] No [x] Yes If yes - [] Right IJ [] Left IJ [x] Right Femoral [] Left Femoral [] Right Subclavian [] Left Subclavian MANRIQUE'S CATHETER: [] No [x] Yes URINE OUTPUT: [] Good [x] Low [] Anuric REVIEW OF SYSTEMS: Constitutional: Negative for Fever, chills Eyes: Negative for visual changes, diplopia ENT: Negative for mouth sores, sore throat. Cardiovascular: Negative for lightheadedness ,chest pain, palpitations Respiratory:Negative for Shortness of breath,cough or wheezing. Gastrointestinal: Negative for nausea/vomiting, change in bowel habits, abdominal pain Genitourinary:Negative for change in bladder habits, dysuria, hematuria. Musculoskeletal: Negative for joint pain Neurological: Negative for headache, change in muscle strength numbness/tingling OBJECTIVE: VITAL SIGNS: BP 115/88 Pulse 85 Temp 99 F (37.2 C) (Axillary) Resp 24 Ht 6' 2 (1.88 m) Wt 215 lb 2.7 oz (97.6 kg) SpO2 99% BMI 27.63 kg/m Tmax over 24 hours: Temp (24hrs), Av.2 F (37.3 C), Min:99 F (37.2 C), Max:99.9 F (37.7 C) Patient Vitals for the past 8 hrs: BP Temp Temp src Pulse Resp SpO2 02/22/23 0700 115/88 -- -- 85 24 99 % 02/22/23 0600 108/77 -- -- 84 24 99 % 02/22/23 0500 104/75 -- -- 90 24 99 % 02/22/23 0400 (!) 124/105 99 F (37.2 C) Axillary 88 26 100 % 02/22/23 0312 -- -- -- 91 25 100 % 02/22/23 0300 (!) 121/101 -- -- 92 23 100 % 02/22/23 0200 (!) 123/97 -- -- 87 24 100 % 02/22/23 0100 (!) 127/101 -- -- 93 24 100 % Intake/Output Summary (Last 24 hours) at 02/22/2023 0823 Last data filed at 02/22/2023 0711 Gross per 24 hour Intake 3839.35 ml Output 1390 ml Net 2449.35 ml Date 02/22/23 0000 - 02/22/23 2359 Shift 7104-5046 7720-1783 3966-1716 24 Hour Total INTAKE I.V.(mL/kg) 2315.9(23.7) 2315.9(23.7) NG/GT(mL/kg) 0(0) 0(0) IV Piggyback(mL/kg) 64.6(0.7) 64.6(0.7) Shift Total(mL/kg) 2380.5(24.4) 2380.5(24.4) OUTPUT Urine(mL/kg/hr) 370(0.5) 370 Emesis/NG output(mL/kg) 0(0) 0(0) Shift Total(mL/kg) 370(3.8) 370(3.8) Weight (kg) 97.6 97.6 97.6 97.6 Wt Readings from Last 3 Encounters: 02/21/23 215 lb 2.7 oz (97.6 kg) Body mass index is 27.63 kg/m . PHYSICAL EXAM: Constitutional: intubated, sedated Respiratory: Clear to auscultation Cardiovascular: Normal heart sounds, sinus rhythm Abdomen: Soft and, non distended NEUROLOGIC: Sedated, following commands Extremities: No pedal edema MEDICATIONS: Scheduled Meds: aspirin 81 mg Oral Daily atorvastatin 10 mg Oral Nightly sodium chloride flush 5-40 mL IntraVENous 2 times per day ipratropium 0.5 mg-albuterol 2.5 mg 1 Dose Inhalation Q4H WA RT chlorhexidine 15 mL Mouth/Throat BID famotidine (PEPCID) injection 20 mg IntraVENous BID piperacillin-tazobactam 3,375 mg IntraVENous Q8H vancomycin (VANCOCIN) intermittent dosing (placeholder) Other RX Placeholder vancomycin 1,750 mg IntraVENous Q24H Continuous Infusions: heparin (PORCINE) Infusion 10 Units/kg/hr (02/22/23710) propofol 45 mcg/kg/min (02/22/23710) sodium chloride sodium chloride 150 mL/hr at 02/22/23 0711 dextrose PRN Meds: fentanNYL, 50 mcg, Q2H PRN heparin (porcine), 4,000 Units, PRN heparin (porcine), 2,000 Units, PRN sodium chloride flush, 5-40 mL, PRN sodium chloride, , PRN ondansetron, 4 mg, Q8H PRN Or ondansetron, 4 mg, Q6H PRN polyethylene glycol, 17 g, Daily PRN acetaminophen, 650 mg, Q6H PRN Or acetaminophen, 650 mg, Q6H PRN glucose, 4 tablet, PRN dextrose bolus, 125 mL, PRN Or dextrose bolus, 250 mL, PRN glucagon (rDNA), 1 mg, PRN dextrose, , Continuous PRN SUPPORT DEVICES: [x] Ventilator [] BIPAP [] Nasal Cannula [] Room Air VENT SETTINGS (Comprehensive) (if applicable): Vent Information Ventilator Day(s): 1 Ventilator ID: [id number] Ventilator Safety Check Performed Pre-Use: Yes Equipment Changed: HME Ventilator Initiate: Yes Vent Mode: AC/PRVC Additional Respiratory Assessments Pulse: 85 Respirations: 24 SpO2: 99 % End Tidal CO2: 31 (%) Position: Semi-Souza's Humidification Source: HME ABGs: Lab Results Component Value Date/Time FIO2 50.0 02/22/2023 05:22 AM DATA: Complete Blood Count: Recent Labs 02/21/23 1335 02/22/23 0322 WBC 19.2* 18.8* HGB 15.2 14.2 MCV 94.7 95.6 PLT 166 177 RBC 4.90 4.55 HCT 46.4 43.5 MCH 31.0 31.2 MCHC 32.8 32.6 RDW 13.2 12.8 MPV 9.1 9.6 PT/INR: Lab Results Component Value Date/Time PROTIME 13.1 02/21/2023 01:35 PM INR 1.0 02/21/2023 01:35 PM PTT: Lab Results Component Value Date/Time APTT 29.3 02/22/2023 05:26 AM Basal Metabolic Profile: Recent Labs 02/21/23 1331 02/21/23 1335 02/22/23 0322 NA -- 136 136 K -- 5.1 4.7 BUN -- 37* 28* CREATININE 2.1* 2.0* 1.0 CL -- 102 103 CO2 -- 17* 20 S. Calcium: Recent Labs 02/22/23 0322 CALCIUM 7.9* Urinalysis: Lab Results Component Value Date/Time NITRU NEGATIVE 02/21/2023 01:34 PM COLORU Yellow 02/21/2023 01:34 PM PHUR 5.5 02/21/2023 01:34 PM WBCUA 0 TO 2 02/21/2023 01:34 PM RBCUA 0 TO 2 02/21/2023 01:34 PM SPECGRAV 1.017 02/21/2023 01:34 PM LEUKOCYTESUR NEGATIVE 02/21/2023 01:34 PM UROBILINOGEN Normal 02/21/2023 01:34 PM BILIRUBINUR NEGATIVE 02/21/2023 01:34 PM GLUCOSEU NEGATIVE 02/21/2023 01:34 PM KETUA TRACE 02/21/2023 01:34 PM LFTS Recent Labs 02/22/23 0322 ALKPHOS 56 ALT 32 AST 70* BILITOT 0.6 LABALBU 3.8 AMYLASE/LIPASE/AMMONIA Recent Labs 02/21/23 1335 AMMONIA 28 Last 3 Blood Glucose: Recent Labs 02/21/23 1335 02/22/23 0322 GLUCOSE 105* 115* TSH: Lab Results Component Value Date/Time TSH 3.00 02/21/2023 01:35 PM ASSESSMENT: Principal Problem: Drug overdose of undetermined intent, initial encounter Resolved Problems: * No resolved hospital problems. * PLAN: Acute hypoxic respiratory failure requiring intubation on 02/21/2023 secondary to aspiration pneumonia. - Continue mechanical ventilation continue Zosyn and vancomycin. - - Respiratory culture growing gram-positive cocci in clusters, MRSA swab positive - continue vancomycin and zosyn 2. Acute metabolic encephalopathy likely secondary to drug overdose versus aspiration pneumonia. - Tolerating spontaneous breathing trial, plan for extubation 3. Acute kidney injury likely prerenal and mild rhabdomyolysis. - Resolved - Continue normal saline from 150 cc/h 4. Lactic acidosis - Resolved 5. H/o psychiatric disorder. - On home divalproex, fluoxetine, trazodone, olanzapine. Hold off on resuming these medications. Elida Light MD, M.D. Department of Internal Medicine/ Critical care [facility]) 02/22/2023, 8:23 AM Attending Physician Statement I have discussed the care of Aditya Richardson, including pertinent history and exam findings with the resident. I have reviewed the miller elements of all parts of the encounter with the resident. I have seen and examined the patient with the resident. I agree with the assessment and plan and status of the problem list as documented. I have seen the patient during the rounds this morning, chart reviewed, labs and medications reviewed overnight events noted. Patient has been sedated with propofol. He has been very restless when he is on the lower dose of propofol according to nursing staff when I saw him he was arousable but lethargic does follow command with all extremities. Cervical spine collar is in place. His PATRICIA is better creatinine is normalized to 1.0 CK is 3835 still elevated. Currently he is on heparin drip because of elevated troponins. Ventilator setting PRVC/24/600/8/50 percent ABG 7.4 /119/22. PO2 FiO2 ratio is improved currently he is on 30% FiO2. He is on CPAP/pressure support 5.6 maintaining good tidal volume. Will order chest x-ray for follow-up of bilateral airspace infiltrate and consolidation which was seen on initial chest x-ray secondary to aspiration Will discontinue propofol. We will extubate the patient. Once patient is extubated we will get more history and also recommend to call father to get more history. Apparently patient was on antipsychotic/antidepressant medication history is not completely clear will need more information. Trauma to clear the C-spine once patient is extubated. Strict aspiration precaution postextubation. We will discontinue vancomycin. Continue with Zosyn. Continue with aspirin and statin for now. Echocardiogram to follow. Discussed with nursing staff, treatment and plan discussed. Discussed with respiratory therapist. Total critical care time caring for this patient with life threatening, unstable organ failure, including direct patient contact, management of life support systems, review of data including imaging and labs, discussions with other team members and physicians at least 40 Min so far today, excluding procedures. Please note that this chart was generated using voice recognition iFormul[employer] dictation software. Although every effort was made to ensure the accuracy of this automated utility bagger, some errors in utility bagger may have occurred. Ole Barlow MD 02/22/2023 11:37 AM [facility] Pharmacokinetic Monitoring Service - Vancomycin Aditya Richardson is a 27 y.o. male starting on vancomycin therapy for aspiration pneumonia. Pharmacy consulted by Dr. Power Garrison for monitoring and adjustment. Target Concentration: Goal AUC/JANAE 400-600 mg*hr/L Additional Antimicrobials: piperacillin-tazobactam Pertinent Laboratory Values: Wt Readings from Last 1 Encounters: 02/21/23 230 lb (104.3 kg) Temp Readings from Last 1 Encounters: 02/21/23 99 F (37.2 C) (Axillary) Estimated Creatinine Clearance: 71 mL/min (A) (based on SCr of 2 mg/dL (H)). Recent Labs 02/21/23 1331 02/21/23 1335 CREATININE 2.1* 2.0* BUN -- 37* WBC -- 19.2* Procalcitonin: N/A Pertinent Cultures: Culture Date Source Results Feb 22 Blood No growth MRSA Nasal Swab: not ordered. Order placed by pharmacy. Plan: Dosing recommendations based on Bayesian software Start vancomycin 1750mg IV q24hr Anticipated AUC of 486 mg/L.hr and trough concentration of 14.1 mg/L at steady state Renal labs as indicated Pharmacy will continue to monitor patient and adjust therapy as indicated Thank you for the consult, Keisha Bee RPH 02/21/2023 5:41 PM Images from the original note were not included. [address] Flight Physician Pt Name: Aditya Richardson Birthdate: 1995 Date of evaluation: 02/21/23 PCP: No primary care provider on file. REASON FOR FLIGHT Patient was transported from [facility] to [facility] due to suspected overdose and intubation. Flight was indicated in order to reduce risk of morbidity/mortality. HISTORY OF PRESENT ILLNESS Aditya Richardson is a 27 y.o. male who was found unresponsive covered in his own vomit today on his boat. Last patient was seen was last night, there are concerns for overdose. Patient was given Narcan 2 mg IM and 2 mg IV with minimal response, per family members only drugs he had access to were dog seizure medication. Does have a history of IV drug use. PRE HOSPITAL MEDICATIONS Propofol gtt. 1 g calcium gluconate 10 units insulin D50 amp 100 mcg fentanyl PHYSICAL EXAM Physical Exam Constitutional: Comments: Intubated, sedated HENT: Mouth/Throat: Mouth: Mucous membranes are moist. Eyes: Pupils: Pupils are equal, round, and reactive to light. Neck: Comments: C-collar in place Cardiovascular: Rate and Rhythm: Tachycardia present. Pulses: Normal pulses. Heart sounds: Normal heart sounds. Pulmonary: Effort: Pulmonary effort is normal. Breath sounds: Normal breath sounds. Abdominal: Palpations: Abdomen is soft. Tenderness: There is no guarding. Skin: Capillary Refill: Capillary refill takes less than 2 seconds. Neurological: Comments: Sedated MDM 27-year-old male with history of IV drug use who was found unresponsive today, was unresponsive to Narcan. Was intubated prior to our arrival, on propofol. Laboratory work-up showed patient had a potassium of 6.6, was treated with calcium, insulin and dextrose. Patient switched over to our monitor ventilator, initially on APV CMV at a rate of 12, increased to 24 due to patient's tachypnea and likely acidosis from unknown downtime. With a volume of 570, PEEP of 5 and FiO2 of 50%. Once patient was loaded in the aircraft he began saturating in the low 90s, FiO2 was increased to 70% with minimal improvement and then increased to 100%. Patient once again appeared to be breathing over the vent, was given 50 mcg of fentanyl and his rate was decreased to 22. Saturation improved and was at 98%. Transfer patient was given another 50 mcg of fentanyl due to discomfort and need for increased sedation. Patient's vital signs remained stable till arrival at [facility] ER. PROCEDURES: None CRITICAL CARE: None Destination Patient arrived at the [facility] ER in stable condition no significant changes in flight, all questions receiving staff had were answered. Lennie Joyce MD [facility] Physician (Please note that portions of this note were completed with a voice recognition program. Efforts were made to edit the dictations but occasionally words are mis-transcribed.) documented in this encounter [facility] Evaluation note Note Date & Type Note Facility Evaluation note No assessment information [facility] Work Phone: Evaluation note Note Date & Type Note Facility Evaluation note Diagnosis Drug overdose of undetermined intent, initial encounter- Primary Toxic encephalopathy Aspiration pneumonitis (HCC) Pneumonitis due to inhalation of food or vomitus Acute renal failure, unspecified acute renal failure type (HCC) Elevated troponin Other abnormal blood chemistry Elevated troponin Other abnormal blood chemistry Toxic encephalopathy Aspiration pneumonitis (HCC) Pneumonitis due to inhalation of food or vomitus Acute respiratory failure with hypoxia (HCC) Acute respiratory failure Encephalopathy acute Encephalopathy, unspecified Acute renal failure (HCC) Acute kidney failure, unspecified Non-traumatic rhabdomyolysis Lactic acidosis Acidosis Loss of consciousness (HCC) Other alteration of consciousness Opiate use Opioid abuse, unspecified NSTEMI (non-ST elevated myocardial infarction) (HCC) Acute myocardial infarction, subendocardial infarction, episode of care unspecified SNHL (sensory-neural hearing loss), asymmetrical Sensorineural hearing loss, asymmetrical documented in this encounter [facility] Discharge instructions Note Date & Type Note Facility Hospital Discharge instructions Additional Instructions Follow up with [facility] tomorrow as scheduled. [facility] Work Phone: Summary Purpose Family History No Family History Records Found Relationship Condition Age at Onset Recorded Date/T fabiola Not Specified Diabetes mellitus Unknown Alcohol abuse Unknown Coronary artery disease Unknown Advance Directives No Advanced Directives Records Found Advance Directive Response Recorded Date/ Time Advance Directives No June 09, 2021 6:02pm Latest Code Status on File Code Status Date Activated Date Inactivated Comments Full Code 02/21/2023 4:43 PM Chief Complaint and Reason for Visit Chief Complaint [facility] Additional Source Comments (unrecognized sect ion and content) No Status Records FoundNo Status Records FoundNo Status Records FoundNo Status Records Found INFORMATION SOURCE (unrecogn ized section and content) DATE CREATED AUTHOR 06/17/2021 [facility] DATE CREATED AUTHOR AUTHOR'S ORGANIZ ATION 02/27/2023 [facility] DATE CREATED AUTHOR AUTHOR'S ORGANIZ ATION 07/10/2023 [facility] DATE CREATED AUTHOR AUTHOR'S ORGANIZ ATION 09/04/2023 [facility] Care Teams (unrecognized sec tion and content) Team Status: Active Member Role Status Dates PHYSICIAN NO FAMILY Primary Care Provider Active Team Status: Inactive Member Role Status Dates PHYSICIAN NO FAMILY Primary Care Provider Active Tahir Connell PA-C Emergency Provider Active Goals (unrecognized section and content) Goals may be documented in a n alternate section Reason for Visit (unrecogniz ed section and content) Reason Comments Drug Overdose Ordered Prescriptions (unrec ognized section and content) Prescription Sig Dispensed Refills Start Date End Da te doxycycline hyclate (VIBRA-TABS) 100 MG tablet Take 1 tablet by mouth every 12 hours for 10 doses 10 tablet 0 02/25/2023 03/02/2023 nicotine (NICODERM CQ) 21 MG/24HR Place 1 patch onto the skin daily 30 patch 3 02/26/2023 Scheduled Active and Recently Administ ered Medications (unrecognized section and content) Medication Order 02/23/2023 02/24/2023 02/25/2023 aspirin chewable tablet 81 mg 81 mg, Oral, DAILY, First dose on 02/22/23 at 0900, Until Discontinued 0822 (Given - Provider: Jose Mayer RN) 0846 (Given - Provider: Alexandra Antunez RN) 0954 (Given - Provider: Alexandra Antunez RN) atorvastatin (LIPITOR) tablet 10 mg 10 mg, Oral, NIGHTLY, First dose on Thu02/22/23 at 2100, Until Discontinued 2040 (Given - Provider: Argenis Banks RN) 2208 (Given - Provider: Josette Fontaine RN) 2099 (Due) divalproex (DEPAKOTE SPRINKLE) DR capsule 250 mg 250 mg, Oral, 2 times daily, First dose on Thu02/23/23 at 2100, Until Discontinued 2040 (Given - Provider: Argenis Banks RN) 0846 (Given - Provider: Alexandra Antunez RN)2208 (Given - Provider: Josette Fontaine RN) 0953 (Given - Provider: Alexandra Antunez RN)2099 (Due) doxycycline hyclate (VIBRA-TABS) tablet 100 mg 100 mg, Oral, EVERY 12 HOURS SCHEDULED (2 times per day), 14 doses, First dose on Thu02/23/23 at 2100, Last dose on Thu03/02/23 at 0900, Antimicrobial Indications: Aspiration Pneumonia, This medication can interact with tube feedings (TF)- obtain MD order to manage. Recommend holding TF for 1 h before and 2 h after dose. Take 1 h before or 2 h after dairy, calcium, iron, magnesium, aluminum or zinc. 2040 (Given - Provider: Argenis Banks RN) 08 (Given - Provider: Alexandra Antunez RN)2208 (Given - Provider: Josette Fontaine RN) 0954 (Given - Provider: Alexandra Antunez RN)2099 (Due) FLUoxetine (PROZAC) capsule 10 mg 10 mg, Oral, DAILY, First dose on Thu02/24/23 at 0900, Until Discontinued 08 (Given - Provider: Alexandra Antunez RN) 0953 (Given - Provider: Alexandra Antunez RN) guaiFENesin (MUCINEX) extended release tablet 600 mg 600 mg, Oral, 2 TIMES DAILY, First dose on Thu02/24/23 at 1330, Until Discontinued, Do not crush or break. 133 (Given - Provider: Alexandra Antunez RN)2208 (Given - Provider: Josette Fontaine RN) 0954 (Given - Provider: Alexandra Antunez, NAEEM)2100 (Due) nicotine (NICODERM CQ) 21 MG/24HR 1 patch 1 patch, TransDERmal, Administer over 24 Hours, DAILY, First dose on Thu02/23/23 at 1645, Apply new patch to nonhairy, clean, dry skin on the upper body or upper outer arm. Rotate patch sites. Notify pharmacy if patient or provider prefers patch to be removed at bedtime and replaced in the morning. Hazardous Medication -- Refer to facility policy for handling and disposal. 181 (Patch Applied - Provider: Jose Mayer RN) 0846 (Patch Applied - Provider: Alexandra Antunez RN) 0954 (Patch Removed - Provider: Alexandra Antunez RN)0957 (Patch Applied - Provider: Alexandra Antunez RN) OLANZapine (ZYPREXA) tablet 10 mg 10 mg, Oral, NIGHTLY, First dose on Thu02/23/23 at 2100, Until Discontinued 2040 (Given - Provider: Argenis Banks RN) 2208 (Given - Provider: Josette Fontaine RN) 2100 (Due) piperacillin-tazobactam (ZOSYN) 3,375 mg in sodium chloride 0.9 % 50 mL IVPB (mini-bag) (CANCELED) 3,375 mg, IntraVENous, EVERY 8 HOURS, First dose (after last reorder) on Thu02/21/23 at 2030, Until Discontinued, Antimicrobial Indications: Sepsis of Unknown Etiology, Aspiration Pneumonia, Sepsis duration of therapy: Other 0036 (Stopped - Provider: Argenis Banks RN)0505 (New Bag - Provider: Argenis Banks RN)0551 (Rate/Dose Verify - Provider: Argenis Banks RN)0613 (Rate/Dose Verify - Provider: Argenis Banks RN)0641 (Rate/Dose Verify - Provider: Argenis Banks RN)0700 (Rate/Dose Verify - Provider: Argenis Banks RN)0905 (Stopped - Provider: Jose Mayer RN)1616 (New Bag - Provider: Jose Mayer RN - Comment: numerous ATBS)1834 (Rate/Dose Verify - Provider: Jose Mayer RN)2012 (Stopped - Provider: Argenis Banks RN)2015 (Stopped - Provider: Argenis Banks RN) potassium bicarb-citric acid (EFFER-K) effervescent tablet 20 mEq (COMPLETED) 20 mEq, Oral, ONCE, 1 dose, On 02/23/23 at 0700, Do not chew or crush. Dissolve flavored tablets completely in 3 to 4 ounces of cold water; unflavored tablets may be dissolved in 3 to 4 ounces of cold juice. Patient to sip slowly over a 5 to 10 minute period. May further dilute if GI adverse effects occur. 0637 (Given - Provider: Argenis Banks RN) sodium chloride flush 0.9 % injection 5-40 mL 5-40 mL, IntraVENous, EVERY 12 HOURS SCHEDULED (2 times per day), First dose on 02/21/23 at 2100, Until Discontinued, For Line Patency: Peripheral IV = 5 mL; Midline or Central Line = 10 mL/lumen. If following IV push medication, administer flush at same rate as the IV push. Flush volume is determined by type of infusion therapy being given. For non-viscous solutions use: Peripheral IV = 5 mL Midline or Central Line = 10 mL/lumen For viscous solutions (i.e. blood components, parenteral nutrition, contrast media, or after obtaining blood sample) use: Peripheral IV = 10 mL Midline or Central Line = 20 mL/lumen 0821 (Given - Provider: Jose Mayer RN)204 (Given - Provider: Argenis Banks RN) 0953 (Not Given - Provider: Alexandra Antunez, NAEEM - Reason: IV Fluid Infusing)220 (Given - Provider: Josette Fontaine RN) 0955 (Not Given - Provider: Alexandra Antunez RN - Reason: IV Fluid Infusing)2100 (Due) vancomycin (VANCOCIN) 1,250 mg in sodium chloride 0.9 % 250 mL IVPB ([id number]) (CANCELED) 1,250 mg (12 mg/kg), IntraVENous, at 166.7 mL/hr, Administer over 90 Minutes, EVERY 12 HOURS, First dose (after last reorder) on 02/22/23 at 0930, Max Dose 2500mg Use 20mm [id number] adapter. Preparation Instructions: Attach medication vial to one 20mm [id number] adapter. Ruben fluid bag with adaptor, mix, and administer per order. 1247 (New Bag - Provider: Jose Mayer RN - Comment: new admission)1417 (Stopped - Provider: Jose Mayer RN) Continuous Medication Order 02/23/2023 02/24/2023 02/25/2023 0.9 % sodium chloride infusion (CANCELED) IntraVENous, at 75 mL/hr, CONTINUOUS, Starting on 02/21/23 at 1645 0551 (Rate/Dose Verify - Provider: Argenis Banks RN)0613 (Rate/Dose Verify - Provider: Argenis Banks RN)0634 (New Bag - Provider: Argenis Banks RN)0641 (Rate/Dose Verify - Provider: Argenis Banks RN)0700 (Rate/Dose Verify - Provider: Argenis Banks RN)1612 (Stopped - Provider: Jose Mayer RN) 0.9 % sodium chloride infusion IntraVENous, at 100 mL/hr, CONTINUOUS, Starting on 02/24/23 at 1545, For 10 hours 1646 (New Bag - Provider: Alexandra Antunez RN) heparin 25,000 units in dextrose 5% 250 mL (premix) infusion (CANCELED) 5-30 Units/kg/hr 97.6 kg (4.88-29.28 mL/hr, rounded to 4.9-29.3 mL/hr), IntraVENous, CONTINUOUS, Starting on 02/22/23 at 0515, Until 02/23/23 at 1627, Heparin Weight-Based Infusion (CAD/STEMI/NSTEMI/UA/Afib) Patient weight: 97.6 kg Initial Infusion rate: 10 Units/kg/hr [Dose adjusted to reflect maximum initial infusion rate of 1000 Units/hr] (If an initial bolus is ordered, give the bolus prior to the initiation of the infusion) Adjust infusion rate based on Anti-Xa results as listed below. Rate adjustments are to be based on initial weight of 97.6 kg. Anti-Xa < 0.1 units/mL Heparin 60 units/kg bolus (Max=4,000 units), then increase infusion by 4 units/kg/hr. Anti-Xa 0.1-0.29 units/mL Heparin 30 units/kg bolus (Max=2,000 units), then increase infusion by 2 units/kg/hr. Anti-Xa 0.3-0.7 units/mL No bolus. No change in rate. Anti-Xa 0.71-0.8 units/mL No bolus. Decrease infusion by 1 units/kg/hr. Anti-Xa 0.81-0.99 units/mL No bolus. Decrease infusion by 2 units/kg/hr. Anti-Xa 1 units/mL or greater Hold heparin for 60 minutes, then decrease infusion by 3 units/kg/hr. Check Anti-Xa 6 hours after initiation and 6 hours after every dose change. When Anti-Xa is within target range for two consecutive times, check Anti-Xa once daily with morning labs. If the rate titration adjustment indicated by the nomogram causes a dose that is above the ordered range contact provider. If heparin drip is held or stopped for a procedure, call provider to obtain resume rate. 0550 (Rate/Dose Change - Provider: Argenis Banks RN)0551 (Rate/Dose Verify - Provider: Argenis Banks RN)0613 (Rate/Dose Verify - Provider: Argenis Banks RN)0641 (Rate/Dose Verify - Provider: Argenis Banks RN)0700 (Rate/Dose Verify - Provider: Argenis Banks RN)0711 (Handoff - Provider: Argenis Banks RN)1118 (Rate/Dose Verify - Provider: Jose Mayer RN)1627 (Stopped - Provider: Jose Mayer RN) PRN Medication Order 02/23/2023 02/24/2023 02/25/2023 0.9 % sodium chloride infusion IntraVENous, at 5-250 mL/hr, PRN, if patient receiving piggyback infusions and maintenance fluids are not ordered OR KVO fluids to protect IV site / prevent frequent line interruptions/ long duration, Starting on 02/21/23 at 1643, For piggyback infusion, administer at same rate as piggyback for a total of 25 mL. Enter 25 mL into dose field and piggyback rate into rate field of order. If piggyback is infusing at a rate less than 100 mL/hr, enter 25 mL into dose field and 100 mL/hr into rate field of order. For KVO fluids, enter rate of 20 mL/hr or less into rate field of order. 0505 (Stopped - Provider: Argenis Banks RN)1613 (Rate/Dose Change - Provider: Jose Mayer, RN)1626 (Rate/Dose Change - Provider: Jose Mayer, RN)1834 (Rate/Dose Verify - Provider: Jose Mayer, RN)2038 (Stopped - Provider: Argenis Banks RN) acetaminophen (TYLENOL) suppository 650 mg(Linked Group 1) 650 mg, Rectal, EVERY 6 HOURS PRN, Starting on 02/21/23 at 1643, Until Discontinued, Pain Mild (1-3), Fever, For temp greater than 100.4 F (38 C), Administer if oral route cannot be used. acetaminophen (TYLENOL) tablet 650 mg(Linked Group 1) 650 mg, Oral, EVERY 6 HOURS PRN, Starting on 02/21/23 at 1643, Until Discontinued, Pain Mild (1-3), Fever, For temp greater than 100.4 F (38 C), Maximum dose of acetaminophen is 4000 mg from all sources in 24 hours. dextrose 10 % infusion IntraVENous, at 100 mL/hr, CONTINUOUS PRN, if blood glucose remains LESS THAN 70 mg/dL after 2 dextrose 10% intravenous boluses or administration of glucagon, Starting on 02/21/23 at 1647, If blood glucose fails to stabilize after 2 dextrose 10% intravenous boluses or glucagon administration, start dextrose 10% infusion at 100 mL/hour and repeat blood glucose at 30 and 60 minutes. If blood glucose is GREATER THAN 70 mg/dL after 60 minutes, discontinue dextrose 10% infusion. dextrose bolus 10% 125 mL(Linked Group 2) 125 mL, IntraVENous, at 937.5 mL/hr, Administer over 8 Minutes, PRN, Other, Blood glucose 40 - 69 mg/dL and patient NOT ALERT or NPO, Starting on 02/21/23 at 1647, Repeat blood glucose in 15 minutes. If blood glucose remains LESS THAN 70 mg/dL, repeat treatment and recheck blood glucose in 15 minutes x 2. If using glycemic management system, dose as instructed per system. If blood glucose remains LESS THAN 70 mg/dL after 2 intravenous boluses start dextrose 10% at 100 mL/hour and notify provider. dextrose bolus 10% 250 mL(Linked Group 2) 250 mL, IntraVENous, at 937.5 mL/hr, Administer over 16 Minutes, PRN, Other, Blood glucose LESS THAN 40 mg/dL and patient NOT ALERT or NPO, Starting on 02/21/23 at 1647, Repeat blood glucose in 15 minutes. If blood glucose remains LESS THAN 70 mg/dL, repeat treatment and recheck blood glucose in 15 minutes x 2. If using glycemic management system, dose as instructed per system. If blood glucose remains LESS THAN 70 mg/dL after 2 intravenous boluses start dextrose 10% at 100 mL/hour and notify provider. fentaNYL (SUBLIMAZE) injection 50 mcg 50 mcg, IntraVENous, EVERY 2 HOURS PRN, Starting on 02/22/23 at 0442, Until Discontinued, Pain Mild (1-3), Agitation, If oral and IV narcotics ordered, use oral first and only use IV if oral is ineffective or cannot take oral. Do Not give oral and IV within 1 hour of each other unless specifically ordered. glucagon (rDNA) injection 1 mg 1 mg, SubCUTAneous, PRN, Starting on 02/21/23 at 1647, Until Discontinued, Low blood sugar, Blood glucose LESS THAN 70 mg/dL and patient NOT ALERT or NPO and does not have IV access., After administration, attempt intravenous access and start dextrose 10% at 100 mL/hr. Repeat blood glucose in 15 minutes x 2 and notify provider. glucose chewable tablet 16 g 16 g (4 tablet), Oral, PRN, Starting on 02/21/23 at 1647, Until Discontinued, Low blood sugar, If blood glucose is LESS THAN 70 mg/dL and patient is alert and tolerating oral. Give 4 tablets (16g) Repeat blood glucose in 15 minutes. If blood glucose is LESS THAN 70 mg/dL, repeat treatment and recheck blood glucose in 15 minutes x 2. If blood glucose remains LESS THAN 70 mg/dL, notify provider. heparin (porcine) injection 2,000 Units (CANCELED) 2,000 Units, IntraVENous, PRN, Starting on 02/22/23 at 0442, Until 02/23/23 at 1627, Other, heparin dosing algorithm, Half dose re-bolus based on pharmacy algorithm 0550 (Given - Provider: Argenis Banks RN) ipratropium 0.5 mg-albuterol 2.5 mg (DUONEB) nebulizer solution 1 Dose 1 Dose, Inhalation, EVERY 4 HOURS PRN, Starting on 02/22/23 at 0930, Until Discontinued, Shortness of Breath, Initiate RT Bronchodilator Protocol: Yes - Inpatient Protocol ondansetron (ZOFRAN) injection 4 mg(Linked Group 3) 4 mg, IntraVENous, EVERY 6 HOURS PRN, Starting on 02/21/23 at 1643, Until Discontinued, Nausea, Vomiting, Administer if oral route cannot be used. ondansetron (ZOFRAN-ODT) disintegrating tablet 4 mg(Linked Group 3) 4 mg, Oral, EVERY 8 HOURS PRN, Starting on 02/21/23 at 1643, Until Discontinued, Nausea, Vomiting polyethylene glycol (GLYCOLAX) packet 17 g 17 g, Oral, DAILY PRN, Starting on 02/21/23 at 1643, Until Discontinued, Constipation, First line therapy for constipation sodium chloride flush 0.9 % injection 5-40 mL 5-40 mL, IntraVENous, PRN, Starting on 02/21/23 at 1643, Until Discontinued, Line Care, After every IV line use, For Line Patency: Peripheral IV = 5 mL; Midline or Central Line = 10 mL/lumen. If following IV push medication, administer flush at same rate as the IV push. Flush volume is determined by type of infusion therapy being given. For non-viscous solutions use: Peripheral IV = 5 mL Midline or Central Line = 10 mL/lumen For viscous solutions (i.e. blood components, parenteral nutrition, contrast media, or after obtaining blood sample) use: Peripheral IV = 10 mL Midline or Central Line = 20 mL/lumen Linked Groups Order Group 1: acetaminophen (TYLENOL) tablet 650 mgJump to med 650 mg, Oral, EVERY 6 HOURS PRN, Starting on 02/21/23 at 1643, Until Discontinued, Pain Mild (1-3), Fever, For temp greater than 100.4 F (38 C)
Maximum dose of acetaminophen is 4000 mg from all sources in 24 hours.
Or acetaminophen (TYLENOL) suppository 650 mgJump to med 650 mg, Rectal, EVERY 6 HOURS PRN, Starting on 02/21/23 at 1643, Until Discontinued, Pain Mild (1-3), Fever, For temp greater than 100.4 F (38 C)
Administer if oral route cannot be used.
Group 2: dextrose bolus 10% 125 mLJump to med 125 mL, IntraVENous, at 937.5 mL/hr, Administer over 8 Minutes, PRN, Other, Blood glucose 40 - 69 mg/dL and patient NOT ALERT or NPO, Starting on 02/21/23 at 1647
Repeat blood glucose in 15 minutes. If blood glucose remains LESS THAN 70 mg/dL, repeat treatment and recheck blood glucose in 15 minutes x 2. If using glycemic management system, dose as instructed per system. If blood glucose remains LESS THAN 70 mg/dL after 2 intravenous boluses start dextrose 10% at 100 mL/hour and notify provider.
Or dextrose bolus 10% 250 mLJump to med 250 mL, IntraVENous, at 937.5 mL/hr, Administer over 16 Minutes, PRN, Other, Blood glucose LESS THAN 40 mg/dL and patient NOT ALERT or NPO, Starting on 02/21/23 at 1647
Repeat blood glucose in 15 minutes. If blood glucose remains LESS THAN 70 mg/dL, repeat treatment and recheck blood glucose in 15 minutes x 2. If using glycemic management system, dose as instructed per system. If blood glucose remains LESS THAN 70 mg/dL after 2 intravenous boluses start dextrose 10% at 100 mL/hour and notify provider.
Group 3: ondansetron (ZOFRAN-ODT) disintegrating tablet 4 mgJump to med 4 mg, Oral, EVERY 8 HOURS PRN, Starting on 02/21/23 at 1643, Until Discontinued, Nausea, Vomiting Or ondansetron (ZOFRAN) injection 4 mgJump to med 4 mg, IntraVENous, EVERY 6 HOURS PRN, Starting on 02/21/23 at 1643, Until Discontinued, Nausea, Vomiting
Administer if oral route cannot be used.
FOR RECORDS PERTAINING TO PATIENTS WHO ARE OR HAVE BEEN ENROLLED IN A CHEMICAL DEPENDENCY/SUBSTANCEABUSE PROGRAM, SOME INFORMATION MAY BE OMITTED. This clinical summary was aggregated from multiple sources. Caution should be exercised in using it in the provision of clinical care. This summary normalizes information from multiple sources, and as a consequence, information in this document may materially change the coding, format and clinical context of patient data. In addition, data may be omitted in some cases. CLINICAL DECISIONS SHOULD BE BASED ON THE PRIMARY CLINICAL RECORDS. Poll Everywhere [facility]. provides no warranty or guarantee of the accuracy or completeness of information in this document.
[2023-10-28 22:36] VITALS: BP 131/82; PULSE 100; TEMP 36.7; O2SAT 97; BMI 23.1
--- NOTE | 2023-10-28 22:48 | ECG_ITS ---
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
--- NOTE | 2023-10-28 22:49 | ED_ITS ---
HPI - Psych General Chief Complaint: Psychiatric Symptoms Stated Complaint: Altered Mental Status Time Seen by Provider: 10/28/23 22:41 Source: Reports patient Mode of arrival: walk-in History of Present Illness HPI Narrative: This 27-year-old male with a history of schizophrenia presents for evaluation of racing thoughts or thoughts of harming himself. The patient states he has been off of his medications including Zyprexa, Abilify Depakote and occasionally Ativan for approximately 1 month. He admits that he sometimes self medicates with alcohol and was drinking alcohol yesterday. He does have a history of abusing amphetamines but denies that he has been using any meth or other stimulants recently. He denies any suicidal ideation. He is here with a female friend. Related Data Home Medications ?Medication ?Instructions ?Recorded ?Confirmed divalproex 250 mg tablet,extended 250 mg PO DAILY 06/19/23 10/29/23 release 24 hr fluoxetine 10 mg capsule 10 mg PO DAILY 06/19/23 10/29/23 olanzapine 5 mg tablet 10 mg PO DAILY 06/19/23 10/29/23 trazodone 50 mg tablet 100 mg PO BEDTIME 06/19/23 10/29/23 Allergies Allergy/AdvReac Type Severity Reaction Status Date / Time No Known Drug Allergies Allergy Verified 07/23/23 13:31 Review of Systems ROS Status of ROS 10 or more systems reviewed and unremark able except as noted in history and below [facility] Social History Smoking status: Former smoker Exam Narrative Exam Narrative: Vital signs and Nursing Notes reviewed: Patient is afebrile, he is mildly tachycardic with a pulse of 100, blood pressure is mildly elevated at 131/82, he is not hypoxic with pulse ox of 98% on room air General: Anxious, alert, tearful at times, no respiratory distress HEENT: Normocephalic atraumatic, mucous membranes are moist and pink, eyes are clear, normal conjunctiva, vision is grossly intact Neck: Supple, no meningeal signs, no anterior or posterior cervical lymphadenopathy Chest: Lungs are clear to auscultation with good air entry, there is no wheezing rhonchi or rales appreciated no accessory muscle use, patient is speaking in complete sentences-no chest wall tenderness to palpation CVS: Regular rate and rhythm S1-S2, no murmurs rubs or gallops, pulses are brisk and equal bilaterally ABD: Soft, nondistended, nontender, no rebound guarding or rigidity, bowel sounds are normal, no pulsatile masses appreciated Extremities: Moving all extremities, no lower extremity tenderness or swelling noted, negative Homans' sign, pulses are brisk and equal bilaterally Skin: Normal in appearance without rash,pallor, petechiae or purpura Neuro: No focal deficits Psych: Admits to ongoing racing thoughts with the voices telling him that he is a terrible person, denies suicidal or homicidal ideation Constitutional Vital Signs, click to edit/add: Last Vital Signs Temp 98.0 F 10/28/23 22:36 Pulse 100 H 10/28/23 22:36 Resp 18 10/28/23 22:36 BP 131/82 10/28/23 22:36 Pulse Ox 97 10/28/23 22:36 O2 Del Method Room Air 10/28/23 22:36 Course Vital Signs Vital signs: Vital Signs Temperature 98.0 F 10/28/23 22:36 Pulse Rate 100 H 10/28/23 22:36 Respiratory Rate 18 10/28/23 22:36 Blood Pressure 131/82 10/28/23 22:36 Pulse Oximetry 97 10/28/23 22:36 Oxygen Delivery Method Room Air 10/28/23 22:36 Temperature 98.0 F 10/28/23 22:36 Pulse Rate 100 H 10/28/23 22:36 Respiratory Rate 18 10/28/23 22:36 Blood Pressure 131/82 10/28/23 22:36 Pulse Oximetry 97 10/28/23 22:36 Oxygen Delivery Method Room Air 10/28/23 22:36 MDM - Psych MDM Narrative Medical decision making narrative: This 27-year-old male with a history of schizophrenia presents for evaluation of paranoia with auditory hallucinations stating to him that he should hurt himself. He was brought to the emergency department by a friend. Additional history was obtained from the friend's mother who picked her up from work. The patient went to visit his friend at his job and told her that he had lost his job and was having financial issues. She was unable to leave her job at that [employer] but asked him to wait for her and she would help him after she got off work. 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 He then explained to her that he had lost his job and was having hallucinations/voices. He was brought to the emergency department by her at that time. He admits that he has not been on his medications for the past month which include Zyprexa, Depakote and Ablify. He admits that he was drinking yesterday but denies any drug use. Medical clearance workup was started. He has a normal EKG. His urine tox is positive for marijuana and otherwise normal. He has a normal white count and hemoglobin. Comprehensive metabolic profile is normal. Alcohol is negative. Valproic acid is less than 3 in keeping with his recent medication noncompliance. He was personally evaluated by [facility] in the ED with recomendation for admission to . He is accepted by Dr Romo. Lab Data Labs: Lab Results 10/28/23 10/28/23 Range/Units 23:01 23:06 WBC 8.2 (4.0-11.0) 10^3/uL RBC 4.99 (4.70-6.10) 10^6/uL Hgb 14.9 (14.0-18.0) g/dL Hct 43.1 (42.0-54.0) % MCV 86.4 (80.0-94.0) fL MCH 29.9 (25.9-34.0) pg MCHC 34.6 (29.9-35.2) g/dL RDW 12.4 (11.0-15.0) % Plt Count 214 (150-450) 10^3/uL MPV 9.4 L (9.5-13.5) fL Neut % (Auto) 62.6 (43.0-75.0) % Lymph % (Auto) 27.9 (20.5-60.0) % Mchenry % (Auto) 8.0 (1.7-12.0) % Eos % (Auto) 1.1 (0.9-7.0) % Baso % (Auto) 0.2 (0.2-2.0) % Neut # (Auto) 5.1 (1.4-6.5) 10^3/uL Lymph # (Auto) 2.3 (1.2-3.8) 10^3/uL Mchenry # (Auto) 0.7 (0.3-0.8) 10^3/uL Eos # (Auto) 0.1 (0.0-0.7) 10^3/uL Baso # (Auto) 0.0 (0.0-0.1) 10^3/uL Abs Immat Gran (auto) 0.02 (0.00-0.03) 10^3/uL Imm/Tot Granulo (auto) 0.2 (0.0-0.5) % Sodium 140 (136-145) mmol/L Potassium 3.4 L (3.5-5.1) mmol/L Chloride 104 (98-107) mmol/L Carbon Dioxide 27.9 (21.0-32.0) mmol/L Anion Gap 11.5 BUN 14.0 (7.0-18.0) mg/dL Creatinine 1.04 (0.70-1.30) mg/dL Est GFR ( Amer) >60 (>=60) Est GFR (Non-Af Amer) >60 (>=60) BUN/Creatinine Ratio 13.5 Glucose 120 H (74-106) mg/dL Calcium 9.5 (8.5-10.1) mg/dL Total Bilirubin 1.6 H (0.2-1.0) mg/dL AST 15 (15-37) U/L ALT 19 (16-63) U/L Alkaline Phosphatase 57 (46-116) U/L Total Protein 7.6 (6.4-8.2) g/dL Albumin 4.7 (3.4-5.0) g/dL Globulin 2.9 g/dL Albumin/Globulin Ratio 1.6 Urine Opiates Screen Negative (NEGATIVE) Ur Buprenorphine Scrn Negative (NEGATIVE) Ur Oxycodone Screen Negative (NEGATIVE) Urine Methadone Screen Negative (NEGATIVE) Ur Barbiturates Screen Negative (NEGATIVE) Valproic Acid <3.0 L (50.0-100.0) ug/mL U Tricyclic Antidepress Negative (NEGATIVE) Ur Phencyclidine Scrn Negative (NEGATIVE) Ur Amphetamines Screen Negative (NEGATIVE) U Methamphetamines Scrn Negative (NEGATIVE) U Benzodiazepines Scrn Negative (NEGATIVE) Urine Cocaine Screen Negative (NEGATIVE) U Cannabinoids Screen Positive A (NEGATIVE) Ethanol Quant <3 mg/dL ECG Data Attestation: I personally reviewed and interpreted this ECG as follows: (Normal sinus rhythm 83 bpm, normal axis, normal intervals, no acute ST segment elevation or T wave inversion) Discharge Plan Discharge Chief Complaint: Psychiatric Symptoms Clinical Impression: Chronic schizophrenia, Noncompliance with medication regimen Patient Disposition: [facility] Time of Disposition Decision: 02:14 Discharge Location: [facility] Condition: Good Mode of Transportation: Mental Health Car Prescriptions / Home Meds: No Action trazodone 50 mg tablet 100 mg PO BEDTIME olanzapine 5 mg tablet 10 mg PO DAILY fluoxetine 10 mg capsule 10 mg PO DAILY divalproex 250 mg tablet extended release 24 hr 250 mg PO DAILY Print Language: Greenlandic Referrals: Physician,Non-Staff, MD [Primary Care Provider] - 1 week
[2023-10-28 23:13] LABS: Basophils Percent Auto 0.2 % (0.2-2.0); Eosinophils Absolute Auto 0.1 10^3/uL (0.0-0.7); Eosinophils Percent Auto 1.1 % (0.9-7.0); Hematocrit 43.1 % (42.0-54.0); Hemoglobin 14.9 g/dL (14.0-18.0); Immature Granulocytes Abs Auto 0.02 10^3/uL (0.00-0.03); Immature Granulocytes Pct Auto 0.2 % (0.0-0.5); Lymphocytes Absolute Auto 2.3 10^3/uL (1.2-3.8); Lymphocytes Percent Auto 27.9 % (20.5-60.0); Mean Corpuscular HGB Conc 34.6 g/dL (29.9-35.2); Mean Corpuscular Hemoglobin 29.9 pg (25.9-34.0); Mean Corpuscular Volume 86.4 fL (80.0-94.0); Mean Platelet Volume 9.4 fL (9.5-13.5); Monocytes Absolute Auto 0.7 10^3/uL (0.3-0.8); Neutrophils Absolute Auto 5.1 10^3/uL (1.4-6.5); Neutrophils Percent Auto 62.6 % (43.0-75.0); Platelet Count 214 10^3/uL (150-450); Red Blood Count 4.99 10^6/uL (4.70-6.10); Red Cell Distribution Width 12.4 % (11.0-15.0); White Blood Count 8.2 10^3/uL (4.0-11.0)
[2023-10-28 23:22] LABS: Amphetamine Screen Urine NEGATIVE (NEGATIVE); Barbiturates Screen Urine NEGATIVE (NEGATIVE); Benzodiazepines Screen Urine NEGATIVE (NEGATIVE); Buprenorphine Screen Urine NEGATIVE (NEGATIVE); Cannabinoid Screen Urine POSITIVE (NEGATIVE); Cocaine Screen Urine NEGATIVE (NEGATIVE); Methadone Screen Urine NEGATIVE (NEGATIVE); Methamphetamines Screen Urine NEGATIVE (NEGATIVE); Opiate Screen Urine NEGATIVE (NEGATIVE); Oxycodone Screen Urine NEGATIVE (NEGATIVE); Phencyclidine Screen Urine NEGATIVE (NEGATIVE); Tricyclic Antidepressant Urine NEGATIVE (NEGATIVE)
[2023-10-28 23:29] LABS: Alanine Aminotransferase 19 U/L (16-63); Albumin Globulin Ratio 1.6; Albumin Level 4.7 g/dL (3.4-5.0); Alkaline Phosphatase 57 U/L (46-116); Anion Gap 11.5; Aspartate Amino Transferase 15 U/L (15-37); BUN Creatinine Ratio 13.5; Bilirubin Total 1.6 mg/dL (0.2-1.0); Calcium 9.5 mg/dL (8.5-10.1); Carbon Dioxide 27.9 mmol/L (21.0-32.0); Chloride 104 mmol/L (98-107); Estimated GFR (African America >60 (>=60); Estimated GFR (Non-African Ame >60 (>=60); Globulin 2.9 g/dL; Glucose 120 mg/dL (74-106); Potassium 3.4 mmol/L (3.5-5.1); Sodium 140 mmol/L (136-145); Total Protein 7.6 g/dL (6.4-8.2)
[2023-10-28 23:31] LABS: Ethanol <3 mg/dL; Valproic Acid <3.0 ug/mL (50.0-100.0)
[2023-10-28] MEDS: OLANZapine 5 MG TABLET 10 MG PO (23:44)
[2023-10-28 23:50] VITALS: PULSE 83
[2023-10-29 02:20] VITALS: BP 117/76; PULSE 87; TEMP 36.4; O2SAT 97
== END 2023-10-29 02:35 ==
PROVIDERS: Emergency Provider Emergency Medicine
DX: F20.9 Schizophrenia, unspecified (principal); F15.11 Other stimulant abuse, in remission; Z87.891 Personal history of nicotine dependence; R44.0 Auditory hallucinations; Z59.89 Other problems related to housing and economic circumstances; Z91.148 Patient's other noncompliance with medication regimen for other reason
CPT/HCPCS: 36415; 80053; 80164; 80307; 80320; 85025; 93005; 99285